=== PATIENT | female | born 1950 | race Caucasian/White ===

== ENCOUNTER 2018-01-04 09:49 | Inpatient (IN) | payer OTHER, MEDICARE ==
[2018-01-04] VITALS (7 sets, daily range): BP systolic 75–142; BP diastolic 44–73; PULSE 78–98; RESP 17–20; TEMP 97.6–97.8; O2SAT 90–99
[~2018-01-04] VITALS: Ht 165.1 cm; Wt 113.5 kg
[~2018-01-04 09:49] MED LIST: DILT60TA PO; FLUO20SO3 PO; LANTUS2P SC; LISI-360 PO; METO50TA PO; NOVOLOGSS SQ; RIVA20 PO
--- NOTE | 2018-01-04 10:52 | PD ---
HPI Chief Complaint: Fall Time Seen by Provider: 10:48 Travel History International Travel<30 days: No Contact w/Intl Traveler<30days: No Traveled to known affect area: No History of Present Illness HPI 67-year-old female came to the emergency room with history of a trip and fall [facility]. She landed on her left knee and also smacked her head. There was bleeding from her forehead. He called EMS since patient was having hard time standing up and bearing weight on her left leg because of knee pain. Patient denies losing consciousness. She is on Xarelto. Currently she is awake and answering questions appropriately. Her main pain is in her left knee. She had a knee replacement surgery done about 12 years ago on that knee. [facility] Past Medical History Narrative Medical List of her past medical, surgical, social and family history is reviewed from the nursing note. Hx Anticoagulant Therapy: Yes Arthritis: Yes Asthma: No Atrial Fibrillation: Yes Blood Disorders: Yes Anxiety: No Depression: Yes Heart Rhythm Problems: Yes Cancer: Yes (breast) Cardiovascular Problems: Yes High Cholesterol: Yes Chemotherapy: Yes Chest Pain: Yes (CHEST PRESSURE) Congestive Heart Failure: No COPD: Yes Cerebrovascular Accident: No Diabetes: Yes Patient Takes Glucophage: No Diminished Hearing: No Endocrine: Yes GERD: No Genitourinary: No Hiatal Hernia: No Hypertension: Yes Immune Disorder: No Implanted Vascular Access Dvce: Yes Kidney Stones: No Musculoskeletal: Yes Neurologic: No Psychiatric: Yes Reproductive: No Respiratory: Yes Migraines: No Radiation Therapy: Yes Renal Failure: No Seizures: No Sleep Apnea: No Ulcer: No Tetanus Vaccination: Unknown Influenza Vaccination: Yes ?: Not Menopausal: Yes Past Surgical History Abdominal Surgery: No AICD: No Arteriovenous Shunt: No Cardiac Surgery: No Ear Surgery: No Endocrine Surgery: No Eye Surgery: No (BILAT CATARACT) Genitourinary Surgery: No Gynecologic Surgery: Yes (hyster) Hysterectomy: Yes Insulin Pump: No Joint Replacement: Yes (Carlin knees) Oral Surgery: No Pacemaker: No Thoracic Surgery: No Other Surgery: Yes Social History Alcohol Use: Yes (Occ wine 2 days ago) Tobacco Use: No Substance Use: No Allergies-Medications (Allergen,Severity, Reaction): Coded Allergies: morphine (Unverified Allergy, Intermediate, fainting, 01/05/18) Comments List of her allergies reviewed from the nursing note. Reported Meds & Prescriptions Reported Meds & Active Scripts Active Xarelto 20 Mg Tab (Rivaroxaban) 20 Mg Tab 20 Mg PO DAILY 30 Days Reported Metoprolol Tartrate 50 mg (Metoprolol Tartrate) 50 Mg Tab 50 Mg PO BID Lisinopril 10 mg (Lisinopril) 10 Mg Tab 1 Tab PO DAILY Prozac (Fluoxetine HCl) 20 Mg/5 Ml Liqd 40 Mg PO DAILY Novolog Insulin Supplemental Scale (Insulin Aspart) 100 /Ml Inj 1 Unit SQ ACHS SLIDING SCALE Narrative Medication List of her home medications reviewed from the nursing note. Review of Systems Except as stated in HPI: all other systems reviewed are Neg Musculoskeletal: Positive: Pain Physical Exam Narrative GENERAL: Awake, alert, moderate distress, obese SKIN: Focused skin assessment warm/dry. HEAD: 4 cm vertical laceration that is clean edged in the center of her forehead. There is some surrounding hematoma. EYES: Pupils equal and round. No scleral icterus. No injection or drainage. ENT: No nasal bleeding or discharge. Mucous membranes pink and moist. NECK: Trachea midline. No JVD. CARDIOVASCULAR: Regular rate and rhythm. No murmur appreciated. RESPIRATORY: No accessory muscle use. Clear to auscultation. Breath sounds equal bilaterally. GASTROINTESTINAL: Abdomen soft, non-tender, nondistended. Hepatic and splenic margins not palpable. MUSCULOSKELETAL: Left knee is swollen with decreased range of motion mainly due to the pain. No clubbing. No cyanosis. No edema. NEUROLOGICAL: Awake and alert. No obvious cranial nerve deficits. Motor grossly within normal limits. Normal speech. PSYCHIATRIC: Appropriate mood and affect; insight and judgment normal. Data Data Last Documented VS Orders Orders Ct Brain W/O Iv Contrast(Rout) (01/04/18 ) Knee, Complete (4vws) (01/04/18 ) Acetamin-Hydrocod 325-5 Mg ([place] 5-325 (01/04/18 11:00) Tetanus/Diphtheria Tox Adult (Tetanus/Di (01/04/18 11:00) ^ Knee Immobilizer (01/04/18 11:56) Electrocardiogram (01/04/18 12:00) Basic Metabolic Panel (Bmp) (01/04/18 12:00) Complete Blood Count With Diff (01/04/18 12:00) Prothrombin Time / Inr (Pt) (01/04/18 12:00) Act Partial Throm Time (Ptt) (01/04/18 12:00) Chest, Single Ap (01/04/18 12:00) Ecg Monitoring (01/04/18 12:00) Bilateral Bp Monitoring (01/04/18 12:00) Iv Access Insert/Monitor (01/04/18 12:00) Oximetry (01/04/18 12:00) Oxygen Administration (01/04/18 12:00) Sodium Chloride 0.9% Flush (Ns Flush) (01/04/18 12:00) Hydromorphone Pf Inj (Dilaudid Pf Inj) (01/04/18 12:00) Ondansetron Inj (Zofran Inj) (01/04/18 12:00) Hydromorphone Pf Inj (Dilaudid Pf Inj) (01/04/18 12:15) Admit Order (Ed Use Only) (01/04/18 12:15) Labs Laboratory Tests Test 01/04/18 12:15 White Blood Count 13.8 TH/MM3 Red Blood Count 5.33 MIL/MM3 Hemoglobin 14.8 GM/DL Hematocrit 45.0 % Mean Corpuscular Volume 84.4 FL Mean Corpuscular Hemoglobin 27.8 PG Mean Corpuscular Hemoglobin Concent 33.0 % Red Cell Distribution Width 15.3 % Platelet Count 162 TH/MM3 Mean Platelet Volume 11.9 FL Neutrophils (%) (Auto) 83.9 % Lymphocytes (%) (Auto) 6.8 % Monocytes (%) (Auto) 8.5 % Eosinophils (%) (Auto) 0.3 % Basophils (%) (Auto) 0.5 % Neutrophils # (Auto) 11.6 TH/MM3 Lymphocytes # (Auto) 0.9 TH/MM3 Monocytes # (Auto) 1.2 TH/MM3 Eosinophils # (Auto) 0.0 TH/MM3 Basophils # (Auto) 0.1 TH/MM3 CBC Comment AUTO DIFF Differential Comment AUTO DIFF CONFIRMED Prothrombin Time 12.8 SEC Prothromb Time International Ratio 1.3 RATIO Activated Partial Thromboplast Time 25.7 SEC Blood Urea Nitrogen 18 MG/DL Creatinine 0.88 MG/DL Random Glucose 222 MG/DL Calcium Level 8.8 MG/DL Sodium Level 139 MEQ/L Potassium Level 3.6 MEQ/L Chloride Level 103 MEQ/L Carbon Dioxide Level 28.4 MEQ/L Anion Gap 8 MEQ/L Estimat Glomerular Filtration Rate 64 ML/MIN MDM Medical Decision Making Medical Screen Exam Complete: Yes Emergency Medical Condition: Yes Medical Record Reviewed: Yes Interpretation(s) Twelve-lead EKG was reviewed by me. Arnaud fib, normal axis. Heart rate of 96 bpm. Differential Diagnosis Intracranial bleed, knee fracture, knee effusion, facial laceration Narrative Course 12:[address] scan of the head is negative for any intracranial bleed. My PA will repair the laceration. Please refer to his notes for further detail. X- ray of the knee was suggestive of distal femur fracture. I put a call out for the orthopedist. Patient will require admission for this. Awaiting for the orthopedist to call back and the hospitalist to call back. I have informed patient regarding these test results and the need to be admitted for surgery. I 've ordered for a knee immobilizer. She told me that her pain is still there and I have ordered for IV pain medications. Patient most probably will require to be transferred to the [facility] for surgery. 12:20 PM case was discussed with Dr. Day from orthopedics wants the patient to be transferred to the [facility]. She wanted to Xarel to be held for surgery. I discussed the case with the orthopedist who has accepted the patient. Patient has been informed about this plan as well. Procedures EKG Prior to Arrival: No Physician Communication Physician Communication Dr. Day Diagnosis Primary Impression: Fall Qualified Codes: W19.XXXA - Unspecified fall, initial encounter Additional Impressions: Femoral distal fracture Qualified Codes: S72.492A - Other fracture of lower end of left femur, initial encounter for closed fracture Facial laceration Qualified Codes: S01.81XA - Laceration without foreign body of other part of head, initial encounter Head injury Qualified Codes: S09.90XA - Unspecified injury of head, initial encounter Admitting Information Admitting Physician Requests: Admit Scripts Calcium Carbonate-Vitamin D (Calcium 600+D 200) 600-200 Mg-Unit Tab 1 TAB PO BID for Nutritional Supplement for 30 Days, #60 TAB 0 Refills Prov: Italo Hughes PA/[employer] PA 01/05/18 Cholecalciferol (Vitamin D3) 2,000 Unit Cap 2000 UNITS PO DAILY for Nutritional Supplement, #60 CAP 0 Refills Prov: Italo Hughes PA/[employer] PA 01/05/18 Ergocalciferol (Ergocalciferol) 50,000 Unit Cap 48934 UNITS PO Q7D for Nutritional Supplement, #8 CAP Prov: Italo Hughes PA/[employer] PA 01/05/18 Hydrocodone-Acetaminophen (Hydrocodone-Acetaminophen) 10-325 mg Tab 1 TAB PO Q4H Y for PAIN, #60 TAB 0 Refills Prov: Italo Hughes PA/[employer] PA 01/05/18 Walker/Adult/Folding (Walker/Adult/Folding) 1 Mis Mis EA .XX DIRECTED, #1 0 Refills Prov: Italo Hughes PA/[employer] Pe Teacher PA 01/05/18 Kennedy Melchor MD Jan 04, 2018 10:51
[2018-01-04] MEDS ORDERED: TETANUS/DIPHTHERIA TOXOID ADULT 0.5 ML VIAL IM ONE (11:00)
[2018-01-04] MEDS ORDERED: ACETAMINOPHEN/HYDROcodone 325 MG/5 MG TAB PO ONE (11:00)
--- NOTE | 2018-01-04 11:46 | RADRPT ---
EXAM DATE/TIME: 01/04/2018 11:19 [facility] COMPARISON: No previous studies available for comparison. INDICATIONS : Left knee pain and swelling; fall today. MEDICAL HISTORY : None. SURGICAL HISTORY : Total knee replacement, left. ENCOUNTER: Initial ACUITY: 1 day PAIN SCORE: 10/10 LOCATION: Left knee. FINDINGS: Multiple views of the left knee were obtained and demonstrate a transverse fracture through the dista l femur just above the distal femoral prosthesis. The distal femoral fracture fragment containing the prosthesis is displaced posteriorly one shaft width with mild overriding. The femoral prosthesis and tibial prosthesis remain in normal alignment. The patella remains in normal alignment with the dista l femur, tibia and fibula. There is diffuse osteopenia. Extensive soft tissue swelling is present. Th e proximal tibia and fibula are intact. CONCLUSION: Distal femoral fracture. Deion Kim MD on January 04, 2018 at 11:41 Board Certified Radiologist. This report was verified electronically.
--- NOTE | 2018-01-04 11:49 | RADRPT ---
EXAM DATE/TIME: 01/04/2018 11:34 [facility] COMPARISON: No previous studies available for comparison. INDICATIONS : Tripped and fell today at the store. RADIATION DOSE: 62.66 CTDIvol (mGy) MEDICAL HISTORY : Chronic obstructive pulmonary disease. Hypertension. Carcinoma, breast.Diabetes. SURGICAL HISTORY : Hysterectomy. ENCOUNTER: Initial ACUITY: 1 day PAIN SCALE: 9/10 LOCATION: cranial TECHNIQUE: Multiple contiguous axial images were obtained of the head. Using automated exposure control and adj ustment of the mA and/or kV according to patient size, radiation dose was kept as low as reasonably a chievable to obtain optimal diagnostic quality images. DICOM format image data is available electro nically for review and comparison. FINDINGS: CEREBRUM: The ventricles are normal for age. No evidence of midline shift, mass lesion, hemorrhage or acute in farction. There is a small chronic appearing lacunar infarct in the anterior limb of the right inter nal capsule. There is a second small lacunar infarct in the medial left occipital lobe. No extra-axia l fluid collections are seen. POSTERIOR FOSSA: The cerebellum and brainstem are intact. The 4th ventricle is midline. The cerebellopontine angle i s unremarkable. EXTRACRANIAL: The visualized portion of the orbits is intact. SKULL: The calvaria is intact. No evidence of skull fracture. CONCLUSION: 1. No acute hemorrhage or mass effect. 2. Small chronic lacunar type infarcts. Deion Kim MD on January 04, 2018 at 11:44 Board Certified Radiologist. This report was verified electronically.
[2018-01-04] MEDS ORDERED: SODIUM CHLORIDE 0.9% FLUSH 10 ML FLUSH IVF PRN (12:00)
[2018-01-04] MEDS ORDERED: ONDANSETRON HCL 4 MG/2 ML VIAL IV PUSH ONE (12:00)
[2018-01-04] MEDS ORDERED: HYDROmorphone HCL PF 1 MG/ML VIAL IV PUSH ONE (12:00)
[2018-01-04] MEDS ORDERED: HYDROmorphone HCL PF 2 MG/ML VIAL IV PUSH ONE (12:15)
--- NOTE | 2018-01-04 12:28 | PD ---
Physical Exam Date Seen by Provider: Jan 04, 2018 Time Seen by Provider: 12:26 Narrative 67-year-old female that presents to the ED for evaluation of fall. I was asked my attending to repair laceration. Please refer to her note. Data Data Last Documented VS Vital Signs Date Time Temp Pulse Resp B/P (MAP) Pulse Ox O2 Delivery O2 Flow Rate FiO2 01/04/18 10:06 97.8 78 18 142/73 (96) [address] Brain W/O Iv Contrast(Rout) (01/04/18 ) Knee, Complete (4vws) (01/04/18 ) Acetamin-Hydrocod 325-5 Mg ([place] 5-325 (01/04/18 11:00) Tetanus/Diphtheria Tox Adult (Tetanus/Di (01/04/18 11:00) ^ Knee Immobilizer (01/04/18 11:56) Electrocardiogram (01/04/18 12:00) Basic Metabolic Panel (Bmp) (01/04/18 12:00) Complete Blood Count With Diff (01/04/18 12:00) Prothrombin Time / Inr (Pt) (01/04/18 12:00) Act Partial Throm Time (Ptt) (01/04/18 12:00) Chest, Single Ap (01/04/18 12:00) Ecg Monitoring (01/04/18 12:00) Bilateral Bp Monitoring (01/04/18 12:00) Iv Access Insert/Monitor (01/04/18 12:00) Oximetry (01/04/18 12:00) Oxygen Administration (01/04/18 12:00) Sodium Chloride 0.9% Flush (Ns Flush) (01/04/18 12:00) Hydromorphone Pf Inj (Dilaudid Pf Inj) (01/04/18 12:00) Ondansetron Inj (Zofran Inj) (01/04/18 12:00) Hydromorphone Pf Inj (Dilaudid Pf Inj) (01/04/18 12:15) Admit Order (Ed Use Only) (01/04/18 12:15) [facility] Medical Record Reviewed: Yes Supervised Visit with KASHIF: No Narrative Course 67-year-old female here for evaluation of fall. I was asked my attending to repair laceration. Please refer to her note. Patient was given option of Dermabond versus sutures and she preferred and Dermabond. She understands that risk of scarring. Procedures Procedure Narrative LACERATION LOCATION: forehead LENGTH: 4 cm NUMBER OF STITCHES/ROLY: steristrips x 3 and dermabond REPAIR: The area of the laceration was prepped with Betadine and sterilely draped. The wound was copiously irrigated and explored without evidence of foreign body, tendon injury or neurovascular injury. The wound was closed using steristrips and dermabond. This was a 1 layer repair. A sterile dressing was applied. The patient was advised to keep the dressing clean and dry. Patient tolerated the procedure well. Diagnosis Primary Impression: Fall Qualified Codes: W19.XXXA - Unspecified fall, initial encounter Additional Impressions: Facial laceration Qualified Codes: S01.81XA - Laceration without foreign body of other part of head, initial encounter Femoral distal fracture Qualified Codes: S72.492A - Other fracture of lower end of left femur, initial encounter for closed fracture Head injury Qualified Codes: S09.90XA - Unspecified injury of head, initial encounter Clifton Malagon Jan 04, 2018 12:28
[2018-01-04] MEDS ORDERED: NALOXONE HCL 0.4 MG/ML AMP IV PUSH PRN (12:30)
[2018-01-04] MEDS ORDERED: MAGNESIUM HYDROXIDE SUSP 30 ML CUP PO PRN (12:30)
[2018-01-04] MEDS ORDERED: SODIUM CHLORIDE 0.9% FLUSH 10 ML FLUSH IV FLUSH PRN (12:30)
[2018-01-04] MEDS ORDERED: MORPHINE SULFATE 2 MG/ML INJ IV PUSH PRN ×2 (12:30)
[2018-01-04] MEDS ORDERED: DEXTROSE 50% IN WATER 50 ML VIAL(D50) IV PUSH PRN (12:45)
[2018-01-04] MEDS ORDERED: GLUCAGON 1 MG/ML VIAL OTHER PRN (12:45)
[2018-01-04 12:47] LABS: AUTOMATED NEUTROPHIL # 11.6 TH/MM3 (1.8-7.7); BASOPHIL # 0.1 TH/MM3 (0-0.2); BASOPHIL % 0.5 % (0.0-2.0); EOSINOPHIL % 0.3 % (0.0-4.0); HEMOGLOBIN 14.8 GM/DL (11.6-15.3); LYMPH % 6.8 % (9.0-44.0); LYMPHOCYTE # 0.9 TH/MM3 (1.0-4.8); MEAN CELL VOLUME 84.4 FL (80.0-100.0); MEAN CORPUSCULAR HEMOGLOBIN 27.8 PG (27.0-34.0); MEAN PLATELET VOLUME 11.9 FL (7.0-11.0); MONO % 8.5 % (0.0-8.0); MONOCYTE # 1.2 TH/MM3 (0-0.9); NEUT % 83.9 % (16.0-70.0); PLATELET COUNT 162 TH/MM3 (150-450); RED BLOOD COUNT 5.33 MIL/MM3 (4.00-5.30); RED CELL DISTRIBUTION WIDTH 15.3 % (11.6-17.2); WHITE BLOOD COUNT 13.8 TH/MM3 (4.0-11.0)
[2018-01-04 13:01] LABS: BICARBONATE 28.4 MEQ/L (21.0-32.0); CALCIUM 8.8 MG/DL (8.5-10.1)
--- NOTE | 2018-01-04 13:01 | RADRPT ---
EXAM DATE/TIME: 01/04/2018 12:41 [facility] COMPARISON: CHEST SINGLE AP, June 07, 2016, 11:24. INDICATIONS : Chest discomfort; fall today. MEDICAL HISTORY : Hypertension. Chronic obstructive pulmonary disease. Carcinoma, breast. Diabetes. Afib. SURGICAL HISTORY : None. ENCOUNTER: Initial ACUITY: 1 day PAIN SCORE: 2/10 LOCATION: Bilateral chest FINDINGS: The heart is enlarged. The pulmonary vascular pattern is normal. The lungs are clear. Degenerative ch anges and scoliosis of the thoracic spine are noted. CONCLUSION: Cardiomegaly. No focal infiltrate or pulmonary vascular congestion. Degenerative changes and scoliosi s of the thoracic spine. Chris Noyola MD on January 04, 2018 at 12:59 Board Certified Radiologist. This report was verified electronically.
[2018-01-04 13:02] LABS: INTERNATIONAL NORMALIZED RATIO 1.3 RATIO; PROTHROMBIN TIME - PATIENT 12.8 SEC (9.8-11.6)
[2018-01-04 13:05] LABS: CREATININE 0.88 MG/DL (0.50-1.00)
[2018-01-04] MEDS ORDERED: HYDROmorphone HCL PF 1 MG/ML VIAL IV PUSH PRN (14:00)
[2018-01-04] MEDS: DILTIAZEM HCL 60 MG TAB PO SCH ×2 (15:03→22:14)
[2018-01-04] MEDS: SODIUM CHLOR 0.9% 1000 ML INJ 1,000 ML IV SCH (15:04)
--- NOTE | 2018-01-04 16:13 | HHI.HP ---
[facility] Primary Care Physician Briana Aviles MD Admission Diagnosis Mechanical fall, head injury, distal femur fracture Diagnoses: (1) Fall (2) Facial laceration (3) Femoral distal fracture Chief Complaint: Mechanical fall Travel History International Travel<30 Days: No Contact w/Intl Traveler <30 Da: No Traveled to Known Affected Are: No History of Present Illness This is a 67-year-old female patient with a known medical history of atrial fibrillation on Xarelto, hyperlipidemia, COPD and diabetes who presented to the ED after sustaining a mechanical fall at [facility] this morning. Patient states that she was walking into the store she tripped over a cone and landed on her left knee and hit her head. EMS was called and subsequently patient was brought to the ED. Supposedly patient was having a hard time standing up and bearing weight on her left leg with significant knee pain. She does admit to hitting her head, there is presently a mid forehead laceration that has been repaired in the ED. Denies losing any consciousness. Denies any lightheadedness, dizziness, blurry vision or diplopia. Patient is a and O 3 follows all commands. Left lower extremity with brace, denies any numbness or tingling, sensation intact. Mild edema. It should be noted that patient is on Xarelto for chronic atrial fibrillation and was last taken this morning on 01/04. Patient lives at home with her . Is independent with all activities of daily living. Denies any recent illness including fever, chills, cough, shortness of breath, headache, abdominal pain, nausea, vomiting, diarrhea dysuria. Denies any current or previous tobacco use. Family history significant for VT and breast cancer. 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 Segura was last seen 4 months ago with no changes in her medications. She did undergo a cardiac stress test roughly 1 year ago which was reportedly negative. Patient does have diabetes last known A1c is 9. Follows with Dr. Dc who manages. PCP is Dr. Soto. Review of Systems Constitutional: DENIES: Fever, Chills Eyes: DENIES: Blurred vision, Diplopia Respiratory: DENIES: Cough, Sputum production, Shortness of breath Cardiovascular: DENIES: Chest pain Gastrointestinal: DENIES: Abdominal pain, Black stools, Bloody stools, Constipation, Diarrhea, Nausea, Vomiting Musculoskeletal: DENIES: Joint pain Psychiatric: DENIES: Anxiety Except as stated in HPI: all other systems reviewed are Neg Past Family Social History Past Medical History Atrial fibrillation on Xarelto last taken 01/04/18. Arthritis Anxiety depression History of breast cancer and chemotherapy COPD Diabetes Past Surgical History Bilateral cataracts Hysterectomy Bilateral knee replacement Left breast lumpectomy Reported Medications Active Cardizem 60 mg tab (Diltiazem HCl) 60 Mg Tab 60 Mg PO Q8HR 30 Days If heart Rate less than 60 beats per minute, Do not take medication, and call MD. Xarelto 20 Mg Tab (Rivaroxaban) 20 Mg Tab 20 Mg PO DAILY 30 Days Reported Metoprolol Tartrate 50 mg (Metoprolol Tartrate) 50 Mg Tab 50 Mg PO BID Lisinopril 10 mg (Lisinopril) 10 Mg Tab 1 Tab PO DAILY Prozac (Fluoxetine HCl) 20 Mg/5 Ml Liqd 40 Mg PO DAILY Novolog Insulin Supplemental Scale (Insulin Aspart) 100 /Ml Inj 1 Unit SQ ACHS SLIDING SCALE Lantus (Insulin Glargine) 100 Units/Ml Inj 70 Unit SC HS Allergies: Coded Allergies: morphine (Unverified Allergy, Intermediate, fainting, 05/26/17) Active Ordered Medications Current Medications Medications (Trade) Dose Ordered Sig/Heriberto Route Start Time Stop Time Status Last Admin (NS Flush) 2 ml UNSCH PRN IVF 01/04/18 12:00 Sodium Chloride 1,000 ml @ 83 mls/hr Q12H3M IV 01/04/18 12:30 01/04/18 15:04 (NS Flush) 2 ml UNSCH PRN IV FLUSH 01/04/18 12:30 (NS Flush) 2 ml BID IV FLUSH 01/04/18 21:00 (Zofran Inj) 4 mg Q6H PRN IVP 01/04/18 18:00 (Narcan Inj) 0.4 mg UNSCH PRN IV PUSH 01/04/18 12:30 (Melodie-Colace) 1 tab BID PO 01/04/18 21:00 (Milk Of Magnesia Liq) 30 ml Q12H PRN PO 01/04/18 12:30 (Cardizem) 60 mg Q8HR PO 01/04/18 14:00 01/04/18 15:03 (PROzac LIQ) 40 mg DAILY PO 01/05/18 09:00 (Levemir Inj) 70 units HS SQ 01/04/18 21:00 (Prinivil) 10 mg DAILY PO 01/05/18 09:00 (Lopressor) 50 mg BID PO 01/04/18 21:00 (D50w (Vial) Inj) 50 ml UNSCH PRN IV PUSH 01/04/18 12:45 (Glucagon Inj) 1 mg UNSCH PRN OTHER 01/04/18 12:45 (NovoLOG SUPPLEMENTAL SCALE) 1 ACHS SLIDING SCALE SQ 01/04/18 17:00 (Dilaudid Pf Inj) 1 mg Q4H PRN IV PUSH 01/04/18 14:00 Family History Family history significant for breast cancer in her mother's side. Father of a heart attack at the age of 62. Social History Denies any history of or current tobacco use, denies any alcohol or illicit drug use. Physical Exam Vital Signs Vital Signs Date Time Temp Pulse Resp B/P (MAP) Pulse Ox O2 Delivery O2 Flow Rate FiO2 01/04/18 14:25 98 20 91/46 (61) 99 Nasal Cannula 2.00 01/04/18 13:01 96 20 104/54 (71) 98 Nasal Cannula 2.00 01/04/18 12:38 88 20 75/45 (55) 93 Nasal Cannula 2.00 82/55 (64) 01/04/18 12:26 88 20 101/44 (63) 90 01/04/18 12:26 90 01/04/18 10:06 97.8 78 18 142/73 (96) 93 Physical Exam GENERAL: Well-developed, obese female patient in NAD. SKIN: Warm and dry. No rash. HEAD: Normocephalic. Forehead laceration status post repair in ED. No bleeding at this time. EYES: Pupils equal and round. No scleral icterus. No injection or drainage. ENT: No nasal bleeding or discharge. Mucous membranes pink and moist. NECK: Supple. Trachea midline. CARDIOVASCULAR: Regular rate and rhythm. S1, S2 noted. No murmur appreciated. RESPIRATORY: No accessory muscle use. Diminished breath sounds due to body habitus. Breath sounds equal bilaterally. GASTROINTESTINAL: Obese abdomen soft, non-tender, nondistended. Normoactive bowel sounds x4. MUSCULOSKELETAL: No obvious deformities. Extremities without clubbing, cyanosis , or edema. Left lower extremity brace in place. NEUROLOGICAL: Awake and alert. No obvious cranial nerve deficits. Motor grossly within normal limits. 5/5 muscle strength in bilateral upper and lower extremities. Normal speech. PSYCHIATRIC: Appropriate mood and affect; insight and judgment normal. Laboratory Laboratory Tests Test 01/04/18 12:15 White Blood Count 13.8 Red Blood Count 5.33 Hemoglobin 14.8 Hematocrit 45.0 Mean Corpuscular Volume 84.4 Mean Corpuscular Hemoglobin 27.8 Mean Corpuscular Hemoglobin Concent 33.0 Red Cell Distribution Width 15.3 Platelet Count 162 Mean Platelet Volume 11.9 Neutrophils (%) (Auto) 83.9 Lymphocytes (%) (Auto) 6.8 Monocytes (%) (Auto) 8.5 Eosinophils (%) (Auto) 0.3 Basophils (%) (Auto) 0.5 Neutrophils # (Auto) 11.6 Lymphocytes # (Auto) 0.9 Monocytes # (Auto) 1.2 Eosinophils # (Auto) 0.0 Basophils # (Auto) 0.1 CBC Comment AUTO DIFF Differential Comment AUTO DIFF CONFIRMED Prothrombin Time 12.8 Prothromb Time International Ratio 1.3 Activated Partial Thromboplast Time 25.7 Blood Urea Nitrogen 18 Creatinine 0.88 Random Glucose 222 Calcium Level 8.8 Sodium Level 139 Potassium Level 3.6 Chloride Level 103 Carbon Dioxide Level 28.4 Anion Gap 8 Estimat Glomerular Filtration Rate 64 Result Diagram: 01/04/18 1215 01/04/18 1215 Septic Shock Reassessment Septic shock perfusion: reassessment completed Caprini VTE Risk Assessment Caprini VTE Risk Assessment: Mod/High Risk (score >= 2) Caprini Risk Assessment Model Point Value = 1 Point Value = 2 Point Value = 3 Point Value = 5 Age 41-60 Minor surgery BMI > 25 kg/m2 Swollen legs Varicose veins or History of unexplained or recurrent spontaneous Oral contraceptives or hormone replacement Sepsis (< 1 month) Serious lung disease, including pneumonia (< 1 month) Abnormal pulmonary function Acute myocardial infarction Congestive heart failure (< 1 month) History of inflammatory bowel disease Medical patient at bed rest Age 61-74 Arthroscopic surgery Major open surgery (> 45 min) Laparoscopic surgery (> 45 min) Malignancy Confined to bed (> 72 hours) Immobilizing plaster cast Central venous access Age >= 75 History of VTE Family history of VTE Factor V Leiden Prothrombin [id number] Lupus anticoagulant Anticardiolipin antibodies Elevated serum homocysteine Heparin-induced thrombocytopenia Other congenital or acquired thrombophilia Stroke (< 1 month) Elective arthroplasty Hip, pelvis, or leg fracture Acute spinal cord injury (< 1 month) Prophylaxis Regimen Total Risk Factor Score Risk Level Prophylaxis Regimen 0-1 Low Early ambulation 2 Moderate Order ONE of the following: *Sequential Compression Device (SCD) *Heparin 5000 units SQ BID 3-4 Higher Order ONE of the following medications: *Heparin 5000 units SQ TID *Enoxaparin/Lovenox 40 mg SQ daily (WT < 150 kg, CrCl > 30 mL/min) *Enoxaparin/Lovenox 30 mg SQ daily (WT < 150 kg, CrCl > 10-29 mL/min) *Enoxaparin/Lovenox 30 mg SQ BID (WT < 150 kg, CrCl > 30 mL/min) AND/OR *Sequential Compression Device (SCD) 5 or more Highest Order ONE of the following medications: *Heparin 5000 units SQ TID (Preferred with Epidurals) *Enoxaparin/Lovenox 40 mg SQ daily (WT < 150 kg, CrCl > 30 mL/min) *Enoxaparin/Lovenox 30 mg SQ daily (WT < 150 kg, CrCl > 10-29 mL/min) *Enoxaparin/Lovenox 30 mg SQ BID (WT < 150 kg, CrCl > 30 mL/min) AND *Sequential Compression Device (SCD) Assessment and Plan Problem List: (1) Fall ICD Code: W19.XXXA - Unspecified fall, initial encounter Status: Acute (2) Facial laceration ICD Code: S01.81XA - Laceration without foreign body of other part of head, initial encounter Status: Acute Assessment and Plan This is a 67-year-old female patient with a known medical history of atrial fibrillation on Xarelto, hyperlipidemia, COPD and diabetes who presented to the ED after sustaining a mechanical fall at [facility] this morning. Left distal femur fracture and facial laceration status post mechanical fall -Head CT reviewed showing no acute hemorrhage or mass-effect. Small chronic lacunar type infarcts. -Left knee x-ray showing distal femoral fracture. -Chest x-ray reviewed showing cardiomegaly no focal infiltrate or pulmonary vascular congestion. -Consult placed to orthopedic surgeon, appreciate input recommendations. Patient last took her Xarelto today, 01/04/18. Patient will be transferred to the main hospital to possibly undergo orthopedic surgery. -Pain control with IV Dilaudid as needed for pain scale. Zofran available as needed for nausea. -Ensure hydration, continue IV fluids. Atrial fibrillation, chronic: Currently in a controlled rate. Has been on Xarelto, last taken today. Will place on hold for possible surgery. Monitor cardiac telemetry. Hypertension, chronic: We will continue home medications. Follow BP trends. Type 2 diabetes mellitus, chronic: Accu-Chek before meals at bedtime, sliding scale, cover as needed. Closely monitor blood sugar trends. Tight control. DVT prophylaxis: SCDs. Chemical prophylaxis per orthopedic surgery recommendations. Physician Certification 2 Midnight Certification Type: Admission for Inpatient Services Order for Inpatient Services The services are ordered in accordance with Medicare regulations or non- Medicare payer requirements, as applicable. In the case of services not specified as inpatient-only, they are appropriately provided as inpatient services in accordance with the 2-midnight benchmark. Estimated LOS (days): 3 3 days is the estimated time the patient will need to remain in the hospital, assuming treatment plan goals are met and no additional complications. Post-Hospital Plan: Not yet determined Problem Qualifiers (1) Fall: Qualified Codes: W19.XXXA - Unspecified fall, initial encounter (2) Facial laceration: Qualified Codes: S01.81XA - Laceration without foreign body of other part of head, initial encounter (3) Femoral distal fracture: Qualified Codes: S72.492A - Other fracture of lower end of left femur, initial encounter for closed fracture Crystal Shore Jan 04, 2018 16:13
[2018-01-04] MEDS: HYDROmorphone HCL PF 2 MG/ML VIAL IV PUSH PRN ×2 (16:14→22:08)
[2018-01-04] MEDS ORDERED: HYDROmorphone HCL PF 2 MG/ML VIAL IV PUSH PRN (16:15)
[2018-01-04] MEDS: INSULIN ASPART SUPPLEMENTAL SCALE SQ SCH ×2 (17:00→22:15)
[2018-01-04] MEDS ORDERED: ONDANSETRON HCL 4 MG/2 ML VIAL IVP PRN (18:00)
[2018-01-04] MEDS ORDERED: POVIDONE IODINE 5% (ANTISEPSIS KIT) 4 APPLICATIONS EACH NARE PRN (18:30)
[2018-01-04] MEDS ORDERED: CHLORHEXIDINE GLUCONATE 2 % 1 PACK (2 CLOTHS) TOPICAL PRN (18:30)
[2018-01-04] MEDS ORDERED: SODIUM CHLORID 0.9% 500 ML IV PRN (18:30)
[2018-01-04] MEDS ORDERED: METOPROLOL TARTRATE 25 MG TAB PO PRN (18:30)
[2018-01-04] MEDS ORDERED: LACTATED RINGER'S 1000 ML IV PRN (18:30)
[2018-01-04] MEDS ORDERED: INSULIN DETEMIR 100 UNITS/ML VIAL SQ SCH (21:00)
[2018-01-04] MEDS: METOPROLOL TARTRATE 50 MG TAB PO SCH (22:11)
[2018-01-04] MEDS: SODIUM CHLORIDE 0.9% FLUSH 10 ML FLUSH IV FLUSH SCH (22:11)
[2018-01-04] MEDS: DOCUSATE SODIUM 50 MG/SENNA 8.6 MG TAB PO SCH (22:11)
--- NOTE | 2018-01-04 23:59 | EKG ---
Date Performed: 01/04/2018 Time Performed: 12:20:47 PTAGE: 67 years EKG: ATRIAL FIBRILLATION WITH ABERRANT CONDUCTION OR VENTRICULAR PREMATURE COMPLEXES NONSPECIFIC T-WAVE ABNORMALITY ABNORMAL RHYTHM ECG PREVIOUS TRACING : 06/07/2016 10.58 DOCTOR: Shey Brewer Interpretating Date/Time 01/04/2018 23:56:41
[2018-01-05] VITALS (7 sets, daily range): BP systolic 105–135; BP diastolic 50–70; PULSE 85–109; RESP 16–19; TEMP 97.7–99.8; O2SAT 94–97
[2018-01-05] MEDS: SODIUM CHLOR 0.9% 1000 ML INJ 1,000 ML IV SCH (00:36)
[2018-01-05] MEDS: HYDROmorphone HCL PF 2 MG/ML VIAL IV PUSH PRN ×3 (03:25→17:23)
[2018-01-05 05:56] LABS: AUTOMATED NEUTROPHIL # 7.3 TH/MM3 (1.8-7.7); BASOPHIL # 0.1 TH/MM3 (0-0.2); BASOPHIL % 0.7 % (0.0-2.0); EOSINOPHIL # 0.1 TH/MM3 (0-0.4); EOSINOPHIL % 1.1 % (0.0-4.0); HEMATOCRIT 37.2 % (35.0-46.0); HEMOGLOBIN 12.5 GM/DL (11.6-15.3); LYMPH % 12.9 % (9.0-44.0); LYMPHOCYTE # 1.4 TH/MM3 (1.0-4.8); MEAN CELL VOLUME 86.1 FL (80.0-100.0); MEAN CORPUSCULAR HEMOGLOBIN 28.8 PG (27.0-34.0); MEAN CORPUSCULAR HGB CONC 33.5 % (32.0-36.0); MONO % 17.1 % (0.0-8.0); MONOCYTE # 1.8 TH/MM3 (0-0.9); NEUT % 68.2 % (16.0-70.0); PLATELET COUNT 168 TH/MM3 (150-450); RED BLOOD COUNT 4.32 MIL/MM3 (4.00-5.30); RED CELL DISTRIBUTION WIDTH 16.3 % (11.6-17.2); WHITE BLOOD COUNT 10.8 TH/MM3 (4.0-11.0)
[2018-01-05] MEDS ORDERED: DILT60TA33 PO (05:56)
[2018-01-05] MEDS ORDERED: DILT31TA PO (05:59)
[2018-01-05] MEDS: DILTIAZEM HCL 60 MG TAB PO SCH ×2 (06:01→21:12)
[2018-01-05 06:23] LABS: ALBUMIN 2.8 GM/DL (3.4-5.0); AST (GOT) 55 U/L (15-37); BLOOD UREA NITROGEN 22 MG/DL (7-18); CALCIUM 8.3 MG/DL (8.5-10.1); CHLORIDE 104 MEQ/L (98-107); CREATININE 1.02 MG/DL (0.50-1.00); GLOMERULAR FILTRATION RATE 54 ML/MIN (>89); GLUCOSE,RANDOM 196 MG/DL (74-106); SODIUM (NA) 139 MEQ/L (136-145)
[2018-01-05 06:24] LABS: ALT (GPT) 31 U/L (10-53)
[2018-01-05 06:26] LABS: ALKALINE PHOSPHATASE 85 U/L (45-117); TOTAL BILIRUBIN ADULT 0.9 MG/DL (0.2-1.0); TOTAL PROTEIN 6.2 GM/DL (6.4-8.2)
--- NOTE | 2018-01-05 07:07 | MB ---
cc: Guido Yan MD DATE: 01/05/2018 REASON FOR CONSULTATION: Left distal femur fracture. CONSULTING PHYSICIAN: José Miguel Forman MD HISTORY OF PRESENT ILLNESS: Ramandeep is a 67-year-old female who has a history of atrial fibrillation, high cholesterol, COPD and diabetes. She was walking in the [facility] when she tripped and fell. She landed on her left leg. She also hit her head. She presented to the Emergency Room where x-rays revealed a displaced left distal femur periprosthetic fracture. She is currently awake and alert on the orthopedic floor. She complains of left leg pain. She has some soreness and mild pain around her face as well. Pain is worse with movement and is improved with rest. She states that her diabetes is not well controlled. Her last known hemoglobin A1c was 9. PAST MEDICAL HISTORY: Illnesses: Atrial fibrillation, arthritis, anxiety, depression, COPD, diabetes. PAST SURGICAL HISTORY: Bilateral cataract surgery, hysterectomy, bilateral knee replacements, left breast lumpectomy. MEDICATIONS: Include: Cardizem, Xarelto, metoprolol, lisinopril, Prozac, NovoLog, and Lantus insulin. ALLERGIES: MORPHINE. FAMILY HISTORY: Positive for breast cancer on her mother's side of the family. Her father had a myocardial infarction. SOCIAL HISTORY: The patient denies alcohol, tobacco or drug use. REVIEW OF SYSTEMS: The patient denies headache, visual changes, neck pain, chest pain, shortness of breath, abdominal pain, nausea, vomiting, recent weight loss, fever, chills, numbness or tingling of extremities, bowel or bladder incontinence. She complains of left knee pain. The pain is worse with movement. LABORATORY DATA: Patient has a white blood cell count of 10.8, hematocrit of 37.2, and platelet count of 168. INR is 1.3. BUN is 22 and creatinine is 1.02. PHYSICAL EXAM: GENERAL: The patient is a pleasant 67-year-old female. She is awake and alert. She is moderately overweight. She is in no acute distress. VITAL SIGNS: Temperature 99.8, pulse 88, respirations 16, blood pressure 105/50, O2 saturation 94% on 2 liters nasal cannula. HEAD: The patient has some bruising and swelling around her orbit. Pupils are equal. NECK: Soft and nontender. Trachea is midline. ABDOMEN: Soft, nontender, nondistended. EXTREMITIES: Examination of bilateral upper extremities reveals no significant pain with shoulder, elbow or wrist motion bilaterally. She has intact sensation in all fingers. Radial pulses are palpable. Skin is intact. Examination of the left leg reveals no tenderness around her hip or ankle. She is tender to palpation around the knee. There is mild swelling present around the knee. Skin is intact. She has pain with any knee motion. Calf and thigh compartments are soft. Sensation is grossly intact in the left leg. Examination of right leg reveals no pain with hip, knee or ankle motion. Skin is intact. Dorsalis pedis pulses palpable. Sensation is intact. X-RAYS: X-rays of the left knee were reviewed. X-rays reveal a displaced left distal femur periprosthetic fracture. There is a total knee replacement in place. Components appear to be well aligned. IMPRESSION: 1. Diabetes. 2. Hypertension. 3. Obesity. 4. Osteoporosis. 5. Displaced left distal femur fracture. PLAN: Treatment options were discussed with the patient. At this point, I would recommend open reduction internal fixation of left distal femur. The risks of surgery include bleeding, infection, injuries to arteries, nerves and blood vessels, nonunion, malunion, infection, knee stiffness, loss of motion, as well as medical complications including blood clot, stroke, heart attack and . All questions were answered. I will plan on surgery today. I also discussed with her the need to control her diabetes better. She has an increased risk of infection with poorly controlled diabetes. A mid-level provider in my office, nurse practitioner or PA, may see this patient on a follow-up basis and continue to implement the objective of this plan including: Starting or adjusting medications, injections of muscle, tendon, bursa or joints, cast application, orthotic or brace application, physical therapy, further radiographic studies including x-ray, MRI, CT, ultrasounds or bone scan, vascular studies, neurologic studies, or other specialist consultations, and proceeding with surgical management as appropriate. Guido Yan MD LITTLE/DL , 06:46 AM , 07:06 AM
--- NOTE | 2018-01-05 07:43 | HHI.PR ---
Subjective Remarks Was seen later after surgery No n/v/d/c. Wants to eat. Feels tired. No fever or chills. Cough nonproductive. Pain is fairly controlled by medications Objective Vitals Vital Signs Date Time Temp Pulse Resp B/P (MAP) Pulse Ox O2 Delivery O2 Flow Rate FiO2 01/05/18 07:02 Room Air 01/05/18 04:41 99.8 88 16 105/50 (68) 94 01/05/18 00:12 99.1 85 17 113/63 (80) 95 01/04/18 20:00 97.6 84 18 126/54 (78) 96 01/04/18 17:05 97.6 86 17 111/66 (81) 97 01/04/18 16:24 01/04/18 14:25 98 20 91/46 (61) 99 Nasal Cannula 2.00 01/04/18 13:01 96 20 104/54 (71) 98 Nasal Cannula 2.00 01/04/18 12:38 88 20 75/45 (55) 93 Nasal Cannula 2.00 82/55 (64) 01/04/18 12:26 88 20 101/44 (63) 90 01/04/18 12:26 90 01/04/18 10:06 97.8 78 18 142/73 (96) 93 I/O 01/04/18 01/04/18 01/04/18 01/05/18 01/05/18 01/05/18 07:00 15:00 23:00 07:00 15:00 23:00 Intake Total 980 ml Output Total 900 ml Balance 80 ml Intake Oral 0 ml IV Total 980 ml Output Urine Total 900 ml # Bowel Movements 0 Result Diagram: 01/05/18 0411 01/05/18 0411 Imaging Last Impressions Chest X-Ray 01/04/18 1200 Signed Impressions: Service Date/Time: Thursday, January 04, 2018 12:41 - CONCLUSION: Cardiomegaly. No focal infiltrate or pulmonary vascular congestion. Degenerative changes and scoliosis of the thoracic spine. Chris Noyola MD Knee X-Ray 01/04/18 0000 Signed Impressions: Service Date/Time: Thursday, January 04, 2018 11:19 - CONCLUSION: Distal femoral fracture. Deion Kim MD Head CT 01/04/18 0000 Signed Impressions: Service Date/Time: Thursday, January 04, 2018 11:34 - CONCLUSION: 1. No acute hemorrhage or mass effect. 2. Small chronic lacunar type infarcts. Deion Kim MD Objective Remarks GENERAL: Well-developed, obese female patient in NAD. SKIN: Warm and dry. No rash. HEAD: Normocephalic. Forehead laceration status post repair in ED. No bleeding at this time. CARDIOVASCULAR: Regular rate and rhythm. S1, S2 noted. No murmur appreciated. RESPIRATORY: No accessory muscle use. Diminished breath sounds due to body habitus. Breath sounds equal bilaterally. GASTROINTESTINAL: Obese abdomen soft, non-tender, nondistended. Normoactive bowel sounds x4. MUSCULOSKELETAL: No obvious deformities. Extremities without clubbing, cyanosis , or edema. Left lower extremity brace in place. NEUROLOGICAL: Awake and alert. No obvious cranial nerve deficits. Motor grossly within normal limits. 5/5 muscle strength in bilateral upper and lower extremities. Normal speech. PSYCHIATRIC: Appropriate mood and affect; insight and judgment normal. Procedures Displaced left distal femur periprosthetic fracture s/p ORIF left distal femur on 01/05/[address] Yan A/P Problem List: (1) Fall ICD Code: W19.XXXA - Unspecified fall, initial encounter Status: Acute (2) Facial laceration ICD Code: S01.81XA - Laceration without foreign body of other part of head, initial encounter Status: Acute Assessment and Plan This is a 67-year-old female patient with a known medical history of atrial fibrillation on Xarelto, hyperlipidemia, COPD and diabetes who presented to the ED after sustaining a mechanical fall at [facility] Left distal femur fracture and facial laceration status post mechanical fall Displaced left distal femur periprosthetic fracture s/p ORIF left distal femur on 01/05/[address] reviewed showing no acute hemorrhage or mass-effect. Small chronic lacunar type infarcts. Left knee x-ray showing distal femoral fracture. Chest x-ray reviewed showing cardiomegaly no focal infiltrate or pulmonary vascular congestion. Consult placed to orthopedic surgeon, appreciate input recommendations. Patient last took her Xarelto 01/04/18. Plan for orthopedic surgery. Pain control with IV Dilaudid as needed for pain scale. Zofran available as needed for nausea. Ensure hydration, continue IV fluids. Add incentive spirometry Atrial fibrillation, chronic: Currently in a controlled rate. Has been on Xarelto, last taken today. Will place on hold for possible surgery. Monitor cardiac telemetry. Hypertension, chronic: We will continue home medications. Follow BP trends. Type 2 diabetes mellitus, chronic: Accu-Chek before meals at bedtime, sliding scale, cover as needed. Closely monitor blood sugar trends. Tight control. DVT prophylaxis: SCDs. Chemical prophylaxis per orthopedic surgery recommendations. Discussed with the patient, nurse NOEMI mayte : pending improvement and clearance by ortho. S/p ORIF left distal femur on 01/05/[address] Yan Problem Qualifiers (1) Fall: Qualified Codes: W19.XXXA - Unspecified fall, initial encounter (2) Facial laceration: Qualified Codes: S01.81XA - Laceration without foreign body of other part of head, initial encounter Monica Hill MD Jan 05, 2018 07:43
[2018-01-05] MEDS: FLUoxetine HCL LIQUID 20 MG/5 ML CUP PO SCH (08:07)
[2018-01-05] MEDS: DOCUSATE SODIUM 50 MG/SENNA 8.6 MG TAB PO SCH ×2 (08:07→21:12)
[2018-01-05] MEDS: LISINOPRIL 10 MG TAB PO SCH (08:07)
[2018-01-05] MEDS: SODIUM CHLORIDE 0.9% FLUSH 10 ML FLUSH IV FLUSH SCH ×2 (08:09→21:13)
[2018-01-05] MEDS: METOPROLOL TARTRATE 50 MG TAB PO SCH ×2 (08:12→21:12)
[2018-01-05] MEDS: INSULIN ASPART SUPPLEMENTAL SCALE SQ SCH ×3 (08:43→21:23)
[2018-01-05] MEDS ORDERED: LIDOCAINE HCL 1% PF 5 ML SYRINGE OTHER ONE (12:00)
[2018-01-05] MEDS ORDERED: ROCURONIUM INJ 50 MG/5 ML SYRINGE IV PUSH ONE (12:00)
[2018-01-05] MEDS ORDERED: PROPOFOL 200 MG/20 ML AMP IV ONE (12:00)
[2018-01-05] MEDS ORDERED: PHENYLEPH/NS 1000 MCG/10 ML SYR IV ONE (12:00)
[2018-01-05] MEDS ORDERED: DEXAMETHASONE SOD PHOS 4 MG/ML VIAL IV ONE (12:00)
[2018-01-05] MEDS ORDERED: NEOSTIGMINE 5 MG/5 ML SYRINGE IV PUSH ONE (12:00)
[2018-01-05] MEDS ORDERED: ONDANSETRON HCL 4 MG/2 ML VIAL IV ONE (12:00)
[2018-01-05] MEDS ORDERED: LACTATED RINGER'S 1000 ML INJ 1,000 ML IV ONE (12:00)
[2018-01-05] MEDS ORDERED: GLYCOPYRROLATE 1 MG/5 ML SYRINGE IV PUSH ONE (12:00)
[2018-01-05] MEDS ORDERED: VANCOMYCIN HCL 1000 MG VIAL ONE (12:37)
[2018-01-05] MEDS ORDERED: ceFAZolin 2 GM PREMIX 50 ML ONE (12:37)
[2018-01-05] MEDS ORDERED: SODIUM CHLOR 0.9% 250 ML INJ 250 ML ONE (12:38)
[2018-01-05] MEDS ORDERED: ACETAMINOPHEN 1000 MG/100 ML 100 ML IV ONE (12:38)
--- NOTE | 2018-01-05 12:46 | PD.ORT.PN ---
Subjective Subjective Remarks s/p fall with left distal femur fx pain in left leg. no other complaints Objective Vitals Vital Signs Date Time Temp Pulse Resp B/P (MAP) Pulse Ox O2 Delivery O2 Flow Rate FiO2 01/05/18 08:00 99.1 99 18 108/56 (73) 95 01/05/18 07:02 Room Air 01/05/18 04:41 99.8 88 16 105/50 (68) 94 01/05/18 00:12 99.1 85 17 113/63 (80) 95 01/04/18 20:00 97.6 84 18 126/54 (78) 96 01/04/18 17:05 97.6 86 17 111/66 (81) 97 01/04/18 16:24 01/04/18 14:25 98 20 91/46 (61) 99 Nasal Cannula 2.00 01/04/18 13:01 96 20 104/54 (71) 98 Nasal Cannula 2.00 I/O 01/04/18 01/04/18 01/04/18 01/05/18 01/05/18 01/05/18 07:00 15:00 23:00 07:00 15:00 23:00 Intake Total 980 ml Output Total 900 ml Balance 80 ml Intake Oral 0 ml IV Total 980 ml Output Urine Total 900 ml # Bowel Movements 0 Result Diagram: 01/05/1841001/05/18410 Objective Remarks LLE: +CKS. +bucks traction. nvi distally with good extenion of toes and ankle Assessment & Plan Assessment and Plan 1) Left Periprosthetic Distal Femur Fx -consents -surgery today with Italo Shankar/[employer] PA Jan 05, 2018 12:46
[2018-01-05] MEDS ORDERED: VITA2000 PO (12:48)
[2018-01-05] MEDS ORDERED: HYDR-3583 PO (12:48)
[2018-01-05] MEDS ORDERED: WALKER/ADULT/FO1 MIS (12:48)
[2018-01-05] MEDS ORDERED: CALCTAB19 PO (12:48)
[2018-01-05] MEDS ORDERED: VITA500012 PO (12:48)
[2018-01-05] MEDS ORDERED: GENTAMICIN SULFATE 80 MG/2 ML VIAL ONE (12:55)
--- NOTE | 2018-01-05 14:27 | PD.OP ---
cc: Guido Sarabia MD Operative Report Date of Surgery: Jan 05, 2018 Preoperative Diagnosis: Displaced left distal femur periprosthetic fracture Postoperative Diagnosis: Procedure: ORIF left distal femur Anesthesia: Gen. Surgeon: Guido Sarabia Workers Compensation Claims Supervisor(s): Moiz Dyer PA-C The surgical procedure was assisted by my physician assistant construction superintendent. My P.A. presence was necessary throughout this case for the manipulation and positioning of the surgical extremity. My P.A. was assisting me throughout the duration of this procedure. The skill set of a physician assistant construction superintendent was medically necessary to complete this procedure. During the surgical case the surgical instrument mechanic was working at the back table and the physician assistant construction superintendent was directly assisting me. Operation and Findings: Implants used: ITS Plan of activity: Nonweightbearing left leg Patient was seen and evaluated preoperatively. She was found to have a displaced left distal femur fracture from a fall. The risk and benefits of surgery were discussed in depth with patient and all questions were answered. Informed consent was obtained and operative site was marked. Patient was brought to the OR, placed on OR table, and given IV sedation with GETA. IV antibiotics were administered and timeout procedure was performed. The operative leg was prepped with alcohol, followed with Hibiclens, draped in usual sterile fashion. A timeout procedure was performed. The procedure began with a 4-inch incision over the lateral aspect of the distal femur. Subcutaneous tissue was dissected with Bovie. Iliotibial band was split in line with fibers. At this point the fracture was visualized. Traction was applied. Fracture was manipulated. The fracture reduced into excellent alignment. Steinmann pins were used to hold provisional fixation. At this point attention was turned to plate placement. An ITS lateral condylar plate was selected. The plate was placed underneath the vastus lateralis. Steinmann pins were used to hold the plate to bone. Multiplanar fluoroscopy confirmed appropriate placement of plate. Care was taken to maintain appropriate alignment of the left knee. Multiple 4.5 cortical screws were now placed in percutaneous fashion through the plate. The plate was compressed to bone. Multiple locking screws were now placed in the distal segment of the distal femur. Additional locking screws were placed into the femoral shaft. All screws were predrilled and premeasured for appropriate length. Final fluoroscopy revealed excellent alignment of fracture with well-placed hardware. Wound was thoroughly irrigated. Fascia was closed with #1 Vicryl. Subcutaneous tissue was closed with 3-0 Vicryl. Skin was closed with ailyn. Sterile dressings were applied. The patient was placed into a knee immobilizer and transferred to recovery in stable condition. Needle and sponge counts were correct. Guido Sarabia MD Jan 05, 2018 14:27
[2018-01-05] MEDS ORDERED: MISCELLANEOUS NURSING INFORMATION XX PRN (14:30)
[2018-01-05] MEDS ORDERED: DEXTROSE 50% IN WATER 50 ML VIAL(D50) IV PUSH PRN (14:30)
[2018-01-05] MEDS ORDERED: GLUCAGON 1 MG/ML VIAL OTHER PRN (14:30)
[2018-01-05] MEDS ORDERED: Post-op Orders (for Pharmacy) XX ONE (14:30)
[2018-01-05] MEDS ORDERED: DO NOT ADM ANY ANTICOAGULANT DRUGS PRN (14:52)
[2018-01-05] MEDS ORDERED: diphenhydrAMINE HCL 25 MG CAP PO PRN (15:00)
[2018-01-05] MEDS: LACTATED RINGER'S 1000 ML INJ 1,000 ML IV SCH (15:00)
[2018-01-05] MEDS ORDERED: TRANEXAMIC ACID INJ 1,135 MG in SODIUM CHLORIDE 0.9% INJ 100 ML IV SCH (15:00)
--- NOTE | 2018-01-05 15:14 | RADRPT ---
EXAM DATE/TIME: 01/05/2018 14:12 [place] COMPARISON: No previous studies available for comparison. INDICATIONS : Open reduction internal fixation left distal femur. MEDICAL HISTORY : None. SURGICAL HISTORY : None. ENCOUNTER: Initial ACUITY: 1 day PAIN SCORE: Non-responsive. LOCATION: Left Knee FINDINGS: Two view examination of the left knee demonstrates plate and screw fixation of the distal left femur. Previous total knee replacement. No complications identified. CONCLUSION: 1. Fixation left femur. Postoperative knee replacement. Rudy Tamez MD on January 05, 2018 at 15:11 Board Certified Radiologist. This report was verified electronically.
[2018-01-05] MEDS ORDERED: ERGOCALCIFEROL (VIT D2) 50,000 UNIT CAP PO SCH (16:00)
[2018-01-05] MEDS: CALCIUM/VITAMIN D 250 MG/125 U TAB PO SCH (17:23)
[2018-01-05] MEDS: ACETAMINOPHEN/HYDROcodone 325 MG/10 MG TAB PO PRN (21:11)
[2018-01-06] MEDS: SODIUM CHLOR 0.9% 1000 ML INJ 1,000 ML IV SCH ×2 (00:39→11:35)
[2018-01-06] MEDS: ACETAMINOPHEN/HYDROcodone 325 MG/10 MG TAB PO PRN ×7 (02:00→21:23)
[2018-01-06] MEDS: LACTATED RINGER'S 1000 ML INJ 1,000 ML IV SCH ×2 (03:30→16:00)
[2018-01-06 04:05] VITALS: BP 123/63; PULSE 81; RESP 18; TEMP 98.2; O2SAT 96
--- NOTE | 2018-01-06 07:09 | PD.ORT.PN ---
Subjective Subjective Remarks POD 1 s/p ORIF left periprosthetic distal femur fx Doing well. Resting comfortably. No complaints. pain control. Has not been out of bed yet. Objective Vitals Vital Signs Date Time Temp Pulse Resp B/P (MAP) Pulse Ox O2 Delivery O2 Flow Rate FiO2 01/06/18 04:05 98.2 81 18 123/63 (83) 96 01/05/18 22:50 99.0 109 19 135/70 (91) 95 01/05/18 21:25 Room Air 01/05/18 20:57 96 01/05/18 17:07 97 Nasal Cannula 2.00 01/05/18 16:48 Nasal Cannula 2.00 01/05/18 16:45 97.7 85 18 128/70 (89) 96 01/05/18 16:25 114/64 (81) Nasal Cannula 3 01/05/18 16:15 98.0 104 17 113/54 (73) 97 Nasal Cannula 3 01/05/18 16:12 Nasal Cannula 3 01/05/18 16:00 93 16 102/60 (74) 96 Nasal Cannula 3 01/05/18 15:45 96 17 130/58 (82) 96 Nasal Cannula 3 01/05/18 15:35 98 15 128/57 (80) 95 Nasal Cannula 3 01/05/18 15:30 97 15 79/41 (54) 95 Nasal Cannula 3 01/05/18 15:15 84 15 95/57 (70) 95 Simple Mask 6 01/05/18 15:00 97 15 95 Simple Mask 6 01/05/18 14:54 97.8 105 17 132/99 (110) 95 Simple Mask 6 01/05/18 08:00 99.1 99 18 108/56 (73) 95 I/O 01/05/18 01/05/18 01/05/18 01/06/18 01/06/18 01/06/18 07:00 15:00 23:00 07:00 15:00 23:00 Intake Total 980 ml 1200 ml 500 ml 480 ml Output Total 900 ml 650 ml 500 ml 850 ml Balance 80 ml 550 ml 0 ml -370 ml Intake Oral 0 ml 480 ml IV Total 980 ml 500 ml Other 1200 ml Output Urine Total 900 ml 450 ml 500 ml 850 ml Estimated Blood Loss 200 ml # Bowel Movements 0 0 Result Diagram: 01/05/18 0411 01/05/18 041 Objective Remarks LLE: +CKS. nvi distally with good extenion of toes and ankle. Dressings clean and dry. Intact. Assessment & Plan Assessment and Plan 1) Left Periprosthetic Distal Femur Fx s/p ORIF - POD 1 -NWB -Knee brace except for therapy. -PROM 0-90 -no leg lifts, quad sets, strengthening, AROM -CM for rehab placement -DVT porphylaxis -f/u with Yan or PA in 2 weeks -daily dressing changes POD 2 Italo Hughes/Workday Director PA Jan 06, 2018 07:09
[2018-01-06 08:00] VITALS: BP 120/59; PULSE 89; RESP 18; TEMP 98.1; O2SAT 93
[2018-01-06] MEDS: DILTIAZEM HCL 60 MG TAB PO SCH ×2 (08:18→21:24)
[2018-01-06] MEDS: CALCIUM/VITAMIN D 250 MG/125 U TAB PO SCH ×3 (08:18→17:17)
[2018-01-06] MEDS: CHOLECALCIFEROL (VIT D3) 1000 UNIT TAB PO SCH (08:18)
[2018-01-06] MEDS: DOCUSATE SODIUM 50 MG/SENNA 8.6 MG TAB PO SCH ×2 (08:18→21:24)
[2018-01-06] MEDS: METOPROLOL TARTRATE 50 MG TAB PO SCH ×2 (08:18→21:24)
[2018-01-06] MEDS: FLUoxetine HCL LIQUID 20 MG/5 ML CUP PO SCH (08:18)
[2018-01-06] MEDS: INSULIN ASPART SUPPLEMENTAL SCALE SQ SCH ×4 (08:19→21:27)
[2018-01-06] MEDS: SODIUM CHLORIDE 0.9% FLUSH 10 ML FLUSH IV FLUSH SCH ×2 (08:26→21:28)
[2018-01-06] MEDS: LISINOPRIL 10 MG TAB PO SCH (08:27)
[2018-01-06 11:18] LABS: HEMATOCRIT 35.3 % (35.0-46.0); HEMOGLOBIN 11.6 GM/DL (11.6-15.3)
[2018-01-06] MEDS: VANCOMYCIN INJ 1,000 MG in SODIUM CHLOR 0.9% 250 ML INJ 250 ML IV SCH (11:27)
[2018-01-06 12:00] VITALS: BP 114/55; PULSE 81; RESP 18; TEMP 98.1; O2SAT 94
[2018-01-06] MEDS: RIVAROXABAN 10 MG TAB PO SCH (13:48)
[2018-01-06 16:00] VITALS: BP 119/55; PULSE 93; RESP 18; TEMP 98.1; O2SAT 94
[2018-01-06 20:00] VITALS: BP 127/75; PULSE 86; RESP 17; TEMP 97.8; O2SAT 97
--- NOTE | 2018-01-06 20:13 | HHI.PR ---
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 No n/v/d/c. Denies chest pain or sob. Pain is fairly controlled by meds. Objective Vitals Vital Signs Date Time Temp Pulse Resp B/P (MAP) Pulse Ox O2 Delivery O2 Flow Rate FiO2 01/06/18 16:00 98.1 93 18 119/55 (76) 94 01/06/18 15:42 18 01/06/18 12:00 98.1 81 18 114/55 (74) 94 01/06/18 08:00 98.1 89 18 120/59 (79) 93 01/06/18 04:05 98.2 81 18 123/63 (83) 96 01/05/18 22:50 99.0 109 19 135/70 (91) 95 01/05/18 21:25 Room Air 01/05/18 20:57 96 I/O 01/05/18 01/05/18 01/05/18 01/06/18 01/06/18 01/06/18 07:00 15:00 23:00 07:00 15:00 23:00 Intake Total 980 ml 1200 ml 500 ml 480 ml 480 ml Output Total 900 ml 650 ml 500 ml 850 ml 1100 ml Balance 80 ml 550 ml 0 ml -370 ml -620 ml Intake Oral 0 ml 480 ml 480 ml IV Total 980 ml 500 ml Other 1200 ml Output Urine Total 900 ml 450 ml 500 ml 850 ml 1100 ml Estimated Blood Loss 200 ml # Bowel Movements 0 0 0 Result Diagram: 01/06/18 0935 01/05/18 0411 Imaging Last Impressions Knee X-Ray 01/05/18 0000 Signed Impressions: Service Date/Time: Friday, January 05, 2018 14:12 - CONCLUSION: 1. Fixation left femur. Postoperative knee replacement. Rudy Tamez MD Chest X-Ray 01/04/18 1200 Signed Impressions: Service Date/Time: Thursday, January 04, 2018 12:41 - CONCLUSION: Cardiomegaly. No focal infiltrate or pulmonary vascular congestion. Degenerative changes and scoliosis of the thoracic spine. Chris Noyola MD Head CT 01/04/18 0000 Signed Impressions: Service Date/Time: Thursday, January 04, 2018 11:34 - CONCLUSION: 1. No acute hemorrhage or mass effect. 2. Small chronic lacunar type infarcts. Deion Kim MD Objective Remarks GENERAL: Well-developed, obese female patient in NAD. SKIN: Warm and dry. No rash. HEAD: Normocephalic. Forehead laceration status post repair in ED. No bleeding at this time. CARDIOVASCULAR: Regular rate and rhythm. S1, S2 noted. No murmur appreciated. RESPIRATORY: No accessory muscle use. Diminished breath sounds due to body habitus. Breath sounds equal bilaterally. GASTROINTESTINAL: Obese abdomen soft, non-tender, nondistended. Normoactive bowel sounds x4. MUSCULOSKELETAL: No obvious deformities. Extremities without clubbing, cyanosis , or edema. Left lower extremity brace in place. NEUROLOGICAL: Awake and alert. No obvious cranial nerve deficits. Motor grossly within normal limits. 5/5 muscle strength in bilateral upper and lower extremities. Normal speech. PSYCHIATRIC: Appropriate mood and affect; insight and judgment normal. Procedures Displaced left distal femur periprosthetic fracture s/p ORIF left distal femur on 01/05/[address] Yan A/P Problem List: (1) Fall ICD Code: W19.XXXA - Unspecified fall, initial encounter Status: Acute (2) Facial laceration ICD Code: S01.81XA - Laceration without foreign body of other part of head, initial encounter Status: Acute Assessment and Plan This is a 67-year-old female patient with a known medical history of atrial fibrillation on Xarelto, hyperlipidemia, COPD and diabetes who presented to the ED after sustaining a mechanical fall at [facility] Left distal femur fracture and facial laceration status post mechanical fall Displaced left distal femur periprosthetic fracture s/p ORIF left distal femur on 01/05/[address] reviewed showing no acute hemorrhage or mass-effect. Small chronic lacunar type infarcts. Left knee x-ray showing distal femoral fracture. Chest x-ray reviewed showing cardiomegaly no focal infiltrate or pulmonary vascular congestion. Consult placed to orthopedic surgeon, appreciate input recommendations. Patient last took her Xarelto 01/04/18. Plan for orthopedic surgery. Pain control with IV Dilaudid as needed for pain scale. Zofran available as needed for nausea. Ensure hydration, continue IV fluids. Add incentive spirometry Atrial fibrillation, chronic: Currently in a controlled rate. Has been on Xarelto, last taken today. Will place on hold for possible surgery. Monitor cardiac telemetry. Hypertension, chronic: We will continue home medications. Follow BP trends. Type 2 diabetes mellitus, chronic: Accu-Chek before meals at bedtime, sliding scale, cover as needed. Closely monitor blood sugar trends. Tight control. DVT prophylaxis: SCDs. Chemical prophylaxis per orthopedic surgery recommendations. Discussed with the patient, nurse DC plan: pending improvement and clearance by ortho. S/p ORIF left distal femur on 01/05/[address] Yan. Poss DC tomorrow Problem Qualifiers (1) Fall: Qualified Codes: W19.XXXA - Unspecified fall, initial encounter (2) Facial laceration: Qualified Codes: S01.81XA - Laceration without foreign body of other part of head, initial encounter Monica Hill MD Jan 06, 2018 20:13
[2018-01-06 23:08] VITALS: BP 114/58; PULSE 91; RESP 19; TEMP 98.5; O2SAT 92
[2018-01-07] MEDS: ACETAMINOPHEN/HYDROcodone 325 MG/10 MG TAB PO PRN ×6 (00:26→17:21)
[2018-01-07] MEDS: SODIUM CHLOR 0.9% 1000 ML INJ 1,000 ML IV SCH ×2 (00:45→12:17)
[2018-01-07] MEDS: LACTATED RINGER'S 1000 ML INJ 1,000 ML IV SCH (03:41)
[2018-01-07] MEDS ORDERED: BACITRACIN TOP OINT 15 GM TUBE TOPICAL PRN (03:45)
--- NOTE | 2018-01-07 06:25 | PD.ORT.PN ---
Subjective Subjective Remarks Resting comfortably with no new complaints Objective Vitals Vital Signs Date Time Temp Pulse Resp B/P (MAP) Pulse Ox O2 Delivery O2 Flow Rate FiO2 01/06/18 23:08 98.5 91 19 114/58 (76) 92 01/06/18 21:42 Room Air 01/06/18 20:00 97.8 86 17 127/75 (92) 97 01/06/18 16:00 98.1 93 18 119/55 (76) 94 01/06/18 15:42 18 01/06/18 12:00 98.1 81 18 114/55 (74) 94 01/06/18 08:00 98.1 89 18 120/59 (79) 93 I/O 01/06/18 01/06/18 01/06/18 01/07/18 01/07/18 01/07/18 07:00 15:00 23:00 07:00 15:00 23:00 Intake Total 480 ml 480 ml Output Total 850 ml 1100 ml 750 ml Balance -370 ml -620 ml -750 ml Intake Oral 480 ml 480 ml Output Urine Total 850 ml 1100 ml 750 ml # Bowel Movements 0 0 Result Diagram: 01/06/18 0935 01/05/18 0411 Imaging Last 72 hours Impressions Knee X-Ray 01/05/18 0000 Signed Impressions: Service Date/Time: Friday, January 05, 2018 14:12 - CONCLUSION: 1. Fixation left femur. Postoperative knee replacement. Rudy Tamez MD Chest X-Ray 01/04/18 1200 Signed Impressions: Service Date/Time: Thursday, January 04, 2018 12:41 - CONCLUSION: Cardiomegaly. No focal infiltrate or pulmonary vascular congestion. Degenerative changes and scoliosis of the thoracic spine. Chris Noyola MD Objective Remarks LLE: +CKS. nvi distally with good extension of toes and ankle. Dressings clean and dry. Intact. Assessment & Plan Assessment and Plan 1) Left Periprosthetic Distal Femur Fx s/p ORIF - POD 2 -NWB -Knee brace except for therapy. -PROM 0-90 -no leg lifts, quad sets, strengthening or AROM -CM for rehab placement -DVT porphylaxis -f/u with Farrah or KATHERINE in 2 weeks -daily dressing changes POD 2 Deion Dyer Jr. Jan 07, 2018 06:25
[2018-01-07] MEDS ORDERED: LACTULOSE SYRUP 20 GM/30 ML CUP PO ONE (07:30)
[2018-01-07 08:00] VITALS: BP 107/53; PULSE 82; RESP 18; TEMP 97.1; O2SAT 92
[2018-01-07] MEDS: SODIUM CHLORIDE 0.9% FLUSH 10 ML FLUSH IV FLUSH SCH (09:00)
[2018-01-07] MEDS: LISINOPRIL 10 MG TAB PO SCH (09:00)
[2018-01-07] MEDS: DILTIAZEM HCL 60 MG TAB PO SCH (09:01)
[2018-01-07] MEDS: CALCIUM/VITAMIN D 250 MG/125 U TAB PO SCH ×2 (09:01→12:08)
[2018-01-07] MEDS: FLUoxetine HCL LIQUID 20 MG/5 ML CUP PO SCH (09:01)
[2018-01-07] MEDS: CHOLECALCIFEROL (VIT D3) 1000 UNIT TAB PO SCH (09:02)
[2018-01-07] MEDS: INSULIN ASPART SUPPLEMENTAL SCALE SQ SCH ×2 (09:03→12:09)
[2018-01-07] MEDS: DOCUSATE SODIUM 50 MG/SENNA 8.6 MG TAB PO SCH (09:03)
[2018-01-07] MEDS: METOPROLOL TARTRATE 50 MG TAB PO SCH (09:05)
--- NOTE | 2018-01-07 11:24 | HHI.DS ---
Discharge Summary Admission Date Jan 04, 2018 at 12:17 Discharge Date: Jan 07, 2018 Admitting Diagnosis Mechanical fall, head injury, distal femur fracture (1) Fall ICD Code: W19.XXXA - Unspecified fall, initial encounter Status: Acute (2) Facial laceration ICD Code: S01.81XA - Laceration without foreign body of other part of head, initial encounter Status: Acute Procedures Displaced left distal femur periprosthetic fracture s/p ORIF left distal femur on 01/05/[address] Yan Brief History - From Admission This is a 67-year-old female patient with a known medical history of atrial fibrillation on Xarelto, hyperlipidemia, COPD and diabetes who presented to the ED after sustaining a mechanical fall at [facility] this morning. Patient states that she was walking into the store she tripped over a cone and landed on her left knee and hit her head. EMS was called and subsequently patient was brought to the ED. Supposedly patient was having a hard time standing up and bearing weight on her left leg with significant knee pain. She does admit to hitting her head, there is presently a mid forehead laceration that has been repaired in the ED. Denies losing any consciousness. Denies any lightheadedness, dizziness, blurry vision or diplopia. Patient is a and O 3 follows all commands. Left lower extremity with brace, denies any numbness or tingling, sensation intact. Mild edema. It should be noted that patient is on Xarelto for chronic atrial fibrillation and was last taken this morning on 01/04. Patient lives at home with her . Is independent with all activities of daily living. Denies any recent illness including fever, chills, cough, shortness of breath, headache, abdominal pain, nausea, vomiting, diarrhea dysuria. Denies any current or previous tobacco use. Family history significant for MS and breast cancer. Patient does follow with micro computer specialist Dr. Segura was last seen 4 months ago with no changes in her medications. She did undergo a cardiac stress test roughly 1 year ago which was reportedly negative. Patient does have diabetes last known A1c is 9. Follows with Dr. Dc who manages. PCP is Dr. Soto. CBC/BMP: 01/06/18 0935 01/05/18 0411 Significant Findings Laboratory Tests Test 01/04/18 12:15 01/05/18 04:11 01/06/18 04:35 01/06/18 09:35 White Blood Count 13.8 TH/MM3 (4.0-11.0) Red Blood Count 5.33 MIL/MM3 (4.00-5.30) Mean Platelet Volume 11.9 FL (7.0-11.0) Neutrophils (%) (Auto) 83.9 % (16.0-70.0) Lymphocytes (%) (Auto) 6.8 % (9.0-44.0) Monocytes (%) (Auto) 8.5 % (0.0-8.0) 17.1 % (0.0-8.0) Neutrophils # (Auto) 11.6 TH/MM3 (1.8-7.7) Lymphocytes # (Auto) 0.9 TH/MM3 (1.0-4.8) Monocytes # (Auto) 1.2 TH/MM3 (0-0.9) 1.8 TH/MM3 (0-0.9) Prothrombin Time 12.8 SEC (9.8-11.6) Random Glucose 222 MG/DL (74-106) 196 MG/DL (74-106) Estimat Glomerular Filtration Rate 64 ML/MIN (>89) 54 ML/MIN (>89) Blood Urea Nitrogen 22 MG/DL (7-18) Creatinine 1.02 MG/DL (0.50-1.00) Total Protein 6.2 GM/DL (6.4-8.2) Albumin 2.8 GM/DL (3.4-5.0) Calcium Level 8.3 MG/DL (8.5-10.1) Aspartate Amino Transf (AST/SGOT) 55 U/L (15-37) Imaging Last Impressions Knee X-Ray 01/05/18 0000 Signed Impressions: Service Date/Time: Friday, January 05, 2018 14:12 - CONCLUSION: 1. Fixation left femur. Postoperative knee replacement. Rudy Tamez MD Chest X-Ray 01/04/18 1200 Signed Impressions: Service Date/Time: Thursday, January 04, 2018 12:41 - CONCLUSION: Cardiomegaly. No focal infiltrate or pulmonary vascular congestion. Degenerative changes and scoliosis of the thoracic spine. Chris Noyola MD Head CT 01/04/18 0000 Signed Impressions: Service Date/Time: Thursday, January 04, 2018 11:34 - CONCLUSION: 1. No acute hemorrhage or mass effect. 2. Small chronic lacunar type infarcts. Deion Kim MD PE at Discharge GENERAL: Well-developed, obese female patient in NAD. SKIN: Warm and dry. No rash. HEAD: Normocephalic. Forehead laceration status post repair in ED. No bleeding at this time. CARDIOVASCULAR: Regular rate and rhythm. S1, S2 noted. No murmur appreciated. RESPIRATORY: No accessory muscle use. Diminished breath sounds due to body habitus. Breath sounds equal bilaterally. GASTROINTESTINAL: Obese abdomen soft, non-tender, nondistended. Normoactive bowel sounds x4. MUSCULOSKELETAL: No obvious deformities. Extremities without clubbing, cyanosis , or edema. Left lower extremity brace in place. NEUROLOGICAL: Awake and alert. No obvious cranial nerve deficits. Motor grossly within normal limits. 5/5 muscle strength in bilateral upper and lower extremities. Normal speech. PSYCHIATRIC: Appropriate mood and affect; insight and judgment normal. Hospital Course This is a 67-year-old female patient with a known medical history of atrial fibrillation on Xarelto, hyperlipidemia, COPD and diabetes who presented to the ED after sustaining a mechanical fall at [facility] Left distal femur fracture and facial laceration status post mechanical fall Displaced left distal femur periprosthetic fracture s/p ORIF left distal femur on 01/05/[address] reviewed showing no acute hemorrhage or mass-effect. Small chronic lacunar type infarcts. Left knee x-ray showing distal femoral fracture. Chest x-ray reviewed showing cardiomegaly no focal infiltrate or pulmonary vascular congestion. Consult placed to orthopedic surgeon, appreciate input recommendations. Patient last took her Xarelto 01/04/18. Plan for orthopedic surgery. Pain control with IV Dilaudid as needed for pain scale. Zofran available as needed for nausea. Ensure hydration, continue IV fluids. Add incentive spirometry Atrial fibrillation, chronic: Currently in a controlled rate. Has been on Xarelto, last taken today. Will place on hold for possible surgery. Monitor cardiac telemetry. Hypertension, chronic: We will continue home medications. Follow BP trends. Type 2 diabetes mellitus, chronic: Accu-Chek before meals at bedtime, sliding scale, cover as needed. Closely monitor blood sugar trends. Tight control. DVT prophylaxis: SCDs. Chemical prophylaxis per orthopedic surgery recommendations. Discussed with the patient, nurse Improved. Cleared for discharge. Patient is discharged to long-term facility in stable condition. To follow-up as outpatient with PCP and consultants. Pt Condition on Discharge: Stable Discharge Disposition: Discharge to SNF Discharge Time: > 30 minutes Discharge Instructions DIET: Follow Instructions for: Heart Healthy Diet Activities you can perform: Non Weight Bearing Follow up Referrals: Orthopedics - 2 Weeks @ [facility] with Guido Yan MD PCP Follow-up - 2-3 Days New Medications: Calcium Carbonate-Vitamin D (Calcium 600+D 200) 600-200 Mg-Unit Tab 1 TAB PO BID for Nutritional Supplement for 30 Days, #60 TAB 0 Refills Cholecalciferol (Vitamin D3) 2,000 Unit Cap 2000 UNITS PO DAILY for Nutritional Supplement, #60 CAP 0 Refills Ergocalciferol (Ergocalciferol) 50,000 Unit Cap 13819 UNITS PO Q7D for Nutritional Supplement, #8 CAP Hydrocodone-Acetaminophen (Hydrocodone-Acetaminophen) 10-325 mg Tab 1 TAB PO Q4H PRN for PAIN, #60 TAB 0 Refills Walker/Adult/Folding (Walker/Adult/Folding) 1 Mis Mis EA .XX DIRECTED, #1 0 Refills Continued Medications: Diltiazem (Cardizem) 30 Mg Tab 60 MG PO BID for Regulate Heart Beat, #120 TAB 0 Refills Fluoxetine Hcl (Prozac) 20 Mg/5 Ml Liqd 40 MG PO DAILY, ML Insulin Aspart (Novolog Insulin Supplemental Scale) 100 /Ml Inj 1 UNIT SQ ACHS SLIDING SCALE, INJ Lisinopril 10 mg (Lisinopril 10 mg) 10 Mg Tab 1 TAB PO DAILY, TAB Metoprolol Tartrate 50 mg (Metoprolol Tartrate 50 mg) 50 Mg Tab 50 MG PO BID, TAB Rivaroxaban (Xarelto 20 Mg Tab) 20 Mg Tab 20 MG PO DAILY for A. fib for 30 Days, TAB Monica Hill MD Jan 07, 2018 11:24
[2018-01-07 12:00] VITALS: BP 101/50; PULSE 86; RESP 18; TEMP 98.1; O2SAT 92
[2018-01-07] MEDS ORDERED: BISACODYL 10 MG SUPP RECTAL ONE (12:00)
[2018-01-07] MEDS: VANCOMYCIN INJ 1,000 MG in SODIUM CHLOR 0.9% 250 ML INJ 250 ML IV SCH (12:08)
[2018-01-07] MEDS: RIVAROXABAN 10 MG TAB PO SCH (14:07)
--- NOTE | 2018-01-07 15:03 | HHI.PR ---
Subjective Remarks Patient is the margin of the bed, having physical therapy. Doing fairly well with physical therapy. She is very motivated. Pain is controlled by medications. No nausea vomiting no diarrhea or constipation. Eating fairly well appetite is better today. Objective Vitals Vital Signs Date Time Temp Pulse Resp B/P (MAP) Pulse Ox O2 Delivery O2 Flow Rate FiO2 01/07/18 12:00 98.1 86 18 101/50 (67) 92 01/07/18 11:41 18 01/07/18 08:00 97.1 82 18 107/53 (71) 92 01/06/18 23:08 98.5 91 19 114/58 (76) 92 01/06/18 21:42 Room Air 01/06/18 20:00 97.8 86 17 127/75 (92) 97 01/06/18 16:00 98.1 93 18 119/55 (76) 94 I/O 01/06/18 01/06/18 01/06/18 01/07/18 01/07/18 01/07/18 07:00 15:00 23:00 07:00 15:00 23:00 Intake Total 480 ml 480 ml Output Total 850 ml 1100 ml 750 ml 700 ml Balance -370 ml -620 ml -750 ml -700 ml Intake Oral 480 ml 480 ml Output Urine Total 850 ml 1100 ml 750 ml 700 ml # Bowel Movements 0 0 Result Diagram: 01/06/18 0935 01/05/18 0411 Imaging Last Impressions Knee X-Ray 01/05/18 0000 Signed Impressions: Service Date/Time: Friday, January 05, 2018 14:12 - CONCLUSION: 1. Fixation left femur. Postoperative knee replacement. Rudy Tamez MD Chest X-Ray 01/04/18 1200 Signed Impressions: Service Date/Time: Thursday, January 04, 2018 12:41 - CONCLUSION: Cardiomegaly. No focal infiltrate or pulmonary vascular congestion. Degenerative changes and scoliosis of the thoracic spine. Chris Noyola MD Head CT 01/04/18 0000 Signed Impressions: Service Date/Time: Thursday, January 04, 2018 11:34 - CONCLUSION: 1. No acute hemorrhage or mass effect. 2. Small chronic lacunar type infarcts. Deion Kim MD Objective Remarks GENERAL: Well-developed, obese female patient in [facility]. SKIN: Warm and dry. No rash. HEAD: Normocephalic. Forehead laceration status post repair in ED. No bleeding at this time. CARDIOVASCULAR: Regular rate and rhythm. S1, S2 noted. No murmur appreciated. RESPIRATORY: No accessory muscle use. Diminished breath sounds due to body habitus. Breath sounds equal bilaterally. GASTROINTESTINAL: Obese abdomen soft, non-tender, nondistended. Normoactive bowel sounds x4. MUSCULOSKELETAL: No obvious deformities. Extremities without clubbing, cyanosis , or edema. Left lower extremity brace in place. NEUROLOGICAL: Awake and alert. No obvious cranial nerve deficits. Motor grossly within normal limits. 5/5 muscle strength in bilateral upper and lower extremities. Normal speech. PSYCHIATRIC: Appropriate mood and affect; insight and judgment normal. Procedures Displaced left distal femur periprosthetic fracture s/p ORIF left distal femur on 01/05/[address] Yan A/P Problem List: (1) Fall ICD Code: W19.XXXA - Unspecified fall, initial encounter Status: Acute (2) Facial laceration ICD Code: S01.81XA - Laceration without foreign body of other part of head, initial encounter Status: Acute Assessment and Plan This is a 67-year-old female patient with a known medical history of atrial fibrillation on Xarelto, hyperlipidemia, COPD and diabetes who presented to the ED after sustaining a mechanical fall at [facility] Left distal femur fracture and facial laceration status post mechanical fall Displaced left distal femur periprosthetic fracture s/p ORIF left distal femur on 01/05/[address] reviewed showing no acute hemorrhage or mass-effect. Small chronic lacunar type infarcts. Left knee x-ray showing distal femoral fracture. Chest x-ray reviewed showing cardiomegaly no focal infiltrate or pulmonary vascular congestion. Consult placed to orthopedic surgeon, appreciate input recommendations. Patient last took her Xarelto 01/04/18. Plan for orthopedic surgery. Pain control with IV Dilaudid as needed for pain scale. Zofran available as needed for nausea. Ensure hydration, continue IV fluids. Add incentive spirometry Atrial fibrillation, chronic: Currently in a controlled rate. Has been on Xarelto, last taken today. Will place on hold for possible surgery. Monitor cardiac telemetry. Hypertension, chronic: We will continue home medications. Follow BP trends. Type 2 diabetes mellitus, chronic: Accu-Chek before meals at bedtime, sliding scale, cover as needed. Closely monitor blood sugar trends. Tight control. DVT prophylaxis: SCDs. Chemical prophylaxis per orthopedic surgery recommendations. Discussed with the patient, nurse DC plan: pending improvement and clearance by ortho. S/p ORIF left distal femur on 01/05/[address] Yan. Discharge when cleared by orthopedic doctor Problem Qualifiers (1) Fall: Qualified Codes: W19.XXXA - Unspecified fall, initial encounter (2) Facial laceration: Qualified Codes: S01.81XA - Laceration without foreign body of other part of head, initial encounter Monica Hill MD Jan 07, 2018 15:03
[2018-01-07 16:00] VITALS: BP 95/54; PULSE 83; RESP 18; TEMP 98.2; O2SAT 97
== END 2018-01-07 18:35 | DRG 481 ==
LOC: PHEFT 09:49 → PHEDA 12:17 → N06A 17:00
PROVIDERS: ADMIT Hospitalist; ATTEND Hospitalist
PROC: 0HQ1XZZ Repair Face Skin, External Approach (ICD-10-PCS; principal; 2018-01-04)
PROC: 0QSC04Z Reposition Left Lower Femur with Internal Fixation Device, Open Approach (ICD-10-PCS; 2018-01-05)
DX: S72.492A Other fracture of lower end of left femur, initial encounter for closed fracture (principal); Z68.41 Body mass index [BMI] 40.0-44.9, adult; I48.2 Chronic atrial fibrillation; I11.9 Hypertensive heart disease without heart failure; M97.12XA Periprosthetic fracture around internal prosthetic left knee joint, initial encounter; J44.9 Chronic obstructive pulmonary disease, unspecified; E11.9 Type 2 diabetes mellitus without complications; E66.9 Obesity, unspecified; S01.81XA Laceration without foreign body of other part of head, initial encounter; M81.0 Age-related osteoporosis without current pathological fracture; M19.90 Unspecified osteoarthritis, unspecified site; F32.9 Major depressive disorder, single episode, unspecified; F41.9 Anxiety disorder, unspecified; W01.0XXA Fall on same level from slipping, tripping and stumbling without subsequent striking against object, initial encounter; Y92.512 Supermarket, store or market as the place of occurrence of the external cause; Z79.01 Long term (current) use of anticoagulants; Z79.4 Long term (current) use of insulin; Z85.3 Personal history of malignant neoplasm of breast; Z88.5 Allergy status to narcotic agent; Z92.21 Personal history of antineoplastic chemotherapy; Z96.653 Presence of artificial knee joint, bilateral
CPT/HCPCS: 12013; 70450; 71045; 73560; 73564; 76000; 80048; 80053; 82652; 82948; 85014; 85018; 85025; 85610; 85730; 86850; 86900; 86901; 90471; 90714; 93005; 94150; C1713; J0131; J0690; J1100; J1170; J1580; J1815; J2370; J2405; J2710; J3010; J3370; J7030; J7050; J7120; L1830

== ENCOUNTER 2018-02-24 17:45 | Inpatient (IN) | payer OTHER, MEDICARE ==
[2018-02-24] VITALS (10 sets, daily range): BP systolic 119–160; BP diastolic 75–92; PULSE 96–129; RESP 18–22; TEMP 98; O2SAT 80–99
[~2018-02-24] VITALS: Ht 165.1 cm; Wt 117.5 kg
[~2018-02-24 17:45] MED LIST changes: +CALCTAB19 PO; +DILT31TA PO; -DILT60TA PO; +HYDR-3583 PO; -LANTUS2P SC; +VITA2000 PO; +VITA500012 PO; +WALKER/ADULT/FO1 MIS
[2018-02-24] MEDS: RESP: ALBUTEROL 2.5 MG/IPRATROPIUM 0.5 MG NEB (SCH) INH ×4 (18:21→19:17)
--- NOTE | 2018-02-24 18:26 | PD ---
HPI Chief Complaint: Respiratory Distress Time Seen by Provider: 18:12 Travel History International Travel<30 days: No Contact w/Intl Traveler<30days: No Traveled to known affect area: No History of Present Illness HPI This is a 67-year-old female. She arrives to the ED via EMS. She reports shortness of breath. One week ago the patient was discharged from a correction facility/rehabilitation facility following admission to the hospital for repair of a left femur fracture. The patient reports orthopnea which has been more or less continuous for the past few weeks. There is mild dyspnea with the patient sitting upright however she still reports it to be fairly uncomfortable and difficult to catch her breath even sitting upright. Prior to ER arrival she received albuterol which she states was helpful. She takes Lasix for CHF. She [facility] because it was not administered to her however since returning home she has been taking it. Patient reports her urine has been dark. No fever or cough. No chest pain. PFSH Past Medical History Hx Anticoagulant Therapy: Yes Arthritis: Yes Asthma: No Atrial Fibrillation: Yes Blood Disorders: Yes Anxiety: No Depression: Yes Heart Rhythm Problems: Yes Cancer: Yes (breast) Cardiovascular Problems: Yes High Cholesterol: Yes Chemotherapy: Yes Chest Pain: Yes (CHEST PRESSURE) Congestive Heart Failure: No COPD: Yes Cerebrovascular Accident: No Diabetes: Yes Diminished Hearing: No Endocrine: Yes GERD: No Genitourinary: No Hiatal Hernia: No Hypertension: Yes Immune Disorder: No Implanted Vascular Access Dvce: Yes Kidney Stones: No Musculoskeletal: Yes Neurologic: No Psychiatric: Yes Reproductive: No Respiratory: Yes Migraines: No Radiation Therapy: Yes Renal Failure: No Seizures: No Sleep Apnea: No Ulcer: No ?: Not Menopausal: Yes Past Surgical History Abdominal Surgery: No AICD: No Arteriovenous Shunt: No Cardiac Surgery: No Ear Surgery: No Endocrine Surgery: No Eye Surgery: No (BILAT CATARACT) Genitourinary Surgery: No Gynecologic Surgery: Yes (hyster) Hysterectomy: Yes Insulin Pump: No Joint Replacement: Yes (Carlin knees) Oral Surgery: No Pacemaker: No Thoracic Surgery: No Other Surgery: Yes Social History Alcohol Use: Yes (Occ wine 2 days ago) Tobacco Use: No Substance Use: No Allergies-Medications (Allergen,Severity, Reaction): Coded Allergies: morphine (Verified Allergy, Intermediate, fainting, 02/24/18) Reported Meds & Prescriptions Reported Meds & Active Scripts Active Calcium 600+D 200 (Calcium Carbonate-Vitamin D) 600-200 Mg-Unit Tab 1 Tab PO BID 30 Days Vitamin D3 (Cholecalciferol) 2,000 Unit Cap 2,000 Units PO DAILY Ergocalciferol 50,000 Unit Cap 50,000 Units PO Q7D Hydrocodone-Acetaminophen 10-325 mg Tab 1 Tab PO Q4H PRN Walker/Adult/Folding (Device) 1 Mis Mis Ea .XX DIRECTED Xarelto 20 Mg Tab (Rivaroxaban) 20 Mg Tab 20 Mg PO DAILY 30 Days Reported Cardizem (Diltiazem HCl) 30 Mg Tab 60 Mg PO BID Metoprolol Tartrate 50 mg (Metoprolol Tartrate) 50 Mg Tab 50 Mg PO BID Lisinopril 10 mg (Lisinopril) 10 Mg Tab 1 Tab PO DAILY Prozac (Fluoxetine HCl) 20 Mg/5 Ml Liqd 40 Mg PO DAILY Novolog Insulin Supplemental Scale (Insulin Aspart) 100 /Ml Inj 1 Unit SQ ACHS SLIDING SCALE Review of Systems Except as stated in HPI: all other systems reviewed are Neg General / Constitutional: No: Fever Physical Exam Narrative GENERAL: 67-year-old female pleasant well-nourished well-developed Vital Signs Date Time Temp Pulse Resp B/P (MAP) Pulse Ox O2 Delivery O2 Flow Rate FiO2 02/24/18 18:03 Nasal Cannula 4.00 02/24/18 18:01 94 Nasal Cannula 4.00 02/24/18 17:56 98.0 129 22 160/91 (114) 80 SKIN: Warm and dry. HEAD: Atraumatic. Normocephalic. EYES: Pupils equal and round. No scleral icterus. No injection or drainage. ENT: No nasal bleeding or discharge. Mucous membranes pink and moist. NECK: Trachea midline. No JVD. CARDIOVASCULAR: Tachycardia. Regular rhythm. RESPIRATORY: No accessory muscle use. Clear to auscultation. Breath sounds equal bilaterally. Respiratory rate about 20. Speaking sentences. ABDOMEN: Soft, non-tender, nondistended. Hepatic and splenic margins not palpable. MUSCULOSKELETAL: Extremities without clubbing, cyanosis, or edema. No obvious deformities. NEUROLOGICAL: Awake and alert. No obvious cranial nerve deficits. Motor grossly within normal limits. Five out of 5 muscle strength in the arms and legs. Normal speech. PSYCHIATRIC: Appropriate mood and affect; insight and judgment normal. Data Data Last Documented VS Vital Signs Date Time Temp Pulse Resp B/P (MAP) Pulse Ox O2 Delivery O2 Flow Rate FiO2 02/24/18 19:55 94 Nasal Cannula 3.00 02/24/18 19:21 02/24/18 19:21 124 24 02/24/18 17:56 98.0 Orders Orders Complete Blood Count With Diff (02/24/18 18:12) Comprehensive Metabolic Panel (02/24/18 18:12) B-Type Natriuretic Peptide (02/24/18 18:12) Act Partial Throm Time (Ptt) (02/24/18 18:12) Prothrombin Time / Inr (Pt) (02/24/18 18:12) Magnesium (Mg) (02/24/18 18:12) Ckmb (Isoenzyme) Profile (02/24/18 18:12) Troponin I (02/24/18 18:12) Urinalysis - C+S If Indicated (02/24/18 18:12) Iv Access Insert/Monitor (02/24/18 18:12) Ecg Monitoring (02/24/18 18:12) Oximetry (02/24/18 18:12) Oxygen Administration (02/24/18 18:12) Chest, Single Ap (02/24/18 18:12) Sodium Chloride 0.9% Flush (Ns Flush) (02/24/18 18:15) Albuterol-Ipratropium Neb (Duoneb Neb) (02/24/18 18:15) Methylprednisolone So Succ Inj (Solumedr (02/24/18 18:45) Albuterol-Ipratropium Neb (Duoneb Neb) (02/24/18 18:45) Furosemide Inj (Lasix Inj) (02/24/18 18:45) Blood Culture (02/24/18 18:41) Arterial Blood Gas (Abg) (02/24/18 ) Piperacil-Tazo 4.5 Gm Premix (Zosyn 4.5 (02/24/18 19:00) Electrocardiogram (02/24/18 ) Vital Signs (Adult) DANTE.Q4H (02/24/18 20:18) Fax Machine Repairer / Telemetry DANTE.Q8H (02/24/18 20:18) Troponin I (02/24/18 22:00) Troponin I (02/25/18 02:00) Blood Glucose Goal (Criteria) (02/24/18:18) Hypoglycemia 70 Mg/Dl Or < (02/24/18 20:18) Notify Dr: Other (02/24/18 20:18) Dextrose 50% In Federico (Vial) Inj (D50w (Vi (02/24/18 20:30) Glucagon Inj (Glucagon Inj) (02/24/18 20:30) Insulin Aspart Supplemtl Scale (Novolog (02/24/18 21:00) Complete Blood Count With Diff (02/25/18 06:00) Basic Metabolic Panel (Bmp) (02/25/18 06:00) Albuterol Neb (Albuterol Neb) (02/24/18 20:30) Diltiazem (Cardizem) (02/24/18 21:15) Admit Order (Ed Use Only) (02/24/18 ) Fax Machine Repairer / Telemetry DANTE.Q8H (02/24/18 21:11) Activity Bed Rest (02/24/18 21:11) Notify Dr: Other (02/24/18 21:11) Labs Laboratory Tests Test 02/24/18 18:20 02/24/18 18:25 02/24/18 19:32 White Blood Count 15.5 TH/MM3 Red Blood Count 4.40 MIL/MM3 Hemoglobin 11.7 GM/DL Hematocrit 36.1 % Mean Corpuscular Volume 81.9 FL Mean Corpuscular Hemoglobin 26.5 PG Mean Corpuscular Hemoglobin Concent 32.3 % Red Cell Distribution Width 16.7 % Platelet Count 283 TH/MM3 Mean Platelet Volume 10.9 FL Neutrophils (%) (Auto) 83.9 % Lymphocytes (%) (Auto) 5.5 % Monocytes (%) (Auto) 9.9 % Eosinophils (%) (Auto) 0.4 % Basophils (%) (Auto) 0.3 % Neutrophils # (Auto) 13.0 TH/MM3 Lymphocytes # (Auto) 0.9 TH/MM3 Monocytes # (Auto) 1.5 TH/MM3 Eosinophils # (Auto) 0.1 TH/MM3 Basophils # (Auto) 0.0 TH/MM3 CBC Comment AUTO DIFF Differential Comment AUTO DIFF CONFIRMED Prothrombin Time 16.7 SEC Prothromb Time International Ratio 1.7 RATIO Activated Partial Thromboplast Time 29.2 SEC Blood Urea Nitrogen 9 MG/DL Creatinine 0.60 MG/DL Random Glucose 218 MG/DL Total Protein 7.1 GM/DL Albumin 2.6 GM/DL Calcium Level 9.1 MG/DL Magnesium Level 1.9 MG/DL Alkaline Phosphatase 99 U/L Aspartate Amino Transf (AST/SGOT) 20 U/L Alanine Aminotransferase (ALT/SGPT) 16 U/L Total Bilirubin 0.8 MG/DL Sodium Level 140 MEQ/L Potassium Level 4.2 MEQ/L Chloride Level 101 MEQ/L Carbon Dioxide Level 31.6 MEQ/L Anion Gap 7 MEQ/L Estimat Glomerular Filtration Rate 100 ML/MIN Total Creatine Kinase 75 U/L Troponin I 0.33 NG/ML B-Type Natriuretic Peptide 723 PG/ML Urine Color YELLOW Urine Turbidity CLEAR Urine pH 5.5 Urine Specific [place] 1.015 Urine Protein 30 mg/dL Urine Glucose (UA) 1000 OR GREATER mg/dL Urine Ketones TRACE mg/dL Urine Occult Blood NEG Urine Nitrite NEG Urine Bilirubin NEG Urine Urobilinogen 0.2 MG/DL Urine Leukocyte Esterase NEG Urine RBC 0-3 /hpf Urine WBC 0-2 /hpf Urine Squamous Epithelial Cells 6-8 /hpf Urine Hyaline Casts 3-5 /lpf Urine Fine Granular Casts 0-2 /lpf Urine Mucus MANY /lpf Microscopic Urinalysis Comment CULT NOT INDICATED Blood Gas Puncture Site RT BRACHIAL Blood Gas Patient Temperature 98.6 Blood Gas HCO3 30 mmol/L Blood Gas Base Excess 6.2 mmol/L Blood Gas Oxygen Saturation 96 % Arterial Blood pH 7.44 Arterial Blood Partial Pressure CO2 45 mmHG Arterial Blood Partial Pressure O2 117 mmHG Arterial Blood Oxygen Content 17.1 Vol % Arterial Blood Carboxyhemoglobin 1.9 % Arterial Blood Methemoglobin 0.9 % Blood Gas Hemoglobin 12.5 G/DL Oxygen Delivery Device NASAL CANNULA Blood Gas Liter Flow 4 L/M [facility] Medical Decision Making Medical Screen Exam Complete: Yes Emergency Medical Condition: Yes Medical Record Reviewed: Yes Differential Diagnosis CHF, COPD, pneumonia Narrative Course Workup has been initiated. The patient has COPD, CHF, pneumonia and or combination thereof. Cardiopulmonary status is stable. Case discussed with the oncoming provider, Dr. Cleveland. The majority of the workup is pending at time of dictation. The patient expressed desire to go home if possible. Pt on Xarelto such that DVT is less likely. José Miguel Castaneda MD February 24, 2018 18:26
--- NOTE | 2018-02-24 18:35 | RADRPT ---
EXAM DATE/TIME: 02/24/2018 18:15 [place] COMPARISON: CHEST SINGLE AP, January 04, 2018, 12:41. INDICATIONS : Shortness of breath MEDICAL HISTORY : Hypertension. Chronic obstructive pulmonary disease. Carcinoma, breast. Diabetes. Afib SURGICAL HISTORY : None. ENCOUNTER: Initial ACUITY: 1 day PAIN SCORE: 1/10 LOCATION: Bilateral chest FINDINGS: The heart size is enlarged. There is diffuse increased interstitial markings. There is increased dens ity bases bilaterally with silhouetting the hemidiaphragms. Spurs are seen in the thoracic spine. CONCLUSION: Cardiomegaly with diffuse increased interstitial markings and suspected bilateral effusions likely re lated to CHF. Wilfred Atkins MD on February 24, 2018 at 18:31 Board Certified Radiologist. This report was verified electronically.
[2018-02-24 18:39] LABS: BASOPHIL % 0.3 % (0.0-2.0); EOSINOPHIL # 0.1 TH/MM3 (0-0.4); EOSINOPHIL % 0.4 % (0.0-4.0); HEMATOCRIT 36.1 % (35.0-46.0); HEMOGLOBIN 11.7 GM/DL (11.6-15.3); LYMPH % 5.5 % (9.0-44.0); LYMPHOCYTE # 0.9 TH/MM3 (1.0-4.8); MEAN CELL VOLUME 81.9 FL (80.0-100.0); MEAN CORPUSCULAR HEMOGLOBIN 26.5 PG (27.0-34.0); MEAN CORPUSCULAR HGB CONC 32.3 % (32.0-36.0); MEAN PLATELET VOLUME 10.9 FL (7.0-11.0); MONO % 9.9 % (0.0-8.0); MONOCYTE # 1.5 TH/MM3 (0-0.9); NEUT % 83.9 % (16.0-70.0); PLATELET COUNT 283 TH/MM3 (150-450); RED CELL DISTRIBUTION WIDTH 16.7 % (11.6-17.2); WHITE BLOOD COUNT 15.5 TH/MM3 (4.0-11.0)
[2018-02-24 18:40] LABS: BILIRUBIN, URINE NEG (NEG); BLOOD, URINE NEG (NEG); GLUCOSE,URINE 1000 OR GREATER mg/dL (NEG); KETONE, URINE TRACE mg/dL (NEG); NITRITE,URINE NEG (NEG); PH, URINE 5.5 (5.0-8.5); URINE COLOR YELLOW (YELLW/STRAW); URINE LEUKOCYTE ESTERASE NEG (NEG)
[2018-02-24 18:44] LABS: CHLORIDE 101 MEQ/L (98-107); SODIUM (NA) 140 MEQ/L (136-145)
[2018-02-24] MEDS ORDERED: FUROSEMIDE 40 MG/4 ML VIAL IV PUSH ONE (18:45)
[2018-02-24] MEDS ORDERED: methylPREDNISolone SOD SUCC 125 MG/2 ML VIAL IV PUSH ONE (18:45)
[2018-02-24 18:47] LABS: ALBUMIN 2.6 GM/DL (3.4-5.0); BICARBONATE 31.6 MEQ/L (21.0-32.0); BLOOD UREA NITROGEN 9 MG/DL (7-18); CALCIUM 9.1 MG/DL (8.5-10.1); GLUCOSE,RANDOM 218 MG/DL (74-106); MAGNESIUM 1.9 MG/DL (1.5-2.5)
[2018-02-24 18:49] LABS: INTERNATIONAL NORMALIZED RATIO 1.7 RATIO; PROTHROMBIN TIME - PATIENT 16.7 SEC (9.8-11.6)
[2018-02-24 18:50] LABS: ALT (GPT) 16 U/L (10-53); AST (GOT) 20 U/L (15-37)
[2018-02-24 18:51] LABS: GLOMERULAR FILTRATION RATE 100 ML/MIN (>89)
[2018-02-24 18:52] LABS: TOTAL BILIRUBIN ADULT 0.8 MG/DL (0.2-1.0); TOTAL PROTEIN 7.1 GM/DL (6.4-8.2)
[2018-02-24 18:53] LABS: WBC, URINE 0-2 /hpf (0-5)
[2018-02-24 18:53] LABS: ALKALINE PHOSPHATASE 99 U/L (45-117)
[2018-02-24 18:54] LABS: MUCUS URINE MANY /lpf (OCC); RBC, URINE 0-3 /hpf (0-3)
[2018-02-24 18:55] LABS: TROPONIN I 0.33 NG/ML (0.02-0.05)
[2018-02-24] MEDS ORDERED: PIPERACIL-TAZO 4.5 GM PREMIX 100 ML IV ONE (19:00)
[2018-02-24] MEDS ORDERED: DILTIAZEM HCL 25 MG/5 ML VIAL IV ONE (20:15)
--- NOTE | 2018-02-24 20:28 | PD ---
Physical Exam Date Seen by Provider: February 24, 2018 Time Seen by Provider: 20:15 Narrative GENERAL: Well-developed well-nourished morbidly obese female in moderate respiratory distress SKIN: Warm and dry. HEAD: Normocephalic. EYES: No scleral icterus. No injection or drainage. NECK: Supple, trachea midline. No JVD or lymphadenopathy. CARDIOVASCULAR: Increased irregularly irregular rate and rhythm without murmurs , gallops, or rubs. RESPIRATORY: Breath sounds equal bilaterally diminished with crackles left base few end expiratory wheezes right lung base with accessory muscle use. GASTROINTESTINAL: Abdomen soft, non-tender, nondistended. MUSCULOSKELETAL: No cyanosis, bilateral lower extreme edema. BACK: Nontender without obvious deformity. No CVA tenderness. Data Data Last Documented VS Vital Signs Date Time Temp Pulse Resp B/P (MAP) Pulse Ox O2 Delivery O2 Flow Rate FiO2 02/24/18 18:22 95 Nasal Cannula 4.00 02/24/18 17:56 98.0 129 22 160/91 (114) Orders Orders Complete Blood Count With Diff (02/24/18 18:12) Comprehensive Metabolic Panel (02/24/18 18:12) B-Type Natriuretic Peptide (02/24/18 18:12) Act Partial Throm Time (Ptt) (02/24/18 18:12) Prothrombin Time / Inr (Pt) (02/24/18 18:12) Magnesium (Mg) (02/24/18 18:12) Ckmb (Isoenzyme) Profile (02/24/18 18:12) Troponin I (02/24/18 18:12) Urinalysis - C+S If Indicated (02/24/18 18:12) Iv Access Insert/Monitor (02/24/18 18:12) Ecg Monitoring (02/24/18 18:12) Oximetry (02/24/18 18:12) Oxygen Administration (02/24/18 18:12) Chest, Single Ap (02/24/18 18:12) Sodium Chloride 0.9% Flush (Ns Flush) (02/24/18 18:15) Albuterol-Ipratropium Neb (Duoneb Neb) (02/24/18 18:15) Methylprednisolone So Succ Inj (Solumedr (02/24/18 18:45) Albuterol-Ipratropium Neb (Duoneb Neb) (02/24/18 18:45) Furosemide Inj (Lasix Inj) (02/24/18 18:45) Blood Culture (02/24/18 18:41) Arterial Blood Gas (Abg) (02/24/18 ) Piperacil-Tazo 4.5 Gm Premix (Zosyn 4.5 (02/24/18 19:00) Electrocardiogram (02/24/18 ) Diltiazem Inj (Cardizem Inj) (02/24/18 20:15) Labs Laboratory Tests Test 02/24/18 18:20 02/24/18 18:25 02/24/18 19:32 White Blood Count 15.5 TH/MM3 Red Blood Count 4.40 MIL/MM3 Hemoglobin 11.7 GM/DL Hematocrit 36.1 % Mean Corpuscular Volume 81.9 FL Mean Corpuscular Hemoglobin 26.5 PG Mean Corpuscular Hemoglobin Concent 32.3 % Red Cell Distribution Width 16.7 % Platelet Count 283 TH/MM3 Mean Platelet Volume 10.9 FL Neutrophils (%) (Auto) 83.9 % Lymphocytes (%) (Auto) 5.5 % Monocytes (%) (Auto) 9.9 % Eosinophils (%) (Auto) 0.4 % Basophils (%) (Auto) 0.3 % Neutrophils # (Auto) 13.0 TH/MM3 Lymphocytes # (Auto) 0.9 TH/MM3 Monocytes # (Auto) 1.5 TH/MM3 Eosinophils # (Auto) 0.1 TH/MM3 Basophils # (Auto) 0.0 TH/MM3 CBC Comment AUTO DIFF Differential Comment AUTO DIFF CONFIRMED Prothrombin Time 16.7 SEC Prothromb Time International Ratio 1.7 RATIO Activated Partial Thromboplast Time 29.2 SEC Blood Urea Nitrogen 9 MG/DL Creatinine 0.60 MG/DL Random Glucose 218 MG/DL Total Protein 7.1 GM/DL Albumin 2.6 GM/DL Calcium Level 9.1 MG/DL Magnesium Level 1.9 MG/DL Alkaline Phosphatase 99 U/L Aspartate Amino Transf (AST/SGOT) 20 U/L Alanine Aminotransferase (ALT/SGPT) 16 U/L Total Bilirubin 0.8 MG/DL Sodium Level 140 MEQ/L Potassium Level 4.2 MEQ/L Chloride Level 101 MEQ/L Carbon Dioxide Level 31.6 MEQ/L Anion Gap 7 MEQ/L Estimat Glomerular Filtration Rate 100 ML/MIN Total Creatine Kinase 75 U/L Troponin I 0.33 NG/ML B-Type Natriuretic Peptide 723 PG/ML Urine Color YELLOW Urine Turbidity CLEAR Urine pH 5.5 Urine Specific [place] 1.015 Urine Protein 30 mg/dL Urine Glucose (UA) 1000 OR GREATER mg/dL Urine Ketones TRACE mg/dL Urine Occult Blood NEG Urine Nitrite NEG Urine Bilirubin NEG Urine Urobilinogen 0.2 MG/DL Urine Leukocyte Esterase NEG Urine RBC 0-3 /hpf Urine WBC 0-2 /hpf Urine Squamous Epithelial Cells 6-8 /hpf Urine Hyaline Casts 3-5 /lpf Urine Fine Granular Casts 0-2 /lpf Urine Mucus MANY /lpf Microscopic Urinalysis Comment CULT NOT INDICATED Blood Gas Puncture Site RT BRACHIAL Blood Gas Patient Temperature 98.6 Blood Gas HCO3 30 mmol/L Blood Gas Base Excess 6.2 mmol/L Blood Gas Oxygen Saturation 96 % Arterial Blood pH 7.44 Arterial Blood Partial Pressure CO2 45 mmHG Arterial Blood Partial Pressure O2 117 mmHG Arterial Blood Oxygen Content 17.1 Vol % Arterial Blood Carboxyhemoglobin 1.9 % Arterial Blood Methemoglobin 0.9 % Blood Gas Hemoglobin 12.5 G/DL Oxygen Delivery Device NASAL CANNULA Blood Gas Liter Flow 4 L/M [facility] Medical Record Reviewed: Yes Supervised Visit with KASHIF: No Interpretation(s) Last Impressions Chest X-Ray 02/24/181811 Signed Impressions: Service Date/Time: Thursday, February 24, 2018 18:15 - CONCLUSION: Cardiomegaly with diffuse increased interstitial markings and suspected bilateral effusions likely related to CHF. Wilfred Atkins MD CBC & BMP Diagram 02/24/18 18:20 Total Protein 7.1, Albumin 2.6 L, Calcium Level 9.1, Magnesium Level 1.9, Alkaline Phosphatase 99, Aspartate Amino Transf (AST/SGOT) 20, Alanine Aminotransferase (ALT/SGPT) 16, Total Bilirubin 0.8 Vital Signs Date Time Temp Pulse Resp B/P (MAP) Pulse Ox O2 Delivery O2 Flow Rate FiO2 02/24/18 18:22 95 Nasal Cannula 4.00 02/24/18 18:03 Nasal Cannula 4.00 02/24/18 18:01 94 Nasal Cannula 4.00 02/24/18 17:56 Nasal Cannula 4.00 02/24/18 17:56 98.0 129 22 160/91 (114) 80 Differential Diagnosis Accepted transfer of care from Dr. Castaneda please refer to his dictation Narrative Course Accepted in transfer of care from Dr. Castaneda for follow-up of pending labs and patient disposition Physician Communication Physician Communication discussed with Dr Villa -- admit to [facility] Diagnosis Primary Impression: Atrial fibrillation with rapid ventricular response Additional Impressions: CHF (congestive heart failure) Elevated troponin COPD exacerbation Admitting Information Admitting Physician Requests: Admit Brianna Cleveland MD February 24, 2018 20:28
[2018-02-24] MEDS ORDERED: RESP: ALBUTEROL 1.25 MG/3 ML NEB (PRN) NEB (20:30)
[2018-02-24] MEDS ORDERED: DEXTROSE 50% IN WATER 50 ML VIAL(D50) IV PUSH PRN (20:30)
[2018-02-24] MEDS ORDERED: GLUCAGON 1 MG/ML VIAL OTHER PRN (20:30)
[2018-02-24] MEDS ORDERED: DILTIAZEM HCL 30 MG TAB PO ONE (21:15)
[2018-02-24] MEDS: INSULIN ASPART SUPPLEMENTAL SCALE SQ SCH (21:37)
[2018-02-25] VITALS (20 sets, daily range): BP systolic 132–148; BP diastolic 63–87; PULSE 78–112; RESP 18–24; TEMP 97.4–98.4; O2SAT 93–98
[2018-02-25 01:50] LABS: AUTOMATED NEUTROPHIL # 9.8 TH/MM3 (1.8-7.7); BASOPHIL % 0.4 % (0.0-2.0); HEMATOCRIT 37.5 % (35.0-46.0); HEMOGLOBIN 12.1 GM/DL (11.6-15.3); LYMPH % 3.4 % (9.0-44.0); LYMPHOCYTE # 0.3 TH/MM3 (1.0-4.8); MEAN CELL VOLUME 83.2 FL (80.0-100.0); MEAN CORPUSCULAR HEMOGLOBIN 26.8 PG (27.0-34.0); MEAN CORPUSCULAR HGB CONC 32.2 % (32.0-36.0); MEAN PLATELET VOLUME 10.5 FL (7.0-11.0); MONO % 1.9 % (0.0-8.0); MONOCYTE # 0.2 TH/MM3 (0-0.9); NEUT % 94.3 % (16.0-70.0); PLATELET COUNT 249 TH/MM3 (150-450); RED CELL DISTRIBUTION WIDTH 18.1 % (11.6-17.2); WHITE BLOOD COUNT 10.4 TH/MM3 (4.0-11.0)
--- NOTE | 2018-02-25 01:52 | HHI.HP ---
[facility] Service [place] [facility] Primary Care Physician No Primary Care Physician Admission Diagnosis chf; afrvr; elevated troponinI; copd Diagnoses: (1) Atrial fibrillation with rapid ventricular response Diagnosis: Principal (2) CHF (congestive heart failure) Diagnosis: Principal Chief Complaint: shortness of breath Travel History International Travel<30 Days: No Contact w/Intl Traveler <30 Da: No Traveled to Known Affected Are: No History of Present Illness patient is a 68 y/o female with history of CHF,atrial fibrillation,hypertension, diabetes, breast cancer who presented to ER with shortness of breath. she had a femoral fracture in December and underwent ORIF. she was then discharged to rehab. she says that she started to have some sob about ten days ago. she says that she was just discharged home from rehab. she says that it was initially thought that her sob was because of anxiety but it seems that it's getting worse. she reports orthopnea and some weight gain recently. she denies any chest pain, cough, fever or chills.she also noticed some swelling of the left upper extremity. Review of Systems Constitutional: COMPLAINS OF: Weight gain, DENIES: Fever, Weight loss, Chills, Night Sweats Eyes: DENIES: Blurred vision, Diplopia, Vision loss, Double Vision Ears, nose, mouth, throat: DENIES: Tinnitus, Vertigo, Throat pain, Epistaxis Respiratory: COMPLAINS OF: Shortness of breath, DENIES: Apneas, Cough, Snoring , Wheezing, Hemoptysis, Sputum production Cardiovascular: COMPLAINS OF: Orthopnea, DENIES: Chest pain, Palpitations, Syncope, Dyspnea on Exertion, PND, Lower Extremity Edema, Claudication Gastrointestinal: DENIES: Abdominal pain, Black stools, Bloody stools, Constipation, Diarrhea, Nausea, Vomiting, Difficulty Swallowing, Anorexia Genitourinary: DENIES: Urinary frequency, Urgency, Hematuria, Dysuria Musculoskeletal: DENIES: Joint pain, Muscle aches, Stiffness, Joint Swelling Integumentary: DENIES: Rash Neurologic: DENIES: Abnormal gait, Headache, Localized weakness, Paresthesias, Seizures, Speech Problems, Tremor, Poor Balance Psychiatric: DENIES: Anxiety, Confusion, Mood changes, Depression, Hallucinations, Agitation, Suicidal Ideation, Homicidal Ideation, Delusions Past Family Social History Past Medical History breast cancer/ CHF/hypertension/ atrial fibrillation/diabetes mellitus. Past Surgical History ORIF femoral fracture two months ago. Reported Medications Calcium 600+D 200 (Calcium Carbonate-Vitamin D) 600-200 Mg-Unit Tab 1 Tab PO BID 30 Days Vitamin D3 (Cholecalciferol) 2,000 Unit Cap 2,000 Units PO DAILY Ergocalciferol 50,000 Unit Cap 50,000 Units PO Q7D Hydrocodone-Acetaminophen 10-325 mg Tab 1 Tab PO Q4H PRN Walker/Adult/Folding (Device) 1 Mis Mis Ea .XX DIRECTED Xarelto 20 Mg Tab (Rivaroxaban) 20 Mg Tab 20 Mg PO DAILY 30 Days Reported Cardizem (Diltiazem HCl) 30 Mg Tab 60 Mg PO BID Metoprolol Tartrate 50 mg (Metoprolol Tartrate) 50 Mg Tab 50 Mg PO BID Lisinopril 10 mg (Lisinopril) 10 Mg Tab 1 Tab PO DAILY Prozac (Fluoxetine HCl) 20 Mg/5 Ml Liqd 40 Mg PO DAILY Novolog Insulin Supplemental Scale (Insulin Aspart) 100 /Ml Inj 1 Unit SQ ACHS SLIDING SCALE Allergies: Coded Allergies: morphine (Verified Allergy, Intermediate, fainting, 02/24/18) Active Ordered Medications Inpatient Medications Albuterol Sulfate (Albuterol Neb) 1.25 mg Q4HR NEB PRN NEB SHORTNESS OF BREATH ; Start 02/24/18 at 20:30 Albuterol/ Ipratropium (Duoneb Neb) 1 ampule Q15M INH Last administered on 02/24at 19:17; Start 02/24/18 at 18:45; Stop 02/24/18 at 19:16; Status DC Dextrose (D50w (Vial) Inj) 50 ml UNSCH PRN IV PUSH HYPOGLYCEMIA-SEE COMMENTS; Start 02/24/18 at 20:30 Diltiazem HCl (Cardizem) 30 mg ONCE ONCE PO Last administered on 02/24/18at 21: 43; Start 02/24/18 at 21:15; Stop 02/24/18 at 21:16; Status DC Furosemide (Lasix Inj) 40 mg ONCE ONCE IV PUSH Last administered on 02/24/18at 18:52; Start 02/24/18 at 18:45; Stop 02/24/18 at 18:46; Status DC Glucagon (Glucagon Inj) 1 mg UNSCH PRN OTHER HYPOGLYCEMIA-SEE COMMENTS; Start 02/24/18 at 20:30 Insulin Aspart (NovoLOG SUPPLEMENTAL SCALE) 1 ACHS SLIDING SCALE SQ Last administered on 02/24/18at 21:37; Start 02/24/18 at 21:00 Methylprednisolone Sodium Succinate (SoluMEDROL INJ) 125 mg ONCE ONCE IV PUSH Last administered on 02/24/18at 18:52; Start 02/24/18 at 18:45; Stop 02/24/18 at 18:46; Status DC Piperacillin Sod/ Tazobactam Sod 100 ml @ 200 mls/hr ONCE ONCE IV Last administered on 02/24/18at 19:39; Start 02/24/18 at 19:00; Stop 02/24/18 at 19:29 ; Status DC Sodium Chloride (NS Flush) 2 ml UNSCH PRN IVF FLUSH AFTER USING IV ACCESS; Start 02/24/18 at 18:15 Social History no smoking or drinking. Physical Exam Vital Signs Vital Signs Date Time Temp Pulse Resp B/P (MAP) Pulse Ox O2 Delivery O2 Flow Rate FiO2 02/25/18 00:00 92 18 96 Nasal Cannula 4.00 02/24/18 23:39 96 18 136/85 (102) 96 Nasal Cannula 4.00 02/24/18 22:54 108 20 119/75 (90) 95 Nasal Cannula 4.00 02/24/18 21:29 113 20 130/77 (94) 95 Nasal Cannula 4.00 02/24/18 19:21 97 Nasal Cannula 4.00 02/24/18 19:21 124 24 99 Nasal Cannula 4.00 02/24/18 18:51 120 22 133/92 (106) 98 Nasal Cannula 4.00 02/24/18 18:22 95 Nasal Cannula 4.00 02/24/18 18:03 Nasal Cannula 4.00 02/24/18 18:01 94 Nasal Cannula 4.00 02/24/18 17:56 Nasal Cannula 4.00 02/24/18 17:56 98.0 129 22 160/91 (114) 80 Physical Exam GENERAL: This is a well-nourished, well-developed patient, in no apparent distress. SKIN: No rashes, ecchymoses or lesions. Cool and dry. HEAD: Atraumatic. Normocephalic. No temporal or scalp tenderness. EYES: Pupils equal round and reactive. Extraocular motions intact. No scleral icterus. No injection or drainage. ENT: Nose without bleeding, purulent drainage or septal hematoma. Throat without erythema, tonsillar hypertrophy or exudate. Uvula midline. Airway patent. NECK: Trachea midline. No JVD or lymphadenopathy. Supple, nontender, no meningeal signs. CARDIOVASCULAR: Regular rate and rhythm without murmurs, gallops, or rubs. RESPIRATORY: Clear to auscultation. Breath sounds equal bilaterally. No wheezes , rales, or rhonchi. GASTROINTESTINAL: Abdomen soft, non-tender, nondistended. No hepato-splenomegaly , or palpable masses. No guarding. MUSCULOSKELETAL: Extremities without clubbing, cyanosis, or edema. No joint tenderness, effusion, or edema noted. No calf tenderness. Negative Homans sign bilaterally. NEUROLOGICAL: Awake and alert. Cranial nerves II through XII intact. Motor and sensory grossly within normal limits. Five out of 5 muscle strength in all muscle groups. Normal speech. Laboratory Laboratory Tests Test 02/24/18 18:20 02/24/18 18:25 02/24/18 19:32 02/24/18 21:50 White Blood Count 15.5 Red Blood Count 4.40 Hemoglobin 11.7 Hematocrit 36.1 Mean Corpuscular Volume 81.9 Mean Corpuscular Hemoglobin 26.5 Mean Corpuscular Hemoglobin Concent 32.3 Red Cell Distribution Width 16.7 Platelet Count 283 Mean Platelet Volume 10.9 Neutrophils (%) (Auto) 83.9 Lymphocytes (%) (Auto) 5.5 Monocytes (%) (Auto) 9.9 Eosinophils (%) (Auto) 0.4 Basophils (%) (Auto) 0.3 Neutrophils # (Auto) 13.0 Lymphocytes # (Auto) 0.9 Monocytes # (Auto) 1.5 Eosinophils # (Auto) 0.1 Basophils # (Auto) 0.0 CBC Comment AUTO DIFF Differential Comment AUTO DIFF CONFIRMED Prothrombin Time 16.7 Prothromb Time International Ratio 1.7 Activated Partial Thromboplast Time 29.2 Blood Urea Nitrogen 9 Creatinine 0.60 Random Glucose 218 Total Protein 7.1 Albumin 2.6 Calcium Level 9.1 Magnesium Level 1.9 Alkaline Phosphatase 99 Aspartate Amino Transf (AST/SGOT) 20 Alanine Aminotransferase (ALT/SGPT) 16 Total Bilirubin 0.8 Sodium Level 140 Potassium Level 4.2 Chloride Level 101 Carbon Dioxide Level 31.6 Anion Gap 7 Estimat Glomerular Filtration Rate 100 Total Creatine Kinase 75 Troponin I 0.33 0.32 B-Type Natriuretic Peptide 723 Urine Color YELLOW Urine Turbidity CLEAR Urine pH 5.5 Urine Specific [place] 1.015 Urine Protein 30 Urine Glucose (UA) 1000 OR GREATER Urine Ketones TRACE Urine Occult Blood NEG Urine Nitrite NEG Urine Bilirubin NEG Urine Urobilinogen 0.2 Urine Leukocyte Esterase NEG Urine RBC 0-3 Urine WBC 0-2 Urine Squamous Epithelial Cells 6-8 Urine Hyaline Casts 3-5 Urine Fine Granular Casts 0-2 Urine Mucus MANY Microscopic Urinalysis Comment CULT NOT INDICATED Blood Gas Puncture Site RT BRACHIAL Blood Gas Patient Temperature 98.6 Blood Gas HCO3 30 Blood Gas Base Excess 6.2 Blood Gas Oxygen Saturation 96 Arterial Blood pH 7.44 Arterial Blood Partial Pressure CO2 45 Arterial Blood Partial Pressure O2 117 Arterial Blood Oxygen Content 17.1 Arterial Blood Carboxyhemoglobin 1.9 Arterial Blood Methemoglobin 0.9 Blood Gas Hemoglobin 12.5 Oxygen Delivery Device NASAL CANNULA Blood Gas Liter Flow 4 Date/Time Source Procedure Growth Status 02/24/18 18:55 Blood Peripheral Aerobic Blood Culture Pending Received 02/24/18 18:55 Blood Peripheral Anaerobic Blood Culture Pending Received Result Diagram: 02/24/18 1820 02/24/18 182 Imaging Last Impressions Chest X-Ray 02/24/18 181 Signed Impressions: Service Date/Time: Saturday, February 24, 2018 18:15 - CONCLUSION: Cardiomegaly with diffuse increased interstitial markings and suspected bilateral effusions likely related to CHF. Wilfred Atkins MD EKG; sinus rhythm with T wave inversion in inferior/lateral leads,. Caprini VTE Risk Assessment Caprini VTE Risk Assessment: Mod/High Risk (score >= 2) Caprini Risk Assessment Model Point Value = 1 Point Value = 2 Point Value = 3 Point Value = 5 Age 41-60 Minor surgery BMI > 25 kg/m2 Swollen legs Varicose veins or History of unexplained or recurrent spontaneous Oral contraceptives or hormone replacement Sepsis (< 1 month) Serious lung disease, including pneumonia (< 1 month) Abnormal pulmonary function Acute myocardial infarction Congestive heart failure (< 1 month) History of inflammatory bowel disease Medical patient at bed rest Age 61-74 Arthroscopic surgery Major open surgery (> 45 min) Laparoscopic surgery (> 45 min) Malignancy Confined to bed (> 72 hours) Immobilizing plaster cast Central venous access Age >= 75 History of VTE Family history of VTE Factor V Leiden Prothrombin 11102D Lupus anticoagulant Anticardiolipin antibodies Elevated serum homocysteine Heparin-induced thrombocytopenia Other congenital or acquired thrombophilia Stroke (< 1 month) Elective arthroplasty Hip, pelvis, or leg fracture Acute spinal cord injury (< 1 month) Prophylaxis Regimen Total Risk Factor Score Risk Level Prophylaxis Regimen 0-1 Low Early ambulation 2 Moderate Order ONE of the following: *Sequential Compression Device (SCD) *Heparin 5000 units SQ BID 3-4 Higher Order ONE of the following medications: *Heparin 5000 units SQ TID *Enoxaparin/Lovenox 40 mg SQ daily (WT < 150 kg, CrCl > 30 mL/min) *Enoxaparin/Lovenox 30 mg SQ daily (WT < 150 kg, CrCl > 10-29 mL/min) *Enoxaparin/Lovenox 30 mg SQ BID (WT < 150 kg, CrCl > 30 mL/min) AND/OR *Sequential Compression Device (SCD) 5 or more Highest Order ONE of the following medications: *Heparin 5000 units SQ TID (Preferred with Epidurals) *Enoxaparin/Lovenox 40 mg SQ daily (WT < 150 kg, CrCl > 30 mL/min) *Enoxaparin/Lovenox 30 mg SQ daily (WT < 150 kg, CrCl > 10-29 mL/min) *Enoxaparin/Lovenox 30 mg SQ BID (WT < 150 kg, CrCl > 30 mL/min) AND *Sequential Compression Device (SCD) Assessment and Plan Assessment and Plan A/P - acute on chronic diastolic CHF continue with IV lasix- I/O monitoring- keep on oxygen to keep O2 sat >90%- -atrial fibrillation with RVR- now HR better- resume Cardizem- will resume BB if BP allows.continue Xarelto -elevated troponin- due to CHF/ a-fib?; continue to trend the cardiac enzymes- consult Cardiology ( being followed up by ). -swelling of the left upper extremity; check venous doppler -diabetes mellitus;start on accu-check with SSI -hypertension; resume Cardizem - will resume metoprolol and lisinopril gradually based on BP trend. -femoral fracture two months ago- s/p ORIF- consult PT -DVT prophylaxis; on Xarelto Discussed Condition With ER physician, the patient and RN. Physician Certification 2 Midnight Certification Type: Admission for Inpatient Services Order for Inpatient Services The services are ordered in accordance with Medicare regulations or non- Medicare payer requirements, as applicable. In the case of services not specified as inpatient-only, they are appropriately provided as inpatient services in accordance with the 2-midnight benchmark. Estimated LOS (days): 2 days is the estimated time the patient will need to remain in the hospital, assuming treatment plan goals are met and no additional complications. Post-Hospital Plan: Not yet determined Ligia Shanks MD February 25, 2018 01:52
[2018-02-25 02:03] LABS: BICARBONATE 31.9 MEQ/L (21.0-32.0); CALCIUM 9.4 MG/DL (8.5-10.1); CREATININE 0.86 MG/DL (0.50-1.00)
[2018-02-25 02:06] LABS: TROPONIN I 0.26 NG/ML (0.02-0.05)
[2018-02-25] MEDS: INSULIN ASPART SUPPLEMENTAL SCALE SQ SCH ×4 (08:55→20:33)
[2018-02-25] MEDS: FUROSEMIDE 40 MG/4 ML VIAL IV PUSH SCH (08:56)
[2018-02-25] MEDS: FLUoxetine HCL LIQUID 20 MG/5 ML CUP PO SCH (08:56)
[2018-02-25] MEDS: DILTIAZEM HCL 30 MG TAB PO SCH ×2 (08:57→20:32)
[2018-02-25] MEDS: POTASSIUM CHLORIDE 20 MEQ CONTROLLED RELEASE TAB PO SCH (08:57)
[2018-02-25] MEDS: RIVAROXABAN 20 MG TAB PO SCH (08:57)
[2018-02-25] MEDS ORDERED: PNEUMOCOCCAL POLYVALENT INJ 25 MCG/0.5 ML SYR IM ONE (09:00)
--- NOTE | 2018-02-25 09:07 | RADRPT ---
EXAM DATE/TIME: 02/25/2018 08:25 [place] COMPARISON: No previous studies available for comparison. INDICATIONS : Left arm edema. MEDICAL HISTORY : Congestive heart failure. Hypercholesterolemia. Hypertension. Atrial fibrillation. COPD. Diabetes. Br east cancer. SURGICAL HISTORY : Hysterectomy. Bilateral knee replacements. Chemotherapy. ENCOUNTER: Initial ACUITY: 4 - 6 days PAIN SCORE: 0/10 LOCATION: Left arm FINDINGS: There is spontaneous flow documented in the brachial, basilic, cephalic, axillary, and subclavian vei ns. The vessels are compressible and augmentation response is documented. No filling defects are se en. The flow is phasic with respiration. Direction of flow in the jugular vein is caudal. There is some edema in the subcutaneous soft tissues. CONCLUSION: No evidence of DVT. Christopher Thompson MD on February 25, 2018 at 9:04 Board Certified Radiologist. This report was verified electronically.
--- NOTE | 2018-02-25 10:19 | PD.WCN.NOT ---
Wound Consult Description: Consult for Wound Management of Buttock/right foot per Dr Shanks Communicated with: RN Patient SUPERVISOR TOWER Dr De Leon Recommendation: Daily to Left Buttock wound: 1. Cleanse wound with NS only. 2. Apply Santyl to 2x2 gauze and place on necrotic tissue covering wound bed. 3. Skin prep periwound with skin barrier film such as Cavilon or Bards etc. 4. Cover with dry cover (Bordered gauze). 5. Date dressing. Wiseman Right big toe with Povidone-Iodine BID and leave open to air. Additional Information: Patient seen on [facility] for wound to left buttock measuring 2.7cm x 2.7cm x slough. Wound has an island of ~90% yellow and brown adherent slough surrounded by ~10% pink moist tissue with jagged wound margins indicating a moisture etiology. Right buttock has denuded partial thickness skinloss measuring ~1.5 cm x 1cm x <0.1cm of red non granulating tissue. Periwounds are macerated and peeling. Right foot is visualized with hyperkeratotic areas on the 1st met head and great toe. Great toe has an eschar measuring ~1cm x ~1cm x eschar. This was left open to air as the wound is dry, without drainage. Patient is incontinent of urine. SUPERVISOR TOWER was cleansing patient when entering room. Ju Cho [facility] February 25, 2018 10:19
--- NOTE | 2018-02-25 12:26 | MB ---
cc: Margarito Laura MD DATE: 02/25/2018 REASON FOR CONSULTATION: Congestive heart failure. HISTORY OF PRESENT ILLNESS: The patient is a 68-year-old white female, followed in our office by Dr. Todd Segura, with a history of chronic atrial fibrillation, hypertension, diabetes, right breast cancer, possible congestive heart failure 06/07/2016 who was brought to the hospital with an approximately 3 week history of increasing dyspnea with very minimal exertion. The patient has been in a [facility]cc recovering from a recent left femur fracture repair. She denies chest pains, dizziness, syncope, near syncope, palpitations, paroxysmal nocturnal dyspnea. The patient does note some orthopnea, sleeping on at least 2 pillows at night. She notes no change in chronic intermittent mild pedal edema. PAST MEDICAL HISTORY: 1. Chronic atrial fibrillation dating back to at least December 2015. 2. Hypertension. 3. Diabetes. 4. Right breast cancer, status post lumpectomy. 5. Possible congestive heart failure 06/07/2016 at which time echocardiogram revealed normal left ventricular function and nuclear stress testing was normal. PAST SURGICAL HISTORY: 1. Right breast lumpectomy. 2. Bilateral knee replacements. 3. Open reduction internal fixation of a left distal femur fracture. CARDIAC MEDICATIONS AT HOME: 1. Lisinopril 10 mg daily. 2. Metoprolol tartrate 50 mg b.i.d. 3. Cardizem 60 mg b.i.d. 4. Xarelto 20 mg daily. ALLERGIES: MORPHINE. FAMILY HISTORY: Noncontributory. SOCIAL HISTORY: The patient denies any history of alcohol or tobacco abuse. REVIEW OF SYSTEMS: As in the History Of Present Illness, otherwise negative or noncontributory. She also denies headache, abdominal pain, melena, dyspepsia, bright red blood per rectum, diarrhea, flu symptoms. PHYSICAL EXAMINATION: VITAL SIGNS: Blood pressure 144/72 with a pulse of 80, respirations 22. GENERAL: She is a well-developed, well-nourished white female, in no acute distress. HEENT/NECK: Jugular venous pressure is normal. Carotid pulses are 2+ bilaterally and without bruits. LUNGS: Examination of the chest reveals diminished breath sounds at the bases. HEART: She has an irregular irregular rhythm without S3 or murmur. ABDOMEN: On abdominal examination, she has a soft, obese, nontender abdomen. Bowel sounds are present. There is no definite hepatosplenomegaly. EXTREMITIES: Reveals no clubbing or cyanosis. There is trace pretibial edema bilaterally. LABORATORY DATA: EKG shows atrial fibrillation with a rapid ventricular response, inferior and lateral T-wave inversion, consider ischemia. Laboratory data includes potassium 3.7, BUN 11, creatinine 0.86. Troponin 0.33. WBC 10.4, hemoglobin 12.1, platelets 249. INR 1.7. Chest x-ray shows increased interstitial markings with bilateral pleural effusions. IMPRESSION: Recurrent congestive heart failure in this 68-year-old white female with a history of chronic atrial fibrillation, hypertension, diabetes, breast cancer, possible congestive heart failure 2 years ago. The precipitating factor for the congestive heart failure is not entirely clear. Troponin levels are slightly elevated, although this could be due to the congestive heart failure. Initially, she did have elevated heart rates, but this was probably due to respiratory distress. Her last cardiac workup about 2 years ago was unremarkable including normal left ventricular function on echo and a normal nuclear stress test. She does have a number of risk factors for coronary disease, and her EKG does show new inferior and lateral T-wave abnormalities. RECOMMENDATIONS: 1. Check a 2D echo to reassess her left ventricular function. 2. Check a Lexiscan nuclear stress test to rule out significant myocardial ischemia. 3. Continue intravenous Lasix diuresis. 4. Continue beta senthil therapy. MD DENISE Bowden/ROMEO , 12:04 PM , 12:25 PM RYDER
[2018-02-25] MEDS: ACETAMINOPHEN/HYDROcodone 325 MG/5 MG TAB PO PRN ×2 (14:28→20:33)
[2018-02-25] MEDS: COLLAGENASE OINT 30 GM TUBE TOPICAL SCH (19:00)
[2018-02-25] MEDS: METOPROLOL TARTRATE 50 MG TAB PO SCH (20:32)
[2018-02-25] MEDS: SODIUM CHLORIDE 0.9% FLUSH 10 ML FLUSH IVF PRN (20:32)
[2018-02-26] VITALS (20 sets, daily range): BP systolic 120–154; BP diastolic 74–94; PULSE 61–87; RESP 16–20; TEMP 97.5–98.9; O2SAT 95–99
[2018-02-26] MEDS: INSULIN ASPART SUPPLEMENTAL SCALE SQ SCH ×4 (07:56→21:16)
[2018-02-26] MEDS: METOPROLOL TARTRATE 50 MG TAB PO SCH ×2 (07:57→21:13)
[2018-02-26] MEDS: RIVAROXABAN 20 MG TAB PO SCH (07:57)
[2018-02-26] MEDS: DILTIAZEM HCL 30 MG TAB PO SCH ×2 (07:57→21:13)
[2018-02-26] MEDS: ACETAMINOPHEN/HYDROcodone 325 MG/5 MG TAB PO PRN ×3 (07:58→21:12)
[2018-02-26] MEDS: POTASSIUM CHLORIDE 20 MEQ CONTROLLED RELEASE TAB PO SCH (07:58)
[2018-02-26] MEDS: FUROSEMIDE 40 MG/4 ML VIAL IV PUSH SCH (07:58)
[2018-02-26] MEDS: FLUoxetine HCL LIQUID 20 MG/5 ML CUP PO SCH (07:58)
[2018-02-26] MEDS: COLLAGENASE OINT 30 GM TUBE TOPICAL SCH (07:59)
--- NOTE | 2018-02-26 08:05 | PD.CARD.PN ---
Subjective Subjective Remarks Dyspnea improved. No CP, dizziness. Minimal brief palpitations. Slept fairly well. Objective Medications Item Value Date Time Metoprolol 50 mg 02/25/18 2100 Tartrate Q12HR/PO 02/25/182031 (Lopressor) Furosemide 40 mg 02/25/18 0900 (Lasix Inj) DAILY/IV PUSH 02/25/18 0856 Diltiazem HCl 60 mg 02/25/18899 (Cardizem) BID/PO 02/25/182031 Potassium Chloride 20 meq 02/25/1800 (KCl) DAILY/PO 02/25/1857 Rivaroxaban 20 mg 02/25/18 0900 (Xarelto) DAILY/PO 02/25/18856 Current Medications Medications (Trade) Dose Ordered Sig/Heriberto Route Start Time Stop Time Status Last Admin (NS Flush) 2 ml UNSCH PRN IVF 02/24/18 18:15 02/25/18 20:32 (D50w (Vial) Inj) 50 ml UNSCH PRN IV PUSH 02/24/18 20:30 (Glucagon Inj) 1 mg UNSCH PRN OTHER 02/24/18 20:30 (NovoLOG SUPPLEMENTAL SCALE) 1 ACHS SLIDING SCALE SQ 02/24/18 21:00 02/25/18 20:33 (Albuterol Neb) 1.25 mg Q4HR NEB PRN NEB 02/24/18 20:30 (Lasix Inj) 40 mg DAILY IV PUSH 02/25/18 09:00 02/25/18 08:56 (KCl) 20 meq DAILY PO 02/25/18 09:00 02/25/18 08:57 (Cardizem) 60 mg BID PO 02/25/18 09:00 02/25/18 20:32 (PROzac LIQ) 40 mg DAILY PO 02/25/18 09:00 02/25/18 08:56 (Xarelto) 20 mg DAILY PO 02/25/18 09:00 02/25/18 08:57 (Lopressor) 50 mg Q12HR PO 02/25/18 21:00 02/25/18 20:32 ([place] 5-325 Mg) 1 tab Q6H PRN PO 02/25/18 13:30 02/25/18 20:33 (Santyl Oint) 1 applic DAILY TOPICAL 02/25/18 19:00 Vital Signs / I&O Vital Signs Date Time Temp Pulse Resp B/P (MAP) Pulse Ox O2 Delivery O2 Flow Rate FiO2 02/26/18 04:00 75 02/26/18 04:00 98.8 80 18 131/94 (106) 95 02/26/18 00:00 98.9 79 20 120/80 (93) 99 02/26/18 00:00 87 02/25/18 20:00 112 02/25/18 20:00 97.6 103 18 148/87 (107) 96 02/25/18 18:00 104 02/25/18 17:00 100 02/25/18 16:00 98.4 107 20 132/63 (86) 95 02/25/18 16:00 98 02/25/18 15:28 20 02/25/18 14:00 94 02/25/18 13:00 92 02/25/18 12:00 97.8 91 20 146/74 (98) 97 02/25/18 12:00 90 02/25/18 11:00 80 02/25/18 10:00 98 02/25/18 09:00 96 02/25/18 08:00 81 02/25/18 08:00 97.9 78 22 144/72 (96) 96 I/O 02/25/18 02/25/18 02/25/18 02/26/18 02/26/18 02/26/18 07:00 15:00 23:00 07:00 15:00 23:00 Intake Total 480 ml 480 ml 480 ml Output Total 450 ml 1100 ml 750 ml Balance 30 ml -620 ml -270 ml Intake Oral 480 ml 480 ml 480 ml Output Urine Total 450 ml 1100 ml 750 ml # Voids 1 1 # Bowel Movements 1 0 Physical Exam GENERAL: Well developed, well nourished. No acute distress. HEENT: Jugular venous pressure is normal. CHEST: Few bibasilar crackles. Unlabored respiratory effort. CARDIAC: Irregular rate and rhythm without S3, S4, or murmur. ABDOMEN: Soft, nontender, no hepatosplenomegaly. Bowel sounds present. EXTREMITIES: No clubbing, cyanosis. Possible trace edema. Assessment and Plan Problem List: (1) CHF (congestive heart failure) ICD Codes: I50.9 - Heart failure, unspecified Status: Acute Plan: Doing better with IV Lasix diuresis. Weight down 6 lbs. Echo pending. No definite angina symptoms though new inferior and lateral T wave changes on EKG, and troponin levels slightly increased, may be from CHF. REC continue diuresis increase beta senthil dosing await echo and nuclear stress test depending on results of testing, consider cardiac cath Thursday; if no major ischemia on nuclear stress testing, continue medical therapy Dr. Castaneda to see PRN over the weekend (2) Chronic atrial fibrillation ICD Codes: I48.2 - Chronic atrial fibrillation Status: Chronic Plan: Overall stable, chronic atrial fib. HR's mostly normal. To increase metoprolol dosing. Continue Xarelto, diltiazem. (3) Hypertension ICD Codes: I10 - Essential (primary) hypertension Status: Chronic Plan: Fluctuating BP's. To increase metoprolol dosing. Code Status full code Discussed Condition With patient Problem Qualifiers (1) CHF (congestive heart failure): Qualified Codes: I50.9 - Heart failure, unspecified (2) Hypertension: Qualified Codes: I10 - Essential (primary) hypertension Margarito Laura MD February 26, 2018 08:05
[2018-02-26] MEDS ORDERED: METOPROLOL TARTRATE 50 MG TAB PO SCH (09:00)
[2018-02-26] MEDS ORDERED: METOPROLOL TARTRATE 50 MG TAB PO ONE (09:30)
[2018-02-26] MEDS ORDERED: REGADENOSON INJ 0.4 MG/5 ML SYR ONE (09:55)
--- NOTE | 2018-02-26 11:19 | RADRPT ---
EXAM DATE/TIME: 02/25/2018 15:34 [place] COMPARISON: No previous studies available for comparison. INDICATIONS : Chest pressure and shortness of breath. Congestive heart failure. DOSE: 32.2 mCi Tc99m Myoview at stress. 30.2 mCi Tc99m Myoview at rest. 0.4 mg Lexiscan STRESS SYMPTOMS: Flushness feeling. EJECTION FRACTION: 43% MEDICAL HISTORY : Chronic obstructive pulmonary disease. Diabetes mellitus type 2. Carcinoma, breast. SURGICAL HISTORY : Hysterectomy. Bilateral knee surgery. ENCOUNTER: Initial ACUITY: 1 day PAIN SCALE: 2/10 LOCATION: Left chest TECHNIQUE: The patient underwent pharmacologic stress with infusion of prescribed dose. Continuous ECG tracing was monitored during stress. Gated SPECT imaging was performed after stress and conventional SPECT i maging was performed at rest. The examination was performed on a SPECT/CT scanner, both attenuation and non-corrected datasets were reviewed. FINDINGS: DISTRIBUTION: The maximum perfused segment at stress is in the anterolateral wall. PERFUSION STUDY: The pattern of perfusion at stress shows a single image are 20% redistribution in the inferolateral b ase on the short axis views. This cannot be confirmed on the vertical long axis views, however. Fixed absent perfusion to the apex. GATED STUDY: Diffuse hypokinesis with paradoxical motion along the inferoapical wall. CONCLUSION: 1. Apical infarct with paradoxical motion along the low inferior wall. Diminished ejection fraction a t 43%. 2. No scintigraphic findings of ischemia, however. RISK CATEGORY: Intermediate (1-3% Annual Mortality Rate) Nikolay Burt MD on February 26, 2018 at 11:12 Board Certified Radiologist. This report was verified electronically.
--- NOTE | 2018-02-26 11:58 | EKG ---
Date Performed: 02/24/2018 Time Performed: 20:03:53 PTAGE: 67 years EKG: ATRIAL FIBRILLATION WITH RAPID VENTRICULAR RESPONSE MODERATE T-WAVE ABNORMALITY, CONSIDER A NTEROLATERAL ISCHEMIA MODERATE T-WAVE ABNORMALITY, CONSIDER INFERIOR ISCHEMIA ABNORMAL ECG PREVIOUS TRACING : 01/04/2018 12.20 DOCTOR: Shey Brewer Interpretating Date/Time 02/26/2018 11:51:40
--- NOTE | 2018-02-26 19:06 | HHI.PR ---
Subjective Remarks No chest pain, little short of breath, no fever Objective Vitals Vital Signs Date Time Temp Pulse Resp B/P (MAP) Pulse Ox O2 Delivery O2 Flow Rate FiO2 02/26/18 18:00 70 02/26/18 17:05 97 Nasal Cannula 2.00 02/26/18 17:00 70 02/26/18 16:00 61 02/26/18 16:00 98.1 70 16 131/74 (93) 97 02/26/18 15:00 70 02/26/18 14:00 70 02/26/18 13:00 80 02/26/18 12:00 97.9 66 18 146/85 (105) 96 02/26/18 12:00 77 02/26/18 11:00 72 02/26/18 09:13 20 02/26/18 09:00 86 02/26/18 08:00 97.7 82 16 154/90 (111) 97 02/26/18 08:00 79 02/26/18 07:00 74 02/26/18 04:00 75 02/26/18 04:00 98.8 80 18 131/94 (106) 95 02/26/18 00:00 98.9 79 20 120/80 (93) 99 02/26/18 00:00 87 02/25/18 20:00 112 02/25/18 20:00 97.6 103 18 148/87 (107) 96 I/O 02/25/18 02/25/18 02/25/18 02/26/18 02/26/18 02/26/18 07:00 15:00 23:00 07:00 15:00 23:00 Intake Total 480 ml 480 ml 480 ml 480 ml Output Total 450 ml 1100 ml 750 ml 2150 ml Balance 30 ml -620 ml -270 ml -1670 ml Intake Oral 480 ml 480 ml 480 ml 480 ml Output Urine Total 450 ml 1100 ml 750 ml 2150 ml # Voids 1 1 # Bowel Movements 1 0 0 Result Diagram: 02/25/18 01302/25/18 013 Objective Remarks GENERAL: This is a well-nourished, morbidly obese well-developed patient, in no apparent distress. CARDIOVASCULAR: RRR, no gallops, or rubs. RESPIRATORY: Bilateral basilar crackles, in general distant sounds due to body habitus GASTROINTESTINAL: Abdomen soft, non-tender, nondistended. Positive bowel sounds MUSCULOSKELETAL: Extremities without clubbing, cyanosis, or edema. Pedal pulses appreciated NEUROLOGICAL: Awake and alert. Moves all extremity. Normal speech.no focal neurological deficit A/P Problem List: (1) Atrial fibrillation with rapid ventricular response ICD Code: I48.91 - Unspecified atrial fibrillation Status: Acute (2) CHF (congestive heart failure) ICD Code: I50.9 - Heart failure, unspecified Status: Acute Assessment and Plan 02/26: Continue current care awaiting stress test and echo, appreciate cardiology follow-up, they anticipate possible heart cath on Thursday depending on stress test and echo results A/P: - acute on chronic diastolic CHF continue with IV lasix- I/O monitoring- keep on oxygen to keep O2 sat >90%- -atrial fibrillation with RVR- now HR better- resume Cardizem- will resume BB if BP allows.continue Xarelto -elevated troponin- due to CHF/ a-fib?; continue to trend the cardiac enzymes- consult Cardiology ( being followed up by ). -swelling of the left upper extremity; negative venous doppler -diabetes mellitus;start on accu-check with SSI -hypertension; resume Cardizem - will resume metoprolol and lisinopril gradually based on BP trend. -femoral fracture two months ago- s/p ORIF- consult PT -DVT prophylaxis; on Xarelto Problem Qualifiers (1) CHF (congestive heart failure): Qualified Codes: I50.9 - Heart failure, unspecified Lui De Leon MD February 26, 2018 19:06
[2018-02-27] VITALS (22 sets, daily range): BP systolic 129–159; BP diastolic 76–88; PULSE 59–92; RESP 16–22; TEMP 97.4–97.8; O2SAT 92–97
[2018-02-27] MEDS: INSULIN ASPART SUPPLEMENTAL SCALE SQ SCH ×4 (09:05→20:14)
[2018-02-27] MEDS: FLUoxetine HCL LIQUID 20 MG/5 ML CUP PO SCH (09:06)
[2018-02-27] MEDS: METOPROLOL TARTRATE 50 MG TAB PO SCH ×2 (09:06→20:14)
[2018-02-27] MEDS: POTASSIUM CHLORIDE 20 MEQ CONTROLLED RELEASE TAB PO SCH (09:06)
[2018-02-27] MEDS: FUROSEMIDE 40 MG/4 ML VIAL IV PUSH SCH (09:06)
[2018-02-27] MEDS: RIVAROXABAN 20 MG TAB PO SCH (09:06)
[2018-02-27] MEDS: COLLAGENASE OINT 30 GM TUBE TOPICAL SCH (09:07)
[2018-02-27] MEDS: DILTIAZEM HCL 30 MG TAB PO SCH ×2 (09:07→20:14)
[2018-02-27] MEDS: ACETAMINOPHEN/HYDROcodone 325 MG/5 MG TAB PO PRN ×2 (15:49→23:00)
--- NOTE | 2018-02-27 15:54 | HHI.PR ---
Subjective Remarks No chest pain, positive short of breath, afebrile Patient asked for her Xanax, stress test showed intermediate risk EF 49%, 2D echo pending Objective Vitals Vital Signs Date Time Temp Pulse Resp B/P (MAP) Pulse Ox O2 Delivery O2 Flow Rate FiO2 02/27/18 14:00 76 02/27/18 13:00 72 02/27/18 12:00 97.7 76 16 150/84 (106) 93 02/27/18 12:00 65 02/27/18 08:00 97.4 86 16 154/88 (110) 92 02/27/18 07:00 73 02/27/18 06:00 74 02/27/18 04:38 72 18 141/76 (97) 97 02/27/18 04:24 65 02/27/18 04:00 72 02/27/18 03:00 66 02/27/18 01:00 72 02/27/18 00:00 77 16 136/76 (96) 93 02/27/18 00:00 63 02/27/18 00:00 66 02/26/18 23:00 70 02/26/18 22:14 16 02/26/18 22:00 80 02/26/18 21:30 76 02/26/18 21:30 97.5 86 18 129/82 (98) 96 02/26/18 21:00 80 02/26/18 20:00 76 02/26/18 19:00 72 02/26/18 18:00 70 02/26/18 17:05 97 Nasal Cannula 2.00 02/26/18 17:00 70 02/26/18 16:00 61 02/26/18 16:00 98.1 70 16 131/74 (93) 97 I/O 02/26/18 02/26/18 02/26/18 02/27/18 02/27/18 02/27/18 07:00 15:00 23:00 07:00 15:00 23:00 Intake Total 480 ml 480 ml 240 ml Output Total 750 ml 2150 ml 200 ml Balance -270 ml -1670 ml 40 ml Intake Oral 480 ml 480 ml 240 ml Output Urine Total 750 ml 2150 ml 200 ml # Bowel Movements 0 0 Result Diagram: 02/25/1813402/25/18134 Objective Remarks GENERAL: This is a well-nourished, morbidly obese well-developed patient, in no apparent distress. CARDIOVASCULAR: RRR, no gallops, or rubs. RESPIRATORY: Bilateral basilar crackles, in general distant sounds due to body habitus GASTROINTESTINAL: Abdomen soft, non-tender, nondistended. Positive bowel sounds MUSCULOSKELETAL: Extremities without clubbing, cyanosis, or edema. Pedal pulses appreciated NEUROLOGICAL: Awake and alert. Moves all extremity. Normal speech.no focal neurological deficit A/P Problem List: (1) Atrial fibrillation with rapid ventricular response ICD Code: I48.91 - Unspecified atrial fibrillation Status: Acute (2) CHF (congestive heart failure) ICD Code: I50.9 - Heart failure, unspecified Status: Acute Assessment and Plan 02/26: Continue current care awaiting stress test and echo, appreciate cardiology follow-up, they anticipate possible heart cath on Thursday depending on stress test and echo results 02/27:Patient asked for her Xanax, stress test showed intermediate risk EF 49%, 2D echo pending, possible heart cath on Thursday. Patient complaint of constipation, will place stool softener A/P: - acute on chronic diastolic CHF continue with IV lasix- I/O monitoring- keep on oxygen to keep O2 sat >90%- -atrial fibrillation with RVR- now HR better- resume Cardizem- will resume BB if BP allows.continue Xarelto -elevated troponin- due to CHF/ a-fib?; continue to trend the cardiac enzymes- consult Cardiology ( being followed up by ). -swelling of the left upper extremity; negative venous doppler -diabetes mellitus;start on accu-check with SSI -hypertension; resume Cardizem - will resume metoprolol and lisinopril gradually based on BP trend. -femoral fracture two months ago- s/p ORIF- consult PT -DVT prophylaxis; on Xarelto Problem Qualifiers (1) CHF (congestive heart failure): Qualified Codes: I50.9 - Heart failure, unspecified Lui De Leon MD February 27, 2018 15:54
[2018-02-27] MEDS ORDERED: DOCUSATE SODIUM 50 MG/SENNA 8.6 MG TAB PO SCH (16:00)
[2018-02-27] MEDS ORDERED: BISACODYL 10 MG SUPP RECTAL PRN (16:00)
[2018-02-27] MEDS ORDERED: MAGNESIUM HYDROXIDE SUSP 30 ML CUP PO PRN (16:00)
[2018-02-27] MEDS ORDERED: DOCUSATE SODIUM 50 MG/SENNA 8.6 MG TAB PO PRN (16:45)
--- NOTE | 2018-02-27 18:49 | ECHRPT ---
Indication: CARDIOMYOPATHY CONCLUSIONS The left ventricular systolic function is mildly reduced with an estimated ejection fraction in the range of 45- 50%. Mild concentric left ventricular hypertrophy. Hypokinetic apical cap wall motion. [id number]-[id number] mitral valve regurgitation. Mild aortic valve regurgitation. There is mild tricuspid valve regurgitation. BP: / HR: Rhythm: Sinus MEASUREMENTS (Male / Female) Normal Values Technical Quality:Technically difficult study 2D ECHO LV Diastolic Diameter PLAX 5.2 cm 4.2 - 5.9 / 3.9 - 5.3 cm LV Systolic Diameter PLAX 4.2 cm IVS Diastolic Thickness 1.4 cm 0.6 - 1.0 / 0.6 - 0.9 cm LVPW Diastolic Thickness 1.1 cm 0.6 - 1.0 / 0.6 - 0.9 cm LV Relative Wall Thickness 0.5 RV Internal Dim ED PLAX 2.3 cm LVOT Diameter 1.9 cm LA Systolic Diameter LX 4.8 cm 3.0 - 4.0 / 2.7 - 3.8 cm M-MODE Aortic Root Diameter MM 2.3 cm LA Systolic Diameter MM 5.0 cm LA Ao Ratio MM 2.2 AV Cusp Separation MM 1.7 cm DOPPLER AV Peak Velocity 138.0 cm/s AV Peak Gradient 7.6 mmHg LVOT Peak Velocity 75.5 cm/s LVOT Peak Gradient 2.3 mmHg AV Area Cont Eq pk 1.6 cm MV Area PHT 3.7 cm Mitral E Point Velocity 109.0 cm/s Mitral A Point Velocity 45.4 cm/s Mitral E to A Ratio 2.4 LV E' Lateral Velocity 6.3 cm/s Mitral E to LV E' Lateral Ratio 17.4 LV E' Septal Velocity 7.0 cm/s Mitral E to LV E' Septal Ratio 15.5 TR Peak Velocity 318.0 cm/s TR Peak Gradient 40.4 mmHg Right Atrial Pressure 10.0 mmHg Pulmonary Artery Systolic Pressu 50.4 mmHg Right Ventricular Systolic Press 50.4 mmHg FINDINGS LEFT VENTRICLE The left ventricular systolic function is mildly reduced with an estimated ejection fraction in the range of 45- 50%. Normal left ventricular size. Mild concentric left ventricular hypertrophy. Hypokinetic apical cap wall motion. RIGHT VENTRICLE Normal right ventricular size and systolic function. LEFT ATRIUM The left atrial size is moderately dilated. RIGHT ATRIUM The right atrial size is mildly dilated. ATRIAL SEPTUM Normal atrial septal thickness AORTA The aortic root and proximal ascending aorta are normal in size on limited imaging. MITRAL VALVE Mild mitral annular calcification is present. Ebtza-nw-oopm mitral valve regurgitation. No mitral valve stenosis. AORTIC VALVE Trileaflet aortic valve. Aortic valve sclerosis is present. Mild aortic valve regurgitation. No aortic valve stenosis. TRICUSPID VALVE Structurally normal tricuspid valve. There is mild tricuspid valve regurgitation. The estimated pulmonary arterial pressure is 50.4 mmHg. PULMONARY VALVE Trace pulmonary valve regurgitation. VESSELS The inferior vena cava is dilated. PERICARDIUM There is a tace pericardial effusion present. Rickie Castaneda DO (Electronically Signed) Final Date:27 Feb 2018 18:48
[2018-02-27] MEDS: ALPRAZolam 0.25 MG TAB PO PRN (21:12)
[2018-02-28] VITALS (28 sets, daily range): BP systolic 141–165; BP diastolic 76–101; PULSE 64–96; RESP 18–24; TEMP 97.5–98.2; O2SAT 94–98
[2018-02-28] MEDS: INSULIN ASPART SUPPLEMENTAL SCALE SQ SCH ×4 (08:49→21:00)
[2018-02-28] MEDS: FLUoxetine HCL LIQUID 20 MG/5 ML CUP PO SCH (08:50)
[2018-02-28] MEDS: DILTIAZEM HCL 30 MG TAB PO SCH ×2 (08:50→21:01)
[2018-02-28] MEDS: METOPROLOL TARTRATE 50 MG TAB PO SCH ×2 (08:50→21:01)
[2018-02-28] MEDS: COLLAGENASE OINT 30 GM TUBE TOPICAL SCH (08:51)
[2018-02-28] MEDS: FUROSEMIDE 40 MG/4 ML VIAL IV PUSH SCH (08:51)
[2018-02-28] MEDS: POTASSIUM CHLORIDE 20 MEQ CONTROLLED RELEASE TAB PO SCH (08:51)
[2018-02-28] MEDS: RIVAROXABAN 20 MG TAB PO SCH (08:51)
[2018-02-28 13:19] LABS: AUTOMATED NEUTROPHIL # 6.7 TH/MM3 (1.8-7.7); BASOPHIL # 0.1 TH/MM3 (0-0.2); BASOPHIL % 0.7 % (0.0-2.0); EOSINOPHIL # 0.2 TH/MM3 (0-0.4); EOSINOPHIL % 2.5 % (0.0-4.0); HEMATOCRIT 38.5 % (35.0-46.0); HEMOGLOBIN 12.4 GM/DL (11.6-15.3); LYMPH % 11.1 % (9.0-44.0); MEAN CELL VOLUME 82.8 FL (80.0-100.0); MEAN CORPUSCULAR HEMOGLOBIN 26.7 PG (27.0-34.0); MEAN CORPUSCULAR HGB CONC 32.2 % (32.0-36.0); MEAN PLATELET VOLUME 10.4 FL (7.0-11.0); MONO % 12.1 % (0.0-8.0); MONOCYTE # 1.1 TH/MM3 (0-0.9); NEUT % 73.6 % (16.0-70.0); PLATELET COUNT 218 TH/MM3 (150-450); RED BLOOD COUNT 4.65 MIL/MM3 (4.00-5.30); RED CELL DISTRIBUTION WIDTH 18.5 % (11.6-17.2); WHITE BLOOD COUNT 9.1 TH/MM3 (4.0-11.0)
[2018-02-28 13:48] LABS: BICARBONATE 34.8 MEQ/L (21.0-32.0); CALCIUM 8.8 MG/DL (8.5-10.1); CREATININE 0.61 MG/DL (0.50-1.00)
--- NOTE | 2018-02-28 17:52 | HHI.PR ---
Subjective Remarks Patient reported feeling better today no chest pain or short of breath 2D echo showed EF reduced 45-50% with hypokinetic in the apical area will defer cardiac cath to cardiology Objective Vitals Vital Signs Date Time Temp Pulse Resp B/P (MAP) Pulse Ox O2 Delivery O2 Flow Rate FiO2 02/28/18 17:00 82 02/28/18 16:00 81 02/28/18 15:00 72 02/28/18 15:00 98.2 79 22 159/82 (107) 95 02/28/18 14:00 82 02/28/18 13:00 68 02/28/18 12:00 72 02/28/18 11:10 97.5 70 22 145/90 (108) 96 02/28/18 11:00 69 02/28/18 10:00 82 02/28/18 09:00 86 02/28/18 08:00 80 02/28/18 07:00 85 02/28/18 07:00 97.8 82 24 164/95 (118) 96 02/28/18 06:00 69 02/28/18 05:00 70 02/28/18 04:00 70 02/28/18 03:33 98.0 73 18 143/87 (105) 94 02/28/18 03:00 72 02/28/18 03:00 64 02/28/18 02:00 66 02/28/18 01:00 74 02/28/18 00:00 68 02/27/18 23:00 59 02/27/18 23:00 97.8 59 16 145/83 (103) 95 02/27/18 23:00 70 02/27/18 22:00 68 02/27/18 21:00 76 02/27/18 20:00 86 02/27/18 20:00 97.8 92 16 129/86 (100) 92 02/27/18 19:00 87 02/27/18 18:00 84 I/O 02/27/18 02/27/18 02/27/18 02/28/18 02/28/18 02/28/18 07:00 15:00 23:00 07:00 15:00 23:00 Intake Total 240 ml 800 ml 480 ml 900 ml Output Total 200 ml 1400 ml 50 ml 1550 ml Balance 40 ml -600 ml 430 ml -650 ml Intake Oral 240 ml 800 ml 480 ml 900 ml Output Urine Total 200 ml 1400 ml 50 ml 1550 ml # Voids 2 # Bowel Movements 1 Result Diagram: 02/28/18 1250 02/28/18 1250 Objective Remarks GENERAL: This is a well-nourished, morbidly obese well-developed patient, in no apparent distress. CARDIOVASCULAR: RRR, no gallops, or rubs. RESPIRATORY: Bilateral basilar crackles, in general distant sounds due to body habitus GASTROINTESTINAL: Abdomen soft, non-tender, nondistended. Positive bowel sounds MUSCULOSKELETAL: Extremities without clubbing, cyanosis, or edema. Pedal pulses appreciated NEUROLOGICAL: Awake and alert. Moves all extremity. Normal speech.no focal neurological deficit A/P Problem List: (1) Atrial fibrillation with rapid ventricular response ICD Code: I48.91 - Unspecified atrial fibrillation Status: Acute (2) CHF (congestive heart failure) ICD Code: I50.9 - Heart failure, unspecified Status: Acute Assessment and Plan 02/26: Continue current care awaiting stress test and echo, appreciate cardiology follow-up, they anticipate possible heart cath on Thursday depending on stress test and echo results 02/27:Patient asked for her Xanax, stress test showed intermediate risk EF 49%, 2D echo pending, possible heart cath on Thursday. Patient complaint of constipation, will place stool softener 02/28:Patient reported feeling better today no chest pain or short of breath 2D echo showed EF reduced 45-50% with hypokinetic in the apical area will defer cardiac cath to cardiology A/P: - acute on chronic diastolic CHF continue with IV lasix- I/O monitoring- keep on oxygen to keep O2 sat >90%- -atrial fibrillation with RVR- now HR better- resume Cardizem- will resume BB if BP allows.continue Xarelto -elevated troponin- due to CHF/ a-fib?; continue to trend the cardiac enzymes- consult Cardiology ( being followed up by ). -swelling of the left upper extremity; negative venous doppler -diabetes mellitus;start on accu-check with SSI -hypertension; resume Cardizem - will resume metoprolol and lisinopril gradually based on BP trend. -femoral fracture two months ago- s/p ORIF- consult PT -DVT prophylaxis; on Xarelto Problem Qualifiers (1) CHF (congestive heart failure): Qualified Codes: I50.9 - Heart failure, unspecified Lui De Leon MD February 28, 2018 17:52
[2018-02-28] MEDS: ACETAMINOPHEN/HYDROcodone 325 MG/5 MG TAB PO PRN (18:44)
[2018-02-28] MEDS ORDERED: ONDANSETRON ODT 4 MG TAB PO PRN (21:00)
[2018-03-01] VITALS (30 sets, daily range): BP systolic 117–135; BP diastolic 64–90; PULSE 64–90; RESP 21–23; TEMP 97.7–98.1; O2SAT 95–98
[2018-03-01] MEDS: ACETAMINOPHEN/HYDROcodone 325 MG/5 MG TAB PO PRN ×2 (04:16→20:35)
[2018-03-01] MEDS: INSULIN ASPART SUPPLEMENTAL SCALE SQ SCH ×4 (09:02→20:37)
[2018-03-01] MEDS: DILTIAZEM HCL 30 MG TAB PO SCH ×2 (09:20→20:35)
[2018-03-01] MEDS: METOPROLOL TARTRATE 50 MG TAB PO SCH ×2 (09:20→20:36)
[2018-03-01] MEDS: FLUoxetine HCL LIQUID 20 MG/5 ML CUP PO SCH (09:20)
[2018-03-01] MEDS: RIVAROXABAN 20 MG TAB PO SCH (09:20)
[2018-03-01] MEDS: POTASSIUM CHLORIDE 20 MEQ CONTROLLED RELEASE TAB PO SCH (09:20)
[2018-03-01] MEDS: FUROSEMIDE 40 MG/4 ML VIAL IV PUSH SCH (09:21)
[2018-03-01] MEDS: SODIUM CHLORIDE 0.9% FLUSH 10 ML FLUSH IVF PRN (09:24)
[2018-03-01] MEDS: COLLAGENASE OINT 30 GM TUBE TOPICAL SCH (09:31)
--- NOTE | 2018-03-01 12:46 | PQ ---
Physician Query Response Document PATIENT: AVERY PACHECO : 1950 ADMIT DATE: 02/24/2018 9:13 PM DISCH DATE: RESPONDING PROVIDER #: [email or web address] QUERY TEXT: CDS Clarification Chronic obstructive pulmonary disease (acute) exacerbation POA use of accessory muscle w diminished b reath sounds w crackles left base /wheezes right lung base tx w Albuterol/ Ipratropium Solumedrol IVP / Zosyn IV Other explanation of clinical findings. Unable to determine (no explanation for clinical findings). The medical record reflects the following clinical findings, treatment, and risk factors. * Clinical Indicators accessory muscle use /breath sound nicanor diminished w crackles left base /whee zes right lung base * Risk Factors COPD * Treatment Albuterol/ Ipratropium INH Q 15 X 3 / Solumedrol IVP / Zosyn IV The patient's Clinical Indicators include: Please clarify and document your clinical opinion in the progress notes and discharge summary includi ng the definitive and/or presumptive diagnosis (suspected or probable), related to the above clinical findings. Please include clinical findings supporting your diagnosis. Thank you, Marlena Dinh CDS: Marlena Dinh Patient Unit: [facility] Room: 250 Contact Number: VICENTA/RN ext. [phone] Query created by: Marlena Dinh on 02/25/2018 12:18 PM RESPONSE TEXT: Acute on chronic systolic CHF. Electronically signed by: Ligia Shanks MD 03/01/2018 12:42 PM
--- NOTE | 2018-03-01 15:58 | PD.CARD.PN ---
Subjective Subjective Remarks Dyspnea overall improved. No CP, dizziness, palpitations. Slept fairly well. Objective Medications Item Value Date Time Furosemide 40 mg 02/25/18899 (Lasix Inj) DAILY/IV PUSH 03/01/18920 Metoprolol 100 mg 02/26/18 2100 Tartrate Q12HR/PO 03/01/18919 (Lopressor) Potassium Chloride 20 meq 02/25/18899 (KCl) DAILY/PO 03/01/18919 Diltiazem HCl 60 mg 02/25/18899 (Cardizem) BID/PO 03/01/18919 Rivaroxaban 20 mg 02/25/18899 (Xarelto) DAILY/PO 03/01/18919 Current Medications Medications (Trade) Dose Ordered Sig/Heriberto Route Start Time Stop Time Status Last Admin (NS Flush) 2 ml UNSCH PRN IVF 02/24/18 18:15 03/01/18 09:24 (D50w (Vial) Inj) 50 ml UNSCH PRN IV PUSH 02/24/18 20:30 (Glucagon Inj) 1 mg UNSCH PRN OTHER 02/24/18 20:30 (NovoLOG SUPPLEMENTAL SCALE) 1 ACHS SLIDING SCALE SQ 02/24/18 21:00 03/01/18 12:48 (Albuterol Neb) 1.25 mg Q4HR NEB PRN NEB 02/24/18 20:30 (Lasix Inj) 40 mg DAILY IV PUSH 02/25/18 09:00 03/01/18 09:21 (KCl) 20 meq DAILY PO 02/25/18 09:00 03/01/18 09:20 (Cardizem) 60 mg BID PO 02/25/18 09:00 03/01/18 09:20 (PROzac LIQ) 40 mg DAILY PO 02/25/18 09:00 03/01/18 09:20 (Xarelto) 20 mg DAILY PO 02/25/18 09:00 03/01/18 09:20 ([place] 5-325 Mg) 1 tab Q6H PRN PO 02/25/18 13:30 03/01/18 04:16 (Santyl Oint) 1 applic DAILY TOPICAL 02/25/18 19:00 03/01/18 09:31 (Lopressor) 100 mg Q12HR PO 02/26/18 21:00 03/01/18 09:20 (Xanax) 0.25 mg DAILY PRN PO 02/27/18 16:00 02/27/18 21:12 (Milk Of Magnesia Liq) 30 ml Q6H PRN PO 02/27/18 16:00 (Dulcolax Supp) 10 mg DAILY PRN RECTAL 02/27/18 16:00 (Melodie-Colace) 2 tab BID PRN PO 02/27/18 16:45 (Zofran Odt) 4 mg Q6H PRN PO 02/28/18 21:00 03/01/18 04:15 Vital Signs / I&O Vital Signs Date Time Temp Pulse Resp B/P (MAP) Pulse Ox O2 Delivery O2 Flow Rate FiO2 03/01/18 15:21 97.7 71 128/64 (85) 97 03/01/18 14:00 82 03/01/18 13:00 68 03/01/18 12:00 64 03/01/18 11:30 98.0 69 117/67 (84) 97 03/01/18 11:00 65 03/01/18 10:00 78 03/01/18 09:00 76 03/01/18 08:08 97.7 87 133/83 (100) 98 03/01/18 08:00 68 03/01/18 07:00 76 03/01/18 06:13 20 03/01/18 06:04 71 03/01/18 05:00 72 03/01/18 04:00 74 03/01/18 03:41 98.1 73 22 135/90 (105) 97 03/01/18 03:00 65 03/01/18 02:00 70 03/01/18 01:00 68 03/01/18 00:00 69 02/28/18 23:32 98.0 70 20 141/76 (97) 98 02/28/18 23:00 73 02/28/18 22:00 76 02/28/18 21:00 96 02/28/18 20:00 88 02/28/18 19:33 98.0 88 20 153/81 (105) 94 02/28/18 19:00 95 02/28/18 18:00 88 02/28/18 17:00 82 02/28/18 16:00 81 I/O 02/28/18 02/28/18 02/28/18 03/01/18 03/01/18 03/01/18 07:00 15:00 23:00 07:00 15:00 23:00 Intake Total 480 ml 900 ml 240 ml Output Total 50 ml 1550 ml 325 ml Balance 430 ml -650 ml -85 ml Intake Oral 480 ml 900 ml 240 ml Output Urine Total 50 ml 1550 ml 325 ml # Bowel Movements 1 Physical Exam GENERAL: Well developed, well nourished. No acute distress. HEENT: Jugular venous pressure is normal. CHEST: Diminished breath sounds bases. CARDIAC: Irregular rate and rhythm without S3, S4, or murmur. ABDOMEN: Soft, nontender, no hepatosplenomegaly. Bowel sounds present. EXTREMITIES: No clubbing, cyanosis, edema. Assessment and Plan Problem List: (1) CHF (congestive heart failure) ICD Codes: I50.9 - Heart failure, unspecified Status: Acute Plan: Doing fairly well after overall good IV furosemide diuresis past 3 days. Weight down about 10 kg. Agree with echo findings showing small area apical hypokinesis, EF 45-50%. Nuclear stress test imaging also shows apical infarct with no residual ischemia. REC change to oral furosemide continue beta senthil, add MARY-I as well as low dose aspirin as cardiac testing suggests underlying CAD OK for discharge tomorrow from cardiac standpoint, 2-3 week f/u with Dr. Todd Segura (2) Chronic atrial fibrillation ICD Codes: I48.2 - Chronic atrial fibrillation Status: Chronic Plan: Overall stable, chronic atrial fib. HR's normal. Continue Xarelto, diltiazem, metoprolol. (3) Hypertension ICD Codes: I10 - Essential (primary) hypertension Status: Chronic Plan: Stable. Mostly normotensive. Code Status full code Discussed Condition With patient Problem Qualifiers (1) CHF (congestive heart failure): Qualified Codes: I50.9 - Heart failure, unspecified (2) Hypertension: Qualified Codes: I10 - Essential (primary) hypertension Margarito Laura MD March 01, 2018 15:58
[2018-03-01] MEDS ORDERED: ECASA81 PO (17:04)
[2018-03-01] MEDS ORDERED: POTA10CA PO (17:04)
[2018-03-01] MEDS ORDERED: METO-309 PO (17:04)
[2018-03-01] MEDS ORDERED: ENAL5TAB PO (17:04)
[2018-03-01] MEDS ORDERED: FURO40TA PO (17:04)
--- NOTE | 2018-03-01 17:06 | HHI.PR ---
Subjective Remarks Patient seen and examined earlier today She was resting in bed comfortably No chest pain short of breath, no fever Awaiting cardiology recommendation for further workup Objective Vitals Vital Signs Date Time Temp Pulse Resp B/P (MAP) Pulse Ox O2 Delivery O2 Flow Rate FiO2 03/01/18 16:00 88 03/01/18 15:21 97.7 71 128/64 (85) 97 03/01/18 15:00 72 03/01/18 14:00 82 03/01/18 13:00 68 03/01/18 12:00 64 03/01/18 11:30 98.0 69 117/67 (84) 97 03/01/18 11:00 65 03/01/18 10:00 78 03/01/18 09:00 76 03/01/18 08:08 97.7 87 133/83 (100) 98 03/01/18 08:00 68 03/01/18 07:00 76 03/01/18 06:13 20 03/01/18 06:04 71 03/01/18 05:00 72 03/01/18 04:00 74 03/01/18 03:41 98.1 73 22 135/90 (105) 97 03/01/18 03:00 65 03/01/18 02:00 70 03/01/18 01:00 68 03/01/18 00:00 69 02/28/18 23:32 98.0 70 20 141/76 (97) 98 02/28/18 23:00 73 02/28/18 22:00 76 02/28/18 21:00 96 02/28/18 20:00 88 02/28/18 19:33 98.0 88 20 153/81 (105) 94 02/28/18 19:00 95 02/28/18 18:00 88 I/O 02/28/18 02/28/18 02/28/18 03/01/18 03/01/18 03/01/18 07:00 15:00 23:00 07:00 15:00 23:00 Intake Total 480 ml 900 ml 240 ml Output Total 50 ml 1550 ml 325 ml Balance 430 ml -650 ml -85 ml Intake Oral 480 ml 900 ml 240 ml Output Urine Total 50 ml 1550 ml 325 ml # Bowel Movements 1 Result Diagram: 02/28/18 1250 02/28/18 1250 Objective Remarks GENERAL: This is a well-nourished, morbidly obese well-developed patient, in no apparent distress. CARDIOVASCULAR: RRR, no gallops, or rubs. RESPIRATORY: Bilateral basilar crackles, in general distant sounds due to body habitus GASTROINTESTINAL: Abdomen soft, non-tender, nondistended. Positive bowel sounds MUSCULOSKELETAL: Extremities without clubbing, cyanosis, or edema. Pedal pulses appreciated NEUROLOGICAL: Awake and alert. Moves all extremity. Normal speech.no focal neurological deficit A/P Problem List: (1) Atrial fibrillation with rapid ventricular response ICD Code: I48.91 - Unspecified atrial fibrillation Status: Acute (2) CHF (congestive heart failure) ICD Code: I50.9 - Heart failure, unspecified Status: Acute Assessment and Plan 02/26: Continue current care awaiting stress test and echo, appreciate cardiology follow-up, they anticipate possible heart cath on Thursday depending on stress test and echo results 02/27:Patient asked for her Xanax, stress test showed intermediate risk EF 49%, 2D echo pending, possible heart cath on Thursday. Patient complaint of constipation, will place stool softener 02/28:Patient reported feeling better today no chest pain or short of breath 2D echo showed EF reduced 45-50% with hypokinetic in the apical area will defer cardiac cath to cardiology 03/01: Will order PT in bed, patient has history of recent left hip fracture she is a nonweightbearing, cardiology recommended to continue medical management for now, discharge in a.m., follow-up as an outpatient A/P: - acute on chronic diastolic CHF continue with IV lasix- I/O monitoring- keep on oxygen to keep O2 sat >90%- -atrial fibrillation with RVR- now HR better- resume Cardizem- will resume BB if BP allows.continue Xarelto -elevated troponin- due to CHF/ a-fib?; continue to trend the cardiac enzymes- consult Cardiology ( being followed up by ). -swelling of the left upper extremity; negative venous doppler -diabetes mellitus;start on accu-check with SSI -hypertension; resume Cardizem - will resume metoprolol and lisinopril gradually based on BP trend. -femoral fracture two months ago- s/p ORIF- consult PT -DVT prophylaxis; on Xarelto Discharge Planning In a.m. if stable as per cardiology, all meds reviewed and placed for discharge Problem Qualifiers (1) CHF (congestive heart failure): Qualified Codes: I50.9 - Heart failure, unspecified Lui De Leon MD March 01, 2018 17:06
[2018-03-01] MEDS: ALPRAZolam 0.25 MG TAB PO PRN (20:35)
[2018-03-01] MEDS: ENALAPRIL MALEATE 5 MG TAB PO SCH (20:36)
[2018-03-02] VITALS (17 sets, daily range): BP systolic 117–155; BP diastolic 67–84; PULSE 67–84; RESP 16–21; TEMP 97.8–98; O2SAT 95–97
[2018-03-02 06:15] LABS: BICARBONATE 38.3 MEQ/L (21.0-32.0); CREATININE 0.58 MG/DL (0.50-1.00)
--- NOTE | 2018-03-02 07:57 | HHI.PR ---
Subjective Remarks awake and alert, no complains of pain telemetry - a fib- rate controlled Objective Vitals Vital Signs Date Time Temp Pulse Resp B/P (MAP) Pulse Ox O2 Delivery O2 Flow Rate FiO2 03/02/18 07:46 97.8 67 16 155/79 (104) 97 03/02/18 06:08 82 03/02/18 05:00 82 03/02/18 04:00 76 03/02/18 03:56 97.8 82 21 117/84 (95) 96 03/02/18 03:00 73 03/02/18 02:00 77 03/02/18 01:00 74 03/02/18 00:00 68 03/01/18 23:18 98.0 80 23 121/70 (87) 95 03/01/18 23:00 65 03/01/18 22:00 70 03/01/18 21:50 20 03/01/18 21:00 80 03/01/18 20:22 97.9 90 21 131/83 (99) 95 03/01/18 20:00 82 03/01/18 19:00 75 03/01/18 18:00 82 03/01/18 17:00 76 03/01/18 16:00 88 03/01/18 15:21 97.7 71 128/64 (85) 97 03/01/18 15:00 72 03/01/18 14:00 82 03/01/18 13:00 68 03/01/18 12:00 64 03/01/18 11:30 98.0 69 117/67 (84) 97 03/01/18 11:00 65 03/01/18 10:00 78 03/01/18 09:00 76 03/01/18 08:08 97.7 87 133/83 (100) 98 03/01/18 08:00 68 I/O 03/01/18 03/01/18 03/01/18 03/02/18 03/02/18 03/02/18 07:00 15:00 23:00 07:00 15:00 23:00 Intake Total 240 ml 720 ml 470 ml Output Total 325 ml 1100 ml 350 ml Balance -85 ml -380 ml 120 ml Intake Oral 240 ml 720 ml 470 ml Output Urine Total 325 ml 1100 ml 350 ml Result Diagram: 02/28/18 1250 03/02/18 0530 Imaging Last Impressions Upper Extremity Ultrasound 02/25/18 0000 Signed Impressions: Service Date/Time: February 08:25 - CONCLUSION: No evidence of DVT. Christopher Thompson MD Myocardial Perfusion Scan Nuc Med 02/25/18 0000 Signed Impressions: Service Date/Time: , February 25, 2018 15:34 - CONCLUSION: 1. Apical infarct with paradoxical motion along the low inferior wall. Diminished ejection fraction at 43%%. 2. No scintigraphic findings of ischemia, however. RISK CATEGORY: Intermediate (1-3%% Annual Mortality Rate) Nikolay Burt MD Chest X-Ray 02/24/18 1812 Signed Impressions: Service Date/Time: Saturday, February 24, 2018 18:15 - CONCLUSION: Cardiomegaly with diffuse increased interstitial markings and suspected bilateral effusions likely related to CHF. Wilfred Atkins MD Objective Remarks awake and alert, oriented x 3 anicteric no rales irregularly irregular rhythm abdmen- flabby soft, nontender extremities no edema good epripheral pulses A/P Problem List: (1) Atrial fibrillation with rapid ventricular response ICD Code: I48.91 - Unspecified atrial fibrillation Status: Acute (2) CHF (congestive heart failure) ICD Code: I50.9 - Heart failure, unspecified Status: Acute Assessment and Plan 68 years old female Acute on chronic diastolic CHF chronic atrial fibrillation- rate controlled Underlying mild CAD Hypertension -echo findings showing small area apical hypokinesis, EF 45-50%. Nuclear stress test imaging also shows apical infarct with no residual ischemia. - change to po Lasix 40 mg po daily - continue metoprolol, Cardizem and lisinopril gradually based on BP trend. - ff up with Cardiology in 2-3 weeks = on Xarelto REcent femoral fracture two months ago- s/p ORIF 01/05 - - PT daily -DVT prophylaxis; on Xarelto DM type 2- insulin requiring - glucose levels 200s - patient states at home she is on Lantus 45 units q am and sliding scale - will start her on Levemer while here and monitor BS Discharge Planning - PT recommends rehab- will ask CM to assist Problem Qualifiers (1) CHF (congestive heart failure): Qualified Codes: I50.9 - Heart failure, unspecified Lacierda,Alfea M. MD March 02, 2018 07:57
[2018-03-02] MEDS: INSULIN ASPART SUPPLEMENTAL SCALE SQ SCH ×2 (08:00→12:00)
[2018-03-02] MEDS: FLUoxetine HCL LIQUID 20 MG/5 ML CUP PO SCH (08:55)
[2018-03-02] MEDS: DILTIAZEM HCL 30 MG TAB PO SCH (08:55)
[2018-03-02] MEDS: RIVAROXABAN 20 MG TAB PO SCH (08:56)
[2018-03-02] MEDS: METOPROLOL TARTRATE 50 MG TAB PO SCH (08:56)
[2018-03-02] MEDS: ENALAPRIL MALEATE 5 MG TAB PO SCH (08:56)
[2018-03-02] MEDS: POTASSIUM CHLORIDE 20 MEQ CONTROLLED RELEASE TAB PO SCH (08:57)
[2018-03-02] MEDS ORDERED: ASPIRIN EC 81 MG TABEC PO SCH (09:00)
[2018-03-02] MEDS ORDERED: INSULIN DETEMIR 100 UNITS/ML VIAL SQ SCH ×2 (09:00)
[2018-03-02] MEDS ORDERED: FUROSEMIDE 40 MG TAB PO SCH (09:00)
--- NOTE | 2018-03-02 12:12 | HHI.FF ---
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 My clinical findings support the need for the requested home health care services because: Ltd mobility - disease progression Patient has SOB Deconditioned w/ increased weakness Need for psychosocial assistance I certify that my clinical findings support that this patient is homebound because: Need for psychosocial assistance Poor cardiac reserve Kristopher Damico MD March 02, 2018 12:12
[2018-03-02] MEDS: COLLAGENASE OINT 30 GM TUBE TOPICAL SCH (12:22)
--- NOTE | 2018-03-02 17:32 | HHI.DS ---
Discharge Summary Admission Date February 24, 2018 at 21:13 Discharge Date: March 02, 2018 Admitting Diagnosis chf; afrvr; elevated troponinI; copd (1) Atrial fibrillation with rapid ventricular response ICD Code: I48.91 - Unspecified atrial fibrillation Diagnosis: Principal Status: Acute (2) CHF (congestive heart failure) ICD Code: I50.9 - Heart failure, unspecified Diagnosis: Principal Status: Acute Brief History - From Admission patient is a 68 y/o female with history of CHF,atrial fibrillation,hypertension, diabetes, breast cancer who presented to ER with shortness of breath. she had a femoral fracture in December and underwent ORIF. she was then discharged to rehab. she says that she started to have some sob about ten days ago. she says that she was just discharged home from rehab. she says that it was initially thought that her sob was because of anxiety but it seems that it's getting worse. she reports orthopnea and some weight gain recently. she denies any chest pain, cough, fever or chills.she also noticed some swelling of the left upper extremity. CBC/BMP: 02/28/18 1250 03/02/18 0530 Significant Findings Laboratory Tests Test 02/28/18 12:50 03/02/18 05:30 Mean Corpuscular Hemoglobin 26.7 PG (27.0-34.0) Red Cell Distribution Width 18.5 % (11.6-17.2) Neutrophils (%) (Auto) 73.6 % (16.0-70.0) Monocytes (%) (Auto) 12.1 % (0.0-8.0) Monocytes # (Auto) 1.1 TH/MM3 (0-0.9) Random Glucose 259 MG/DL (74-106) 226 MG/DL (74-106) Chloride Level 97 MEQ/L (98-107) Carbon Dioxide Level 34.8 MEQ/L (21.0-32.0) 38.3 MEQ/L (21.0-32.0) Imaging Last Impressions Upper Extremity Ultrasound 02/25/18 0000 Signed Impressions: Service Date/Time: February 08:25 - CONCLUSION: No evidence of DVT. Christopher Thompson MD Myocardial Perfusion Scan Nuc Med 02/25/18 0000 Signed Impressions: Service Date/Time: February 15:34 - CONCLUSION: 1. Apical infarct with paradoxical motion along the low inferior wall. Diminished ejection fraction at 43%%. 2. No scintigraphic findings of ischemia, however. RISK CATEGORY: Intermediate (1-3%% Annual Mortality Rate) Nikolay Burt MD Chest X-Ray 02/24/18 1812 Signed Impressions: Service Date/Time: Saturday, February 24, 2018 18:15 - CONCLUSION: Cardiomegaly with diffuse increased interstitial markings and suspected bilateral effusions likely related to CHF. Wilfred Atkins MD PE at Discharge awake and alert, oriented x 3 anicteric no rales irregularly irregular rhythm abdomen- flabby soft, nontender extremities no edema good epripheral pulses Pt update on day of discharge a fib rate controlled no distress, chest pain free Hospital Course 68 years old female Acute on chronic diastolic CHF chronic atrial fibrillation- rate controlled Underlying mild CAD Hypertension -echo findings showing small area apical hypokinesis, EF 45-50%. Nuclear stress test imaging also shows apical infarct with no residual ischemia. - change to po Lasix 40 mg po daily - continue metoprolol, Cardizem and lisinopril gradually based on BP trend. - ff up with Cardiology in 2-3 weeks = on Xarelto REcent femoral fracture two months ago- s/p ORIF 01/05 - - PT daily -DVT prophylaxis; on Xarelto DM type 2- insulin requiring - glucose levels 200s - patient states at home she is on Lantus 45 units q am and sliding scale - will start her on Levemer while here and monitor BS Pt Condition on Discharge: Stable Discharge Disposition: Disch w/ Home Health Serv Discharge Time: <= 30 minutes Discharge Instructions DIET: Follow Instructions for: Heart Healthy Diet Speech Therapy-Diet Recommends: Regular Activities you can perform: Weight Bearing as Madelyn Follow up Referrals: Cardiology - 2 Weeks with Todd Segura MD PCP Follow-up New Medications: Potassium Chloride ER (Potassium Chloride ER) 10 Meq Cap 10 MEQ PO EVERY OTHER DAY for Electrolyte Replacement, #[address] CAP [address] (Aspirin DR) 81 Mg Tabdr 81 MG PO DAILY for cardiac, #30 TAB Enalapril (Enalapril) 5 Mg Tab 5 MG PO BID for htn, #30 TAB Furosemide (Furosemide) 40 Mg Tab 40 MG PO DAILY for chf, #30 TAB Metoprolol Tartrate (Lopressor) 50 Mg Tab 100 MG PO Q12HR for htn, #60 TAB Continued Medications: Calcium Carbonate-Vitamin D (Calcium 600+D 200) 600-200 Mg-Unit Tab 1 TAB PO BID for Nutritional Supplement for 30 Days, #60 TAB 0 Refills Cholecalciferol (Vitamin D3) 2,000 Unit Cap 2000 UNITS PO DAILY for Nutritional Supplement, #60 CAP 0 Refills Diltiazem (Cardizem) 30 Mg Tab 60 MG PO BID for Regulate Heart Beat, #120 TAB 0 Refills Ergocalciferol (Ergocalciferol) 50,000 Unit Cap 76027 UNITS PO Q7D for Nutritional Supplement, #8 CAP Fluoxetine Hcl (Prozac) 20 Mg/5 Ml Liqd 40 MG PO DAILY, ML Insulin Aspart (Novolog Insulin Supplemental Scale) 100 /Ml Inj 1 UNIT SQ ACHS SLIDING SCALE, INJ Rivaroxaban (Xarelto 20 Mg Tab) 20 Mg Tab 20 MG PO DAILY for A. fib for 30 Days, TAB Kristopher Damico MD March 02, 2018 17:32
== END 2018-03-02 14:39 | disposition home health service (06) | DRG 292 ==
LOC: PHED 17:45 → PHEDA 21:13 → HCIS 02-25 00:46
PROVIDERS: ADMIT Internal Medicine; ATTEND Internal Medicine
DX: I11.0 Hypertensive heart disease with heart failure (principal); J44.1 Chronic obstructive pulmonary disease with (acute) exacerbation; I48.2 Chronic atrial fibrillation; J44.9 Chronic obstructive pulmonary disease, unspecified; Z68.41 Body mass index [BMI] 40.0-44.9, adult; I50.43 Acute on chronic combined systolic (congestive) and diastolic (congestive) heart failure; E66.01 Morbid (severe) obesity due to excess calories; F32.9 Major depressive disorder, single episode, unspecified; I25.10 Atherosclerotic heart disease of native coronary artery without angina pectoris; R74.8 Abnormal levels of other serum enzymes; E11.9 Type 2 diabetes mellitus without complications; M19.90 Unspecified osteoarthritis, unspecified site; E78.00 Pure hypercholesterolemia, unspecified; K59.00 Constipation, unspecified; R06.03 Acute respiratory distress; R32 Unspecified urinary incontinence; F41.9 Anxiety disorder, unspecified; Z96.653 Presence of artificial knee joint, bilateral; Z79.01 Long term (current) use of anticoagulants; S72.90XD Unspecified fracture of unspecified femur, subsequent encounter for closed fracture with routine healing; Z79.4 Long term (current) use of insulin; Z23 Encounter for immunization; Z85.3 Personal history of malignant neoplasm of breast; Z79.899 Other long term (current) drug therapy
CPT/HCPCS: 36600; 71045; 78452; 80048; 80053; 81001; 82550; 82805; 82948; 83735; 83880; 84484; 85025; 85610; 85730; 87040; 90732; 93005; 93017; 93306; 93971; 94640; 94664; 96365; 96375; A9502; J1815; J1940; J2543; J2785; J2930

== ENCOUNTER 2018-03-12 01:00 | Inpatient (IN) | payer OTHER, MEDICARE ==
[2018-03-12] VITALS (17 sets, daily range): BP systolic 91–158; BP diastolic 51–84; PULSE 73–95; RESP 20–39; TEMP 96.9–98.4; O2SAT 92–96
[~2018-03-12] VITALS: Ht 165.1 cm; Wt 112.2 kg
[~2018-03-12 01:00] MED LIST changes: +ECASA81 PO; +ENAL5TAB PO; +FURO40TA PO; +METO-309 PO; +POTA10CA PO
[2018-03-12] MEDS ORDERED: SODIUM CHLORIDE 0.9% FLUSH 10 ML FLUSH IVF PRN (01:30)
[2018-03-12] MEDS ORDERED: FUROSEMIDE 100 MG/10 ML VIAL IVP ONE (01:30)
--- NOTE | 2018-03-12 01:33 | PD ---
HPI Chief Complaint: Respiratory Symptoms Time Seen by Provider: 01:20 Travel History International Travel<30 days: No Contact w/Intl Traveler<30days: No Traveled to known affect area: No History of Present Illness HPI The patient is a 68-year-old female that has a history of chronic atrial fibrillation, congestive heart failure and COPD who complains of shortness of breath since she was discharged from the hospital about 9 days ago. It got worse in the last 2 days. She denies any fever or calf pain. About a month and a half ago she had left femoral surgery. She currently takes Xarelto and aspirin for anticoagulation. She is also an insulin-dependent diabetic. She denies any fever. PFSH Past Medical History Hx Anticoagulant Therapy: Yes Arthritis: Yes Asthma: No Atrial Fibrillation: Yes Blood Disorders: Yes Anxiety: No Depression: Yes Heart Rhythm Problems: Yes Cancer: Yes (breast 2010) Cardiovascular Problems: Yes High Cholesterol: Yes Chemotherapy: Yes Chest Pain: Yes (CHEST PRESSURE) Congestive Heart Failure: Yes COPD: Yes Cerebrovascular Accident: No Diabetes: Yes Diminished Hearing: No Endocrine: Yes GERD: No Genitourinary: No Hiatal Hernia: No Hypertension: Yes Immune Disorder: No Implanted Vascular Access Dvce: Yes Kidney Stones: No Musculoskeletal: Yes Neurologic: No Psychiatric: Yes Reproductive: No Respiratory: Yes Migraines: No Radiation Therapy: Yes Renal Failure: No Seizures: No Sleep Apnea: No Thyroid Disease: No Ulcer: No Menopausal: Yes Past Surgical History Abdominal Surgery: No AICD: No Arteriovenous Shunt: No Cardiac Surgery: No Ear Surgery: No Endocrine Surgery: No Eye Surgery: Yes (BILAT CATARACT) Genitourinary Surgery: No Gynecologic Surgery: Yes (hyster) Hysterectomy: Yes Insulin Pump: No Joint Replacement: Yes (Carlin knees, RODS IN LEFT LEG TO REPAIR FEMUR) Oral Surgery: No Pacemaker: No Thoracic Surgery: No Other Surgery: Yes Social History Alcohol Use: Yes (OCCASIONAL) Tobacco Use: No Substance Use: No Allergies-Medications (Allergen,Severity, Reaction): Coded Allergies: morphine (Verified Allergy, Intermediate, fainting, 02/24/18) Reported Meds & Prescriptions Reported Meds & Active Scripts Active Potassium Chloride ER (Potassium Chloride) 10 Meq Cap 10 Meq PO EVERY OTHER DAY Furosemide 40 Mg Tab 40 Mg PO DAILY Aspirin DR (Aspirin) 81 Mg Tabdr 81 Mg PO DAILY Enalapril (Enalapril Maleate) 5 Mg Tab 5 Mg PO BID Hydrocodone-Acetaminophen 10-325 mg Tab 1 Tab PO Q4H PRN Walker/Adult/Folding (Device) 1 Mis Mis Ea .XX DIRECTED Reported [Oxygen] 2.5 Liter NASAL Anoro Ellipta Inh (Umeclidinium/Vilanterol) 62.5-25 Mcg/Act Aero 1 Puff INH DAILY Xarelto (Rivaroxaban) 20 Mg Tab 20 Mg PO DAILY Metoprolol Tartrate 50 Mg Tab 50 Mg PO BID Lisinopril 10 Mg Tab 10 Mg PO DAILY Novolog Inj (Insulin Aspart) 1,000 Unit/10 Ml Vial 0 SQ DIRECTED Sliding Scale as directed. Lantus Inj (Insulin Glargine) 1,000 Unit/10 Ml Vial 50 Units SQ HS Novolog Inj (Insulin Aspart) 1,000 Unit/10 Ml Vial 0 SQ DIRECTED Sliding Scale as directed. Prozac (Fluoxetine HCl) 40 Mg Cap 40 Mg PO DAILY Cardizem (Diltiazem HCl) 30 Mg Tab 60 Mg PO BID Review of Systems Except as stated in HPI: all other systems reviewed are Neg Physical Exam Narrative GENERAL: The patient is obese, alert, oriented 3 in moderate respiratory distress. The vital signs show respiratory rate of 38 with blood pressure 147/ 74 and oximetry 95% on 4 L. SKIN: Focused skin assessment warm/dry. HEAD: Atraumatic. Normocephalic. EYES: Pupils equal and round. No scleral icterus. No injection or drainage. ENT: No nasal bleeding or discharge. Mucous membranes pink and moist. NECK: Trachea midline. No JVD. CARDIOVASCULAR: Regular rate and rhythm. No murmur appreciated. RESPIRATORY: No accessory muscle use. A few scattered rales are heard bilaterally along with a few wheezes. Breath sounds equal bilaterally. GASTROINTESTINAL: Abdomen soft, non-tender, nondistended. Hepatic and splenic margins not palpable. MUSCULOSKELETAL: No obvious deformities. No clubbing. No cyanosis. No edema. NEUROLOGICAL: Awake and alert. No obvious cranial nerve deficits. Motor grossly within normal limits. Normal speech. PSYCHIATRIC: Appropriate mood and affect; insight and judgment normal. Data Data Last Documented VS Vital Signs Date Time Temp Pulse Resp B/P (MAP) Pulse Ox O2 Delivery O2 Flow Rate FiO2 03/12/18 01:45 93 Nasal Cannula 2.50 03/12/18 01:05 38 03/12/18 01:00 98.2 79 147/74 (98) Orders Orders Complete Blood Count With Diff (03/12/18 01:20) Comprehensive Metabolic Panel (03/12/18 01:20) B-Type Natriuretic Peptide (03/12/18 01:20) Magnesium (Mg) (03/12/18 01:20) Ckmb (Isoenzyme) Profile (03/12/18 01:20) Troponin I (03/12/18:20) Arterial Blood Gas (Abg) (03/12/18 01:20) Iv Access Insert/Monitor (03/12/18:20) Ecg Monitoring (03/12/18:20) Oximetry (03/12/18:20) Oxygen Administration (03/12/18:20) Chest, Single Ap (03/12/18:20) Sodium Chloride 0.9% Flush (Ns Flush) (03/12/18 01:30) Furosemide Inj (Lasix Inj) (03/12/18 01:30) Albuterol-Ipratropium Neb (Duoneb Neb) (03/12/18 01:30) Electrocardiogram (03/12/18 01:52) Urinalysis - C+S If Indicated (03/12/18 02:31) Aspirin Ec (Ecotrin Ec) (03/12/18 09:00) Diltiazem (Cardizem) (03/12/18 09:00) Furosemide (Lasix) (03/12/18 09:00) Insulin Glargine Inj (Lantus Inj) (03/12/18 21:00) Lisinopril (Prinivil) (03/12/18 09:00) Metoprolol Tartrate (Lopressor) (03/12/18 09:00) Rivaroxaban (Xarelto) (03/12/18 09:00) Umeclidin-Vilanter 62.5-25 Inh (Anoro-El (03/12/18 09:00) (Nf) Fluoxetine (Prozac) (03/12/18 09:00) Labs Laboratory Tests Test 03/12/18 01:30 03/12/18 01:40 03/12/18 02:39 White Blood Count 12.5 TH/MM3 Red Blood Count 4.32 MIL/MM3 Hemoglobin 11.3 GM/DL Hematocrit 34.8 % Mean Corpuscular Volume 80.5 FL Mean Corpuscular Hemoglobin 26.2 PG Mean Corpuscular Hemoglobin Concent 32.5 % Red Cell Distribution Width 17.5 % Platelet Count 239 TH/MM3 Mean Platelet Volume 11.5 FL Neutrophils (%) (Auto) 76.1 % Lymphocytes (%) (Auto) 8.8 % Monocytes (%) (Auto) 11.7 % Eosinophils (%) (Auto) 3.0 % Basophils (%) (Auto) 0.4 % Neutrophils # (Auto) 9.5 TH/MM3 Lymphocytes # (Auto) 1.1 TH/MM3 Monocytes # (Auto) 1.5 TH/MM3 Eosinophils # (Auto) 0.4 TH/MM3 Basophils # (Auto) 0.0 TH/MM3 CBC Comment DIFF FINAL Differential Comment Blood Urea Nitrogen 12 MG/DL Creatinine 0.53 MG/DL Random Glucose 235 MG/DL Total Protein 7.1 GM/DL Albumin 2.6 GM/DL Calcium Level 8.8 MG/DL Magnesium Level 1.7 MG/DL Alkaline Phosphatase 94 U/L Aspartate Amino Transf (AST/SGOT) 17 U/L Alanine Aminotransferase (ALT/SGPT) 15 U/L Total Bilirubin 1.2 MG/DL Sodium Level 141 MEQ/L Potassium Level 4.2 MEQ/L Chloride Level 102 MEQ/L Carbon Dioxide Level 30.4 MEQ/L Anion Gap 9 MEQ/L Estimat Glomerular Filtration Rate 115 ML/MIN Total Creatine Kinase 28 U/L Troponin I LESS THAN 0.02 NG/ML B-Type Natriuretic Peptide 446 PG/ML Blood Gas Puncture Site RT RADIAL Blood Gas Patient Temperature 98.6 Blood Gas HCO3 31 mmol/L Blood Gas Base Excess 7.2 mmol/L Blood Gas Oxygen Saturation 89 % Arterial Blood pH 7.47 Arterial Blood Partial Pressure CO2 44 mmHG Arterial Blood Partial Pressure O2 58 mmHG Arterial Blood Oxygen Content 13.1 Vol % Arterial Blood Carboxyhemoglobin 2.3 % Arterial Blood Methemoglobin 0.6 % Blood Gas Hemoglobin 10.5 G/DL Oxygen Delivery Device NASAL CANNULA Blood Gas Liter Flow 2.5 L/M Urine Color YELLOW Urine Turbidity CLEAR Urine pH 6.0 Urine Specific [place] 1.010 Urine Protein NEG mg/dL Urine Glucose (UA) NEG mg/dL Urine Ketones NEG mg/dL Urine Occult Blood TRACE Urine Nitrite NEG Urine Bilirubin NEG Urine Urobilinogen 0.2 MG/DL Urine Leukocyte Esterase NEG Urine WBC 0-2 /hpf Urine Squamous Epithelial Cells 0-5 /hpf Microscopic Urinalysis Comment CULT NOT INDICATED MDM Medical Decision Making Medical Screen Exam Complete: Yes Emergency Medical Condition: Yes Medical Record Reviewed: Yes Interpretation(s) The BNP is 446. The chest x-ray shows cardiomegaly with mild edema pattern and bilateral effusions characteristic of congestive heart failure. The complete metabolic profile shows a glucose of 235, albumin 2.6 with total bilirubin 1.2 but is otherwise unremarkable. The cardiac enzymes are normal. The EKG shows atrial fibrillation with a rate of 87. There is anterior lateral and inferior ischemic changes on the EKG. The blood gases on 2.5 L show pH 7.47, CO2 44, PO2 58 with bicarb 31 and O2 sat 89%. Differential Diagnosis Congestive heart failure, COPD with acute exacerbation, pulmonary embolus- unlikely, pneumonia, hypoxemia, hyper/hypoglycemia, electrolyte disorder Narrative Course The patient's shortness of breath appears to be primarily due to congestive heart failure. She has been given Lasix 80 mg IV and thus far she has put out about 400 cc of urine. The patient also has hypoxemia, this is due in a great part to her COPD and these values may be chronic. The patient has considerable difficulty talking the last 2 days because of her shortness of breath. She will be admitted to the [facility] service, Dr. Johnson. Physician Communication Physician Communication I discussed the patient with Dr. Johnson, the patient will be admitted to her. Diagnosis Primary Impression: Congestive heart failure Additional Impressions: COPD exacerbation Hypoxemia Admitting Information Admitting Physician Requests: Admit Walter Dsouza MD Mar 12, 2018 01:33
[2018-03-12 01:34] LABS: AUTOMATED NEUTROPHIL # 9.5 TH/MM3 (1.8-7.7); BASOPHIL % 0.4 % (0.0-2.0); EOSINOPHIL # 0.4 TH/MM3 (0-0.4); HEMATOCRIT 34.8 % (35.0-46.0); HEMOGLOBIN 11.3 GM/DL (11.6-15.3); LYMPH % 8.8 % (9.0-44.0); LYMPHOCYTE # 1.1 TH/MM3 (1.0-4.8); MEAN CELL VOLUME 80.5 FL (80.0-100.0); MEAN CORPUSCULAR HEMOGLOBIN 26.2 PG (27.0-34.0); MEAN CORPUSCULAR HGB CONC 32.5 % (32.0-36.0); MEAN PLATELET VOLUME 11.5 FL (7.0-11.0); MONO % 11.7 % (0.0-8.0); MONOCYTE # 1.5 TH/MM3 (0-0.9); NEUT % 76.1 % (16.0-70.0); PLATELET COUNT 239 TH/MM3 (150-450); RED BLOOD COUNT 4.32 MIL/MM3 (4.00-5.30); RED CELL DISTRIBUTION WIDTH 17.5 % (11.6-17.2); WHITE BLOOD COUNT 12.5 TH/MM3 (4.0-11.0)
[2018-03-12] MEDS ORDERED: PROZ40CA PO (01:41)
[2018-03-12] MEDS ORDERED: OXYGEN NASAL (01:41)
[2018-03-12] MEDS ORDERED: UMEC1AER INH (01:41)
[2018-03-12] MEDS ORDERED: NOVOLOGP2 SQ (01:41)
[2018-03-12] MEDS ORDERED: XARE20TA PO (01:41)
[2018-03-12] MEDS ORDERED: LISI10TA3 PO (01:41)
[2018-03-12] MEDS ORDERED: LANTUS2P SQ (01:41)
[2018-03-12] MEDS ORDERED: METO50TA PO (01:41)
[2018-03-12 01:42] LABS: CHLORIDE 102 MEQ/L (98-107); SODIUM (NA) 141 MEQ/L (136-145)
[2018-03-12] MEDS: RESP: ALBUTEROL 2.5 MG/IPRATROPIUM 0.5 MG NEB (SCH) INH (01:44)
[2018-03-12 01:45] LABS: CALCIUM 8.8 MG/DL (8.5-10.1)
[2018-03-12 01:46] LABS: ALBUMIN 2.6 GM/DL (3.4-5.0); BICARBONATE 30.4 MEQ/L (21.0-32.0); BLOOD UREA NITROGEN 12 MG/DL (7-18); GLUCOSE,RANDOM 235 MG/DL (74-106); MAGNESIUM 1.7 MG/DL (1.5-2.5)
[2018-03-12 01:49] LABS: ALT (GPT) 15 U/L (10-53); AST (GOT) 17 U/L (15-37); CREATININE 0.53 MG/DL (0.50-1.00); GLOMERULAR FILTRATION RATE 115 ML/MIN (>89)
[2018-03-12 01:50] LABS: TOTAL BILIRUBIN ADULT 1.2 MG/DL (0.2-1.0); TOTAL PROTEIN 7.1 GM/DL (6.4-8.2)
[2018-03-12 01:52] LABS: ALKALINE PHOSPHATASE 94 U/L (45-117)
[2018-03-12 01:54] LABS: TROPONIN I LESS THAN 0.02 NG/ML (0.02-0.05)
--- NOTE | 2018-03-12 02:13 | RADRPT ---
EXAM DATE: 03/12/2018 1:54 AM EDT AGE/SEX: 68 years / Female INDICATIONS: Shortness of breath for 2 days CLINICAL DATA: This is the patient's initial encounter. Patient reports that signs and symptoms have been present for 2 days and indicates a pain score of 0/10. MEDICAL/SURGICAL HISTORY: Congestive heart failure. Hypercholesterolemia. Hypertension. AFIB . Chronic obstructive pulmonary disease. None. COMPARISON: [facility], CHEST SINGLE AP, 02/24/2018. . FINDINGS: There is global cardiomegaly. Mild edema pattern with bilateral effusions, right greater than left. N o pneumothorax. CONCLUSION: Cardiomegaly with mild edema pattern and bilateral effusions most characteristic of congestive heart failure. Electronically signed by: Rudy Tamez MD 03/12/2018 2:12 AM EDT
[2018-03-12] MEDS ORDERED: DEXAMETHASONE 1 MG/1 ML ORAL SYRINGE PO ONE (02:30)
[2018-03-12] MEDS ORDERED: RESP: RACEPINEPHRINE 2.25% 0.5 ML NEB NEB ONE (02:30)
[2018-03-12 02:47] LABS: BILIRUBIN, URINE NEG (NEG); BLOOD, URINE TRACE (NEG); GLUCOSE,URINE NEG (NEG); KETONE, URINE NEG (NEG); NITRITE,URINE NEG (NEG); URINE COLOR YELLOW (YELLW/STRAW); URINE LEUKOCYTE ESTERASE NEG (NEG)
[2018-03-12 03:03] LABS: SQUAMOUS EPITHELIAL CELL URINE 0-5 /hpf (0-5); WBC, URINE 0-2 /hpf (0-5)
[2018-03-12] MEDS ORDERED: GLUCAGON 1 MG/ML VIAL OTHER PRN (03:30)
[2018-03-12] MEDS ORDERED: LACTULOSE SYRUP 20 GM/30 ML CUP PO PRN (03:30)
[2018-03-12] MEDS ORDERED: MAGNESIUM HYDROXIDE SUSP 30 ML CUP PO PRN (03:30)
[2018-03-12] MEDS ORDERED: DEXTROSE 50% IN WATER 50 ML VIAL(D50) IV PUSH PRN (03:30)
[2018-03-12] MEDS ORDERED: ACETAMINOPHEN 325 MG TAB PO PRN (03:30)
[2018-03-12] MEDS ORDERED: HEPARIN SODIUM - SQ 10,000 UNITS/ML VIAL SQ SCH (03:30)
[2018-03-12] MEDS ORDERED: BISACODYL 10 MG SUPP RECTAL PRN (03:30)
[2018-03-12] MEDS ORDERED: SODIUM CHLORIDE 0.9% FLUSH 10 ML FLUSH IV FLUSH PRN (03:30)
[2018-03-12] MEDS ORDERED: SENNOSIDES 8.6 MG TAB PO PRN (03:30)
[2018-03-12] MEDS ORDERED: NALOXONE HCL 0.4 MG/ML AMP IV PUSH PRN (03:30)
[2018-03-12] MEDS: INSULIN ASPART SUPPLEMENTAL SCALE SQ SCH ×4 (08:00→20:25)
[2018-03-12] MEDS: METOPROLOL TARTRATE 50 MG TAB PO SCH ×2 (08:24→20:26)
[2018-03-12] MEDS: FLUoxetine HCL 20 MG CAP PO SCH (08:24)
[2018-03-12] MEDS: RIVAROXABAN 20 MG TAB PO SCH (08:24)
[2018-03-12] MEDS: LISINOPRIL 10 MG TAB PO SCH (08:25)
[2018-03-12] MEDS: ASPIRIN EC 81 MG TABEC PO SCH (08:25)
[2018-03-12] MEDS: DILTIAZEM HCL 30 MG TAB PO SCH ×2 (08:25→20:26)
[2018-03-12] MEDS: FUROSEMIDE 40 MG/4 ML VIAL IV PUSH SCH ×2 (08:27→17:07)
[2018-03-12] MEDS: SODIUM CHLORIDE 0.9% FLUSH 10 ML FLUSH IV FLUSH SCH ×2 (08:27→19:33)
[2018-03-12] MEDS: UMECLIDINIUM 62.5 MCG/VILANTEROL 25 MCG INHALER INH SCH (09:00)
[2018-03-12] MEDS ORDERED: DOCUSATE SODIUM 50 MG/SENNA 8.6 MG TAB PO SCH (09:00)
[2018-03-12] MEDS ORDERED: FUROSEMIDE 40 MG TAB PO SCH (09:00)
--- NOTE | 2018-03-12 10:46 | HHI.HP ---
[facility] Briana Aviles MD Admission Diagnosis Congestive heart failure, COPD with acute exacerbation, hypoxemia Diagnoses: Chief Complaint: Shortness of breath Bilateral lower extremity edema Travel History International Travel<30 Days: No Contact w/Intl Traveler <30 Da: No Traveled to Known Affected Are: No Sepsis Criteria SIRS Criteria (2 or more): RR > 20 or PaCO2 < 32, WBC > 31815, < 4000 or > 10 % bands History of Present Illness Written by Crystal Shore, acting as scribe for Dr. Gayle on 03/12/18 at 10:40. This is a pleasant 68-year-old female patient with a known medical history of atrial fibrillation on anticoagulation, COPD, CHF, diabetes and hypertension who presented to the ED with complaints of shortness of breath 3 days. Patient states she has been short of breath especially with exertion but now has worsened while at rest as well over the past couple days. Does admit to poor appetite, denies any recent fever, chills, cough, headache, abdominal pain , nausea, vomiting, diarrhea or dysuria. Patient states she was discharged from the hospital roughly 10 days ago for treatment of acute exacerbation of CHF , was placed on diuretic and improved and sent home. Patient is status post ORIF of left femoral fracture in December, was discharged to rehab and sent home on home oxygen, patient uses nasal cannula 2.5 L. Patient has had limited range of motion as well as difficulty transferring to wheelchair since surgery, according to patient she is unable to bear weight for another 30 days. She states she has been unable to walk for the past 3 days due to shortness of breath and weakness. Patient has been working with home health nursing, PT and OT. Patient's general labor forklift operator Dr. Gutierrez, who was last seen 3 months ago. Denies any recent antibiotic or steroid use. PCP is Dr. Soto and last seen a couple weeks ago. Patient's mainframe analyst is Dr. Segura. Patient lives at home with . Review of Systems Constitutional: DENIES: Fever, Chills Respiratory: COMPLAINS OF: Shortness of breath, DENIES: Cough, Sputum production Cardiovascular: COMPLAINS OF: Lower Extremity Edema, DENIES: Chest pain, Palpitations Gastrointestinal: DENIES: Abdominal pain, Black stools, Bloody stools, Constipation, Diarrhea, Nausea, Vomiting Psychiatric: COMPLAINS OF: Anxiety Except as stated in HPI: all other systems reviewed are Neg Past Family Social History Past Medical History Atrial fib on anticoagulation Arthritis Depression Breast CA 2010 Hyperlipidemia COPD Diabetes Past Surgical History Bilateral cataracts Hysterectomy Bilateral knees with jw placement in left leg to repair femur Reported Medications Active Potassium Chloride ER (Potassium Chloride) 10 Meq Cap 10 Meq PO EVERY OTHER DAY Furosemide 40 Mg Tab 40 Mg PO DAILY Aspirin DR (Aspirin) 81 Mg Tabdr 81 Mg PO DAILY Enalapril (Enalapril Maleate) 5 Mg Tab 5 Mg PO BID Hydrocodone-Acetaminophen 10-325 mg Tab 1 Tab PO Q4H PRN Walker/Adult/Folding (Device) 1 Mis Mis Ea .XX DIRECTED Reported [Oxygen] 2.5 Liter NASAL Anoro Ellipta Inh (Umeclidinium/Vilanterol) 62.5-25 Mcg/Act Aero 1 Puff INH DAILY Xarelto (Rivaroxaban) 20 Mg Tab 20 Mg PO DAILY Metoprolol Tartrate 50 Mg Tab 50 Mg PO BID Lisinopril 10 Mg Tab 10 Mg PO DAILY Novolog Inj (Insulin Aspart) 1,000 Unit/10 Ml Vial 0 SQ DIRECTED Sliding Scale as directed. Lantus Inj (Insulin Glargine) 1,000 Unit/10 Ml Vial 50 Units SQ HS Novolog Inj (Insulin Aspart) 1,000 Unit/10 Ml Vial 0 SQ DIRECTED Sliding Scale as directed. Prozac (Fluoxetine HCl) 40 Mg Cap 40 Mg PO DAILY Cardizem (Diltiazem HCl) 30 Mg Tab 60 Mg PO BID Allergies: Coded Allergies: morphine (Verified Allergy, Intermediate, fainting, 02/24/18) Active Ordered Medications Current Medications Medications (Trade) Dose Ordered Sig/Heriberto Route Start Time Stop Time Status Last Admin (Ecotrin Ec) 81 mg DAILY PO 03/12/18 09:00 03/12/18 08:25 (Cardizem) 60 mg BID PO 03/12/18 09:00 03/12/18 08:25 (Levemir Inj) 50 units HS SQ 03/12/18 21:00 (Prinivil) 10 mg DAILY PO 03/12/18 09:00 03/12/18 08:25 (Lopressor) 50 mg BID PO 03/12/18 09:00 03/12/18 08:24 (Xarelto) 20 mg DAILY PO 03/12/18 09:00 03/12/18 08:24 (PROzac) 40 mg DAILY PO 03/12/18 09:00 03/12/18 08:24 (D50w (Vial) Inj) 50 ml UNSCH PRN IV PUSH 03/12/18 03:30 (Glucagon Inj) 1 mg UNSCH PRN OTHER 03/12/18 03:30 (NovoLOG SUPPLEMENTAL SCALE) 1 ACHS SLIDING SCALE SQ 03/12/18 08:00 03/12/18 08:00 (NS Flush) 2 ml UNSCH PRN IV FLUSH 03/12/18 03:30 (NS Flush) 2 ml BID IV FLUSH 03/12/18 09:00 03/12/18 08:27 (Tylenol) 650 mg Q4H PRN PO 03/12/18 03:30 (Zofran Inj) 4 mg Q6H PRN IVP 03/12/18 03:30 (Narcan Inj) 0.4 mg UNSCH PRN IV PUSH 03/12/18 03:30 (Melodie-Colace) 1 tab BID PO 03/12/18 09:00 03/12/18 08:25 (Milk Of Magnesia Liq) 30 ml Q12H PRN PO 03/12/18 03:30 (Senokot) 17.2 mg Q12H PRN PO 03/12/18 03:30 (Dulcolax Supp) 10 mg DAILY PRN RECTAL 03/12/18 03:30 (Lactulose Liq) 30 ml DAILY PRN PO 03/12/18 03:30 (Lasix Inj) 40 mg BID@ IV PUSH 03/12/18 09:00 03/12/18 08:27 Family History Denies any significant family medical history. Social History Denies any tobacco, alcohol or illicit drug use. Physical Exam Vital Signs Vital Signs Date Time Temp Pulse Resp B/P (MAP) Pulse Ox O2 Delivery O2 Flow Rate FiO2 03/12/18 05:20 98.4 82 28 158/66 (96) 95 03/12/18 04:30 80 36 146/70 (95) 96 Nasal Cannula 2.50 03/12/18 04:00 88 38 142/84 (103) 92 Nasal Cannula 2.50 03/12/18 03:30 82 38 132/62 (85) 95 Nasal Cannula 2.50 03/12/18 03:00 88 30 140/67 (91) 93 Nasal Cannula 2.50 03/12/18 02:30 84 36 141/68 (92) 94 Nasal Cannula 2.50 03/12/18 01:45 93 Nasal Cannula 2.50 03/12/18 01:05 38 95 Nasal Cannula 4.00 03/12/18 01:05 95 Nasal Cannula 4.00 03/12/18 01:05 38 95 Nasal Cannula 4.00 03/12/18 01:00 98.2 79 38 147/74 (98) 95 Physical Exam GENERAL: Well-developed, well-nourished elderly obese patient in [facility]. On 2 L nasal cannula this is baseline for patient SKIN: Warm and dry. No rash. HEAD: Normocephalic. Atraumatic. EYES: Pupils equal and round. No scleral icterus. No injection or drainage. ENT: No nasal bleeding or discharge. Mucous membranes pink and moist. NECK: Supple. Trachea midline. CARDIOVASCULAR: Irregularly irregular rhythm. No murmur appreciated. RESPIRATORY: No accessory muscle use. Diminished breath sounds throughout secondary to body habitus. Breath sounds equal bilaterally. GASTROINTESTINAL: Abdomen soft, non-tender, nondistended. Normoactive bowel sounds x4. MUSCULOSKELETAL: No obvious deformities. Extremities without clubbing, cyanosis. Bilateral lower extremity edema, 1+ pitting NEUROLOGICAL: Awake and alert. No obvious cranial nerve deficits. Motor grossly within normal limits. 5/5 muscle strength in bilateral upper and lower extremities. Normal speech. PSYCHIATRIC: Appropriate mood and affect; insight and judgment normal. Laboratory Laboratory Tests Test 03/12/18 01:30 03/12/18 01:40 03/12/18 02:39 White Blood Count 12.5 Red Blood Count 4.32 Hemoglobin 11.3 Hematocrit 34.8 Mean Corpuscular Volume 80.5 Mean Corpuscular Hemoglobin 26.2 Mean Corpuscular Hemoglobin Concent 32.5 Red Cell Distribution Width 17.5 Platelet Count 239 Mean Platelet Volume 11.5 Neutrophils (%) (Auto) 76.1 Lymphocytes (%) (Auto) 8.8 Monocytes (%) (Auto) 11.7 Eosinophils (%) (Auto) 3.0 Basophils (%) (Auto) 0.4 Neutrophils # (Auto) 9.5 Lymphocytes # (Auto) 1.1 Monocytes # (Auto) 1.5 Eosinophils # (Auto) 0.4 Basophils # (Auto) 0.0 CBC Comment DIFF FINAL Differential Comment Blood Urea Nitrogen 12 Creatinine 0.53 Random Glucose 235 Total Protein 7.1 Albumin 2.6 Calcium Level 8.8 Magnesium Level 1.7 Alkaline Phosphatase 94 Aspartate Amino Transf (AST/SGOT) 17 Alanine Aminotransferase (ALT/SGPT) 15 Total Bilirubin 1.2 Sodium Level 141 Potassium Level 4.2 Chloride Level 102 Carbon Dioxide Level 30.4 Anion Gap 9 Estimat Glomerular Filtration Rate 115 Total Creatine Kinase 28 Troponin I LESS THAN 0.02 B-Type Natriuretic Peptide 446 Blood Gas Puncture Site RT RADIAL Blood Gas Patient Temperature 98.6 Blood Gas HCO3 31 Blood Gas Base Excess 7.2 Blood Gas Oxygen Saturation 89 Arterial Blood pH 7.47 Arterial Blood Partial Pressure CO2 44 Arterial Blood Partial Pressure O2 58 Arterial Blood Oxygen Content 13.1 Arterial Blood Carboxyhemoglobin 2.3 Arterial Blood Methemoglobin 0.6 Blood Gas Hemoglobin 10.5 Oxygen Delivery Device NASAL CANNULA Blood Gas Liter Flow 2.5 Urine Color YELLOW Urine Turbidity CLEAR Urine pH 6.0 Urine Specific [place] 1.010 Urine Protein NEG Urine Glucose (UA) NEG Urine Ketones NEG Urine Occult Blood TRACE Urine Nitrite NEG Urine Bilirubin NEG Urine Urobilinogen 0.2 Urine Leukocyte Esterase NEG Urine WBC 0-2 Urine Squamous Epithelial Cells 0-5 Microscopic Urinalysis Comment CULT NOT INDICATED Result Diagram: 03/12/1812903/12/18129 Imaging Last Impressions Chest X-Ray 03/12/18119 Signed Impressions: CONCLUSION: Cardiomegaly with mild edema pattern and bilateral effusions most characteristi c of congestive heart failure. Septic Shock Reassessment Septic shock perfusion: reassessment completed Caprini VTE Risk Assessment Caprini VTE Risk Assessment: Mod/High Risk (score >= 2) Caprini Risk Assessment Model Point Value = 1 Point Value = 2 Point Value = 3 Point Value = 5 Age 41-60 Minor surgery BMI > 25 kg/m2 Swollen legs Varicose veins or History of unexplained or recurrent spontaneous Oral contraceptives or hormone replacement Sepsis (< 1 month) Serious lung disease, including pneumonia (< 1 month) Abnormal pulmonary function Acute myocardial infarction Congestive heart failure (< 1 month) History of inflammatory bowel disease Medical patient at bed rest Age 61-74 Arthroscopic surgery Major open surgery (> 45 min) Laparoscopic surgery (> 45 min) Malignancy Confined to bed (> 72 hours) Immobilizing plaster cast Central venous access Age >= 75 History of VTE Family history of VTE Factor V Leiden Prothrombin [id number] Lupus anticoagulant Anticardiolipin antibodies Elevated serum homocysteine Heparin-induced thrombocytopenia Other congenital or acquired thrombophilia Stroke (< 1 month) Elective arthroplasty Hip, pelvis, or leg fracture Acute spinal cord injury (< 1 month) Prophylaxis Regimen Total Risk Factor Score Risk Level Prophylaxis Regimen 0-1 Low Early ambulation 2 Moderate Order ONE of the following: *Sequential Compression Device (SCD) *Heparin 5000 units SQ BID 3-4 Higher Order ONE of the following medications: *Heparin 5000 units SQ TID *Enoxaparin/Lovenox 40 mg SQ daily (WT < 150 kg, CrCl > 30 mL/min) *Enoxaparin/Lovenox 30 mg SQ daily (WT < 150 kg, CrCl > 10-29 mL/min) *Enoxaparin/Lovenox 30 mg SQ BID (WT < 150 kg, CrCl > 30 mL/min) AND/OR *Sequential Compression Device (SCD) 5 or more Highest Order ONE of the following medications: *Heparin 5000 units SQ TID (Preferred with Epidurals) *Enoxaparin/Lovenox 40 mg SQ daily (WT < 150 kg, CrCl > 30 mL/min) *Enoxaparin/Lovenox 30 mg SQ daily (WT < 150 kg, CrCl > 10-29 mL/min) *Enoxaparin/Lovenox 30 mg SQ BID (WT < 150 kg, CrCl > 30 mL/min) AND *Sequential Compression Device (SCD) Assessment and Plan Problem List: (1) Acute on chronic systolic CHF (congestive heart failure) ICD Code: I50.23 - Acute on chronic systolic (congestive) heart failure Assessment and Plan This is a pleasant 68-year-old female patient with a known medical history of atrial fibrillation on anticoagulation, COPD, CHF, diabetes and hypertension who presented to the ED with complaints of shortness of breath 3 days. Patient states she has been short of breath especially with exertion but now has worsened while at rest as well over the past couple days. Systolic CHF with exacerbation - Patient was given Lasix 80 mg IV 1 in ED. Placed on Lasix 40 mg IV twice daily. Continue. - Monitor intake and output closely. - Chest x-ray showing edema with bilateral effusions insistent with CHF. BNP 446. - ECHO from 02/2018 showing left ventricular systolic function is mildly reduced with an EF of 45-50%. Leukocytosis, mild - CBC showing mild leukocytosis blood cell 12.5. No signs of infection. Will continue to monitor for infection. - UA negative. - Monitor CBC. Status post ORIF of the left hip, femoral fracture in December - Patient with complaints of weakness and inability to transfer 5 days to wheelchair due to left shoulder and right arm pain - Surgeon was Dr. Yan, orders for nonweightbearing for the next 30 days. - Physical therapy has seen patient, appreciate input recommendations. History of COPD not in exacerbation Chronic respiratory failure with use of supplemental O2 - Patient requiring 2.5 L nasal cannula supplemental O2, this is baseline for patient at home. - No presence of wheezing. No signs of infection. - Supportive care. Type 2 diabetes mellitus, chronic: Accu-Chek before meals at bedtime, sliding scale, cover as needed. Monitor blood sugar trends. Continue home Levemir. History of atrial fibrillation: We will continue Xarelto. Continue cardiac telemetry, monitor for any arrhythmias. We will continue home beta-senthil as well as Cardizem p.o. History of hypertension, chronic: We will continue home lisinopril. Monitor blood pressure trends. DVT prophylaxis: SCDs. Xarelto. This note was transcribed by karl Shore. I, Dr. Tyrone Gayle personally performed the history, physical exam, and medical decision making; and confirmed the accuracy of the information in the transcribed note. Authenticated by Dr. Tyrone aGyle on 03/12/18 at 10:40. Code Status Full code Discussed Condition With Patient Crystal Shore Mar 12, 2018 10:45 Tyrone Gayle MD Mar 12, 2018 10:56
[2018-03-12] MEDS ORDERED: RESP: ALBUTEROL 2.5 MG/IPRATROPIUM 0.5 MG NEB (PRN) NEB (12:00)
[2018-03-12] MEDS: RESP: ALBUTEROL 2.5 MG/IPRATROPIUM 0.5 MG NEB (SCH) NEB ×2 (14:49→19:54)
--- NOTE | 2018-03-12 15:22 | EKG ---
Date Performed: 03/12/2018 Time Performed: 02:31:49 PTAGE: 68 years EKG: ATRIAL FIBRILLATION MARKED T-WAVE ABNORMALITY, CONSIDER ANTEROLATERAL ISCHEMIA MODERATE T-W AVE ABNORMALITY, CONSIDER INFERIOR ISCHEMIA ABNORMAL ECG Compared to PREVIOUS TRACING , diffuse T-wave abnormalities are more prominent, consider ischemia. RI EVIOUS TRACIN02/24/2018 20.03 DOCTOR: Ciro Blas Interpretating Date/Time 03/12/2018 15:20:13
[2018-03-12] MEDS: ONDANSETRON HCL 4 MG/2 ML VIAL IVP PRN (16:02)
[2018-03-12] MEDS: ACETAMINOPHEN/HYDROcodone 325 MG/5 MG TAB PO PRN (20:26)
[2018-03-12] MEDS: INSULIN DETEMIR 100 UNITS/ML VIAL SQ SCH (20:26)
[2018-03-13] VITALS (13 sets, daily range): BP systolic 97–126; BP diastolic 50–68; PULSE 75–97; RESP 18–23; TEMP 96–97.8; O2SAT 93–98
[2018-03-13] MEDS: ACETAMINOPHEN/HYDROcodone 325 MG/5 MG TAB PO PRN ×3 (02:59→22:33)
[2018-03-13] MEDS: RESP: ALBUTEROL 2.5 MG/IPRATROPIUM 0.5 MG NEB (SCH) NEB ×3 (07:34→19:29)
[2018-03-13] MEDS: FLUoxetine HCL 20 MG CAP PO SCH (08:12)
[2018-03-13] MEDS: METOPROLOL TARTRATE 50 MG TAB PO SCH ×2 (08:12→22:32)
[2018-03-13] MEDS: DILTIAZEM HCL 30 MG TAB PO SCH ×2 (08:13→22:32)
[2018-03-13] MEDS: RIVAROXABAN 20 MG TAB PO SCH (08:13)
[2018-03-13] MEDS: LISINOPRIL 10 MG TAB PO SCH (08:13)
[2018-03-13] MEDS: ASPIRIN EC 81 MG TABEC PO SCH (08:13)
[2018-03-13] MEDS: SODIUM CHLORIDE 0.9% FLUSH 10 ML FLUSH IV FLUSH SCH ×2 (08:14→22:31)
[2018-03-13] MEDS: INSULIN ASPART SUPPLEMENTAL SCALE SQ SCH ×4 (08:14→23:02)
[2018-03-13] MEDS: FUROSEMIDE 40 MG/4 ML VIAL IV PUSH SCH ×2 (08:14→18:10)
[2018-03-13 08:17] LABS: AUTOMATED NEUTROPHIL # 7.4 TH/MM3 (1.8-7.7); BASOPHIL # 0.1 TH/MM3 (0-0.2); BASOPHIL % 0.6 % (0.0-2.0); EOSINOPHIL # 0.3 TH/MM3 (0-0.4); EOSINOPHIL % 2.4 % (0.0-4.0); HEMATOCRIT 32.8 % (35.0-46.0); HEMOGLOBIN 10.7 GM/DL (11.6-15.3); LYMPH % 14.2 % (9.0-44.0); LYMPHOCYTE # 1.6 TH/MM3 (1.0-4.8); MEAN CELL VOLUME 80.6 FL (80.0-100.0); MEAN CORPUSCULAR HEMOGLOBIN 26.2 PG (27.0-34.0); MEAN CORPUSCULAR HGB CONC 32.5 % (32.0-36.0); MONO % 14.9 % (0.0-8.0); MONOCYTE # 1.7 TH/MM3 (0-0.9); NEUT % 67.9 % (16.0-70.0); PLATELET COUNT 224 TH/MM3 (150-450); RED BLOOD COUNT 4.07 MIL/MM3 (4.00-5.30); RED CELL DISTRIBUTION WIDTH 17.7 % (11.6-17.2); WHITE BLOOD COUNT 11.1 TH/MM3 (4.0-11.0)
[2018-03-13 08:29] LABS: CALCIUM 8.9 MG/DL (8.5-10.1)
[2018-03-13 08:30] LABS: BICARBONATE 36.4 MEQ/L (21.0-32.0)
[2018-03-13 08:32] LABS: CREATININE 0.73 MG/DL (0.50-1.00)
[2018-03-13] MEDS: UMECLIDINIUM 62.5 MCG/VILANTEROL 25 MCG INHALER INH SCH (09:00)
--- NOTE | 2018-03-13 09:55 | HHI.PR ---
Subjective Remarks Follow-up CHF exacerbation. Patient seen and examined, sitting up in bed in mild distress, some accessory muscle use. States she feels short of breath. Did not sleep well overnight. Continued on supplemental O2 2.5 L nasal cannula. Continued complaints of right shoulder. Right upper arm swelling. Complains of back pain. Objective Vitals Vital Signs Date Time Temp Pulse Resp B/P (MAP) Pulse Ox O2 Delivery O2 Flow Rate FiO2 03/13/18 09:25 78 03/13/18 07:50 96.6 82 20 120/60 (80) 94 03/13/18 07:40 94 Nasal Cannula 2.50 03/13/18 00:00 96.3 75 22 119/57 (77) 96 03/12/18 20:00 97.0 73 22 104/51 (68) 94 03/12/18 19:54 93 Nasal Cannula 2.50 03/12/18 17:10 96.9 95 20 138/67 (90) 92 03/12/18 15:00 78 03/12/18 15:00 78 36 96 03/12/18 14:52 94 Nasal Cannula 2.00 03/12/18 13:00 98.1 82 39 91/62 (72) 93 I/O 03/12/18 03/12/18 03/12/18 03/13/18 03/13/18 03/13/18 07:00 15:00 23:00 07:00 15:00 23:00 Intake Total 240 ml 480 ml 240 ml Output Total 1350 ml 1850 ml Balance -1350 ml 240 ml -1370 ml 240 ml Intake Oral 240 ml 480 ml 240 ml Output Urine Total 1350 ml 1850 ml # Bowel Movements 0 Result Diagram: 03/13/18 0740 03/13/18 [address] Angiography 03/13/18 0000 Signed Impressions: CONCLUSION: 1. 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 2. Findings consistent with congestive heart failure and pulmonary edema with bilateral pleural effusions. The pleural effusion on the right has slightly inc reased in size as compared to the prior exam. 3. Enlargement of the pulmonary arteries concerning for pulmonary hypertension . No evidence of PE. Chest X-Ray 03/12/18 0120 Signed Impressions: CONCLUSION: Cardiomegaly with mild edema pattern and bilateral effusions most characteristi c of congestive heart failure. Objective Remarks GENERAL: Well-developed, overweight female patient on supplemental O2 with apparent accessory muscle use and shortness of breath SKIN: Warm and dry. No rash. HEAD: Normocephalic. Atraumatic. EYES: Pupils equal and round. No scleral icterus. No injection or drainage. ENT: No nasal bleeding or discharge. Mucous membranes pink and moist. NECK: Supple. Trachea midline. CARDIOVASCULAR: Irregularly irregular rhythm. No murmur appreciated. RESPIRATORY: Diminished breath sounds due to body habitus. Breath sounds equal bilaterally. GASTROINTESTINAL: Abdomen soft, non-tender, nondistended. Normoactive bowel sounds x4. MUSCULOSKELETAL: No obvious deformities. Extremities without clubbing, cyanosis. Right upper extremity swelling. Right shoulder pain to palpation and range of motion limited. NEUROLOGICAL: Awake and alert. No obvious cranial nerve deficits. Motor grossly within normal limits. 5/5 muscle strength in bilateral upper and lower extremities. Normal speech. PSYCHIATRIC: Appropriate mood and affect; insight and judgment normal. A/P Problem List: (1) Acute on chronic systolic CHF (congestive heart failure) ICD Code: I50.23 - Acute on chronic systolic (congestive) heart failure Assessment and Plan This is a pleasant 68-year-old female patient with a known medical history of atrial fibrillation on anticoagulation, COPD, CHF, diabetes and hypertension who presented to the ED with complaints of shortness of breath 3 days. Patient states she has been short of breath especially with exertion but now has worsened while at rest as well over the past couple days. Systolic CHF with exacerbation - Patient was given Lasix 80 mg IV 1 in ED. Placed on Lasix 40 mg IV twice daily. Continue. - Monitor intake and output closely. - Chest x-ray showing edema with bilateral effusions insistent with CHF. BNP 446. - ECHO from 02/2018 showing left ventricular systolic function is mildly reduced with an EF of 45-50%. - Due to patient's accessory muscle use, right upper extremity swelling and shortness of breath this morning a CTA was done concerning for PE. Imaging shows no evidence of PE. Pulmonary hypertension as well as pulmonary edema and bilateral pleural effusions noted. Concern for transesophageal fistula identified within the proximal one third of the esophagus. Leukocytosis, mild - CBC showing mild leukocytosis blood cell 12.5. No signs of infection. Will continue to monitor for infection. - UA negative. - Monitor CBC. Status post ORIF of the left hip, femoral fracture in December - Patient with complaints of weakness and inability to transfer 5 days to wheelchair due to left shoulder and right arm pain - Surgeon was Dr. Yan, orders for nonweightbearing for the next 30 days. - Physical therapy has seen patient, appreciate input recommendations. - Patient is very weak. Will continue PT 7 days a week. Right shoulder pain: Right shoulder x-ray performed today showing intact right shoulder. Degenerative changes. Pain control with pain regimen. Will try Toradol for inflammation. Right upper extremity swelling: Ultrasound ordered to rule out DVT. This is negative. Encourage patient to elevate. Buttock skin tear: Order for specialty mattress. Q2h turning. Mepilex. Continue to monitor. Consult progressive care nurse if needed. History of COPD not in exacerbation Chronic respiratory failure with use of supplemental O2 - Patient requiring 2.5 L nasal cannula supplemental O2, this is baseline for patient at home. - No presence of wheezing. No signs of infection. - Supportive care. Type 2 diabetes mellitus, chronic: Accu-Chek before meals at bedtime, sliding scale, cover as needed. Monitor blood sugar trends. Continue home Levemir. History of atrial fibrillation: We will continue Xarelto. Continue cardiac telemetry, monitor for any arrhythmias. We will continue home beta-senthil as well as Cardizem p.o. History of hypertension, chronic: We will continue home lisinopril. Monitor blood pressure trends. DVT prophylaxis: SCDs. Xarelto. Patient will be transferred to the main to undergo Gastrografin study, unable to perform on the weekend here in [place]. Crystal Shore Mar 13, 2018 09:55
[2018-03-13] MEDS ORDERED: LORazepam 2 MG/ML VIAL IV PUSH ONE (11:00)
[2018-03-13] MEDS ORDERED: IOHEXOL 350 MG/ML 10 ML VIAL (for RAD DIAG) IVCONTRAST ONE (11:14)
--- NOTE | 2018-03-13 12:06 | RADRPT ---
EXAM DATE: 03/13/2018 11:45 AM EDT AGE/SEX: 68 years / Female INDICATIONS: Shortness of breath for two days. CLINICAL DATA: This is the patient's initial encounter. Patient reports that signs and symptoms have been present for 1 day and indicates a pain score of 0/10. MEDICAL/SURGICAL HISTORY: Congestive heart failure. Carcinoma, breast. Chronic obstructive pulmon radha disease. diabetes, hypertension Hysterectomy. RADIATION DOSE: 21.56 CTDI (mGy) ; Patient body habitus COMPARISON: [facility], CT PULMONARY ANGIOGRAM, 12/28/2015. . TECHNIQUE: Volumetric scanning was performed using a multi-row detector CT scanner during bolus infu kenneth of 74 ml Omnipaque 350 (iohexol) nonionic water-soluble contrast as a single exam dose. The leonel a was post processed with a variety of visualization algorithms including full volume maximum intensi ty projection and sliding thin slab reformation. Using automated exposure control and adjustment of the mA and/or kV according to patient size, radiation dose was kept as low as reasonably achievable t o obtain optimal diagnostic quality images. FINDINGS: Pulmonary Arteries: No filling defects are seen in the pulmonary arteries out to the subsegmental ve ssels. The left and right pulmonary arteries appear mildly enlarged with respect to the adjacent aor ta. There is rapid tapering of the pulmonary vessels distally. Lung: There is bilateral compressive atelectasis with a most complete atelectasis of the right lower lobe. Effusion: Moderate sized right-sided pleural effusion, increased in size from prior exam. Stable sma ll left-sided pleural effusion. Mediastinum: The heart size is enlarged, stable. The soft tissue and lung windows demonstrate an are a of connection between the trachea and esophagus within the proximal one third of the mediastinum. Other: The axilla is unremarkable. CONCLUSION: 1. 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 2. Findings consistent with congestive heart failure and pulmonary edema with bilateral pleural effu sions. The pleural effusion on the right has slightly increased in size as compared to the prior exam . 3. Enlargement of the pulmonary arteries concerning for pulmonary hypertension. No evidence of PE. Electronically signed by: Arlet Elizondo MD 03/13/2018 12:05 PM EDT
--- NOTE | 2018-03-13 12:11 | RADRPT ---
EXAM DATE: 03/13/2018 12:06 PM EDT AGE/SEX: 68 years / Female INDICATIONS: Right shoulder pain CLINICAL DATA: This is the patient's subsequent encounter. Patient reports that signs and symptoms h ave been present for 1 week and indicates a pain score of 8/10. MEDICAL/SURGICAL HISTORY: . Congestive heart failure. Hypercholesterolemia. Hypertension. AFIB. Chronic obstructive pulmonary disease. None. COMPARISON: [facility], CT PULMONARY ANGIOGRAM, 03/13/2018. . FINDINGS: No fracture or subluxation demonstrated of the right shoulder. There is mild to moderate osteoarthrit is of both the acromioclavicular and glenohumeral joints. Radiographic appearance of the soft tissues within normal limits. CONCLUSION: Intact right shoulder. Mild to moderate degenerative changes as above. Electronically signed by: Wilfred Vidales MD 03/13/2018 12:10 PM EDT
[2018-03-13] MEDS: KETOROLAC TROMETHAMINE 30 MG/ML (IVP) VIAL IV PUSH PRN (12:41)
--- NOTE | 2018-03-13 12:52 | RADRPT ---
EXAM DATE: 03/13/2018 12:46 PM EDT AGE/SEX: 68 years / Female INDICATIONS: Right arm swelling. CLINICAL DATA: This is the patient's subsequent encounter. Patient reports that signs and symptoms h ave been present for 1 day and indicates a pain score of 5/10. MEDICAL/SURGICAL HISTORY: . Congestive heart failure. Hypercholesterolemia. Hypertension. Atria l fibrillation. COPD. Diabetes. Breast cancer. . Hysterectomy. Right lumpectomy. Bilateral knee re placement. Left leg surgery. COMPARISON: [facility], CT PULMONARY ANGIOGRAM, 03/13/2018. . FINDINGS: There is spontaneous flow documented in the brachial, basilic, cephalic, axillary, and subclavian vei ns. The vessels are compressible and augmentation response is documented. No filling defects are se en. The flow is phasic with respiration. Direction of flow in the jugular vein is caudal. CONCLUSION: 1. No evidence of thrombus. Electronically signed by: Arlet Elizondo MD 03/13/2018 12:50 PM EDT
--- NOTE | 2018-03-13 20:27 | MB ---
cc: Luisito Dior MD, Arjun D MD DATE: 03/13/2018 REQUESTING PHYSICIAN: Dr. Gayle REASON FOR CONSULTATION: Evaluate for shortness of breath and pleural effusion. HISTORY OF PRESENT ILLNESS: Ms. Greene is a 68-year-old female who is known to me from the office. She has a history of COPD, CHF, diabetes mellitus and atrial fibrillation. The patient recently had ORIF of the left femoral neck fracture. She was in the rehab place and, on 02/18, she was released. She has been having increasing shortness of breath and was able to transfer herself to the wheelchair. She [facility] Because of worsening of her symptoms, she came to the hospital. She had a workup done. She had a CTA of the chest done, does not show any pulmonary embolism; however, it shows finding suggestive of tracheoesophageal fistula in the proximal one-third of the esophagus. She also has pulmonary edema, bilateral pleural effusions and enlargement of her pulmonary arteries. Her CBC showed WBC count 11.1, hemoglobin 10.7, hematocrit 32.8, MCV 80, platelet count 224. Sodium 140, potassium 3.7, chloride 98, CO2 of 36, BUN 14, creatinine 0.73. Blood gas: pH 7.43, pCO2 of 54, pO2 of 79, bicarbonate 92, saturation 92% on 2 liters nasal cannula. PAST MEDICAL HISTORY: Significant for history of CHF, COPD, diabetes mellitus, hypertension, atrial fibrillation, recent left hip surgery, CA of the breast, hysterectomy, bilateral knee surgery. CURRENT MEDICATIONS: 1. Toradol 15 mg q.6 hour. 2. Insulin detemir 50 units at nighttime 3. Hydrocodone q. 4 hours p.r.n. 4. Albuterol Atrovent nebulizer treatment. 5. Aspirin 81 mg. 6. Diltiazem 60 mg twice a day. 7. Lisinopril 10 mg a day. 8. Metoprolol 50 mg twice a day. 9. Xarelto 20 mg a day. 10. Lasix 40 mg twice a day. ALLERGIES: SHE IS ALLERGIC TO MORPHINE. SOCIAL HISTORY: She has history of smoking. FAMILY HISTORY: She is and lives with her . REVIEW OF SYSTEMS: She is weightbearing status, walks with a walker. Weight has been stable, has increased shortness of breath. No DVT or pulmonary embolism. PHYSICAL EXAMINATION: GENERAL: Elderly female, short of breath on nasal cannula. VITAL SIGNS: Blood pressure 97/50, heart rate 70, respirations 20, temperature 96.9, saturation 97%. HEENT: Pupils are equal and reactive to light. Oral mucosa and nasal mucosa normal. NECK: Supple. JVP not raised. CHEST: Decreased breath sounds at the bases, more so on the right base. CARDIOVASCULAR: S1, S2 normal. ABDOMEN: Benign. EXTREMITIES: 1+ pedal edema. CENTRAL NERVOUS SYSTEM: Alert and oriented x3. No focal deficit. IMPRESSION: 1. Shortness of breath with congestive heart failure. 2. Chronic obstructive pulmonary disease. 3. Partially compensated respiratory acidosis. 4. Bilateral pleural effusion. 5. 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 6. Diabetes mellitus. PLAN: The patient is seen by gastroenterology service and she has being transferred to [facility] for a Gastrografin study. We will continue her aerosol treatment, diuresis, supplement her oxygen. She may need thoracentesis. If thoracentesis is performed, she will have to hold her Xarelto for 3 days. Further treatment will depend on the course in the hospital. Thank you, Dr. Gayle, for this consult. MD KATHERIN Callahan/ , 07:51 PM , 08:26 PM
[2018-03-13] MEDS: INSULIN DETEMIR 100 UNITS/ML VIAL SQ SCH (21:00)
[2018-03-13] MEDS ORDERED: CHLORHEXIDINE GLUCONATE 2 % 1 PACK (2 CLOTHS)(extra cloths) TOPICAL PRN (21:45)
[2018-03-14] VITALS (15 sets, daily range): BP systolic 91–113; BP diastolic 52–68; PULSE 74–96; RESP 14–35; TEMP 97.3–98.4; O2SAT 96–100
[2018-03-14] MEDS: KETOROLAC TROMETHAMINE 30 MG/ML (IVP) VIAL IV PUSH PRN ×3 (00:15→18:47)
[2018-03-14] MEDS: CHLORHEXIDINE GLUCONATE 2 % 1 PACK (2 CLOTHS)(taper/protocol) TOPICAL SCH (04:00)
[2018-03-14] MEDS: RESP: ALBUTEROL 2.5 MG/IPRATROPIUM 0.5 MG NEB (SCH) NEB ×3 (07:46→20:10)
[2018-03-14] MEDS: INSULIN ASPART SUPPLEMENTAL SCALE SQ SCH ×4 (08:00→20:46)
--- NOTE | 2018-03-14 09:41 | HHI.PR ---
Subjective Remarks Nursing denies any deterioration since last night. Patient herself says she feels overall improved since worsening admitted to [place] terms of her shortness of breath. Denies having any chest pain this morning. Objective Vital Signs Date Time Temp Pulse Resp B/P (MAP) Pulse Ox O2 Delivery O2 Flow Rate FiO2 03/14/18 07:46 100 Nasal Cannula 1.00 03/14/18 04:00 97.3 76 14 109/59 (76) 99 03/14/18 03:00 74 14 100/52 (68) 98 03/14/18 02:00 74 16 93/54 (67) 99 03/14/18 02:00 96 03/14/18 01:00 75 16 93/55 (68) 98 03/14/18 00:00 98.4 76 18 106/57 (73) 97 03/13/18 23:00 97 20 100/58 (72) 95 03/13/18 22:00 96 03/13/18 22:00 96 23 126/59 (81) 96 03/13/18 21:42 97.8 97 18 116/68 (84) 96 03/13/18 21:00 96 03/13/18 20:32 96.0 87 18 113/64 (80) 98 03/13/18 19:29 93 Nasal Cannula 2.00 03/13/18 15:48 96.9 78 20 97/50 (66) 97 03/13/18 15:04 78 03/13/18 11:50 96.7 78 20 113/55 (74) 95 I/O 03/13/18 03/13/18 03/13/18 03/14/18 03/14/18 03/14/18 07:00 15:00 23:00 07:00 15:00 23:00 Intake Total 480 ml 240 ml 180 ml 20 ml Output Total 1850 ml 500 ml 1700 ml Balance -1370 ml 240 ml -320 ml -1680 ml Intake Oral 480 ml 240 ml 180 ml 20 ml Output Urine Total 1850 ml 500 ml 1700 ml # Bowel Movements 0 1 Result Diagram: 03/13/18 0740 03/13/18 0740 Objective Remarks Irregular heart rhythm, regular heart rate Slightly diminished breath sounds in the bases, more diminished on the right than the left A/P Assessment and Plan This is a pleasant 68-year-old female patient with a known medical history of atrial fibrillation on anticoagulation, COPD, CHF, diabetes and hypertension who presented to the ED with complaints of shortness of breath 3 days. Patient states she has been short of breath especially with exertion but now has worsened while at rest as well over the past couple days. SOB - multifactorial, acute chf, pleural effusion superimposed on chronic hypoxic resp failure - improving since admission, see below - possible TE fistula, GI consulted, GG swallow ordered Systolic CHF with exacerbation - improving symptoms - lasix BID Right-sided pleural effusion -Pulmonology following, will hold Xarelto and see if patient can undergo thoracentesis 2-3 days chronic stable copd - continue home o2 and inhalers Right shoulder pain: Right shoulder x-ray performed today showing intact right shoulder. Degenerative changes. Pain control with pain regimen. Will try Toradol for inflammation. Right upper extremity swelling: US neg for dvt. Buttock skin tear: specialty mattress. Q2h turning. Mepilex. Continue to monitor. Consult splitter operator if needed. Type 2 diabetes mellitus, chronic: Accu-Chek before meals at bedtime, sliding scale, cover as needed. Monitor blood sugar trends. Continue home Levemir. Chronic atrial fibrillation: continue metoprolol and cardizem, holding xarelto in light of possible thoracentesis/procedures and next few days and instead start a heparin drip hypertension, chronic: Continue home lisinopril and metoprolol Status post ORIF of the left hip, femoral fracture in December - Patient with complaints of weakness and inability to transfer 5 days to wheelchair due to left shoulder and right arm pain - Surgeon was Dr. Yan, orders for nonweightbearing for the next 30 days. - Physical therapy has seen patient, appreciate input recommendations. - Patient is very weak. Will continue PT 7 days a week. DVT prophylaxis: SCDs. Heparin Zaid Ruiz MD Mar 14, 2018 09:41
--- NOTE | 2018-03-14 09:49 | RADRPT ---
EXAM DATE: 03/14/2018 9:40 AM EDT AGE/SEX: 68 years / Female INDICATIONS: Evaluate for transesophageal stricture CLINICAL DATA: This is the patient's initial encounter. Patient reports that signs and symptoms have been present for 4 - 6 days and indicates a pain score of 0/10. MEDICAL/SURGICAL HISTORY: . Congestive heart failure. Carcinoma, breast. Chronic obstructive p ulmonary disease. Diabetes, hypertension . Hysterectomy. COMPARISON: [facility], CT PULMONARY ANGIOGRAM, 03/13/2018. . FLUORO TIME: .0.5 IMAGE COUNT: 59 FINDINGS: Examination of the esophagus demonstrates the swallowing function to be normal. There is no evidence of aspiration or penetration. The esophagus demonstrates transient dysmotility with normal caliber. No evidence of stricture. The esophageal transit time is normal. CONCLUSION: No evidence of esophageal stricture. Transient esophageal dysmotility which resolved. Comparison CT w as suggestive of a tracheoesophageal fistula, however, no visualization of a fistula was visualized o n this limited exam with Gastrografin. Electronically signed by: Arlet Elizondo MD 03/14/2018 9:48 AM EDT
[2018-03-14] MEDS: ACETAMINOPHEN/HYDROcodone 325 MG/5 MG TAB PO PRN ×3 (10:20→23:24)
[2018-03-14] MEDS: METOPROLOL TARTRATE 50 MG TAB PO SCH ×2 (10:21→22:08)
[2018-03-14] MEDS: ASPIRIN EC 81 MG TABEC PO SCH (10:21)
[2018-03-14] MEDS: LISINOPRIL 10 MG TAB PO SCH (10:21)
[2018-03-14] MEDS: DILTIAZEM HCL 30 MG TAB PO SCH ×2 (10:21→20:46)
[2018-03-14] MEDS: FUROSEMIDE 40 MG/4 ML VIAL IV PUSH SCH ×2 (10:21→17:41)
[2018-03-14] MEDS: SODIUM CHLORIDE 0.9% FLUSH 10 ML FLUSH IV FLUSH SCH ×2 (10:22→20:46)
[2018-03-14] MEDS: FLUoxetine HCL 20 MG CAP PO SCH (10:22)
[2018-03-14 10:43] LABS: HEMATOCRIT 33.9 % (35.0-46.0); MEAN CELL VOLUME 80.4 FL (80.0-100.0); MEAN CORPUSCULAR HEMOGLOBIN 26.1 PG (27.0-34.0); MEAN CORPUSCULAR HGB CONC 32.5 % (32.0-36.0); MEAN PLATELET VOLUME 10.7 FL (7.0-11.0); PLATELET COUNT 213 TH/MM3 (150-450); RED BLOOD COUNT 4.22 MIL/MM3 (4.00-5.30); RED CELL DISTRIBUTION WIDTH 19.1 % (11.6-17.2); WHITE BLOOD COUNT 8.7 TH/MM3 (4.0-11.0)
[2018-03-14 10:53] LABS: INTERNATIONAL NORMALIZED RATIO 1.4 RATIO; PROTHROMBIN TIME - PATIENT 14.5 SEC (9.8-11.6)
[2018-03-14] MEDS: HEPARIN-D5W 25,000 U/250 ML 250 ML IV PRN ×2 (11:12→23:26)
--- NOTE | 2018-03-14 11:42 | PD.CONS ---
HPI History of Present Illness This is a 68 year old F with PMH significant for CHF, COPD, a-fib on Xarelto at home, hyperlipidemia, DM, arthritis, depression, and history of breast cancer. Pt presented to the [place] ER yesterday with complaints of shortness of breath, initially with exertion than progressed to dyspnea at rest. CTA was concerning for tracheoesophageal fistula within the proximal one third of the esophagus, however follow up Gastrografin swallow revealed no evidence of stricture and no visualization of a fistula. Pt denies any dysphagia, odynophagia, coughing after meals or choking episodes. Has never had EGD. She denies any other GI symptoms including acid reflux, heartburn, abdominal pain, unintentional weight loss, and change in bowel habits. Has never had a colonoscopy. Denies ETOH and smoking. has been taking Aleve for approximately a week until 2 days ago. (Jyoti Chan) PFSH Past Medical History Atrial fib on anticoagulation Arthritis Depression Breast CA 2009 Hyperlipidemia COPD Diabetes Past Surgical History Bilateral cataracts Hysterectomy Bilateral knees with jw placement in left leg to repair femur (Jyoti Chan) Coded Allergies: morphine (Verified Allergy, Intermediate, fainting, 02/24/18) Family History Denies any significant family medical history. Social History Denies any tobacco, alcohol or illicit drug use. (Jyoti Chan) Review of Systems Gastrointestinal: DENIES: Abdominal pain, Black stools, Bloody stools, Constipation, Diarrhea, Nausea, Vomiting, Difficulty Swallowing, Odynophagia, Heartburn, Hematemesis (Jyoti Chan) GI Exam Vitals I&O Vital Signs Date Time Temp Pulse Resp B/P (MAP) Pulse Ox O2 Delivery O2 Flow Rate FiO2 03/14/18 07:46 100 Nasal Cannula 1.00 03/14/18 04:00 97.3 76 14 109/59 (76) 99 03/14/18 03:00 74 14 100/52 (68) 98 03/14/18 02:00 74 16 93/54 (67) 99 03/14/18 02:00 96 03/14/18 01:00 75 16 93/55 (68) 98 03/14/18 00:00 98.4 76 18 106/57 (73) 97 03/13/18 23:00 97 20 100/58 (72) 95 03/13/18 22:00 96 03/13/18 22:00 96 23 126/59 (81) 96 03/13/18 21:42 97.8 97 18 116/68 (84) 96 03/13/18 21:00 96 03/13/18 20:32 96.0 87 18 113/64 (80) 98 03/13/18 19:29 93 Nasal Cannula 2.00 03/13/18 15:48 96.9 78 20 97/50 (66) 97 03/13/18 15:04 78 03/13/18 11:50 96.7 78 20 113/55 (74) 95 I/O 03/13/18 03/13/18 03/13/18 03/14/18 03/14/18 03/14/18 07:00 15:00 23:00 07:00 15:00 23:00 Intake Total 480 ml 240 ml 180 ml 20 ml Output Total 1850 ml 500 ml 1700 ml Balance -1370 ml 240 ml -320 ml -1680 ml Intake Oral 480 ml 240 ml 180 ml 20 ml Output Urine Total 1850 ml 500 ml 1700 ml # Bowel Movements 0 1 Imaging Last Impressions Upper GI/Barium Swallow X-Ray 03/14/18 0000 Signed Impressions: CONCLUSION: No evidence of esophageal stricture. Transient esophageal dysmotility which res olved. Comparison CT was suggestive of a tracheoesophageal fistula, however, no visualization of a fistula was visualized on this limited exam with Gastrograf in. Shoulder X-Ray 03/13/18 1147 Signed Impressions: CONCLUSION: Intact right shoulder. Mild to moderate degenerative changes as above. Upper Extremity Ultrasound 03/13/18 0000 Signed Impressions: CONCLUSION: 1. No evidence of thrombus. CT Angiography 03/13/18 0000 Signed Impressions: CONCLUSION: 1. 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 2. Findings consistent with congestive heart failure and pulmonary edema with bilateral pleural effusions. The pleural effusion on the right has slightly inc reased in size as compared to the prior exam. 3. Enlargement of the pulmonary arteries concerning for pulmonary hypertension . No evidence of PE. Chest X-Ray 03/12/18 0120 Signed Impressions: CONCLUSION: Cardiomegaly with mild edema pattern and bilateral effusions most characteristi c of congestive heart failure. Laboratory Test 03/13/18 13:28 03/13/18 21:23 03/14/18 10:00 Blood Gas Puncture Site RT RADIAL Blood Gas Patient Temperature 37.0 Blood Gas HCO3 35 mmol/L Blood Gas Base Excess 10.4 mmol/L Blood Gas Oxygen Saturation 92 % Arterial Blood pH 7.43 Arterial Blood Partial Pressure CO2 54 mmHg Arterial Blood Partial Pressure O2 79 mmHg Arterial Blood Oxygen Content 17.3 Vol % Arterial Blood Carboxyhemoglobin 2.4 % Arterial Blood Methemoglobin 1.0 % Blood Gas Hemoglobin 13.3 G/DL Oxygen Delivery Device NASAL CANNULA Blood Gas Liter Flow 2 L/M Nasal Screen MRSA (PCR) MRSA NOT DETECTED White Blood Count 8.7 TH/MM3 Red Blood Count 4.22 MIL/MM3 Hemoglobin 11.0 GM/DL Hematocrit 33.9 % Mean Corpuscular Volume 80.4 FL Mean Corpuscular Hemoglobin 26.1 PG Mean Corpuscular Hemoglobin Concent 32.5 % Red Cell Distribution Width 19.1 % Platelet Count 213 TH/MM3 Mean Platelet Volume 10.7 FL Prothrombin Time 14.5 SEC Prothromb Time International Ratio 1.4 RATIO Activated Partial Thromboplast Time 28.9 SEC Physical Examination HEENT: Normocephalic; atraumatic CHEST: Diminished BS CARDIAC: Irregular, rate controlled ABDOMEN: Obese, soft, nontender, bowel sounds active SKIN: Normal; no rash; no jaundice. DEMO EVENT SPECIALIST: Alert and oriented times three. (Jyoti Chan) Assessment and Plan Plan Assessment: - Concern for tracheoesophageal fistula on imaging CTA pulmonary --> Concern for a tracheoesophageal fistula identified within the proximal one third of the esophagus. Gastrografin swallow --> No evidence of esophageal stricture. Transient esophageal dysmotility which resolved. Comparison CT was suggestive of a tracheoesophageal fistula, however, no visualization of a fistula was visualized on this limited exam with Gastrografin. Has never had EGD. Denies dysphagia, odynophagia, coughing episodes after eating, choking. - CHF, pulmonary edema with bilateral pleural effusions, reservoir caretaker following- possible thoracentesis - A-fib- On Xarelto at home- currently on Heparin gtt, last dose of Xarelto was yesterday Plan: EGD Thursday if pt agreeable- would like to think about it OK for clear liquids Heparin gtt Will need to be DCd at midnight prior to procedure Will continue to follow, further recommendations based on clinical course and if pt is agreeable Pt has been seen and examined by myself and Dr. Hay and this note is written on his behalf (Jyoti Chan) Physician Comments Seen and examined, plan as above, will schedule EGD Thursday, will follow up with you. Thank you for the consult. (Jerry Hay MD) Jyoti Chan Mar 14, 2018 11:42 Jerry Hay MD Mar 14, 2018 13:42
[2018-03-14] MEDS ORDERED: HEPARIN SODIUM - SQ 10,000 UNITS/ML VIAL SQ SCH (14:00)
[2018-03-14] MEDS ORDERED: DIATRIZOATE MEGLUM/DIATRIZOATE SOD 120 ML BTL (for RAD DIAG) PO ONE (15:51)
--- NOTE | 2018-03-14 18:36 | HHI.PR ---
Subjective Remarks 68 YOWF with COPD,CHF,Pl eff Had gastrograffin study, no fistula sen Breathing betetr On NC Objective Vital Signs Vital Signs Date Time Temp Pulse Resp B/P (MAP) Pulse Ox O2 Delivery O2 Flow Rate FiO2 03/14/18 16:00 77 03/14/18 14:15 20 03/14/18 14:00 84 03/14/18 12:57 15 03/14/18 12:00 80 03/14/18 12:00 98.4 80 20 99/58 (72) 98 03/14/18 10:00 89 03/14/18 08:00 98.0 81 16 113/59 (77) 100 03/14/18 08:00 81 03/14/18 07:46 100 Nasal Cannula 1.00 03/14/18 04:00 97.3 76 14 109/59 (76) 99 03/14/18 03:00 74 14 100/52 (68) 98 03/14/18 02:00 74 16 93/54 (67) 99 03/14/18 02:00 96 03/14/18 01:00 75 16 93/55 (68) 98 03/14/18 00:00 98.4 76 18 106/57 (73) 97 03/13/18 23:00 97 20 100/58 (72) 95 03/13/18 22:00 96 03/13/18 22:00 96 23 126/59 (81) 96 03/13/18 21:42 97.8 97 18 116/68 (84) 96 03/13/18 21:00 96 03/13/18 20:32 96.0 87 18 113/64 (80) 98 03/13/18 19:29 93 Nasal Cannula 2.00 I/O 03/13/18 03/13/18 03/13/18 03/14/18 03/14/18 03/14/18 07:00 15:00 23:00 07:00 15:00 23:00 Intake Total 480 ml 240 ml 180 ml 20 ml Output Total 1850 ml 500 ml 1700 ml Balance -1370 ml 240 ml -320 ml -1680 ml Intake Oral 480 ml 240 ml 180 ml 20 ml Output Urine Total 1850 ml 500 ml 1700 ml # Bowel Movements 0 1 Result Diagram: 03/14/18 1000 03/13/18 0740 Objective Remarks GENERAL: MBMNWF mild sob SKIN: Warm and dry. HEAD: Normocephalic. EYES: No scleral icterus. No injection or drainage. NECK: Supple, trachea midline. No JVD or lymphadenopathy. CARDIOVASCULAR: Regular rate and rhythm without murmurs, gallops, or rubs. RESPIRATORY: Breath sounds equal bilaterally. No accessory muscle use. GASTROINTESTINAL: Abdomen soft, non-tender, nondistended. MUSCULOSKELETAL: No cyanosis, or edema. S/p left leg surgery BACK: Nontender without obvious deformity. No CVA tenderness. A/P Assessment and Plan IMPRESSION: 1. Shortness of breath with congestive heart failure. 2. Chronic obstructive pulmonary disease. 3. Partially compensated respiratory acidosis. 4. Bilateral pleural effusion. 5. 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 6. Diabetes mellitus. PLAN: IR for thoracentesis Supplement 02 Diurease GI Planning EGD Luisito Dior MD Mar 14, 2018 18:36
[2018-03-14] MEDS: INSULIN DETEMIR 100 UNITS/ML VIAL SQ SCH (20:45)
[2018-03-15] VITALS (22 sets, daily range): BP systolic 94–120; BP diastolic 52–68; PULSE 63–94; RESP 14–25; TEMP 97.3–98.3; O2SAT 96–100
[2018-03-15] MEDS: KETOROLAC TROMETHAMINE 30 MG/ML (IVP) VIAL IV PUSH PRN ×3 (00:35→10:38)
[2018-03-15] MEDS: CHLORHEXIDINE GLUCONATE 2 % 1 PACK (2 CLOTHS)(taper/protocol) TOPICAL SCH (04:00)
[2018-03-15] MEDS: ACETAMINOPHEN/HYDROcodone 325 MG/5 MG TAB PO PRN ×3 (05:39→18:27)
[2018-03-15 07:41] LABS: BICARBONATE 35.2 MEQ/L (21.0-32.0); CALCIUM 8.7 MG/DL (8.5-10.1); CREATININE 0.51 MG/DL (0.50-1.00)
[2018-03-15] MEDS: INSULIN ASPART SUPPLEMENTAL SCALE SQ SCH ×4 (08:00→20:20)
[2018-03-15] MEDS: RESP: ALBUTEROL 2.5 MG/IPRATROPIUM 0.5 MG NEB (SCH) NEB ×3 (08:11→19:53)
[2018-03-15] MEDS: ASPIRIN EC 81 MG TABEC PO SCH (08:23)
[2018-03-15] MEDS: LISINOPRIL 10 MG TAB PO SCH (08:23)
[2018-03-15] MEDS: FLUoxetine HCL 20 MG CAP PO SCH (08:23)
[2018-03-15] MEDS: METOPROLOL TARTRATE 50 MG TAB PO SCH ×2 (08:23→20:20)
[2018-03-15] MEDS: DILTIAZEM HCL 30 MG TAB PO SCH ×2 (08:23→20:26)
[2018-03-15] MEDS: FUROSEMIDE 40 MG/4 ML VIAL IV PUSH SCH ×2 (08:24→17:34)
[2018-03-15 08:48] LABS: INTERNATIONAL NORMALIZED RATIO 1.3 RATIO; PROTHROMBIN TIME - PATIENT 13.5 SEC (9.8-11.6)
[2018-03-15] MEDS: SODIUM CHLORIDE 0.9% FLUSH 10 ML FLUSH IV FLUSH SCH ×2 (09:00→20:21)
--- NOTE | 2018-03-15 09:46 | HHI.GIFU ---
Subjective Remarks Pt resting in bed Complaining of some mild epigastric pain On liquid diet but states hasn't really felt like eating Denies dysphagia, odynophagia, choking Heparin gtt on hold Plan for thoracentesis today RN at bedside (Jyoti Chan) Objective Vitals I&O Vital Signs Date Time Temp Pulse Resp B/P (MAP) Pulse Ox O2 Delivery O2 Flow Rate FiO2 03/15/18 08:12 100 Nasal Cannula 2.00 03/15/18 08:00 98.0 76 14 117/59 (78) 98 03/15/18 08:00 73 03/15/18 07:58 98.0 76 14 117/59 (78) 98 03/15/18 06:00 71 03/15/18 04:00 65 03/15/18 04:00 98.0 65 14 107/62 (77) 98 03/15/18 02:00 66 03/15/18 00:00 97.8 63 18 94/52 (66) 99 03/15/18 00:00 63 03/14/18 22:00 75 03/14/18 20:10 100 Nasal Cannula 2.00 03/14/18 20:00 77 03/14/18 20:00 97.7 77 17 102/55 (71) 100 03/14/18 18:00 77 03/14/18 16:00 97.3 77 35 91/68 (76) 96 03/14/18 16:00 77 03/14/18 14:15 20 03/14/18 14:00 84 03/14/18 12:57 15 03/14/18 12:00 80 03/14/18 12:00 98.4 80 20 99/58 (72) 98 03/14/18 10:00 89 I/O 03/14/18 03/14/18 03/14/18 03/15/18 03/15/18 03/15/18 07:00 15:00 23:00 07:00 15:00 23:00 Intake Total 20 ml 650 ml 730 ml Output Total 1700 ml 1000 ml 650 ml Balance -1680 ml -350 ml 80 ml Intake Oral 20 ml 650 ml 480 ml IV Total 250 ml Output Urine Total 1700 ml 1000 ml 650 ml # Bowel Movements 3 4 Laboratory Laboratory Tests Test 03/14/18 10:00 03/14/18 16:31 03/14/18 22:05 03/15/18 05:12 White Blood Count 8.7 Red Blood Count 4.22 Hemoglobin 11.0 Hematocrit 33.9 Mean Corpuscular Volume 80.4 Mean Corpuscular Hemoglobin 26.1 Mean Corpuscular Hemoglobin Concent 32.5 Red Cell Distribution Width 19.1 Platelet Count 213 Mean Platelet Volume 10.7 Prothrombin Time 14.5 13.5 Prothromb Time International Ratio 1.4 1.3 Activated Partial Thromboplast Time 28.9 59.2 67.6 96.2 Blood Urea Nitrogen 15 Creatinine 0.51 Random Glucose 115 Calcium Level 8.7 Sodium Level 141 Potassium Level 3.3 Chloride Level 95 Carbon Dioxide Level 35.2 Anion Gap 11 Estimat Glomerular Filtration Rate 120 Date/Time Source Procedure Growth Status 03/14/18 17:20 Stool Stool Stool Occult Blood (VALERI) - Final HEMOCCULT NEGATIVE Complete Imaging Last Impressions Upper GI/Barium Swallow X-Ray 03/14/18 0000 Signed Impressions: CONCLUSION: No evidence of esophageal stricture. Transient esophageal dysmotility which res olved. Comparison CT was suggestive of a tracheoesophageal fistula, however, no visualization of a fistula was visualized on this limited exam with Gastrograf in. Shoulder X-Ray 03/13/18 1147 Signed Impressions: CONCLUSION: Intact right shoulder. Mild to moderate degenerative changes as above. Upper Extremity Ultrasound 03/13/18 0000 Signed Impressions: CONCLUSION: 1. No evidence of thrombus. CT Angiography 03/13/18 0000 Signed Impressions: CONCLUSION: 1. 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 2. Findings consistent with congestive heart failure and pulmonary edema with bilateral pleural effusions. The pleural effusion on the right has slightly inc reased in size as compared to the prior exam. 3. Enlargement of the pulmonary arteries concerning for pulmonary hypertension . No evidence of PE. Chest X-Ray 03/12/18 0120 Signed Impressions: CONCLUSION: Cardiomegaly with mild edema pattern and bilateral effusions most characteristi c of congestive heart failure. Physical Exam HEENT: Normocephalic; atraumatic CHEST: Even/unlabored CARDIAC: Irregular ABDOMEN: Obese, soft, nontender, bowel sounds active SKIN: Normal; no rash; no jaundice. FITTER MACHINIST: Alert and oriented times three. (Jyoti Chan) Assessment and Plan Plan Assessment: - Concern for tracheoesophageal fistula on imaging CTA pulmonary --> Concern for a tracheoesophageal fistula identified within the proximal one third of the esophagus. Gastrografin swallow --> No evidence of esophageal stricture. Transient esophageal dysmotility which resolved. Comparison CT was suggestive of a tracheoesophageal fistula, however, no visualization of a fistula was visualized on this limited exam with Gastrografin. Has never had EGD. Denies dysphagia, odynophagia, coughing episodes after eating, choking. 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 On liquid diet but has not really felt like eating. Continues to deny any dysphagia, odynophagia, and choking. Heparin gtt has been discontinued. Plans for thoracentesis today. Discussed with pt EGD tomorrow and she is agreeable. Discussed with RN at bedside Plan: EGD tomorrow Obtain consent NPO after MN OK for clear liquids Heparin gtt DCd, hold blood thinners until after procedure Further recommendations based on clinical course and findings of above Pt has been seen and examined by myself and Dr. Hay and this note is written on his behalf (Jyoti Chan) Physician Comments Will plan the EGD for tomorrow, consent obtained. NPO after midnight. Further recommendations to follow. (Jerry Hay MD) Jyoti Chan Mar 15, 2018 09:46 Jerry Hay MD Mar 15, 2018 15:43
--- NOTE | 2018-03-15 09:52 | HHI.PR ---
Subjective Remarks Nursing denies any deterioration since last night. Patient herself says she feels overall improved. [facility] most recently. Objective Vital Signs Date Time Temp Pulse Resp B/P (MAP) Pulse Ox O2 Delivery O2 Flow Rate FiO2 03/15/18 08:12 100 Nasal Cannula 2.00 03/15/18 08:00 98.0 76 14 117/59 (78) 98 03/15/18 08:00 73 03/15/18 07:58 98.0 76 14 117/59 (78) 98 03/15/18 06:00 71 03/15/18 04:00 65 03/15/18 04:00 98.0 65 14 107/62 (77) 98 03/15/18 02:00 66 03/15/18 00:00 97.8 63 18 94/52 (66) 99 03/15/18 00:00 63 03/14/18 22:00 75 03/14/18 20:10 100 Nasal Cannula 2.00 03/14/18 20:00 77 03/14/18 20:00 97.7 77 17 102/55 (71) 100 03/14/18 18:00 77 03/14/18 16:00 97.3 77 35 91/68 (76) 96 03/14/18 16:00 77 03/14/18 14:15 20 03/14/18 14:00 84 03/14/18 12:57 15 03/14/18 12:00 80 03/14/18 12:00 98.4 80 20 99/58 (72) 98 03/14/18 10:00 89 I/O 03/14/18 03/14/18 03/14/18 03/15/18 03/15/18 03/15/18 06:59 14:59 22:59 06:59 14:59 22:59 Intake Total 20 ml 650 ml 730 ml Output Total 1700 ml 1000 ml 650 ml Balance -1680 ml -350 ml 80 ml Intake Oral 20 ml 650 ml 480 ml IV Total 250 ml Output Urine Total 1700 ml 1000 ml 650 ml # Bowel Movements 3 4 Result Diagram: 03/14/18 1000 03/15/18 0512 Objective Remarks Irregular heart rhythm, regular heart rate Slightly diminished breath sounds in the bases, more diminished on the right than the left Crackles heard in the right lung field, none on the left A/P Assessment and Plan This is a pleasant 68-year-old female patient with a known medical history of atrial fibrillation on anticoagulation, COPD, CHF, diabetes and hypertension who presented to the ED with complaints of shortness of breath 3 days. Patient states she has been short of breath especially with exertion but now has worsened while at rest as well over the past couple days. SOB - multifactorial, acute chf, pleural effusion superimposed on chronic hypoxic resp failure - improving since admission, see below -Gastrografin swallow negative for any T-E fistula, GI plans EGD in a.m. Systolic CHF with exacerbation - improving symptoms - lasix BID Right-sided pleural effusion -Pulmonology following, plan for thoracentesis today if IR agrees, then restart heparin drip chronic stable copd - continue home o2 and inhalers Right shoulder pain: Right shoulder x-ray performed today showing intact right shoulder. Degenerative changes. Pain control with pain regimen. Will try Toradol for inflammation. Right upper extremity swelling: US neg for dvt. Buttock skin tear: specialty mattress. Q2h turning. Mepilex. Continue to monitor. Consult wood room hand if needed. Type 2 diabetes mellitus, chronic: Accu-Chek before meals at bedtime, sliding scale, cover as needed. Monitor blood sugar trends. Continue home Levemir. Chronic atrial fibrillation: continue metoprolol and cardizem, restart heparin drip after thoracentesis today and hold at midnight for possible EGD in a.m. hypertension, chronic: Continue home lisinopril and metoprolol Status post ORIF of the left hip, femoral fracture in December - Patient with complaints of weakness and inability to transfer 5 days to wheelchair due to left shoulder and right arm pain - Surgeon was Dr. Yan, orders for nonweightbearing for the next 30 days. - Physical therapy has seen patient, appreciate input recommendations. - Patient is very weak. Will continue PT 7 days a week. DVT prophylaxis: SCDs. Heparin after thoracentesis Zaid Ruiz MD Mar 15, 2018 09:52
--- NOTE | 2018-03-15 11:50 | PD.RAD ---
Post US Procedure Prog Note Pre Procedure Diagnosis: (1) Pleural effusion, right Post Procedure Diagnosis: (1) Pleural effusion, right Procedure Date: Mar 15, 2018 Supervising Radiologist: Wilfred Aaron Proceduralist/Assist: Yuliana Herrera RDMS Anesthesia: Local Plan of Activity Patient to Unit: Nursing Unit Patient Condition: Good See PACS Report for procedural detail/treatment Drainage Procedure Procedure 1 Imaging Guidance: Ultrasound Side: Right Procedure Type: Thoracentesis Drainage: Suction Fluid Removal (CCs): 800 Fluid Description: Clear, Red Plan post cxr then return to floor. Wilfred Aaron MD Mar 15, 2018 11:50
--- NOTE | 2018-03-15 12:19 | RADRPT ---
EXAM DATE: 03/15/2018 12:16 PM EDT AGE/SEX: 68 years / Female INDICATIONS: Post thoracentesis right chest CLINICAL DATA: This is the patient's subsequent encounter. Patient reports that signs and symptoms h ave been present for 1 day and indicates a pain score of 0/10. MEDICAL/SURGICAL HISTORY: Chronic obstructive pulmonary disease. Congestive heart failure. . t horacentesis COMPARISON: [facility], CHEST SINGLE AP, 03/12/2018. . FINDINGS: Upright portable extracranial view of the chest demonstrates no pneumothorax following recent right t horacentesis. No residual pleural fluid is visualized. Cardiac silhouette remains mildly enlarged. No left pleural effusion or consolidation is visualized. CONCLUSION: No pneumothorax following recent right thoracentesis. No residual pleural fluid is visualized. Electronically signed by: Wilfred Aaron MD 03/15/2018 12:18 PM EDT
--- NOTE | 2018-03-15 13:02 | RADRPT ---
EXAM DATE: 03/15/2018 12:25 PM EDT AGE/SEX: 68 years / Female INDICATIONS: Right pleural effusion. CLINICAL DATA: This is the patient's initial encounter. Patient reports that signs and symptoms have been present for 1 day and indicates a pain score of 0/10. MEDICAL/SURGICAL HISTORY: Chronic renal failure. Hypercholesterolemia. Chronic obstructive pu lmonary disease. Anticoagulant therapy. Atrial fibrillation. Diabetes. Breast cancer. Hysterectomy. RT breast lumpectomy. Bilateral knee surgery. Rods in left femur. Chemotherapy. COMPARISON: No prior [place] exams available for comparison. [facility], CT chest, 09/11. FLUID: Total volume of 800 cc of cloudy, red fluid was removed. Fluid was sent to lab for ordered studies. . . TECHNIQUE: Ultrasound guidance for thoracentesis. Thoracentesis. The risks, benefits, and alternatives to ultrasound guided thoracentesis were explained to the patien t in lay simple terms, including the risk of bleeding and infection. Written and verbal informed con sent was obtained. Appropriate area for right thoracentesis was marked under ultrasound guidance with the patient in the upright position. Overlying skin was prepped and draped in the usual sterile fashion and with local anesthetic, a dermatotomy was made with an 11 blade scalpel. A 6 Kazakh thoracentesis catheter was placed in the pleural space and fluid was removed. Catheter was then removed and a sterile dressing applied. There were no immediate complications. The patient tolerated the procedure well and the lef t the ultrasound suite in stable condition. Chest radiograph is to be obtained. FINDINGS: Ultrasound imaging prior to the procedure demonstrated a simple appearing right pleural effusion with compressive atelectasis of the right lower lobe. CONCLUSION: Uncomplicated complete evacuation of the right pleural effusion. 800 cc of fluid was removed. Electronically signed by: Wilfred Aaron MD 03/15/2018 1:01 PM EDT
[2018-03-15 13:23] LABS: TOTAL PROTEIN,PLEURAL FLUID 1.8 GM/DL
[2018-03-15] MEDS ORDERED: LIDOCAINE HCL 1% 20 ML VIAL ONE (13:28)
[2018-03-15 14:27] LABS: PLEURAL FLUID EOS 1 %; PLEURAL FLUID LYMPHS 59 %; PLEURAL FLUID MESOTHELIAL 2 %; PLEURAL FLUID MONOS 10 %; PLEURAL FLUID POLYS (SEGS) 28 %; PLEURAL FLUID RBC 4908 /MM3 (0-0); PLEURAL FLUID WBC 403 /MM3 (0-10)
[2018-03-15] MEDS ORDERED: HEPARIN-D5W 25,000 U/250 ML 250 ML IV PRN (15:00)
[2018-03-15] MEDS: HEPARIN-D5W 25,000 U/250 ML 250 ML IV PRN (16:03)
[2018-03-15 16:32] LABS: INTERNATIONAL NORMALIZED RATIO 1.2 RATIO; PROTHROMBIN TIME - PATIENT 12.5 SEC (9.8-11.6)
--- NOTE | 2018-03-15 17:48 | HHI.PR ---
Subjective Remarks 68 YOWF with COPD,CHF,Pl eff Had gastrograffin study, no fistula sen Breathing better On NC Had TC, 800 cc fluid removed Feels much better Objective Vital Signs Vital Signs Date Time Temp Pulse Resp B/P (MAP) Pulse Ox O2 Delivery O2 Flow Rate FiO2 03/15/18 16:00 98.1 81 16 120/59 (79) 100 03/15/18 16:00 73 03/15/18 15:00 97.7 79 18 120/59 (79) 96 03/15/18 14:00 73 03/15/18 12:03 116/57 (76) 03/15/18 12:00 98.1 77 16 116/57 (76) 100 03/15/18 12:00 73 03/15/18 11:48 116/57 (76) 03/15/18 11:00 97.7 71 18 119/68 (85) 96 03/15/18 10:00 73 03/15/18 08:12 100 Nasal Cannula 2.00 03/15/18 08:00 98.0 76 14 117/59 (78) 98 03/15/18 08:00 73 03/15/18 07:58 98.0 76 14 117/59 (78) 98 03/15/18 06:00 71 03/15/18 04:00 65 03/15/18 04:00 98.0 65 14 107/62 (77) 98 03/15/18 02:00 66 03/15/18 00:00 97.8 63 18 94/52 (66) 99 03/15/18 00:00 63 03/14/18 22:00 75 03/14/18 20:10 100 Nasal Cannula 2.00 03/14/18 20:00 77 03/14/18 20:00 97.7 77 17 102/55 (71) 100 03/14/18 18:00 77 I/O 03/14/18 03/14/18 03/14/18 03/15/18 03/15/18 03/15/18 07:00 15:00 23:00 07:00 15:00 23:00 Intake Total 20 ml 650 ml 730 ml Output Total 1700 ml 1000 ml 650 ml Balance -1680 ml -350 ml 80 ml Intake Oral 20 ml 650 ml 480 ml IV Total 250 ml Output Urine Total 1700 ml 1000 ml 650 ml # Bowel Movements 3 4 Result Diagram: 03/14/18 1000 03/15/18 0512 Objective Remarks GENERAL: MBMNWF mild sob SKIN: Warm and dry. HEAD: Normocephalic. EYES: No scleral icterus. No injection or drainage. NECK: Supple, trachea midline. No JVD or lymphadenopathy. CARDIOVASCULAR: Regular rate and rhythm without murmurs, gallops, or rubs. RESPIRATORY: Breath sounds equal bilaterally. No accessory muscle use. GASTROINTESTINAL: Abdomen soft, non-tender, nondistended. MUSCULOSKELETAL: No cyanosis, or edema. S/p left leg surgery BACK: Nontender without obvious deformity. No CVA tenderness. A/P Assessment and Plan IMPRESSION: 1. Shortness of breath with congestive heart failure. 2. Chronic obstructive pulmonary disease. 3. Partially compensated respiratory acidosis. 4. Bilateral pleural effusion. 5. 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 6. Diabetes mellitus. PLAN: Supplement [address] fluid results Luisito Dior MD Mar 15, 2018 17:48
[2018-03-15] MEDS: INSULIN DETEMIR 100 UNITS/ML VIAL SQ SCH (20:20)
[2018-03-16] VITALS (22 sets, daily range): BP systolic 103–132; BP diastolic 59–90; PULSE 72–110; RESP 14–20; TEMP 97.2–98.3; O2SAT 84–100
[2018-03-16] MEDS: ONDANSETRON HCL 4 MG/2 ML VIAL IVP PRN (00:16)
[2018-03-16] MEDS: CHLORHEXIDINE GLUCONATE 2 % 1 PACK (2 CLOTHS)(taper/protocol) TOPICAL SCH (04:00)
[2018-03-16] MEDS: KETOROLAC TROMETHAMINE 30 MG/ML (IVP) VIAL IV PUSH PRN ×2 (04:44→19:38)
[2018-03-16] MEDS: RESP: ALBUTEROL 2.5 MG/IPRATROPIUM 0.5 MG NEB (SCH) NEB ×2 (07:57→13:42)
[2018-03-16] MEDS: INSULIN ASPART SUPPLEMENTAL SCALE SQ SCH ×4 (08:00→21:17)
[2018-03-16] MEDS: FUROSEMIDE 40 MG/4 ML VIAL IV PUSH SCH ×2 (08:04→17:35)
[2018-03-16] MEDS: ASPIRIN EC 81 MG TABEC PO SCH (08:05)
[2018-03-16] MEDS: LISINOPRIL 10 MG TAB PO SCH (08:05)
[2018-03-16] MEDS: METOPROLOL TARTRATE 50 MG TAB PO SCH ×2 (08:05→21:16)
[2018-03-16] MEDS: DILTIAZEM HCL 30 MG TAB PO SCH ×2 (08:05→21:16)
[2018-03-16] MEDS: FLUoxetine HCL 20 MG CAP PO SCH (08:05)
--- NOTE | 2018-03-16 08:33 | HHI.GIFU ---
Subjective Remarks Per RN pt not wanting to sign the consent because she states she was not told about the procedure Both myself and Dr. Hay have gone through the procedure risk, benefits and indication with pt I went back over the procedure with patient, answered all questions she had She states still does not want procedures because she feels she has too much going on Had a thoracentesis yesterday and in rehab for a recent hip fracture She would like to hold off on procedure, RN at bedside Discussed with patient that we can be reconsulted if she changes her mind (Jyoti Chan) Objective Vitals I&O Vital Signs Date Time Temp Pulse Resp B/P (MAP) Pulse Ox O2 Delivery O2 Flow Rate FiO2 03/16/18 07:57 99 Nasal Cannula 2.00 03/16/18 07:51 97.8 80 18 122/77 (92) 100 03/16/18 07:00 97.3 80 16 122/77 (92) 100 03/16/18 06:00 80 03/16/18 04:00 76 03/16/18 04:00 98.3 76 14 115/68 (84) 100 03/16/18 03:49 100 Nasal Cannula 2.00 03/16/18 03:00 97.2 72 16 116/73 (87) 100 03/16/18 02:00 74 03/16/18 00:00 73 03/16/18 00:00 97.3 73 19 111/69 (83) 100 03/15/18 23:47 97 Nasal Cannula 2.00 03/15/18 23:00 97.3 70 18 104/53 (70) 100 03/15/18 22:00 78 03/15/18 20:00 83 03/15/18 20:00 97.3 83 23 113/60 (77) 98 03/15/18 19:56 97 Nasal Cannula 2.00 03/15/18 19:00 98.3 94 25 102/64 (77) 100 03/15/18 18:00 79 03/15/18 16:00 98.1 81 16 120/59 (79) 100 03/15/18 16:00 73 03/15/18 15:00 97.7 79 18 120/59 (79) 96 03/15/18 14:00 73 03/15/18 12:03 116/57 (76) 03/15/18 12:00 98.1 77 16 116/57 (76) 100 03/15/18 12:00 73 03/15/18 11:48 116/57 (76) 03/15/18 11:00 97.7 71 18 119/68 (85) 96 03/15/18 10:00 73 I/O 03/15/18 03/15/18 03/15/18 03/16/18 03/16/18 03/16/18 07:00 15:00 23:00 07:00 15:00 23:00 Intake Total 730 ml 620 ml 320 ml Output Total 650 ml 950 ml 575 ml Balance 80 ml -330 ml -255 ml Intake Oral 480 ml 620 ml 320 ml IV Total 250 ml Output Urine Total 650 ml 950 ml 575 ml Stool Total 0 ml # Bowel Movements 4 1 0 Laboratory Laboratory Tests Test 03/15/18 11:40 03/15/18 16:00 03/15/18 20:55 03/16/18 03:23 Pleural Fluid pH 8.0 Pleural Fluid WBC 403 Pleural Fluid RBC 4908 Pleural Fluid Neutrophils 28 Pleural Fluid Lymphocytes 59 Pleural Fluid Monocytes 10 Pleural Fluid Eosinophils 1 Pleural Fluid Mesothelial Cells 2 Pleural Fluid Comment Pleural Fluid Total Protein 1.8 Pleural Fluid LDH 111 Pleural Fluid Glucose 140 Prothrombin Time 12.5 Prothromb Time International Ratio 1.2 Activated Partial Thromboplast Time 25.0 47.4 23.2 Date/Time Source Procedure Growth Status 03/15/18 11:40 Fluid Pleural Fluid Fungal Smear Pending Received 03/15/18 11:40 Fluid Pleural Fluid Fungal Culture Pending Received 03/14/18 17:20 Stool Stool Stool Occult Blood (VALERI) - Final HEMOCCULT NEGATIVE Complete Imaging Last Impressions Thoracentesis Ultrasound 03/15/18 0600 Signed Impressions: CONCLUSION: Uncomplicated complete evacuation of the right pleural effusion. 800 cc of flui d was removed. Chest X-Ray 03/15/18 0000 Signed Impressions: CONCLUSION: No pneumothorax following recent right thoracentesis. No residual pleural fluid is visualized. Upper GI/Barium Swallow X-Ray 03/14/18 0000 Signed Impressions: CONCLUSION: No evidence of esophageal stricture. Transient esophageal dysmotility which res olved. Comparison CT was suggestive of a tracheoesophageal fistula, however, no visualization of a fistula was visualized on this limited exam with Gastrograf in. Shoulder X-Ray 03/13/18 1147 Signed Impressions: CONCLUSION: Intact right shoulder. Mild to moderate degenerative changes as above. Upper Extremity Ultrasound 03/13/18 0000 Signed Impressions: CONCLUSION: 1. No evidence of thrombus. CT Angiography 03/13/18 0000 Signed Impressions: CONCLUSION: 1. 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 2. Findings consistent with congestive heart failure and pulmonary edema with bilateral pleural effusions. The pleural effusion on the right has slightly inc reased in size as compared to the prior exam. 3. Enlargement of the pulmonary arteries concerning for pulmonary hypertension . No evidence of PE. Physical Exam HEENT: Normocephalic; atraumatic CHEST: Even/unlabored CARDIAC: Irregular ABDOMEN: Obese, soft, nontender, bowel sounds active SKIN: Normal; no rash; no jaundice. 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 (Jyoti Chan) Assessment and Plan Plan Assessment: - Concern for tracheoesophageal fistula on imaging CTA pulmonary --> Concern for a tracheoesophageal fistula identified within the proximal one third of the esophagus. Gastrografin swallow --> No evidence of esophageal stricture. Transient esophageal dysmotility which resolved. Comparison CT was suggestive of a tracheoesophageal fistula, however, no visualization of a fistula was visualized on this limited exam with Gastrografin. Has never had EGD. Denies dysphagia, odynophagia, coughing episodes after eating, choking. - CHF, pulmonary edema with bilateral pleural effusions, loan associate following- possible thoracentesis - A-fib- On Xarelto at home- currently on Heparin gtt, last dose of Xarelto was yesterday (03/15) Pt complaining of some mild epigastric pain today. On liquid diet but has not really felt like eating. Continues to deny any dysphagia, odynophagia, and choking. Heparin gtt has been discontinued. Plans for thoracentesis today. Discussed with pt EGD tomorrow and she is agreeable. Discussed with RN at bedside (03/16) Per RN call placed this morning to Dr. Hay because pt did not want to sign the consent for the EGD, she states that she was not informed about the procedure. Both Dr Hay and myself have gone over the procedure risk, benefits, and indications. I went back over the procedure with the patient and answered all of her questions. She states she feels she has too much going on right now and would still like to hold off on the procedure. RN at bedside. Discussed with pt we can be reconsulted if she changes her mind. We will sign off, reconsult as needed, OK to restart Heparin gtt from GI standpoint. Plan: Our service will sign off, please reconsult as needed Have pt follow up with GI after DC OK to restart Heparin gtt from a GI Standpoint Pt has been seen and examined by myself and Dr. Hay and this note is written on his behalf (Jyoti Chan) Physician Comments As above, not much to add at this point from GI point of view. Please notify us if needed again. Thank you (Jerry Hay MD) Jyoti Chan Mar 16, 2018 08:33 Jerry Hay MD Mar 16, 2018 09:47
[2018-03-16] MEDS: SODIUM CHLORIDE 0.9% FLUSH 10 ML FLUSH IV FLUSH SCH ×2 (09:00→21:16)
[2018-03-16] MEDS: UMECLIDINIUM 62.5 MCG/VILANTEROL 25 MCG INHALER INH SCH (09:00)
--- NOTE | 2018-03-16 09:15 | HHI.PR ---
Subjective Remarks Follow-up systolic exacerbation/tracheoesophageal fistula on image? March 16, 2028-patient seen and examined, no acute event overnight, reports some shortness of breath however denies any chest pain. Initially, patient patient did refuse to undergo EGD however changed her mind Objective Vitals Vital Signs Date Time Temp Pulse Resp B/P (MAP) Pulse Ox O2 Delivery O2 Flow Rate FiO2 03/16/18 07:57 99 Nasal Cannula 2.00 03/16/18 07:51 97.8 80 18 122/77 (92) 100 03/16/18 07:00 97.3 80 16 122/77 (92) 100 03/16/18 06:00 80 03/16/18 04:00 76 03/16/18 04:00 98.3 76 14 115/68 (84) 100 03/16/18 03:49 100 Nasal Cannula 2.00 03/16/18 03:00 97.2 72 16 116/73 (87) 100 03/16/18 02:00 74 03/16/18 00:00 73 03/16/18 00:00 97.3 73 19 111/69 (83) 100 03/15/18 23:47 97 Nasal Cannula 2.00 03/15/18 23:00 97.3 70 18 104/53 (70) 100 03/15/18 22:00 78 03/15/18 20:00 83 03/15/18 20:00 97.3 83 23 113/60 (77) 98 03/15/18 19:56 97 Nasal Cannula 2.00 03/15/18 19:00 98.3 94 25 102/64 (77) 100 03/15/18 18:00 79 03/15/18 16:00 98.1 81 16 120/59 (79) 100 03/15/18 16:00 73 03/15/18 15:00 97.7 79 18 120/59 (79) 96 03/15/18 14:00 73 03/15/18 12:03 116/57 (76) 03/15/18 12:00 98.1 77 16 116/57 (76) 100 03/15/18 12:00 73 03/15/18 11:48 116/57 (76) 03/15/18 11:00 97.7 71 18 119/68 (85) 96 03/15/18 10:00 73 I/O 03/15/18 03/15/18 03/15/18 03/16/18 03/16/18 03/16/18 07:00 15:00 23:00 07:00 15:00 23:00 Intake Total 730 ml 620 ml 320 ml Output Total 650 ml 950 ml 575 ml Balance 80 ml -330 ml -255 ml Intake Oral 480 ml 620 ml 320 ml IV Total 250 ml Output Urine Total 650 ml 950 ml 575 ml Stool Total 0 ml # Bowel Movements 4 1 0 Result Diagram: 03/14/18 1000 03/15/18 0512 Imaging Last Impressions Thoracentesis Ultrasound 03/15/18 0600 Signed Impressions: CONCLUSION: Uncomplicated complete evacuation of the right pleural effusion. 800 cc of flui d was removed. Chest X-Ray 03/15/18 0000 Signed Impressions: CONCLUSION: No pneumothorax following recent right thoracentesis. No residual pleural fluid is visualized. Upper GI/Barium Swallow X-Ray 03/14/18 0000 Signed Impressions: CONCLUSION: No evidence of esophageal stricture. Transient esophageal dysmotility which res olved. Comparison CT was suggestive of a tracheoesophageal fistula, however, no visualization of a fistula was visualized on this limited exam with Gastrograf in. Shoulder X-Ray 03/13/18 1147 Signed Impressions: CONCLUSION: Intact right shoulder. Mild to moderate degenerative changes as above. Upper Extremity Ultrasound 03/13/18 0000 Signed Impressions: CONCLUSION: 1. No evidence of thrombus. CT Angiography 03/13/18 0000 Signed Impressions: CONCLUSION: 1. 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 2. Findings consistent with congestive heart failure and pulmonary edema with bilateral pleural effusions. The pleural effusion on the right has slightly inc reased in size as compared to the prior exam. 3. Enlargement of the pulmonary arteries concerning for pulmonary hypertension . No evidence of PE. Objective Remarks GENERAL: NAD SKIN: Warm and dry. HEAD: Normocephalic. EYES: No scleral icterus. No injection or drainage. NECK: Supple, trachea midline. No JVD or lymphadenopathy. CARDIOVASCULAR: Irregular regular rate and rhythm without murmurs, gallops, or rubs. RESPIRATORY: Breath sounds equal bilaterally. No accessory muscle use. GASTROINTESTINAL: Abdomen soft, non-tender, nondistended. MUSCULOSKELETAL: No cyanosis, +BLE trace edema. BACK: Nontender without obvious deformity. No CVA tenderness. A/P Problem List: (1) Acute on chronic systolic CHF (congestive heart failure) ICD Code: I50.23 - Acute on chronic systolic (congestive) heart failure Assessment and Plan 68-year-old female with SOB - multifactorial, acute chf, pleural effusion superimposed on chronic hypoxic resp failure - improving since admission, see below -Gastrografin swallow negative for any T-E fistula, GI plans EGD this a.m. Systolic CHF with exacerbation - improving symptoms - Lasix BID Right-sided pleural effusion -Pulmonology following, s/p thoracentesis 03/15/18 pending cytology report chronic stable COPD - continue home o2 and inhalers Right shoulder pain: Right shoulder x-ray with DJD. Pain control with pain regimen. Continue Toradol for inflammation. Right upper extremity swelling: US neg for dvt. Buttock skin tear: specialty mattress. Q2h turning. Mepilex. Continue to monitor. clinical resource manager if needed. Type 2 diabetes mellitus, chronic: Accu-Chek before meals at bedtime, sliding scale, cover as needed. Monitor blood sugar trends. Continue home Levemir. Chronic atrial fibrillation: continue metoprolol and Cardizem, restart heparin drip after EGD this a.m. Hypertension, chronic: Continue home lisinopril and metoprolol Status post ORIF of the left hip, femoral fracture in December - Patient with complaints of weakness and inability to transfer 5 days to wheelchair due to left shoulder and right arm pain - Surgeon was Dr. Yan, orders for nonweightbearing for the next 30 days. - Physical therapy has seen patient, appreciate input recommendations. - Patient is very weak. Will continue PT 7 days a week. DVT prophylaxis: SCDs. Heparin after EGD Tyrone Gayle MD Mar 16, 2018 09:15
[2018-03-16 10:27] LABS: BASOPHIL % 0.7 % (0.0-2.0); EOSINOPHIL # 0.3 TH/MM3 (0-0.4); EOSINOPHIL % 4.2 % (0.0-4.0); HEMATOCRIT 34.2 % (35.0-46.0); HEMOGLOBIN 10.9 GM/DL (11.6-15.3); LYMPH % 13.3 % (9.0-44.0); LYMPHOCYTE # 0.8 TH/MM3 (1.0-4.8); MEAN CELL VOLUME 80.4 FL (80.0-100.0); MEAN CORPUSCULAR HEMOGLOBIN 25.7 PG (27.0-34.0); MEAN CORPUSCULAR HGB CONC 31.9 % (32.0-36.0); MEAN PLATELET VOLUME 10.1 FL (7.0-11.0); MONO % 14.4 % (0.0-8.0); MONOCYTE # 0.9 TH/MM3 (0-0.9); NEUT % 67.4 % (16.0-70.0); PLATELET COUNT 193 TH/MM3 (150-450); RED BLOOD COUNT 4.25 MIL/MM3 (4.00-5.30); RED CELL DISTRIBUTION WIDTH 18.3 % (11.6-17.2)
[2018-03-16 10:52] LABS: ALBUMIN 2.2 GM/DL (3.4-5.0); AST (GOT) 14 U/L (15-37); BICARBONATE 34.9 MEQ/L (21.0-32.0); BLOOD UREA NITROGEN 10 MG/DL (7-18); CALCIUM 8.9 MG/DL (8.5-10.1); CHLORIDE 95 MEQ/L (98-107); CREATININE 0.56 MG/DL (0.50-1.00); GLOMERULAR FILTRATION RATE 108 ML/MIN (>89); GLUCOSE,RANDOM 137 MG/DL (74-106); SODIUM (NA) 140 MEQ/L (136-145)
[2018-03-16 10:54] LABS: ALT (GPT) 12 U/L (10-53)
[2018-03-16 10:57] LABS: ALKALINE PHOSPHATASE 87 U/L (45-117); TOTAL BILIRUBIN ADULT 0.6 MG/DL (0.2-1.0); TOTAL PROTEIN 6.5 GM/DL (6.4-8.2)
[2018-03-16] MEDS ORDERED: LIDOCAINE HCL 1% PF 5 ML SYRINGE OTHER ONE (12:00)
[2018-03-16] MEDS ORDERED: ePHEDrine/NS 25 MG/5 ML SYRINGE IV ONE (12:00)
[2018-03-16] MEDS ORDERED: PROPOFOL 200 MG/20 ML AMP IV ONE (12:00)
[2018-03-16] MEDS ORDERED: PHENYLEPH/NS 1000 MCG/10 ML SYR IV ONE (12:00)
[2018-03-16 13:40] LABS: AMYLASE BODY FLUID 17 U/L; AMYLASE BODY FLUID TYPE PLEURAL
[2018-03-16] MEDS ORDERED: DO NOT ADM ANY ANTICOAGULANT DRUGS PRN (14:00)
[2018-03-16 14:11] LABS: INTERNATIONAL NORMALIZED RATIO 1.2 RATIO; PROTHROMBIN TIME - PATIENT 12.4 SEC (9.8-11.6)
[2018-03-16] MEDS: ACETAMINOPHEN/HYDROcodone 325 MG/5 MG TAB PO PRN (16:14)
--- NOTE | 2018-03-16 18:51 | HHI.PR ---
Subjective Remarks 68 YOWF with COPD,CHF,Pl eff Had gastrograffin study, no fistula sen Breathing better On NC Had TC, 800 cc fluid removed Feels much better Had EGD Objective Vital Signs Vital Signs Date Time Temp Pulse Resp B/P (MAP) Pulse Ox O2 Delivery O2 Flow Rate FiO2 03/16/18 18:00 91 03/16/18 16:00 98.0 92 18 116/70 (85) 100 03/16/18 16:00 91 03/16/18 15:00 97.3 83 16 131/62 (85) 100 03/16/18 14:02 97.3 83 16 118/90 (99) 100 03/16/18 14:00 80 03/16/18 13:56 97.3 83 16 118/90 (99) 100 03/16/18 13:15 80 16 128/57 (80) 100 Nasal Cannula 2 03/16/18 13:00 80 16 112/59 (76) 99 Nasal Cannula 2 03/16/18 12:47 98.1 86 16 115/72 (86) 96 Nasal Cannula 2 03/16/18 12:00 97.8 80 18 122/77 (92) 100 03/16/18 10:00 80 03/16/18 08:00 80 03/16/18 08:00 97.8 80 18 122/77 (92) 100 03/16/18 07:57 99 Nasal Cannula 2.00 03/16/18 07:51 97.8 80 18 122/77 (92) 100 03/16/18 07:00 97.3 80 16 122/77 (92) 100 03/16/18 06:00 80 03/16/18 04:00 76 03/16/18 04:00 98.3 76 14 115/68 (84) 100 03/16/18 03:49 100 Nasal Cannula 2.00 03/16/18 03:00 97.2 72 16 116/73 (87) 100 03/16/18 02:00 74 03/16/18 00:00 73 03/16/18 00:00 97.3 73 19 111/69 (83) 100 03/15/18 23:47 97 Nasal Cannula 2.00 03/15/18 23:00 97.3 70 18 104/53 (70) 100 03/15/18 22:00 78 03/15/18 20:00 83 03/15/18 20:00 97.3 83 23 113/60 (77) 98 03/15/18 19:56 97 Nasal Cannula 2.00 03/15/18 19:00 98.3 94 25 102/64 (77) 100 I/O 03/15/18 03/15/18 03/15/18 03/16/18 03/16/18 03/16/18 07:00 15:00 23:00 07:00 15:00 23:00 Intake Total 730 ml 620 ml 320 ml 110 ml 480 ml Output Total 650 ml 950 ml 575 ml 950 ml Balance 80 ml -330 ml -255 ml 110 ml -470 ml Intake Oral 480 ml 620 ml 320 ml 480 ml IV Total 250 ml 10 ml Other 100 ml Output Urine Total 650 ml 950 ml 575 ml 950 ml Stool Total 0 ml # Bowel Movements 4 1 0 Result Diagram: 03/16/18 0949 03/16/18 0949 Objective Remarks GENERAL: MBMNWF mild sob SKIN: Warm and dry. HEAD: Normocephalic. EYES: No scleral icterus. No injection or drainage. NECK: Supple, trachea midline. No JVD or lymphadenopathy. CARDIOVASCULAR: Regular rate and rhythm without murmurs, gallops, or rubs. RESPIRATORY: Breath sounds equal bilaterally. No accessory muscle use. GASTROINTESTINAL: Abdomen soft, non-tender, nondistended. MUSCULOSKELETAL: No cyanosis, or edema. S/p left leg surgery BACK: Nontender without obvious deformity. No CVA tenderness. A/P Assessment and Plan IMPRESSION: 1. Shortness of breath with congestive heart failure. 2. Chronic obstructive pulmonary disease. 3. Partially compensated respiratory acidosis. 4. Bilateral pleural effusion. 5. 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 6. Diabetes mellitus. PLAN: Supplement [address] fluid results Started Luisito Pizano MD Mar 16, 2018 18:51
[2018-03-16] MEDS: HEPARIN-D5W 25,000 U/250 ML 250 ML IV PRN (19:28)
[2018-03-16] MEDS: INSULIN DETEMIR 100 UNITS/ML VIAL SQ SCH (21:16)
[2018-03-16 21:53] LABS: HEMATOCRIT 32.3 % (35.0-46.0); HEMOGLOBIN 10.2 GM/DL (11.6-15.3); MEAN CELL VOLUME 80.1 FL (80.0-100.0); MEAN CORPUSCULAR HEMOGLOBIN 25.2 PG (27.0-34.0); MEAN CORPUSCULAR HGB CONC 31.5 % (32.0-36.0); MEAN PLATELET VOLUME 10.4 FL (7.0-11.0); PLATELET COUNT 204 TH/MM3 (150-450); RED BLOOD COUNT 4.03 MIL/MM3 (4.00-5.30); RED CELL DISTRIBUTION WIDTH 18.7 % (11.6-17.2); WHITE BLOOD COUNT 6.8 TH/MM3 (4.0-11.0)
[2018-03-17] VITALS (12 sets, daily range): BP systolic 104–160; BP diastolic 56–82; PULSE 65–110; RESP 16–25; TEMP 98–98.6; O2SAT 93–100
[2018-03-17 03:18] LABS: HEMATOCRIT 33.1 % (35.0-46.0); HEMOGLOBIN 10.5 GM/DL (11.6-15.3); MEAN CELL VOLUME 80.8 FL (80.0-100.0); MEAN CORPUSCULAR HEMOGLOBIN 25.6 PG (27.0-34.0); MEAN CORPUSCULAR HGB CONC 31.7 % (32.0-36.0); MEAN PLATELET VOLUME 10.1 FL (7.0-11.0); PLATELET COUNT 204 TH/MM3 (150-450); RED BLOOD COUNT 4.09 MIL/MM3 (4.00-5.30); RED CELL DISTRIBUTION WIDTH 18.4 % (11.6-17.2); WHITE BLOOD COUNT 6.8 TH/MM3 (4.0-11.0)
[2018-03-17] MEDS: CHLORHEXIDINE GLUCONATE 2 % 1 PACK (2 CLOTHS)(taper/protocol) TOPICAL SCH (04:00)
[2018-03-17] MEDS ORDERED: POTASSIUM CHLORIDE 20 MEQ CONTROLLED RELEASE TAB PO ONE (04:00)
[2018-03-17] MEDS: INSULIN ASPART SUPPLEMENTAL SCALE SQ SCH ×4 (08:00→22:04)
[2018-03-17] MEDS: DILTIAZEM HCL 30 MG TAB PO SCH ×2 (09:00→22:03)
[2018-03-17] MEDS: KETOROLAC TROMETHAMINE 30 MG/ML (IVP) VIAL IV PUSH PRN ×2 (09:44→17:07)
[2018-03-17] MEDS: ASPIRIN EC 81 MG TABEC PO SCH (09:44)
[2018-03-17] MEDS: FUROSEMIDE 40 MG/4 ML VIAL IV PUSH SCH ×2 (09:44→18:40)
[2018-03-17] MEDS: LISINOPRIL 10 MG TAB PO SCH (09:45)
[2018-03-17] MEDS: FLUoxetine HCL 20 MG CAP PO SCH (09:46)
[2018-03-17] MEDS: METOPROLOL TARTRATE 50 MG TAB PO SCH ×2 (09:46→22:03)
[2018-03-17] MEDS: SODIUM CHLORIDE 0.9% FLUSH 10 ML FLUSH IV FLUSH SCH ×2 (09:47→22:03)
--- NOTE | 2018-03-17 10:21 | HHI.GIFU ---
Subjective Remarks Pt resting in bed Denies any GI symptoms at this time Would like her full liquid diet advanced (Jyoti Chan) Objective Vitals I&O Vital Signs Date Time Temp Pulse Resp B/P (MAP) Pulse Ox O2 Delivery O2 Flow Rate FiO2 03/17/18 07:53 99 Nasal Cannula 2.00 03/17/18 07:00 98.0 85 17 124/72 (89) 100 03/17/18 06:00 84 03/17/18 04:00 79 03/17/18 04:00 98.3 79 20 137/63 (87) 03/17/18 03:00 98.3 75 19 106/60 (75) 97 03/17/18 02:00 74 03/17/18 00:00 65 03/17/18 00:00 98.3 65 16 104/56 (72) 98 03/16/18 23:00 98.3 75 18 103/59 (74) 96 03/16/18 22:00 106 03/16/18 20:00 110 03/16/18 20:00 98.3 110 20 132/60 (84) 84 03/16/18 19:00 98.3 95 19 123/59 (80) 96 03/16/18 18:00 91 03/16/18 16:00 98.0 92 18 116/70 (85) 100 03/16/18 16:00 91 03/16/18 15:00 97.3 83 16 131/62 (85) 100 03/16/18 14:02 97.3 83 16 118/90 (99) 100 03/16/18 14:00 80 03/16/18 13:56 97.3 83 16 118/90 (99) 100 03/16/18 13:15 80 16 128/57 (80) 100 Nasal Cannula 2 03/16/18 13:00 80 16 112/59 (76) 99 Nasal Cannula 2 03/16/18 12:47 98.1 86 16 115/72 (86) 96 Nasal Cannula 2 03/16/18 12:00 97.8 80 18 122/77 (92) 100 I/O 03/16/18 03/16/18 03/16/18 03/17/18 03/17/18 03/17/18 07:00 15:00 23:00 07:00 15:00 23:00 Intake Total 320 ml 110 ml 480 ml 450 ml Output Total 575 ml 950 ml 550 ml Balance -255 ml 110 ml -470 ml -100 ml Intake Oral 320 ml 480 ml 250 ml IV Total 10 ml 200 ml Other 100 ml Output Urine Total 575 ml 950 ml 550 ml Stool Total 0 ml 0 ml # Voids 4 # Bowel Movements 0 0 Laboratory Laboratory Tests Test 03/16/18 13:45 03/16/18 21:07 03/17/18 02:58 03/17/18 09:12 Prothrombin Time 12.4 Prothromb Time International Ratio 1.2 Activated Partial Thromboplast Time 25.4 50.9 66.9 68.3 White Blood Count 6.8 6.8 Red Blood Count 4.03 4.09 Hemoglobin 10.2 10.5 Hematocrit 32.3 33.1 Mean Corpuscular Volume 80.1 80.8 Mean Corpuscular Hemoglobin 25.2 25.6 Mean Corpuscular Hemoglobin Concent 31.5 31.7 Red Cell Distribution Width 18.7 18.4 Platelet Count 204 204 Mean Platelet Volume 10.4 10.1 Date/Time Source Procedure Growth Status 03/15/18 11:40 Fluid Pleural Fluid Fungal Smear - Final NO FUNGAL ELEMENTS SEEN. Resulted 03/15/18 11:40 Fluid Pleural Fluid Fungal Culture Pending Resulted 03/14/18 17:20 Stool Stool Stool Occult Blood (VALERI) - Final HEMOCCULT NEGATIVE Complete Imaging Last Impressions Thoracentesis Ultrasound 03/15/18 0600 Signed Impressions: CONCLUSION: Uncomplicated complete evacuation of the right pleural effusion. 800 cc of flui d was removed. Chest X-Ray 03/15/18 0000 Signed Impressions: CONCLUSION: No pneumothorax following recent right thoracentesis. No residual pleural fluid is visualized. Upper GI/Barium Swallow X-Ray 03/14/18 0000 Signed Impressions: CONCLUSION: No evidence of esophageal stricture. Transient esophageal dysmotility which res olved. Comparison CT was suggestive of a tracheoesophageal fistula, however, no visualization of a fistula was visualized on this limited exam with Gastrograf in. Shoulder X-Ray 03/13/18 1147 Signed Impressions: CONCLUSION: Intact right shoulder. Mild to moderate degenerative changes as above. Upper Extremity Ultrasound 03/13/18 0000 Signed Impressions: CONCLUSION: 1. No evidence of thrombus. CT Angiography 03/13/18 0000 Signed Impressions: CONCLUSION: 1. 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 2. Findings consistent with congestive heart failure and pulmonary edema with bilateral pleural effusions. The pleural effusion on the right has slightly inc reased in size as compared to the prior exam. 3. Enlargement of the pulmonary arteries concerning for pulmonary hypertension . No evidence of PE. Physical Exam HEENT: Normocephalic; atraumatic CHEST: Even/unlabored CARDIAC: Irregular ABDOMEN: Obese, soft, nontender, bowel sounds active SKIN: Normal; no rash; no jaundice. CYLINDER DEVALVER: Alert and oriented times three. (Jyoti Chan) Assessment and Plan Plan Assessment: - Concern for tracheoesophageal fistula on imaging CTA pulmonary --> Concern for a tracheoesophageal fistula identified within the proximal one third of the esophagus. Gastrografin swallow --> No evidence of esophageal stricture. Transient esophageal dysmotility which resolved. Comparison CT was suggestive of a tracheoesophageal fistula, however, no visualization of a fistula was visualized on this limited exam with Gastrografin. Has never had EGD. Denies dysphagia, odynophagia, coughing episodes after eating, choking. 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 On liquid diet but has not really felt like eating. Continues to deny any dysphagia, odynophagia, and choking. Heparin gtt has been discontinued. Plans for thoracentesis today. Discussed with pt EGD tomorrow and she is agreeable. Discussed with RN at bedside (03/16) Per RN call placed this morning to Dr. Hay because pt did not want to sign the consent for the EGD, she states that she was not informed about the procedure. Both Dr Hay and myself have gone over the procedure risk, benefits, and indications. I went back over the procedure with the patient and answered all of her questions. She states she feels she has too much going on right now and would still like to hold off on the procedure. RN at bedside. Discussed with pt we can be reconsulted if she changes her mind. We will sign off, reconsult as needed, OK to restart Heparin gtt from GI standpoint. (03/17) Pt changed her mind yesterday and agreed to EGD. Exam was normal. Pt with no GI complaints today, would like diet advanced. Heparin gtt has been restarted. Plan: Advance diet Our service with sign off, please reconsult as needed Have pt follow up with GI after DC Pt has been seen and examined by myself and Dr. Hay and this note is written on his behalf (Jyoti Chan) Physician Comments Agree with above plan, nothing to add from GI point of view. Please notify us if needed again. (Jerry Hay MD) Jyoti Chan Mar 17, 2018 10:21 Jerry Hay MD Mar 17, 2018 13:26
--- NOTE | 2018-03-17 11:44 | HHI.PR ---
Subjective Remarks Follow-up systolic exacerbation/tracheoesophageal fistula on image? March 16, 2018-patient seen and examined, no acute event overnight, reports some shortness of breath however denies any chest pain. Initially, patient patient did refuse to undergo EGD however changed her mind March 17, 2018-patient seen and examined, patient denies any GI symptoms and tolerated p.o. this morning without any competition nausea and vomiting. EGD exam yesterday was unremarkable. Currently denies any chest pain or shortness of breath. Objective Vitals Vital Signs Date Time Temp Pulse Resp B/P (MAP) Pulse Ox O2 Delivery O2 Flow Rate FiO2 03/17/18 07:53 99 Nasal Cannula 2.00 03/17/18 07:00 98.0 85 17 124/72 (89) 100 03/17/18 06:00 84 03/17/18 04:00 79 03/17/18 04:00 98.3 79 20 137/63 (87) 03/17/18 03:00 98.3 75 19 106/60 (75) 97 03/17/18 02:00 74 03/17/18 00:00 65 03/17/18 00:00 98.3 65 16 104/56 (72) 98 03/16/18 23:00 98.3 75 18 103/59 (74) 96 03/16/18 22:00 106 03/16/18 20:00 110 03/16/18 20:00 98.3 110 20 132/60 (84) 84 03/16/18 19:00 98.3 95 19 123/59 (80) 96 03/16/18 18:00 91 03/16/18 16:00 98.0 92 18 116/70 (85) 100 03/16/18 16:00 91 03/16/18 15:00 97.3 83 16 131/62 (85) 100 03/16/18 14:02 97.3 83 16 118/90 (99) 100 03/16/18 14:00 80 03/16/18 13:56 97.3 83 16 118/90 (99) 100 03/16/18 13:15 80 16 128/57 (80) 100 Nasal Cannula 2 03/16/18 13:00 80 16 112/59 (76) 99 Nasal Cannula 2 03/16/18 12:47 98.1 86 16 115/72 (86) 96 Nasal Cannula 2 03/16/18 12:00 97.8 80 18 122/77 (92) 100 I/O 03/16/18 03/16/18 03/16/18 03/17/18 03/17/18 03/17/18 07:00 15:00 23:00 07:00 15:00 23:00 Intake Total 320 ml 110 ml 480 ml 450 ml Output Total 575 ml 950 ml 550 ml Balance -255 ml 110 ml -470 ml -100 ml Intake Oral 320 ml 480 ml 250 ml IV Total 10 ml 200 ml Other 100 ml Output Urine Total 575 ml 950 ml 550 ml Stool Total 0 ml 0 ml # Voids 4 # Bowel Movements 0 0 Result Diagram: 03/17/18 0258 03/16/18 0949 Imaging Last Impressions Thoracentesis Ultrasound 03/15/18 0600 Signed Impressions: CONCLUSION: Uncomplicated complete evacuation of the right pleural effusion. 800 cc of flui d was removed. Chest X-Ray 03/15/18 0000 Signed Impressions: CONCLUSION: No pneumothorax following recent right thoracentesis. No residual pleural fluid is visualized. Upper GI/Barium Swallow X-Ray 03/14/18 0000 Signed Impressions: CONCLUSION: No evidence of esophageal stricture. Transient esophageal dysmotility which res olved. Comparison CT was suggestive of a tracheoesophageal fistula, however, no visualization of a fistula was visualized on this limited exam with Gastrograf in. Shoulder X-Ray 03/13/18 1147 Signed Impressions: CONCLUSION: Intact right shoulder. Mild to moderate degenerative changes as above. Upper Extremity Ultrasound 03/13/18 0000 Signed Impressions: CONCLUSION: 1. No evidence of thrombus. CT Angiography 03/13/18 0000 Signed Impressions: CONCLUSION: 1. 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 2. Findings consistent with congestive heart failure and pulmonary edema with bilateral pleural effusions. The pleural effusion on the right has slightly inc reased in size as compared to the prior exam. 3. Enlargement of the pulmonary arteries concerning for pulmonary hypertension . No evidence of PE. Objective Remarks GENERAL: NAD SKIN: Warm and dry. HEAD: Normocephalic. EYES: No scleral icterus. No injection or drainage. NECK: Supple, trachea midline. No JVD or lymphadenopathy. CARDIOVASCULAR: Irregular regular rate and rhythm without murmurs, gallops, or rubs. RESPIRATORY: Breath sounds equal bilaterally. No accessory muscle use. GASTROINTESTINAL: Abdomen soft, non-tender, nondistended. MUSCULOSKELETAL: No cyanosis, +BLE trace edema. BACK: Nontender without obvious deformity. No CVA tenderness. A/P Problem List: (1) Acute on chronic systolic CHF (congestive heart failure) ICD Code: I50.23 - Acute on chronic systolic (congestive) heart failure Assessment and Plan 68-year-old female with SOB - multifactorial, acute chf, pleural effusion superimposed on chronic hypoxic resp failure - improving since admission, see below -Gastrografin swallow negative for any T-E fistula, -EGD March 16, 2018 unremarkable pending biopsy report Systolic CHF with exacerbation - improving symptoms - Lasix BID Right-sided pleural effusion -Pulmonology following, s/p thoracentesis 03/15/18 pending cytology report chronic stable COPD - continue home o2 and inhalers Right shoulder pain: Right shoulder x-ray with DJD. Pain control with pain regimen. Continue Toradol for inflammation. Right upper extremity swelling: US neg for dvt. Buttock skin tear: specialty mattress. Q2h turning. Mepilex. Continue to monitor. 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 Type 2 diabetes mellitus, chronic: Accu-Chek before meals at bedtime, sliding scale, cover as needed. Monitor blood sugar trends. Continue home Levemir. Chronic atrial fibrillation: continue metoprolol and Cardizem, heparin drip Hypertension, chronic: Continue home lisinopril and metoprolol Status post ORIF of the left hip, femoral fracture in December - Patient with complaints of weakness and inability to transfer 5 days to wheelchair due to left shoulder and right arm pain - Surgeon was Dr. Yan, orders for nonweightbearing for the next 30 days. - Physical therapy has seen patient, appreciate input recommendations. - Patient is very weak. Will continue PT 7 days a week. DVT prophylaxis: SCDs. Heparin after EGD Transfer to Tyrone Chilel MD Mar 17, 2018 11:44
[2018-03-17] MEDS: HEPARIN-D5W 25,000 U/250 ML 250 ML IV PRN (14:41)
[2018-03-17] MEDS: UMECLIDINIUM 62.5 MCG/VILANTEROL 25 MCG INHALER INH SCH ×3 (17:07→17:23)
--- NOTE | 2018-03-17 18:14 | HHI.PR ---
Subjective Remarks 68 YOWF with COPD,CHF,Pl eff Breathing better On NC Had TC, 800 cc fluid removed Feels much better Tolerates PO Objective Vital Signs Vital Signs Date Time Temp Pulse Resp B/P (MAP) Pulse Ox O2 Delivery O2 Flow Rate FiO2 03/17/18 08:00 110 03/17/18 07:53 99 Nasal Cannula 2.00 03/17/18 07:00 98.0 85 17 124/72 (89) 100 03/17/18 06:00 84 03/17/18 04:00 79 03/17/18 04:00 98.3 79 20 137/63 (87) 03/17/18 03:00 98.3 75 19 106/60 (75) 97 03/17/18 02:00 74 03/17/18 00:00 65 03/17/18 00:00 98.3 65 16 104/56 (72) 98 03/16/18 23:00 98.3 75 18 103/59 (74) 96 03/16/18 22:00 106 03/16/18 20:00 110 03/16/18 20:00 98.3 110 20 132/60 (84) 84 03/16/18 19:00 98.3 95 19 123/59 (80) 96 I/O 03/16/18 03/16/18 03/16/18 03/17/18 03/17/18 03/17/18 07:00 15:00 23:00 07:00 15:00 23:00 Intake Total 320 ml 110 ml 480 ml 450 ml Output Total 575 ml 950 ml 550 ml Balance -255 ml 110 ml -470 ml -100 ml Intake Oral 320 ml 480 ml 250 ml IV Total 10 ml 200 ml Other 100 ml Output Urine Total 575 ml 950 ml 550 ml Stool Total 0 ml 0 ml # Voids 4 # Bowel Movements 0 0 Result Diagram: 03/17/18 0258 03/16/18 0949 Objective Remarks GENERAL: MBMNWF mild sob SKIN: Warm and dry. HEAD: Normocephalic. EYES: No scleral icterus. No injection or drainage. NECK: Supple, trachea midline. No JVD or lymphadenopathy. CARDIOVASCULAR: Regular rate and rhythm without murmurs, gallops, or rubs. RESPIRATORY: Breath sounds equal bilaterally. No accessory muscle use. GASTROINTESTINAL: Abdomen soft, non-tender, nondistended. MUSCULOSKELETAL: No cyanosis, or edema. S/p left leg surgery BACK: Nontender without obvious deformity. No CVA tenderness. A/P Assessment and Plan IMPRESSION: 1. Shortness of breath with congestive heart failure. 2. Chronic obstructive pulmonary disease. 3. Partially compensated respiratory acidosis. 4. Bilateral pleural effusion. 5. 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 6. Diabetes mellitus. PLAN: Supplement [address] fluid results Started PO Stable to tr to floor. Luisito Dior MD Mar 17, 2018 18:14
[2018-03-17] MEDS: ACETAMINOPHEN/HYDROcodone 325 MG/5 MG TAB PO PRN (22:03)
[2018-03-17] MEDS: INSULIN DETEMIR 100 UNITS/ML VIAL SQ SCH (22:04)
[2018-03-18] VITALS (7 sets, daily range): BP systolic 107–148; BP diastolic 64–83; PULSE 76–90; RESP 16–20; TEMP 97.5–98.1; O2SAT 96–99
[2018-03-18] MEDS: CHLORHEXIDINE GLUCONATE 2 % 1 PACK (2 CLOTHS)(taper/protocol) TOPICAL SCH (04:00)
[2018-03-18 05:43] LABS: ALBUMIN 2.2 GM/DL (3.4-5.0); ALT (GPT) 12 U/L (10-53); AST (GOT) 16 U/L (15-37); BICARBONATE 36.4 MEQ/L (21.0-32.0); BLOOD UREA NITROGEN 8 MG/DL (7-18); CALCIUM 8.9 MG/DL (8.5-10.1); CHLORIDE 97 MEQ/L (98-107); CREATININE 0.53 MG/DL (0.50-1.00); GLOMERULAR FILTRATION RATE 115 ML/MIN (>89); GLUCOSE,RANDOM 155 MG/DL (74-106); SODIUM (NA) 140 MEQ/L (136-145)
[2018-03-18 05:45] LABS: ALKALINE PHOSPHATASE 80 U/L (45-117); TOTAL BILIRUBIN ADULT 0.5 MG/DL (0.2-1.0); TOTAL PROTEIN 6.2 GM/DL (6.4-8.2)
[2018-03-18] MEDS: HEPARIN-D5W 25,000 U/250 ML 250 ML IV PRN (07:25)
[2018-03-18] MEDS: INSULIN ASPART SUPPLEMENTAL SCALE SQ SCH ×4 (08:00→20:26)
[2018-03-18] MEDS: UMECLIDINIUM 62.5 MCG/VILANTEROL 25 MCG INHALER INH SCH (08:03)
[2018-03-18] MEDS: LISINOPRIL 10 MG TAB PO SCH (08:04)
[2018-03-18] MEDS: ASPIRIN EC 81 MG TABEC PO SCH (08:04)
[2018-03-18] MEDS: DILTIAZEM HCL 30 MG TAB PO SCH ×2 (08:04→20:10)
[2018-03-18] MEDS: METOPROLOL TARTRATE 50 MG TAB PO SCH ×2 (08:04→20:10)
[2018-03-18] MEDS: SODIUM CHLORIDE 0.9% FLUSH 10 ML FLUSH IV FLUSH SCH ×2 (08:05→20:11)
[2018-03-18] MEDS: FLUoxetine HCL 20 MG CAP PO SCH (08:05)
[2018-03-18] MEDS: FUROSEMIDE 40 MG/4 ML VIAL IV PUSH SCH ×2 (08:05→16:29)
[2018-03-18] MEDS: KETOROLAC TROMETHAMINE 30 MG/ML (IVP) VIAL IV PUSH PRN (08:06)
--- NOTE | 2018-03-18 11:54 | HHI.PR ---
Subjective Remarks Follow-up systolic exacerbation/tracheoesophageal fistula on image? March 16, 2018-patient seen and examined, no acute event overnight, reports some shortness of breath however denies any chest pain. Initially, patient patient did refuse to undergo EGD however changed her mind March 17, 2018-patient seen and examined, patient denies any GI symptoms and tolerated p.o. this morning without any competition nausea and vomiting. EGD exam yesterday was unremarkable. Currently denies any chest pain or shortness of breath. March 18, 2018-patient seen and examined, reports some significant improvement of shortness of breath and requesting an additional breathing treatment. Tolerated p.o. without any competition nausea and vomiting. Objective Vitals Vital Signs Date Time Temp Pulse Resp B/P (MAP) Pulse Ox O2 Delivery O2 Flow Rate FiO2 03/18/18 11:08 97 Nasal Cannula 2.00 03/18/18 08:00 97.7 84 16 107/66 (80) 97 03/18/18 04:00 97.5 76 20 148/76 (100) 99 03/18/18 00:00 97.7 82 20 112/64 (80) 98 03/17/18 23:03 16 03/17/18 20:00 98.0 97 18 147/74 (98) 93 03/17/18 18:15 98.1 93 20 160/82 (108) 95 03/17/18 16:00 98.6 90 25 135/63 (87) 95 03/17/18 16:00 90 03/17/18 12:00 98.0 80 17 128/67 (87) 98 03/17/18 12:00 80 I/O 03/17/18 03/17/18 03/17/18 03/18/18 03/18/18 03/18/18 07:00 15:00 23:00 07:00 15:00 23:00 Intake Total 450 ml 480 ml 480 ml Output Total 550 ml 400 ml Balance -100 ml 480 ml 80 ml Intake Oral 250 ml 480 ml 480 ml IV Total 200 ml Output Urine Total 550 ml 400 ml Stool Total 0 ml # Voids 4 5 # Bowel Movements 0 0 0 Result Diagram: 03/17/18 0258 03/18/18 0412 Imaging Last Impressions Thoracentesis Ultrasound 03/15/18 0600 Signed Impressions: CONCLUSION: Uncomplicated complete evacuation of the right pleural effusion. 800 cc of flui d was removed. Chest X-Ray 03/15/18 Signed Impressions: CONCLUSION: No pneumothorax following recent right thoracentesis. No residual pleural fluid is visualized. Upper GI/Barium Swallow X-Ray 03/14/18 Signed Impressions: CONCLUSION: No evidence of esophageal stricture. Transient esophageal dysmotility which res olved. Comparison CT was suggestive of a tracheoesophageal fistula, however, no visualization of a fistula was visualized on this limited exam with Gastrograf in. Shoulder X-Ray 03/13/18 114 Signed Impressions: CONCLUSION: Intact right shoulder. Mild to moderate degenerative changes as above. Upper Extremity Ultrasound 03/13/18 Signed Impressions: CONCLUSION: 1. No evidence of thrombus. CT Angiography 03/13/18 Signed Impressions: CONCLUSION: 1. 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 2. Findings consistent with congestive heart failure and pulmonary edema with bilateral pleural effusions. The pleural effusion on the right has slightly inc reased in size as compared to the prior exam. 3. Enlargement of the pulmonary arteries concerning for pulmonary hypertension . No evidence of PE. Objective Remarks GENERAL: NAD SKIN: Warm and dry. HEAD: Normocephalic. EYES: No scleral icterus. No injection or drainage. NECK: Supple, trachea midline. No JVD or lymphadenopathy. CARDIOVASCULAR: Irregular regular rate and rhythm without murmurs, gallops, or rubs. RESPIRATORY: Breath sounds equal bilaterally. No accessory muscle use. GASTROINTESTINAL: Abdomen soft, non-tender, nondistended. MUSCULOSKELETAL: No cyanosis, +BLE trace edema. BACK: Nontender without obvious deformity. No CVA tenderness. Procedures Thoracentesis EGD A/P Problem List: (1) Acute on chronic systolic CHF (congestive heart failure) ICD Code: I50.23 - Acute on chronic systolic (congestive) heart failure Assessment and Plan 68-year-old female with SOB - multifactorial, acute chf, pleural effusion superimposed on chronic hypoxic resp failure - improving since admission, see below -Gastrografin swallow negative for any T-E fistula, -EGD March 16, 2018 unremarkable pending biopsy report Systolic CHF with exacerbation - improving symptoms - Lasix IV BID, and will switch to p.o. Lasix in a.m. March 19, 2018 Right-sided pleural effusion -Pulmonology following, s/p thoracentesis 03/15/18 and cytology negative for malignant cell chronic stable COPD - continue home o2 and inhalers Right shoulder pain: Right shoulder x-ray with DJD. Pain control with pain regimen. Continue Toradol for inflammation. Right upper extremity swelling: US neg for dvt. Buttock skin tear: specialty mattress. Q2h turning. Mepilex. Continue to monitor. 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 Type 2 diabetes mellitus, chronic: Accu-Chek before meals at bedtime, sliding scale, cover as needed. Monitor blood sugar trends. Continue home Levemir. Chronic atrial fibrillation: continue metoprolol and Cardizem, heparin drip. We will switch to p.o. Xarelto in a.m. Hypertension, chronic: Continue home lisinopril and metoprolol Status post ORIF of the left hip, femoral fracture in December - Patient with complaints of weakness and inability to transfer 5 days to wheelchair due to left shoulder and right arm pain - Surgeon was Dr. Yan, orders for nonweightbearing for the next 30 days. - Physical therapy has seen patient, appreciate input recommendations. - Patient is very weak. Continue PT 7 days a week. DVT prophylaxis: SCDs. Heparin after EGD Tyrone Gayle MD Mar 18, 2018 11:54
[2018-03-18] MEDS: ACETAMINOPHEN/HYDROcodone 325 MG/5 MG TAB PO PRN ×2 (16:24→20:11)
--- NOTE | 2018-03-18 18:27 | HHI.PR ---
Subjective Remarks 68 YOWF with COPD,CHF,Pl eff Breathing better On NC Had TC, 800 cc fluid removed Feels much better Tolerates PO at BS Objective Vital Signs Vital Signs Date Time Temp Pulse Resp B/P (MAP) Pulse Ox O2 Delivery O2 Flow Rate FiO2 03/18/18 11:08 97 Nasal Cannula 2.00 03/18/18 08:00 97.7 84 16 107/66 (80) 97 03/18/18 04:00 97.5 76 20 148/76 (100) 99 03/18/18 00:00 97.7 82 20 112/64 (80) 98 03/17/18 23:03 16 03/17/18 20:00 98.0 97 18 147/74 (98) 93 I/O 03/17/18 03/17/18 03/17/18 03/18/18 03/18/18 03/18/18 07:00 15:00 23:00 07:00 15:00 23:00 Intake Total 450 ml 480 ml 480 ml Output Total 550 ml 400 ml Balance -100 ml 480 ml 80 ml Intake Oral 250 ml 480 ml 480 ml IV Total 200 ml Output Urine Total 550 ml 400 ml Stool Total 0 ml # Voids 4 5 # Bowel Movements 0 0 0 Result Diagram: 03/17/18 0258 03/18/18 0412 Objective Remarks GENERAL: MBMNWF mild sob SKIN: Warm and dry. HEAD: Normocephalic. EYES: No scleral icterus. No injection or drainage. NECK: Supple, trachea midline. No JVD or lymphadenopathy. CARDIOVASCULAR: Regular rate and rhythm without murmurs, gallops, or rubs. RESPIRATORY: Breath sounds equal bilaterally. No accessory muscle use. GASTROINTESTINAL: Abdomen soft, non-tender, nondistended. MUSCULOSKELETAL: No cyanosis, or edema. S/p left leg surgery BACK: Nontender without obvious deformity. No CVA tenderness. A/P Assessment and Plan IMPRESSION: 1. Shortness of breath with congestive heart failure. 2. Chronic obstructive pulmonary disease. 3. Partially compensated respiratory acidosis. 4. Bilateral pleural effusion. 5. 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 6. Diabetes mellitus. PLAN: Supplement [address] fluid results Started PO DC plans underway for home " I ran out of my benefits Have Kina lift at home" Luisito Dior MD Mar 18, 2018 18:27
[2018-03-18] MEDS: INSULIN DETEMIR 100 UNITS/ML VIAL SQ SCH (20:26)
[2018-03-19] VITALS: BP 124/72; PULSE 62; RESP 18; TEMP 97.6; O2SAT 97
[2018-03-19] MEDS: HEPARIN-D5W 25,000 U/250 ML 250 ML IV PRN (00:03)
[2018-03-19 04:00] VITALS: BP 149/90; PULSE 80; RESP 20; TEMP 97.8; O2SAT 99
[2018-03-19 06:17] LABS: HEMATOCRIT 33.8 % (35.0-46.0); HEMOGLOBIN 10.9 GM/DL (11.6-15.3); MEAN CELL VOLUME 79.6 FL (80.0-100.0); MEAN CORPUSCULAR HEMOGLOBIN 25.6 PG (27.0-34.0); MEAN CORPUSCULAR HGB CONC 32.2 % (32.0-36.0); MEAN PLATELET VOLUME 10.3 FL (7.0-11.0); PLATELET COUNT 207 TH/MM3 (150-450); RED BLOOD COUNT 4.24 MIL/MM3 (4.00-5.30); RED CELL DISTRIBUTION WIDTH 18.6 % (11.6-17.2); WHITE BLOOD COUNT 8.1 TH/MM3 (4.0-11.0)
[2018-03-19 08:00] VITALS: BP 132/81; PULSE 83; RESP 20; TEMP 98.1; O2SAT 98
[2018-03-19] MEDS: INSULIN ASPART SUPPLEMENTAL SCALE SQ SCH ×2 (08:00→11:30)
[2018-03-19] MEDS: SODIUM CHLORIDE 0.9% FLUSH 10 ML FLUSH IV FLUSH SCH (08:35)
[2018-03-19] MEDS: UMECLIDINIUM 62.5 MCG/VILANTEROL 25 MCG INHALER INH SCH (08:36)
[2018-03-19] MEDS: FUROSEMIDE 40 MG/4 ML VIAL IV PUSH SCH (08:37)
[2018-03-19] MEDS: ASPIRIN EC 81 MG TABEC PO SCH (08:37)
[2018-03-19] MEDS: METOPROLOL TARTRATE 50 MG TAB PO SCH (08:37)
[2018-03-19] MEDS: LISINOPRIL 10 MG TAB PO SCH (08:37)
[2018-03-19] MEDS: DILTIAZEM HCL 30 MG TAB PO SCH (08:37)
[2018-03-19] MEDS: FLUoxetine HCL 20 MG CAP PO SCH (08:38)
[2018-03-19] MEDS: ACETAMINOPHEN/HYDROcodone 325 MG/5 MG TAB PO PRN (08:48)
[2018-03-19] MEDS ORDERED: RIVAROXABAN 20 MG TAB PO SCH (09:00)
--- NOTE | 2018-03-19 10:43 | HHI.FF ---
Face to Face Verification Diagnosis: (1) Acute on chronic systolic CHF (congestive heart failure) (2) COPD exacerbation (3) s/p orifLEFT DISTAL FEMUR Physical Therapy Order: Evaluate and Treat Home Health Nursing Order: Signs/symptoms of disease process I have seen patient Ramandeep Greene on 03/19/18. My clinical findings support the need for the requested home health care services because: Ltd mobility - disease progression Patient has SOB Deconditioned w/ increased weakness I certify that my clinical findings support that this patient is homebound because: Post-op weakness Poor cardiac reserve Tyrone Gayle MD Mar 19, 2018 10:43
--- NOTE | 2018-03-19 10:46 | HHI.PR ---
Subjective Remarks Follow-up systolic exacerbation/tracheoesophageal fistula on image? March 16, 2018-patient seen and examined, no acute event overnight, reports some shortness of breath however denies any chest pain. Initially, patient patient did refuse to undergo EGD however changed her mind March 17, 2018-patient seen and examined, patient denies any GI symptoms and tolerated p.o. this morning without any competition nausea and vomiting. EGD exam yesterday was unremarkable. Currently denies any chest pain or shortness of breath. March 18, 2018-patient seen and examined, reports some significant improvement of shortness of breath and requesting an additional breathing treatment. Tolerated p.o. without any competition nausea and vomiting. March 19, 2018-patient seen and examined, stable and no complaint. Looking for discharge home today Objective Vitals Vital Signs Date Time Temp Pulse Resp B/P (MAP) Pulse Ox O2 Delivery O2 Flow Rate FiO2 03/19/18 08:00 98.1 83 20 132/81 (98) 98 03/19/18 04:00 97.8 80 20 149/90 (109) 99 03/19/18 00:00 97.6 62 18 124/72 (89) 97 03/18/18 21:11 19 03/18/18 19:42 Nasal Cannula 3.00 03/18/18 19:23 98.1 90 16 146/68 (94) 96 03/18/18 16:00 98.0 82 18 139/83 (101) 98 03/18/18 12:00 97.9 76 16 113/69 (84) 97 03/18/18 11:08 97 Nasal Cannula 2.00 I/O 03/18/18 03/18/18 03/18/18 03/19/18 03/19/18 03/19/18 07:00 15:00 23:00 07:00 15:00 23:00 Intake Total 480 ml 840 ml Output Total 400 ml 700 ml Balance 80 ml 140 ml Intake Oral 480 ml 840 ml Output Urine Total 400 ml 700 ml # Bowel Movements 0 0 Result Diagram: 03/19/18 0355 03/18/18 0412 Imaging Last Impressions Thoracentesis Ultrasound 03/15/18 0600 Signed Impressions: CONCLUSION: Uncomplicated complete evacuation of the right pleural effusion. 800 cc of flui d was removed. Chest X-Ray 6/4/18 0000 Signed Impressions: CONCLUSION: No pneumothorax following recent right thoracentesis. No residual pleural fluid is visualized. Upper GI/Barium Swallow X-Ray 03/14/18 Signed Impressions: CONCLUSION: No evidence of esophageal stricture. Transient esophageal dysmotility which res olved. Comparison CT was suggestive of a tracheoesophageal fistula, however, no visualization of a fistula was visualized on this limited exam with Gastrograf in. Shoulder X-Ray 03/13/18 1147 Signed Impressions: CONCLUSION: Intact right shoulder. Mild to moderate degenerative changes as above. Upper Extremity Ultrasound 03/13/18 Signed Impressions: CONCLUSION: 1. No evidence of thrombus. CT Angiography 03/13/18 Signed Impressions: CONCLUSION: 1. 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 2. Findings consistent with congestive heart failure and pulmonary edema with bilateral pleural effusions. The pleural effusion on the right has slightly inc reased in size as compared to the prior exam. 3. Enlargement of the pulmonary arteries concerning for pulmonary hypertension . No evidence of PE. Objective Remarks GENERAL: NAD SKIN: Warm and dry. HEAD: Normocephalic. EYES: No scleral icterus. No injection or drainage. NECK: Supple, trachea midline. No JVD or lymphadenopathy. CARDIOVASCULAR: Irregular regular rate and rhythm without murmurs, gallops, or rubs. RESPIRATORY: Breath sounds equal bilaterally. No accessory muscle use. GASTROINTESTINAL: Abdomen soft, non-tender, nondistended. MUSCULOSKELETAL: No cyanosis, +BLE trace edema. BACK: Nontender without obvious deformity. No CVA tenderness. Procedures Thoracentesis EGD A/P Problem List: (1) Acute on chronic systolic CHF (congestive heart failure) ICD Code: I50.23 - Acute on chronic systolic (congestive) heart failure (2) Morbid obesity with BMI of 40.0-44.9, adult ICD Code: E66.01 - Morbid (severe) obesity due to excess calories; Z68.41 - Body mass index (BMI) 40.0-44.9, adult Assessment and Plan 68-year-old female with SOB-resolved - multifactorial, acute chf, pleural effusion superimposed on chronic hypoxic resp failure - improving since admission, see below -Gastrografin swallow negative for any T-E fistula, -EGD March 16, 2018 unremarkable pending biopsy report Systolic CHF with exacerbation - improved symptoms - s/p Lasix IV BID, and switch to p.o. Lasix Right-sided pleural effusion -Pulmonology following, s/p thoracentesis 03/15/18 and cytology negative for malignant cell chronic stable COPD - continue home o2 and inhalers Right shoulder pain: Right shoulder x-ray with DJD. Pain control with pain regimen. Continue Toradol for inflammation. Right upper extremity swelling: US neg for dvt. Buttock skin tear: specialty mattress. Q2h turning. Mepilex. Continue to monitor. supervisor cell maintenance if needed. Type 2 diabetes mellitus, chronic: Accu-Chek before meals at bedtime, sliding scale, cover as needed. Monitor blood sugar trends. Continue home Levemir. Chronic atrial fibrillation: continue metoprolol and Cardizem,s/p heparin drip. Currently on p.o. Xarelto Hypertension, chronic: Continue home lisinopril and metoprolol Morbid obesity with BMI 40.0-44.9 Patient advised on Total life change modification including weight management , diet and exercise Status post ORIF of the left hip, femoral fracture in December - Patient with complaints of weakness and inability to transfer 5 days to wheelchair due to left shoulder and right arm pain - Surgeon was Dr. Yan, orders for nonweightbearing for the next 30 days. - Continue PT 7 days a week. DVT prophylaxis: SCDs. Tyrone Gayle MD Mar 19, 2018 10:46
--- NOTE | 2018-03-19 10:52 | HHI.DS ---
Discharge Summary Admission Date Mar 12, 2018 at 10:49 Discharge Date: Mar 19, 2018 Admitting Diagnosis Congestive heart failure, COPD with acute exacerbation, hypoxemia (1) Acute on chronic systolic CHF (congestive heart failure) ICD Code: I50.23 - Acute on chronic systolic (congestive) heart failure (2) Morbid obesity with BMI of 40.0-44.9, adult ICD Code: E66.01 - Morbid (severe) obesity due to excess calories; Z68.41 - Body mass index (BMI) 40.0-44.9, adult Procedures Thoracentesis EGD Brief History - From Admission Written by Crystal Shore, acting as scribe for Dr. Gayle on 03/12/18 at 10:40. This is a pleasant 68-year-old female patient with a known medical history of atrial fibrillation on anticoagulation, COPD, CHF, diabetes and hypertension who presented to the ED with complaints of shortness of breath 3 days. Patient states she has been short of breath especially with exertion but now has worsened while at rest as well over the past couple days. Does admit to poor appetite, denies any recent fever, chills, cough, headache, abdominal pain , nausea, vomiting, diarrhea or dysuria. Patient states she was discharged from the hospital roughly 10 days ago for treatment of acute exacerbation of CHF , was placed on diuretic and improved and sent home. Patient is status post ORIF of left femoral fracture in December, was discharged to rehab and sent home on home oxygen, patient uses nasal cannula 2.5 L. Patient has had limited range of motion as well as difficulty transferring to wheelchair since surgery, according to patient she is unable to bear weight for another 30 days. She states she has been unable to walk for the past 3 days due to shortness of breath and weakness. Patient has been working with home health nursing, PT and OT. Patient's analog device designer Dr. Gutierrez, who was last seen 3 months ago. Denies any recent antibiotic or steroid use. PCP is Dr. Soto and last seen a couple weeks ago. Patient's systems checkout mechanic is Dr. Segura. Patient lives at home with . CBC/BMP: 6/8/18 0355 03/18/18 0412 Significant Findings Laboratory Tests Test 03/16/18 13:45 03/16/18 21:07 03/17/18 02:58 03/17/18 09:12 Prothrombin Time 12.4 SEC (9.8-11.6) Hemoglobin 10.2 GM/DL (11.6-15.3) 10.5 GM/DL (11.6-15.3) Hematocrit 32.3 % (35.0-46.0) 33.1 % (35.0-46.0) Mean Corpuscular Hemoglobin 25.2 PG (27.0-34.0) 25.6 PG (27.0-34.0) Mean Corpuscular Hemoglobin Concent 31.5 % (32.0-36.0) 31.7 % (32.0-36.0) Red Cell Distribution Width 18.7 % (11.6-17.2) 18.4 % (11.6-17.2) Activated Partial Thromboplast Time 50.9 SEC (24.3-30.1) 66.9 SEC (24.3-30.1) 68.3 SEC (24.3-30.1) Test 03/18/18 04:12 03/18/18 08:47 03/19/18 03:55 Random Glucose 155 MG/DL (74-106) Total Protein 6.2 GM/DL (6.4-8.2) Albumin 2.2 GM/DL (3.4-5.0) Chloride Level 97 MEQ/L (98-107) Carbon Dioxide Level 36.4 MEQ/L (21.0-32.0) Activated Partial Thromboplast Time 61.6 SEC (24.3-30.1) 61.3 SEC (24.3-30.1) Hemoglobin 10.9 GM/DL (11.6-15.3) Hematocrit 33.8 % (35.0-46.0) Mean Corpuscular Volume 79.6 FL (80.0-100.0) Mean Corpuscular Hemoglobin 25.6 PG (27.0-34.0) Red Cell Distribution Width 18.6 % (11.6-17.2) Imaging Last Impressions Thoracentesis Ultrasound 03/15/18 0600 Signed Impressions: CONCLUSION: Uncomplicated complete evacuation of the right pleural effusion. 800 cc of flui d was removed. Chest X-Ray 03/15/18 Signed Impressions: CONCLUSION: No pneumothorax following recent right thoracentesis. No residual pleural fluid is visualized. Upper GI/Barium Swallow X-Ray 03/14/18 0000 Signed Impressions: CONCLUSION: No evidence of esophageal stricture. Transient esophageal dysmotility which res olved. Comparison CT was suggestive of a tracheoesophageal fistula, however, no visualization of a fistula was visualized on this limited exam with Gastrograf in. Shoulder X-Ray 03/13/18 1147 Signed Impressions: CONCLUSION: Intact right shoulder. Mild to moderate degenerative changes as above. Upper Extremity Ultrasound 03/13/18 Signed Impressions: CONCLUSION: 1. No evidence of thrombus. CT Angiography 03/13/18 Signed Impressions: CONCLUSION: 1. 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 2. Findings consistent with congestive heart failure and pulmonary edema with bilateral pleural effusions. The pleural effusion on the right has slightly inc reased in size as compared to the prior exam. 3. Enlargement of the pulmonary arteries concerning for pulmonary hypertension . No evidence of PE. PE at Discharge GENERAL: NAD SKIN: Warm and dry. HEAD: Normocephalic. EYES: No scleral icterus. No injection or drainage. NECK: Supple, trachea midline. No JVD or lymphadenopathy. CARDIOVASCULAR: Irregular regular rate and rhythm without murmurs, gallops, or rubs. RESPIRATORY: Breath sounds equal bilaterally. No accessory muscle use. GASTROINTESTINAL: Abdomen soft, non-tender, nondistended. MUSCULOSKELETAL: No cyanosis, +BLE trace edema. BACK: Nontender without obvious deformity. No CVA tenderness. Hospital Course While in hospital, patient was treated for: SOB-resolved - multifactorial, acute chf, pleural effusion superimposed on chronic hypoxic resp failure - improving since admission, see below -Gastrografin swallow negative for any T-E fistula, -EGD March 16, 2018 unremarkable pending biopsy report Systolic CHF with exacerbation - improved symptoms - s/p Lasix IV BID, and switch to p.o. Lasix Right-sided pleural effusion -Pulmonology following, s/p thoracentesis 03/15/18 and cytology negative for malignant cell chronic stable COPD - continue home o2 and inhalers Right shoulder pain: Right shoulder x-ray with DJD. Pain control with pain regimen. She was treated with Toradol for inflammation. Right upper extremity swelling: US neg for dvt. Buttock skin tear: specialty mattress. Q2h turning. Mepilex. Continue to monitor. museum specialist if needed. Type 2 diabetes mellitus, chronic: Accu-Chek before meals at bedtime, sliding scale, cover as needed. Monitor blood sugar trends. Continue home Levemir. Chronic atrial fibrillation: continue metoprolol and Cardizem,s/p heparin drip. Currently on p.o. Xarelto Hypertension, chronic: She was treated with home lisinopril and metoprolol Morbid obesity with BMI 40.0-44.9 Patient advised on Total life change modification including weight management , diet and exercise Status post ORIF of the left hip, femoral fracture in December - Patient with complaints of weakness and inability to transfer 5 days to wheelchair due to left shoulder and right arm pain - Surgeon was Dr. Yan, orders for nonweightbearing for the next 30 days. - Continue PT 7 days a week. DVT prophylaxis: SCDs. Pt Condition on Discharge: Good Discharge Disposition: Disch w/ Home Health Serv Discharge Time: > 30 minutes Discharge Instructions DIET: Follow Instructions for: Diabetic Diet Activities you can perform: Regular-No Restrictions Follow up Referrals: PCP Follow-up - 1 Week Continued Medications: Aspirin (Aspirin DR) 81 Mg Tabdr 81 MG PO DAILY for cardiac, #30 TAB Diltiazem (Cardizem) 30 Mg Tab 60 MG PO BID for Regulate Heart Beat, #120 TAB 0 Refills Enalapril (Enalapril) 5 Mg Tab 5 MG PO BID for htn, #30 TAB Fluoxetine (Prozac) 40 Mg Cap 40 MG PO DAILY, #30 CAP 0 Refills Furosemide (Furosemide) 40 Mg Tab 40 MG PO DAILY for chf, #30 TAB Hydrocodone-Acetaminophen (Hydrocodone-Acetaminophen) 10-325 mg Tab 1 TAB PO Q4H PRN for PAIN, #60 TAB 0 Refills Insulin Aspart Inj (Novolog Inj) 1,000 Unit/10 Ml Vial 0 SQ DIRECTED for Blood Sugar Management, #10 ML 0 Refills Sliding Scale as directed. Insulin Aspart Inj (Novolog Inj) 1,000 Unit/10 Ml Vial 0 SQ DIRECTED for Blood Sugar Management, #10 ML 0 Refills Sliding Scale as directed. Insulin Glargine Inj (Lantus Inj) 1,000 Unit/10 Ml Vial 50 UNITS SQ HS for Blood Sugar Management, VIAL 0 Refills Lisinopril (Lisinopril) 10 Mg Tab 10 MG PO DAILY, #30 TAB 0 Refills Metoprolol Tartrate (Metoprolol Tartrate) 50 Mg Tab 50 MG PO BID, #60 TAB 0 Refills Potassium Chloride ER (Potassium Chloride ER) 10 Meq Cap 10 MEQ PO EVERY OTHER DAY for Electrolyte Replacement, #30 CAP 0 Refills Rivaroxaban (Xarelto) 20 Mg Tab 20 MG PO DAILY for Blood Clot Prevention, TAB 0 Refills Umeclidinium-Vilanterol Inh (Anoro Ellipta Inh) 62.5-25 Mcg/Act Aero 1 PUFF INH DAILY for COPD, #1 INHALER 0 Refills [Oxygen] () 2.5 LITER NASAL Tyrone Gayle MD Mar 19, 2018 10:52
--- NOTE | 2018-03-19 11:25 | HHI.PR ---
Subjective Remarks 68 YOWF with COPD,CHF,Pl eff Breathing better On NC, 1.5 Lit Feels much better Tolerates PO at BS Objective Vital Signs Vital Signs Date Time Temp Pulse Resp B/P (MAP) Pulse Ox O2 Delivery O2 Flow Rate FiO2 03/19/18 08:00 98.1 83 20 132/81 (98) 98 03/19/18 04:00 97.8 80 20 149/90 (109) 99 03/19/18 00:00 97.6 62 18 124/72 (89) 97 03/18/18 21:11 19 03/18/18 19:42 Nasal Cannula 3.00 03/18/18 19:23 98.1 90 16 146/68 (94) 96 03/18/18 16:00 98.0 82 18 139/83 (101) 98 03/18/18 12:00 97.9 76 16 113/69 (84) 97 I/O 03/18/18 03/18/18 03/18/18 03/19/18 03/19/18 03/19/18 07:00 15:00 23:00 07:00 15:00 23:00 Intake Total 480 ml 840 ml Output Total 400 ml 700 ml Balance 80 ml 140 ml Intake Oral 480 ml 840 ml Output Urine Total 400 ml 700 ml # Bowel Movements 0 0 Result Diagram: 03/19/18 0355 03/18/18 0412 Objective Remarks GENERAL: MBMNWF mild sob SKIN: Warm and dry. HEAD: Normocephalic. EYES: No scleral icterus. No injection or drainage. NECK: Supple, trachea midline. No JVD or lymphadenopathy. CARDIOVASCULAR: Regular rate and rhythm without murmurs, gallops, or rubs. RESPIRATORY: Breath sounds equal bilaterally. No accessory muscle use. GASTROINTESTINAL: Abdomen soft, non-tender, nondistended. MUSCULOSKELETAL: No cyanosis, or edema. S/p left leg surgery BACK: Nontender without obvious deformity. No CVA tenderness. A/P Assessment and Plan IMPRESSION: 1. Shortness of breath with congestive heart failure. 2. Chronic obstructive pulmonary disease. 3. Partially compensated respiratory acidosis. 4. Bilateral pleural effusion. 5. 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 6. Diabetes mellitus. PLAN: Supplement [address] fluid results Started PO DC plans underway for home " I ran out of my benefits Have Kina lift at home Has Home 02 DW pt and her Luisito Dior MD Mar 19, 2018 11:25
[2018-03-19] MEDS ORDERED: FUROSEMIDE 40 MG TAB PO SCH (18:00)
== END 2018-03-19 13:11 | disposition home health service (06) | DRG 292 ==
LOC: PHED 01:00 → PHEDA 03:23 → UNDOADMOB 03:27 → PHEDA 03:27 → PHICU 04:58 → OBSVTOIN 10:49 → PH3A 16:35 → HIME 03-13 21:10 → N04A 03-17 18:17
PROVIDERS: ADMIT Hospitalist; ATTEND Hospitalist
PROC: 0W993ZZ Drainage of Right Pleural Cavity, Percutaneous Approach (ICD-10-PCS; principal; 2018-03-15)
PROC: 0DJ08ZZ Inspection of Upper Intestinal Tract, Via Natural or Artificial Opening Endoscopic (ICD-10-PCS; 2018-03-16)
DX: I11.0 Hypertensive heart disease with heart failure (principal); J44.1 Chronic obstructive pulmonary disease with (acute) exacerbation; J96.11 Chronic respiratory failure with hypoxia; E87.2 Acidosis; J90 Pleural effusion, not elsewhere classified; I27.20 Pulmonary hypertension, unspecified; Z68.41 Body mass index [BMI] 40.0-44.9, adult; Z99.81 Dependence on supplemental oxygen; E11.9 Type 2 diabetes mellitus without complications; D72.829 Elevated white blood cell count, unspecified; I48.2 Chronic atrial fibrillation; E66.01 Morbid (severe) obesity due to excess calories; I50.23 Acute on chronic systolic (congestive) heart failure; E78.5 Hyperlipidemia, unspecified; K22.4 Dyskinesia of esophagus; M25.511 Pain in right shoulder; M19.90 Unspecified osteoarthritis, unspecified site; Z79.01 Long term (current) use of anticoagulants; F32.9 Major depressive disorder, single episode, unspecified; Z79.4 Long term (current) use of insulin; Z85.3 Personal history of malignant neoplasm of breast; Z87.891 Personal history of nicotine dependence; Z88.5 Allergy status to narcotic agent; Z96.653 Presence of artificial knee joint, bilateral
CPT/HCPCS: 32555; 36600; 71045; 71275; 73030; 74220; 80048; 80053; 81001; 82150; 82272; 82550; 82805; 82945; 82948; 83615; 83735; 83880; 83986; 84157; 84484; 85025; 85027; 85610; 85730; 87015; 87070; 87102; 87116; 87205; 87206; 87641; 88112; 88305; 89051; 93005; 93971; 94640; 94664; 96374; C1729; J1644; J1815; J1885; J1940; J2060; J2370; J2405; Q9963; Q9967

== ENCOUNTER 2018-03-31 05:26 | Inpatient (IN) | payer OTHER, MEDICARE ==
[2018-03-31] VITALS (11 sets, daily range): BP systolic 126–171; BP diastolic 75–99; PULSE 90–147; RESP 20–28; TEMP 96.6–98.5; O2SAT 90–96
[~2018-03-31] VITALS: Ht 165.1 cm; Wt 108.8 kg
[~2018-03-31 05:26] MED LIST changes: -CALCTAB19 PO; -FLUO20SO3 PO; +LANTUS2P SQ; -LISI-360 PO; +LISI10TA3 PO; -METO-309 PO; +NOVOLOGP2 SQ; -NOVOLOGSS SQ; +OXYGEN NASAL; +PROZ40CA PO; -RIVA20 PO; +UMEC1AER INH; -VITA2000 PO; -VITA500012 PO; +XARE20TA PO
[2018-03-31 06:10] LABS: AUTOMATED NEUTROPHIL # 14.3 TH/MM3 (1.8-7.7); BASOPHIL # 0.1 TH/MM3 (0-0.2); BASOPHIL % 0.3 % (0.0-2.0); EOSINOPHIL # 0.2 TH/MM3 (0-0.4); EOSINOPHIL % 1.2 % (0.0-4.0); HEMOGLOBIN 11.3 GM/DL (11.6-15.3); LYMPH % 5.5 % (9.0-44.0); LYMPHOCYTE # 0.9 TH/MM3 (1.0-4.8); MEAN CELL VOLUME 80.1 FL (80.0-100.0); MEAN CORPUSCULAR HEMOGLOBIN 25.8 PG (27.0-34.0); MEAN CORPUSCULAR HGB CONC 32.2 % (32.0-36.0); MEAN PLATELET VOLUME 11.1 FL (7.0-11.0); MONO % 9.2 % (0.0-8.0); MONOCYTE # 1.6 TH/MM3 (0-0.9); NEUT % 83.8 % (16.0-70.0); PLATELET COUNT 256 TH/MM3 (150-450); RED BLOOD COUNT 4.36 MIL/MM3 (4.00-5.30); RED CELL DISTRIBUTION WIDTH 18.6 % (11.6-17.2); WHITE BLOOD COUNT 17.1 TH/MM3 (4.0-11.0)
--- NOTE | 2018-03-31 06:12 | PD ---
HPI Chief Complaint: Respiratory Distress Time Seen by Provider: 06:08 Travel History International Travel<30 days: No Contact w/Intl Traveler<30days: No Traveled to known affect area: No History of Present Illness HPI The patient is a 68-year-old female who has a history of pleural effusion. They drained 8 L out before they discharged her 7 days ago from the hospital. She felt much better after the pleural effusion was drained. She did have a femur fracture 3 months ago and has been pretty much bedridden since. She has been on Xarelto both for atrial fibrillation and her immobilization. She does have both COPD and congestive heart failure. She is oxygen dependent on 2-1/2 L. She denies any fever. She denies any chest pain. PFSH Past Medical History Hx Anticoagulant Therapy: Yes (ASPIRIN, XARELTO) Arthritis: Yes Asthma: No Atrial Fibrillation: Yes Autoimmune Disease: No Blood Disorders: Yes Anxiety: No Depression: Yes Heart Rhythm Problems: Yes Cancer: Yes (breast 2010) Cardiovascular Problems: Yes (CHF) High Cholesterol: Yes Chemotherapy: Yes Chest Pain: Yes (CHEST PRESSURE) Congestive Heart Failure: Yes COPD: Yes Cerebrovascular Accident: No Diabetes: Yes Patient Takes Glucophage: Yes Diminished Hearing: No Endocrine: Yes GERD: No Genitourinary: No Hiatal Hernia: No Hypertension: Yes Immune Disorder: No Implanted Vascular Access Dvce: Yes Kidney Stones: No Musculoskeletal: Yes Neurologic: No Psychiatric: Yes Reproductive: No Respiratory: Yes (COPD) Migraines: No Radiation Therapy: Yes Renal Failure: No Seizures: No Sickle Cell Disease: No Sleep Apnea: No Thyroid Disease: No Ulcer: No Tetanus Vaccination: < 5 Years Influenza Vaccination: Yes Menopausal: Yes Past Surgical History Abdominal Surgery: No AICD: No Arteriovenous Shunt: No Cardiac Surgery: No Ear Surgery: No Endocrine Surgery: No Eye Surgery: Yes (BILAT CATARACT) Genitourinary Surgery: No Gynecologic Surgery: Yes (hyster, R LUMPECTOMY) Hysterectomy: Yes Insulin Pump: No Joint Replacement: Yes (Carlin knees, RODS IN LEFT LEG TO REPAIR FEMUR) Neurologic Surgery: No Oral Surgery: No Pacemaker: No Thoracic Surgery: No Other Surgery: Yes Social History Alcohol Use: Yes (OCCASIONAL) Tobacco Use: No Substance Use: No Allergies-Medications (Allergen,Severity, Reaction): Coded Allergies: morphine (Verified Allergy, Intermediate, fainting, 03/31/18) Reported Meds & Prescriptions Reported Meds & Active Scripts Active Potassium Chloride ER (Potassium Chloride) 10 Meq Cap 10 Meq PO EVERY OTHER DAY Furosemide 40 Mg Tab 40 Mg PO DAILY Aspirin DR (Aspirin) 81 Mg Tabdr 81 Mg PO DAILY Enalapril (Enalapril Maleate) 5 Mg Tab 5 Mg PO BID Hydrocodone-Acetaminophen 10-325 mg Tab 1 Tab PO Q4H PRN Walker/Adult/Folding (Device) 1 Mis Mis Ea .XX DIRECTED Reported [Oxygen] 2.5 Liter NASAL Anoro Ellipta Inh (Umeclidinium/Vilanterol) 62.5-25 Mcg/Act Aero 1 Puff INH DAILY Xarelto (Rivaroxaban) 20 Mg Tab 20 Mg PO DAILY Metoprolol Tartrate 50 Mg Tab 50 Mg PO BID Lisinopril 10 Mg Tab 10 Mg PO DAILY Novolog Inj (Insulin Aspart) 1,000 Unit/10 Ml Vial 0 SQ DIRECTED Sliding Scale as directed. Lantus Inj (Insulin Glargine) 1,000 Unit/10 Ml Vial 50 Units SQ HS Novolog Inj (Insulin Aspart) 1,000 Unit/10 Ml Vial 0 SQ DIRECTED Sliding Scale as directed. Prozac (Fluoxetine HCl) 40 Mg Cap 40 Mg PO DAILY Cardizem (Diltiazem HCl) 30 Mg Tab 60 Mg PO BID Review of Systems Except as stated in HPI: all other systems reviewed are Neg Physical Exam Narrative GENERAL: Patient is alert, oriented 3 in moderate apparent respiratory distress. Her respirations are 26 and oximetry is 86% on 2.5 liters nasal cannula. The heart rate is 115 and irregular and blood pressure 143/77. SKIN: Focused skin assessment warm/dry. HEAD: Atraumatic. Normocephalic. EYES: Pupils equal and round. No scleral icterus. No injection or drainage. ENT: No nasal bleeding or discharge. Mucous membranes pink and moist. NECK: Trachea midline. No JVD. CARDIOVASCULAR: Regular rate and rhythm. No murmur appreciated. RESPIRATORY: No accessory muscle use. Scattered rhonchi and rales are heard, there appears to be a cut off at the bases consistent with pleural effusion.. Breath sounds equal bilaterally. GASTROINTESTINAL: Abdomen soft, non-tender, nondistended. Hepatic and splenic margins not palpable. MUSCULOSKELETAL: No obvious deformities. No clubbing. No cyanosis. 1+ bilateral lower extremity edema. NEUROLOGICAL: Awake and alert. No obvious cranial nerve deficits. Motor grossly within normal limits. Normal speech. PSYCHIATRIC: Appropriate mood and affect; insight and judgment normal. Data Data Last Documented VS Vital Signs Date Time Temp Pulse Resp B/P (MAP) Pulse Ox O2 Delivery O2 Flow Rate FiO2 03/31/18 07:02 115 26 160/99 (119) 91 Nasal Cannula 4.00 03/31/18 05:39 98.5 Orders Orders Basic Metabolic Panel (Bmp) (03/31/18 05:56) Complete Blood Count With Diff (03/31/18 05:56) B-Type Natriuretic Peptide (03/31/18 05:56) Coag Profile (03/31/18 05:56) Chest, Ap & Lat (03/31/18 ) Iv Access Insert/Monitor (03/31/18 05:57) Ecg Monitoring (03/31/18 05:57) Oxygen Administration (03/31/18 05:57) Oximetry (03/31/18 05:57) Electrocardiogram (03/31/18 05:57) D-Dimer (03/31/18 05:56) Arterial Blood Gas (Abg) (03/31/18 ) Troponin I (03/31/18 05:40) Labs Laboratory Tests Test 03/31/18 05:40 03/31/18 06:34 White Blood Count 17.1 TH/MM3 Red Blood Count 4.36 MIL/MM3 Hemoglobin 11.3 GM/DL Hematocrit 35.0 % Mean Corpuscular Volume 80.1 FL Mean Corpuscular Hemoglobin 25.8 PG Mean Corpuscular Hemoglobin Concent 32.2 % Red Cell Distribution Width 18.6 % Platelet Count 256 TH/MM3 Mean Platelet Volume 11.1 FL Neutrophils (%) (Auto) 83.8 % Lymphocytes (%) (Auto) 5.5 % Monocytes (%) (Auto) 9.2 % Eosinophils (%) (Auto) 1.2 % Basophils (%) (Auto) 0.3 % Neutrophils # (Auto) 14.3 TH/MM3 Lymphocytes # (Auto) 0.9 TH/MM3 Monocytes # (Auto) 1.6 TH/MM3 Eosinophils # (Auto) 0.2 TH/MM3 Basophils # (Auto) 0.1 TH/MM3 CBC Comment AUTO DIFF Differential Comment AUTO DIFF CONFIRMED Platelet Estimate NORMAL Platelet Morphology Comment NORMAL Ovalocytes 1+ Prothrombin Time 14.5 SEC Prothromb Time International Ratio 1.4 RATIO Activated Partial Thromboplast Time 27.3 SEC D-Dimer Quantitative (PE/DVT) 2.95 MG/L FEU Blood Urea Nitrogen 12 MG/DL Creatinine 0.57 MG/DL Random Glucose 229 MG/DL Calcium Level 9.2 MG/DL Sodium Level 136 MEQ/L Potassium Level 3.2 MEQ/L Chloride Level 94 MEQ/L Carbon Dioxide Level 34.8 MEQ/L Anion Gap 7 MEQ/L Estimat Glomerular Filtration Rate 105 ML/MIN Troponin I LESS THAN 0.02 NG/ML B-Type Natriuretic Peptide 524 PG/ML Blood Gas Puncture Site LT RADIAL Blood Gas Patient Temperature 98.6 Blood Gas HCO3 34 mmol/L Blood Gas Base Excess 10.0 mmol/L Blood Gas Oxygen Saturation 84 % Arterial Blood pH 7.47 Arterial Blood Partial Pressure CO2 47 mmHG Arterial Blood Partial Pressure O2 53 mmHG Arterial Blood Oxygen Content 12.2 Vol % Arterial Blood Carboxyhemoglobin 2.4 % Arterial Blood Methemoglobin 0.9 % Blood Gas Hemoglobin 10.3 G/DL Oxygen Delivery Device NASAL CANNULA Blood Gas Liter Flow 2.5 L/M MDM Medical Decision Making Medical Screen Exam Complete: Yes Emergency Medical Condition: Yes Medical Record Reviewed: Yes Interpretation(s) Chest x-ray shows a pleural effusion, is very suspicious for congestive heart failure as well. The patient blood gases on 200.5 L show pH 7.47, CO2 47, PO2 53 with O2 sat 84%. Differential Diagnosis Congestive heart failure, pleural effusion, pulmonary embolus, pneumonia, bronchitis, hypoxemia Narrative Course The patient has a pleural effusion, hypoxemia and congestive heart failure and will be admitted to the [facility] service. Dr. encarnacion is taking the patient in transfer at this time. Diagnosis Primary Impression: Pleural effusion, right Additional Impressions: Acute on chronic systolic CHF (congestive heart failure) Hypoxemia Admitting Information Admitting Physician Requests: Admit Walter Dsouza MD Mar 31, 2018 06:12
[2018-03-31 06:18] LABS: CHLORIDE 94 MEQ/L (98-107); SODIUM (NA) 136 MEQ/L (136-145)
[2018-03-31 06:20] LABS: CALCIUM 9.2 MG/DL (8.5-10.1)
[2018-03-31 06:21] LABS: BICARBONATE 34.8 MEQ/L (21.0-32.0); BLOOD UREA NITROGEN 12 MG/DL (7-18); GLUCOSE,RANDOM 229 MG/DL (74-106)
[2018-03-31 06:24] LABS: CREATININE 0.57 MG/DL (0.50-1.00); GLOMERULAR FILTRATION RATE 105 ML/MIN (>89); OVALOCYTES 1+ (NORMAL)
[2018-03-31 06:48] LABS: INTERNATIONAL NORMALIZED RATIO 1.4 RATIO; PROTHROMBIN TIME - PATIENT 14.5 SEC (9.8-11.6)
[2018-03-31 06:54] LABS: D-DIMER 2.95 MG/L FEU (0.00-0.50); TROPONIN I LESS THAN 0.02 NG/ML (0.02-0.05)
--- NOTE | 2018-03-31 07:12 | RADRPT ---
EXAM DATE: 03/31/2018 7:02 AM EDT AGE/SEX: 68 years / Female INDICATIONS: Extreme shortness of breath. Recent thoracentesis 03/15/2018. CLINICAL DATA: This is the patient's initial encounter. Patient reports that signs and symptoms have been present for 2 days and indicates a pain score of 0/10. MEDICAL/SURGICAL HISTORY: Hypercholesterolemia. Carcinoma, breast. Chronic obstructive pulmon radha disease. CHF. A-fib. Hypertension. Arthritis. Diabetic. Chemotherapy. Radiation therapy. Total knee replacement, left. Nephrostomy tube, right. Hysterectomy. Right lumpectomy. ORIF femur. COMPARISON: [facility], CHEST EXPIRATION ONLY, 03/15/2018. [facility], CT PULMONARY ANGIOGRAM, 03/13/2018. . FINDINGS: Upright AP and lateral views of the chest demonstrate a stable mild enlargement of the cardiac silhou ette with calcification of the aorta. There are new abnormal patchy areas of airspace consolidation p rimarily in a perihilar distribution. No pneumothorax is visualized. There are pleural-based opacitie s bilaterally best visualized on the lateral projection. The bones and soft tissues demonstrate no ac jasmin finding. CONCLUSION: 1. New moderate to severe bilateral airspace consolidation. Although nonspecific the pattern is sugg estive of pulmonary edema. 2. Small bilateral pleural effusions. Electronically signed by: Wilfred Aaron MD 03/31/2018 7:11 AM EDT
--- NOTE | 2018-03-31 07:24 | EKG ---
Date Performed: 03/31/2018 Time Performed: 06:23:41 PTAGE: 68 years EKG: ATRIAL FIBRILLATION WITH RAPID VENTRICULAR RESPONSE ST DEVIATION AND MODERATE T-WAVE ABNORM ALITY, CONSIDER ANTEROLATERAL ISCHEMIA ST DEVIATION AND MODERATE T-WAVE ABNORMALITY, CONSIDER INFERIO R ISCHEMIA ABNORMAL ECG PREVIOUS TRACING : 03/12/2018 02.31 DOCTOR: Karl Black Interpretating Date/Time 03/31/2018 07:22:54
--- NOTE | 2018-03-31 07:25 | PD ---
Physical Exam Date Seen by Provider: Mar 31, 2018 Narrative Care was assumed from Dr. Dsouza at 7 AM. This patient presented with shortness of breath. Please see his H&P for full details. Data Data Last Documented VS Vital Signs Date Time Temp Pulse Resp B/P (MAP) Pulse Ox O2 Delivery O2 Flow Rate FiO2 03/31/18 07:02 115 26 160/99 (119) 91 Nasal Cannula 4.00 03/31/18 05:39 98.5 Orders Orders Basic Metabolic Panel (Bmp) (03/31/18 05:56) Complete Blood Count With Diff (03/31/18 05:56) B-Type Natriuretic Peptide (03/31/18 05:56) Coag Profile (03/31/18 05:56) Chest, Ap & Lat (03/31/18 ) Iv Access Insert/Monitor (03/31/18 05:57) Ecg Monitoring (03/31/18 05:57) Oxygen Administration (03/31/18 05:57) Oximetry (03/31/18 05:57) Electrocardiogram (03/31/18 05:57) D-Dimer (03/31/18 05:56) Arterial Blood Gas (Abg) (03/31/18 ) Troponin I (03/31/18 05:40) Furosemide Inj (Lasix Inj) (03/31/18 07:30) Potassium Chloride (Kcl) (03/31/18 07:30) Nitroglycerin 2% Oint (Nitroglycerin 2% (03/31/18 07:30) Admit Order (Ed Use Only) (03/31/18 ) Roll Tube Setter / Telemetry DANTE.Q8H (03/31/18 07:19) Vital Signs (Adult) Q4H (03/31/18 07:19) Diet Heart Healthy (03/31/18 Breakfast) Activity Oob With Assistance (03/31/18 07:19) Notify Dr: Other (03/31/18 07:19) Labs Laboratory Tests Test 03/31/18 05:40 03/31/18 06:34 White Blood Count 17.1 TH/MM3 Red Blood Count 4.36 MIL/MM3 Hemoglobin 11.3 GM/DL Hematocrit 35.0 % Mean Corpuscular Volume 80.1 FL Mean Corpuscular Hemoglobin 25.8 PG Mean Corpuscular Hemoglobin Concent 32.2 % Red Cell Distribution Width 18.6 % Platelet Count 256 TH/MM3 Mean Platelet Volume 11.1 FL Neutrophils (%) (Auto) 83.8 % Lymphocytes (%) (Auto) 5.5 % Monocytes (%) (Auto) 9.2 % Eosinophils (%) (Auto) 1.2 % Basophils (%) (Auto) 0.3 % Neutrophils # (Auto) 14.3 TH/MM3 Lymphocytes # (Auto) 0.9 TH/MM3 Monocytes # (Auto) 1.6 TH/MM3 Eosinophils # (Auto) 0.2 TH/MM3 Basophils # (Auto) 0.1 TH/MM3 CBC Comment AUTO DIFF Differential Comment AUTO DIFF CONFIRMED Platelet Estimate NORMAL Platelet Morphology Comment NORMAL Ovalocytes 1+ Prothrombin Time 14.5 SEC Prothromb Time International Ratio 1.4 RATIO Activated Partial Thromboplast Time 27.3 SEC D-Dimer Quantitative (PE/DVT) 2.95 MG/L FEU Blood Urea Nitrogen 12 MG/DL Creatinine 0.57 MG/DL Random Glucose 229 MG/DL Calcium Level 9.2 MG/DL Sodium Level 136 MEQ/L Potassium Level 3.2 MEQ/L Chloride Level 94 MEQ/L Carbon Dioxide Level 34.8 MEQ/L Anion Gap 7 MEQ/L Estimat Glomerular Filtration Rate 105 ML/MIN Troponin I LESS THAN 0.02 NG/ML B-Type Natriuretic Peptide 524 PG/ML Blood Gas Puncture Site LT RADIAL Blood Gas Patient Temperature 98.6 Blood Gas HCO3 34 mmol/L Blood Gas Base Excess 10.0 mmol/L Blood Gas Oxygen Saturation 84 % Arterial Blood pH 7.47 Arterial Blood Partial Pressure CO2 47 mmHG Arterial Blood Partial Pressure O2 53 mmHG Arterial Blood Oxygen Content 12.2 Vol % Arterial Blood Carboxyhemoglobin 2.4 % Arterial Blood Methemoglobin 0.9 % Blood Gas Hemoglobin 10.3 G/DL Oxygen Delivery Device NASAL CANNULA Blood Gas Liter Flow 2.5 L/M [facility] Supervised Visit with KASHIF: No Interpretation(s) EKG shows atrial fibrillation with a ventricular rate of 105. She has diffuse T wave inversion laterally. Differential Diagnosis Differential diagnosis of dyspnea includes but is not limited to congestive heart failure, pneumonia, wheezing, pneumothorax, pulmonary embolism Narrative Course This patient presents with a chief complaint of dyspnea. Chest x-ray shows pulmonary edema. The chest x-ray was independently viewed by me. Lasix and nitroglycerin have subsequently been ordered. ABG Test 03/31/18 06:34 Arterial Blood Carboxyhemoglobin 2.4 % Arterial Blood Methemoglobin 0.9 % Arterial Blood Oxygen Content 12.2 Vol % Arterial Blood Partial Pressure CO2 47 mmHG H Arterial Blood Partial Pressure O2 53 mmHG *L Arterial Blood pH 7.47 H Blood Gas Base Excess 10.0 mmol/L H Blood Gas HCO3 34 mmol/L H Blood Gas Hemoglobin 10.3 G/DL L Blood Gas Liter Flow 2.5 L/M Blood Gas Oxygen Saturation 84 % *L Oxygen Delivery Device NASAL CANNULA CBC & BMP Diagram 03/31/18 05:40 Calcium Level 9.2 Supplemental oral potassium has been ordered. Troponin less than 0.02 BNP 524 D-dimer 2.95. CT for PE has subsequently been ordered Last Impressions Chest X-Ray 03/31/18 0000 Signed Impressions: CONCLUSION: 1. New moderate to severe bilateral airspace consolidation. Although nonspecif ic the pattern is suggestive of pulmonary edema. 2. Small bilateral pleural effusions. CT for PE: 1. Pulmonary arteries are visualized to the proximal segmental level without evidence for pulmonary artery embolism. More distal segmental and subsegmental branches are inadequately opacified for definitive evaluation. 2. Minimally progressed pulmonary edema pattern with stable moderate right and trace left pleural effusions. 3. Mild four-chamber cardiac enlargement with persistent prominent main pulmonary artery consistent with some degree of pulmonary artery hypertension. Diagnosis Primary Impression: Pleural effusion, right Additional Impressions: Acute on chronic systolic CHF (congestive heart failure) Hypoxemia Admitting Information Admitting Physician Requests: Admit Condition: Stable Cat Ernst MD Mar 31, 2018 07:25
[2018-03-31] MEDS ORDERED: FUROSEMIDE 100 MG/10 ML VIAL IV PUSH ONE (07:30)
[2018-03-31] MEDS ORDERED: POTASSIUM CHLORIDE 20 MEQ CONTROLLED RELEASE TAB PO ONE (07:30)
[2018-03-31] MEDS ORDERED: NITROGLYCERIN 2% OINT 1 GM PACKET TOPICAL ONE (07:30)
[2018-03-31] MEDS ORDERED: SODIUM CHLORIDE 0.9% FLUSH 10 ML FLUSH IV FLUSH PRN (07:45)
[2018-03-31] MEDS ORDERED: NALOXONE HCL 0.4 MG/ML AMP IV PUSH PRN (07:45)
[2018-03-31] MEDS ORDERED: SENNOSIDES 8.6 MG TAB PO PRN (07:45)
[2018-03-31] MEDS ORDERED: LACTULOSE SYRUP 20 GM/30 ML CUP PO PRN (07:45)
[2018-03-31] MEDS ORDERED: ACETAMINOPHEN 325 MG TAB PO PRN (07:45)
[2018-03-31] MEDS ORDERED: MAGNESIUM HYDROXIDE SUSP 30 ML CUP PO PRN (07:45)
[2018-03-31] MEDS ORDERED: BISACODYL 10 MG SUPP RECTAL PRN (07:45)
[2018-03-31] MEDS: SODIUM CHLORIDE 0.9% FLUSH 10 ML FLUSH IV FLUSH SCH ×2 (08:09→21:31)
[2018-03-31] MEDS ORDERED: IOHEXOL 350 MG/ML 10 ML VIAL (for RAD DIAG) IVCONTRAST ONE (08:50)
[2018-03-31] MEDS: ENOXAPARIN SODIUM 40 MG/0.4 ML SYRINGE SQ SCH (08:57)
--- NOTE | 2018-03-31 08:59 | RADRPT ---
EXAM DATE: 03/31/2018 8:49 AM EDT AGE/SEX: 68 years / Female INDICATIONS: Short of breath. CLINICAL DATA: This is the patient's initial encounter. Patient reports that signs and symptoms have been present for 1 day and indicates a pain score of 0/10. MEDICAL/SURGICAL HISTORY: Carcinoma, breast. Chronic obstructive pulmonary disease. Congestive he art failure. Hypertension. Diabetes. Hysterectomy. RADIATION DOSE: 21.60 CTDI (mGy) COMPARISON: [facility], CT PULMONARY ANGIOGRAM, 03/13/2018. . TECHNIQUE: Volumetric scanning was performed using a multi-row detector CT scanner during bolus infu kenneth of 75 ml Omnipaque 350 (iohexol) nonionic water-soluble contrast as a single exam dose. The leonel a was post processed with a variety of visualization algorithms including full volume maximum intensi ty projection and sliding thin slab reformation. Using automated exposure control and adjustment of the mA and/or kV according to patient size, radiation dose was kept as low as reasonably achievable t o obtain optimal diagnostic quality images. DICOM format image data is available electronically for review and comparison. FINDINGS: Pulmonary Arteries: The pulmonary arteries are visualized to the proximal segmental level without de finite focal filling defect to suggest acute pulmonary artery embolism. The segmental and subsegmenta l branches are otherwise insufficiently opacified for definitive evaluation. Main pulmonary artery re christelle enlarged. Lung: Progressive patchy bilateral upper lobe airspace consolidation/groundglass opacities. Mild air space consolidation at the lung bases likely due to compressive atelectasis from effusions. Pleura: Stable moderate right and trace left pleural effusions. Mediastinum: Minimally more prominent small pericardial effusion. Mild four-chamber cardiac enlargem ent. Subcentimeter mediastinal nodes likely reactive. Previously noted potential connection between t he trachea and esophagus in the proximal third of the mediastinum is not as well demonstrated. There is however tracheomalacia noted. Osseous Structures: Degenerative spondylosis of the thoracic spine without definite focal lytic or bl astic bony lesions. Other: Visulaized upper abdomen is unremarkable. CONCLUSION: 1. Pulmonary arteries are visualized to the proximal segmental level without evidence for pulmonary artery embolism. More distal segmental and subsegmental branches are inadequately opacified for defin itive evaluation. 2. Minimally progressed pulmonary edema pattern with stable moderate right and trace left pleural ef fusions. 3. Mild four-chamber cardiac enlargement with persistent prominent main pulmonary artery consistent with some degree of pulmonary artery hypertension. Electronically signed by: Kevin Iniguez MD 03/31/2018 8:58 AM EDT
[2018-03-31] MEDS ORDERED: GLUCAGON 1 MG/ML VIAL OTHER PRN (11:45)
[2018-03-31] MEDS ORDERED: DEXTROSE 50% IN WATER 50 ML VIAL(D50) IV PUSH PRN (11:45)
[2018-03-31] MEDS: INSULIN ASPART SUPPLEMENTAL SCALE SQ SCH ×3 (12:19→21:43)
[2018-03-31] MEDS ORDERED: RESP: ALBUTEROL 2.5 MG/IPRATROPIUM 0.5 MG NEB (PRN) NEB (16:15)
--- NOTE | 2018-03-31 16:37 | HHI.HP ---
[facility] Primary Care Physician Briana Aviles MD Admission Diagnosis pulm edema Diagnoses: (1) Systemic inflammatory response syndrome Diagnosis: Principal (2) Acute and chronic respiratory failure with hypoxia Diagnosis: Principal (3) Acute on chronic systolic CHF (congestive heart failure) Diagnosis: Principal (4) CO2 retention Diagnosis: Principal (5) Chronic obstructive pulmonary disease Diagnosis: Principal (6) Leukocytosis Diagnosis: Principal (7) Pleural effusion, right Diagnosis: Principal (8) Hypokalemia Diagnosis: Principal Chief Complaint: Shortness of breath and dyspnea Travel History International Travel<30 Days: No Contact w/Intl Traveler <30 Da: No Traveled to Known Affected Are: No History of Present Illness This is a 68-year-old female with known history of atrial fibrillation , hyperlipidemia, hypertension, diabetes, chronic hypoxic respiratory failure, CO2 retention, chronic obstructive pulmonary disease, chronic systolic congestive heart failure, cardiomyopathy who presented to the emergency department again because of shortness of breath and dyspnea. Patient was recently made to the hospital beginning this month. She was hospitalized from until 03/19/18 for right-sided pleural effusion, CHF, COPD. Patient was discharged home with home health care. Patient was receiving home health care on a daily basis, however family and caregivers indicate that they were not getting that will of service and the patient started developing worsening shortness of breath, difficulty breathing, started having skin breakdown on her left buttocks. Patient started developing significant respiratory distress so they brought her to the hospital for evaluation. Patient had workup done and found to have multiple problems to include recurrent right-sided pleural effusion, pulmonary edema, elevated BNP, leukocytosis, possible sepsis, will need to evaluate for infection source. Upon seeing the patient she appears very anxious, tachypneic, tachycardic. She was given Lasix 100 mg IV in the emergency department with almost 2500 cc of urinary output. Patient states that she does not have any significant relief with her respiratory status even after the diuresis. Upon review of CT scan does appear patient does have some patchy infiltrates, recurrent very large right-sided pleural effusion. Patient would need rather extensive workup again in the hospital rule out any infection source. She will require therapeutic thoracentesis. Discussed with friends, caregiver and patient at bedside. Had long conversation with them. Explaining the patient's condition, showing them x-rays and laboratory results. Patient rather distressed situation with her clinical condition. Patient may need to be moved to ICU for closer monitoring if she does not improve shortly. Review of Systems Respiratory: COMPLAINS OF: Shortness of breath Cardiovascular: COMPLAINS OF: Dyspnea on Exertion Except as stated in HPI: all other systems reviewed are Neg Past Family Social History Past Medical History Atrial fib on anticoagulation Arthritis Depression Breast CA 2010 Hyperlipidemia Chronic objective pulmonary disease Diabetes Chronic systolic congestive heart failure Chronic hypoxic respiratory failure Hypertension Past Surgical History Bilateral cataracts Hysterectomy Bilateral knees with jw placement in left leg to repair femur Thoracentesis Allergies: Coded Allergies: morphine (Verified Allergy, Intermediate, fainting, 03/31/18) Family History Family history significant for breast cancer in her mother's side. Father of a heart attack at the age of 62. Social History Denies any history of or current tobacco use, denies any alcohol or illicit drug use. Physical Exam Vital Signs Vital Signs Date Time Temp Pulse Resp B/P (MAP) Pulse Ox O2 Delivery O2 Flow Rate FiO2 03/31/18 12:00 96.6 119 22 126/88 (101) 90 03/31/18 09:36 03/31/18 08:56 90 28 151/79 (103) 92 Nasal Cannula 4.00 03/31/18 08:13 98 26 161/75 (103) 93 Nasal Cannula 4.00 03/31/18 07:56 91 Nasal Cannula 4.00 03/31/18 07:02 115 26 160/99 (119) 91 Nasal Cannula 4.00 03/31/18 06:18 Nasal Cannula 2.50 03/31/18 05:54 94 Nasal Cannula 3.00 03/31/18 05:41 Non-Rebreather 10.00 03/31/18 05:39 98.5 115 26 143/77 (99) Physical Exam GENERAL: Well-developed, obese with BMI 40.4, patient in obvious respiratory distress with tachypnea. alert and orientated HEENT: Head is normocephalic without any lesions or masses noted. Facial features are symmetric. Eyes: Pupils equal round reactive to light. Extraocular muscles are intact. Conjunctivae were clear. Oropharyngeal: Pharynx without any erythema edema. Tongue is midline without deviation. Buccal mucosa is moist without any masses or lesions NECK: Supple without any masses. Trachea midline no deviation. No JVD, no bruits are appreciated CARDIAC: Regular rhythm, regular rate. S1/S2 are heard. No murmurs gallops or rubs. LUNGS: Diminished breath sounds noted throughout, however was completely absent breath sounds noted in the right lung.. No wheeze, rhonchi or rales. No use of accessory muscles on inspiration or expiration. ABDOMEN: Soft, nontender. Nondistended. Bowel sounds heard in all 4 quadrants. No organomegaly or masses. Negative rebound, negative guarding EXTREMITIES: No edema, pulses are equal bilaterally. No cyanosis or clubbing. Legs actually have wrinkles, no pitting edema NEUROLOGY: Mood and affect appear appropriate. Cranial nerves II through XII grossly intact. Muscle strength 5/5 in upper and lower extremities bilaterally. Deep tendon reflexes are 2+ in upper and lower extremities bilaterally. Laboratory Laboratory Tests Test 03/31/18 05:40 03/31/18 06:34 White Blood Count 17.1 Red Blood Count 4.36 Hemoglobin 11.3 Hematocrit 35.0 Mean Corpuscular Volume 80.1 Mean Corpuscular Hemoglobin 25.8 Mean Corpuscular Hemoglobin Concent 32.2 Red Cell Distribution Width 18.6 Platelet Count 256 Mean Platelet Volume 11.1 Neutrophils (%) (Auto) 83.8 Lymphocytes (%) (Auto) 5.5 Monocytes (%) (Auto) 9.2 Eosinophils (%) (Auto) 1.2 Basophils (%) (Auto) 0.3 Neutrophils # (Auto) 14.3 Lymphocytes # (Auto) 0.9 Monocytes # (Auto) 1.6 Eosinophils # (Auto) 0.2 Basophils # (Auto) 0.1 CBC Comment AUTO DIFF Differential Comment AUTO DIFF CONFIRMED Platelet Estimate NORMAL Platelet Morphology Comment NORMAL Ovalocytes 1+ Prothrombin Time 14.5 Prothromb Time International Ratio 1.4 Activated Partial Thromboplast Time 27.3 D-Dimer Quantitative (PE/DVT) 2.95 Blood Urea Nitrogen 12 Creatinine 0.57 Random Glucose 229 Calcium Level 9.2 Sodium Level 136 Potassium Level 3.2 Chloride Level 94 Carbon Dioxide Level 34.8 Anion Gap 7 Estimat Glomerular Filtration Rate 105 Troponin I LESS THAN 0.02 B-Type Natriuretic Peptide 524 Blood Gas Puncture Site LT RADIAL Blood Gas Patient Temperature 98.6 Blood Gas HCO3 34 Blood Gas Base Excess 10.0 Blood Gas Oxygen Saturation 84 Arterial Blood pH 7.47 Arterial Blood Partial Pressure CO2 47 Arterial Blood Partial Pressure O2 53 Arterial Blood Oxygen Content 12.2 Arterial Blood Carboxyhemoglobin 2.4 Arterial Blood Methemoglobin 0.9 Blood Gas Hemoglobin 10.3 Oxygen Delivery Device NASAL CANNULA Blood Gas Liter Flow 2.5 Result Diagram: 03/31/18 0540 03/31/18 [address] Angiography 03/31/18 0725 Signed Impressions: CONCLUSION: 1. Pulmonary arteries are visualized to the proximal segmental level without e vidence for pulmonary artery embolism. More distal segmental and subsegmental b ranches are inadequately opacified for definitive evaluation. 2. Minimally progressed pulmonary edema pattern with stable moderate right and trace left pleural effusions. 3. Mild four-chamber cardiac enlargement with persistent prominent main pulmon radha artery consistent with some degree of pulmonary artery hypertension. Chest X-Ray 03/31/18 0000 Signed Impressions: CONCLUSION: 1. New moderate to severe bilateral airspace consolidation. Although nonspecif ic the pattern is suggestive of pulmonary edema. 2. Small bilateral pleural effusions. Septic Shock Reassessment Septic shock perfusion: reassessment completed Caprini VTE Risk Assessment Caprini VTE Risk Assessment: Mod/High Risk (score >= 2) Caprini Risk Assessment Model Point Value = 1 Point Value = 2 Point Value = 3 Point Value = 5 Age 41-60 Minor surgery BMI > 25 kg/m2 Swollen legs Varicose veins or History of unexplained or recurrent spontaneous Oral contraceptives or hormone replacement Sepsis (< 1 month) Serious lung disease, including pneumonia (< 1 month) Abnormal pulmonary function Acute myocardial infarction Congestive heart failure (< 1 month) History of inflammatory bowel disease Medical patient at bed rest Age 61-74 Arthroscopic surgery Major open surgery (> 45 min) Laparoscopic surgery (> 45 min) Malignancy Confined to bed (> 72 hours) Immobilizing plaster cast Central venous access Age >= 75 History of VTE Family history of VTE Factor V Leiden Prothrombin [id number] Lupus anticoagulant Anticardiolipin antibodies Elevated serum homocysteine Heparin-induced thrombocytopenia Other congenital or acquired thrombophilia Stroke (< 1 month) Elective arthroplasty Hip, pelvis, or leg fracture Acute spinal cord injury (< 1 month) Prophylaxis Regimen Total Risk Factor Score Risk Level Prophylaxis Regimen 0-1 Low Early ambulation 2 Moderate Order ONE of the following: *Sequential Compression Device (SCD) *Heparin 5000 units SQ BID 3-4 Higher Order ONE of the following medications: *Heparin 5000 units SQ TID *Enoxaparin/Lovenox 40 mg SQ daily (WT < 150 kg, CrCl > 30 mL/min) *Enoxaparin/Lovenox 30 mg SQ daily (WT < 150 kg, CrCl > 10-29 mL/min) *Enoxaparin/Lovenox 30 mg SQ BID (WT < 150 kg, CrCl > 30 mL/min) AND/OR *Sequential Compression Device (SCD) 5 or more Highest Order ONE of the following medications: *Heparin 5000 units SQ TID (Preferred with Epidurals) *Enoxaparin/Lovenox 40 mg SQ daily (WT < 150 kg, CrCl > 30 mL/min) *Enoxaparin/Lovenox 30 mg SQ daily (WT < 150 kg, CrCl > 10-29 mL/min) *Enoxaparin/Lovenox 30 mg SQ BID (WT < 150 kg, CrCl > 30 mL/min) AND *Sequential Compression Device (SCD) Assessment and Plan Assessment and Plan Systemic inflammatory response syndrome, likely sepsis -Patient meets criteria with tachycardia, leukocytosis, will need further evaluation to establish an infection source -Obtain urinalysis, liver enzymes, sputum culture, blood cultures, -Pulmonary angiogram does indicate bilateral opacities which does appear like pneumonia versus compressive atelectasis -We will start Levaquin IV -Monitor CBC Acute on chronic respiratory failure with hypoxia -Multifactorial with significant right-sided pleural effusion, congestive heart failure, COPD, oxygen dependency -Continue O2 sat mentation maintain O2 sats greater than 92% -Start Solu-Medrol 60 mg every 6 hours -Duo nebs every 6 hours while awake and every 2 hours as needed -Continue antibiotics as above -Obtain pro-calcitonin level -We will get therapeutic thoracentesis -Lasix 40 mg IV every 12 hours -Monitor BMP, electrolytes -Echocardiogram from 02/27/18 shows ejection fraction 45-50% with mildly reduced ventricular function. Trace to mild mitral valve regurgitation, mild aortic valve regurgitation -Continue beta-senthil, MARY inhibitor -Fluid restriction Sacral skin breakdown -Consult wound care nurse Chronic atrial fibrillation, hypertension -Continue home medications Diabetes -Accu-Cheks with sliding scale insulin -Diabetic diet DVT prevention -High risk, patient is on Xarelto Physician Certification 2 Midnight Certification Type: Admission for Inpatient Services Order for Inpatient Services The services are ordered in accordance with Medicare regulations or non- Medicare payer requirements, as applicable. In the case of services not specified as inpatient-only, they are appropriately provided as inpatient services in accordance with the 2-midnight benchmark. Estimated LOS (days): 3 days is the estimated time the patient will need to remain in the hospital, assuming treatment plan goals are met and no additional complications. Post-Hospital Plan: Not yet determined Antelmo Dsouza Mar 31, 2018 16:37
[2018-03-31] MEDS: ALPRAZolam 0.25 MG TAB PO PRN ×2 (16:43→23:19)
[2018-03-31] MEDS: methylPREDNISolone SOD SUCC 125 MG/2 ML VIAL IV PUSH SCH ×2 (16:46→23:18)
[2018-03-31] MEDS ORDERED: LEVOFLOXACIN 750 MG PREMIX INJ 150 ML IV SCH (17:00)
[2018-03-31 18:10] LABS: BLOOD, URINE LARGE (NEG); GLUCOSE,URINE NEG (NEG); KETONE, URINE 15 mg/dL (NEG); NITRITE,URINE NEG (NEG); URINE COLOR YELLOW (YELLW/STRAW); URINE LEUKOCYTE ESTERASE TRACE (NEG)
[2018-03-31 18:16] LABS: BILIRUBIN, URINE NEG (NEG)
[2018-03-31 18:18] LABS: BACTERIA, URINE FEW /hpf; WBC, URINE 100-200 /hpf (0-5); WHITE BLOOD CELL CLUMPS FEW
[2018-03-31] MEDS: FUROSEMIDE 40 MG/4 ML VIAL IVP SCH (18:44)
[2018-03-31 18:55] LABS: ALBUMIN 2.4 GM/DL (3.4-5.0)
[2018-03-31 18:58] LABS: DIRECT BILIRUBIN ADULT 0.5 MG/DL (0.0-0.2)
[2018-03-31 18:59] LABS: INDIRECT BILIRUBIN 0.9 MG/DL (0.0-0.8); TOTAL BILIRUBIN ADULT 1.4 MG/DL (0.2-1.0); TOTAL PROTEIN 7.2 GM/DL (6.4-8.2)
[2018-03-31 19:02] LABS: TROPONIN I 0.03 NG/ML (0.02-0.05)
[2018-03-31] MEDS: RESP: ALBUTEROL 2.5 MG/IPRATROPIUM 0.5 MG NEB (SCH) NEB (19:36)
[2018-03-31] MEDS: BUDESONIDE-FORMOTEROL 160/4.5 MCG INHALER INH SCH (21:30)
[2018-03-31] MEDS: METOPROLOL TARTRATE 50 MG TAB PO SCH (21:30)
[2018-03-31] MEDS: DILTIAZEM HCL 60 MG TAB PO SCH (21:30)
[2018-03-31] MEDS: POTASSIUM CHLORIDE 20 MEQ CONTROLLED RELEASE TAB PO SCH (21:31)
[2018-04-01] VITALS (12 sets, daily range): BP systolic 97–156; BP diastolic 55–79; PULSE 86–98; RESP 16–24; TEMP 97–98.1; O2SAT 93–97
[2018-04-01] MEDS: methylPREDNISolone SOD SUCC 125 MG/2 ML VIAL IV PUSH SCH ×4 (05:26→21:53)
[2018-04-01 06:31] LABS: AUTOMATED NEUTROPHIL # 6.6 TH/MM3 (1.8-7.7); BASOPHIL % 0.1 % (0.0-2.0); EOSINOPHIL # 0.1 TH/MM3 (0-0.4); EOSINOPHIL % 0.7 % (0.0-4.0); HEMATOCRIT 30.1 % (35.0-46.0); HEMOGLOBIN 9.9 GM/DL (11.6-15.3); LYMPH % 5.1 % (9.0-44.0); LYMPHOCYTE # 0.4 TH/MM3 (1.0-4.8); MEAN CELL VOLUME 79.4 FL (80.0-100.0); MEAN CORPUSCULAR HGB CONC 32.7 % (32.0-36.0); MEAN PLATELET VOLUME 11.6 FL (7.0-11.0); MONO % 4.3 % (0.0-8.0); MONOCYTE # 0.3 TH/MM3 (0-0.9); NEUT % 89.8 % (16.0-70.0); PLATELET COUNT 203 TH/MM3 (150-450); RED CELL DISTRIBUTION WIDTH 19.2 % (11.6-17.2); WHITE BLOOD COUNT 7.4 TH/MM3 (4.0-11.0)
[2018-04-01 06:40] LABS: BICARBONATE 33.5 MEQ/L (21.0-32.0); CALCIUM 9.2 MG/DL (8.5-10.1)
[2018-04-01 06:44] LABS: CREATININE 0.56 MG/DL (0.50-1.00)
[2018-04-01] MEDS: RESP: ALBUTEROL 2.5 MG/IPRATROPIUM 0.5 MG NEB (SCH) NEB ×3 (07:51→20:36)
[2018-04-01] MEDS: DILTIAZEM HCL 60 MG TAB PO SCH ×2 (08:01→21:54)
[2018-04-01] MEDS: BUDESONIDE-FORMOTEROL 160/4.5 MCG INHALER INH SCH ×2 (08:02→21:00)
[2018-04-01] MEDS: LISINOPRIL 10 MG TAB PO SCH (08:02)
[2018-04-01] MEDS: POTASSIUM CHLORIDE 20 MEQ CONTROLLED RELEASE TAB PO SCH ×2 (08:02→21:54)
[2018-04-01] MEDS: FLUoxetine HCL 20 MG CAP PO SCH (08:02)
[2018-04-01] MEDS: FUROSEMIDE 40 MG/4 ML VIAL IVP SCH ×2 (08:02→17:03)
[2018-04-01] MEDS: METOPROLOL TARTRATE 50 MG TAB PO SCH ×2 (08:02→21:54)
[2018-04-01] MEDS: SODIUM CHLORIDE 0.9% FLUSH 10 ML FLUSH IV FLUSH SCH ×2 (08:03→21:52)
[2018-04-01] MEDS: INSULIN ASPART SUPPLEMENTAL SCALE SQ SCH ×5 (08:38→21:53)
[2018-04-01] MEDS: ENOXAPARIN SODIUM 40 MG/0.4 ML SYRINGE SQ SCH (09:00)
[2018-04-01] MEDS ORDERED: PNEUMOCOCCAL POLYVALENT INJ 25 MCG/0.5 ML SYR IM ONE (10:00)
--- NOTE | 2018-04-01 10:00 | HHI.PR ---
Subjective Remarks Patient seen and examined today for follow-up on acute hypoxic respiratory failure. Patient states that she is doing much better. She does appear to be less anxious and breathing more comfortably. Patient remains afebrile. Discussed with the patient of undergoing thoracentesis today which should help with her respiratory status immensely. She does understand. Objective Vitals Vital Signs Date Time Temp Pulse Resp B/P (MAP) Pulse Ox O2 Delivery O2 Flow Rate FiO2 04/01/18 08:10 95 Nasal Cannula 3.00 04/01/18 07:52 97 Nasal Cannula 4.00 04/01/18 04:00 97.6 98 16 156/72 (100) 96 04/01/18 00:00 98.1 97 16 155/63 (93) 93 03/31/18 23:43 95 03/31/18 20:00 96 Nasal Cannula 4.00 Humidified 03/31/18 20:00 97.5 131 20 135/87 (103) 96 03/31/18 20:00 147 03/31/18 19:35 91 Nasal Cannula 4.50 03/31/18 16:00 97.5 120 23 171/96 (121) 91 03/31/18 15:25 132 03/31/18 12:00 96.6 119 22 126/88 (101) 90 I/O 03/31/18 03/31/18 03/31/18 04/01/18 04/01/18 04/01/18 07:00 15:00 23:00 07:00 15:00 23:00 Intake Total 360 ml Output Total 2350 ml 300 ml 300 ml Balance -2350 ml 60 ml -300 ml Intake Oral 360 ml Output Urine Total 2350 ml 300 ml 300 ml # Voids 0 # Bowel Movements 0 Result Diagram: 04/01/18 0520 04/01/18 [address] Angiography 03/31/18 0725 Signed Impressions: CONCLUSION: 1. Pulmonary arteries are visualized to the proximal segmental level without e vidence for pulmonary artery embolism. More distal segmental and subsegmental b ranches are inadequately opacified for definitive evaluation. 2. Minimally progressed pulmonary edema pattern with stable moderate right and trace left pleural effusions. 3. Mild four-chamber cardiac enlargement with persistent prominent main pulmon radha artery consistent with some degree of pulmonary artery hypertension. Chest X-Ray 03/31/18 0000 Signed Impressions: CONCLUSION: 1. New moderate to severe bilateral airspace consolidation. Although nonspecif ic the pattern is suggestive of pulmonary edema. 2. Small bilateral pleural effusions. Objective Remarks GENERAL: Well-developed, well-nourished, in no acute distress. alert and orientated. Patient appears to be more comfortable. No more signs of respiratory distress HEENT: Head is normocephalic without any lesions or masses noted. Facial features are symmetric. Eyes: Extraocular muscles are intact. Conjunctivae were clear. NECK: Supple without any masses. Trachea midline no deviation. No JVD CARDIAC: Regular rhythm, regular rate. S1/S2 are heard. No murmurs gallops or rubs. LUNGS: Patient with diminished breath sounds noted throughout, absent breath sounds noted in the right lower lung hart.. No wheeze, rhonchi or rales. No use of accessory muscles on inspiration or expiration. ABDOMEN: Soft, nontender. Nondistended. Bowel sounds heard in all 4 quadrants. No organomegaly or masses. Negative rebound, negative guarding EXTREMITIES: No edema, pulses are equal bilaterally. No cyanosis or clubbing NEUROLOGY: Mood and affect appear appropriate. Cranial nerves II through XII grossly intact. Moving all extremities, speech is clear Urinary Catheter: Yes Assessment to: Continue Marroquin insert reason: Measure Accurate Output Vascular Central Line Catheter: No A/P Assessment and Plan Sepsis on presentation, resolved -Patient meets criteria with tachycardia, leukocytosis, patient with urinary tract infection -Continue to follow urine culture for appropriate antibiotics -Blood cultures are pending -Influenza testing was negative, lactic acid level is normal -Awaiting sputum culture -Pulmonary angiogram does indicate bilateral opacities which does appear like pneumonia versus compressive atelectasis -Continue Levaquin IV -Monitor CBC Acute on chronic respiratory failure with hypoxia -Multifactorial with significant right-sided pleural effusion, congestive heart failure, COPD, oxygen dependency -Continue O2 sat mentation maintain O2 sats greater than 92% -Continue Solu-Medrol 60 mg every 6 hours -Duo nebs every 6 hours while awake and every 2 hours as needed -Continue antibiotics as above -Pro-calcitonin level was normal -Awaiting therapeutic thoracentesis -Lasix 40 mg IV every 12 hours -Monitor BMP, electrolytes -Echocardiogram from 02/27/18 shows ejection fraction 45-50% with mildly reduced ventricular function. Trace to mild mitral valve regurgitation, mild aortic valve regurgitation -Continue beta-senthil, MARY inhibitor -Fluid restriction Sacral skin breakdown -Awaiting wound care nurse consultation Chronic atrial fibrillation, hypertension -Continue home medications Diabetes -Accu-Cheks with sliding scale insulin -Diabetic diet DVT prevention -High risk, will need to resume Xarelto after procedure today Discharge Planning Discharge planning in 24-48 hours depending on patient's response to treatment Antelmo Dsouza Apr 01, 2018 10:00
--- NOTE | 2018-04-01 11:49 | RADRPT ---
EXAM DATE: 04/01/2018 11:26 AM EDT AGE/SEX: 68 years / Female INDICATIONS: Post right thoracentesis. CLINICAL DATA: This is the patient's initial encounter. Patient reports that signs and symptoms have been present for 1 day and indicates a pain score of 0/10. MEDICAL/SURGICAL HISTORY: Chronic obstructive pulmonary disease. Congestive heart failure. Di abetes mellitus type II. Hypertension, A-Fib. Hysterectomy. Rt lumpectomy. [place] [facility] [place] . FINDINGS: The heart size is enlarged. There is consolidation seen throughout the left upper and midlung. There is lesser degree of consolidation at the right upper lung. A significant effusion is not seen. There is a dextrocurvature of the thoracic spine with spurs. CONCLUSION: Bilateral upper lung consolidations being worse on the left. A pneumothorax is not seen. Electronically signed by: Wilfred Atkins MD 04/01/2018 11:48 AM EDT
[2018-04-01] MEDS ORDERED: INSULIN ASPART 1,000 UNITS/10 ML VIAL SQ ONE (14:30)
[2018-04-01] MEDS ORDERED: LEVOFLOXACIN 750 MG TAB PO SCH (15:00)
--- NOTE | 2018-04-01 15:16 | PD.WCN.NOT ---
Wound Consult Description: Wound consult ordered by Zachary MURPHY for wound management. Communicated with: Maryanne ELDER, Marga MURPHY Recommendation: 1. Reposition patient every 2 hours for comfort and offloading. 2. Cleanse intra gluteal cleft/gluteus with remedy soft cloth barrier wipes . 3. Apply Calazime cream to open areas BID or as needed for incontinence. 4. Please reframe from placing patient on cotton underpad please use UltraSorb moisture wicking under pads. Additional Information: Patient was seen today by marketing underwriter and Maryanne ELDER for wound management.Patient alert and oriented resting ion bed with present at bedside.Patient was able to reposition to right side with minimal assistance.Fine Arts Instructor was able to visualize sacral/coccyx area.Sacral/coccyx region blanchable intact.Patient noted to have moisture/friction diffuse denuded partial thickness wounds located on left gluteus.Wound edges are well defined and even with wound bases.Wound bases are moist pink blanchable periwound.Patient cleansed with remedy soft cloth barrier wipes and cotton underpad and procedure gume removed from under patient for moisture reducing measures.Calazime applied to effected area in thick layer.UltraSorb moisture wicking under pad placed under patient and patient offloaded to right side.Patient /spouse had no further questions or concern upon writers departure. James Avina CRN Apr 01, 2018 15:16
[2018-04-01] MEDS: LEVOFLOXACIN 750 MG TAB PO SCH (16:21)
[2018-04-01] MEDS: INSULIN ASPART 1,000 UNITS/10 ML VIAL SQ SCH (17:02)
--- NOTE | 2018-04-01 18:10 | RADRPT ---
EXAM DATE: 04/01/2018 11:33 AM EDT AGE/SEX: 68 years / Female INDICATIONS: Right pleural effusion. CLINICAL DATA: This is the patient's subsequent encounter. Patient reports that signs and symptoms h ave been present for 1 day and indicates a pain score of 6/10. MEDICAL/SURGICAL HISTORY: . Chronic renal failure. Hypercholesterolemia. Chronic obstructive pu lmonary disease. Anticoagulant therapy. Atrial fibrillation. Diabetes. Breast cancer. . Hysterectomy . RT breast lumpectomy. Bilateral knee surgery. Rods in left femur. Chemotherapy. COMPARISON: . FLUID: Total volume of 1100 cc of clear, yellow fluid was removed. Fluid was discarded. Thoracentesis was therapeutic only. . . TECHNIQUE: Ultrasound guidance for thoracentesis. Thoracentesis. The risks, benefits, and alternatives to ultrasound guided thoracentesis were explained to the patien t in lay simple terms, including the risk of bleeding and infection. Written and verbal informed con sent was obtained. Appropriate area for right thoracentesis was marked under ultrasound guidance with the patient in the upright position. Overlying skin was prepped and draped in the usual sterile fashion and with local anesthetic, a dermatotomy was made with an 11 blade scalpel. A 6 [place]an thoracentesis catheter was placed in the pleural space and fluid was removed. Catheter was then removed and a sterile dressing applied. There were no immediate complications. The patient tolerated the procedure well and the lef t the ultrasound suite in stable condition. Chest radiograph is to be obtained. CONCLUSION: 1. Uncomplicated right thoracentesis. Electronically signed by: Terrance Allred MD 04/01/2018 6:08 PM EDT
--- NOTE | 2018-04-01 19:59 | MB ---
cc: Luisito Dior MD, Arjun D MD DATE: 04/01/2018 REQUESTING PHYSICIAN: Dr. Antelmo Dsouza REASON FOR CONSULTATION: Recurrent pleural effusion. HISTORY OF PRESENT ILLNESS: Ms. Greene is a 68-year-old female with a history of congestive heart failure, COPD, hypertension, hyperlipidemia. The patient is bedbound because she is nonweightbearing status because of recent hip surgery. The patient has history of pleural effusion. She was not getting better, has increased shortness of breath and had bedsores. Because of the worsening of shortness of breath, she came to the hospital. She was found to have significant pleural effusion. She underwent ultrasound-guided thoracentesis today and 1100 mL of fluid was removed from the right pleural cavity. The patient feels significantly better after that. She also is diuresing with IV Lasix, which has made a big difference for her. Denies any chest pain. No cough or sputum production. PAST MEDICAL HISTORY: Significant for history of congestive heart failure, cardiomyopathy, pulmonary hypertension, COPD, history of CA of the breast, bilateral cataract surgery, knee surgery and left femur repair. CURRENT MEDICATIONS: 1. Levemir insulin 50 units at night time 2. NovoLog insulin 6 units 3 times a day. 3. Levaquin 750 mg a day 3. Lisinopril 10 mg a day. 4. Prozac 40 mg a day. 5. Symbicort 160/4.5 two puffs twice a day. 6. Diltiazem 60 mg twice a day. 7. Metoprolol 50 mg twice a day. 8. Albuterol Atrovent nebulizer treatment. 9. Lasix 40 mg twice a day 10. IV Solu-Medrol 60 mg q.6 hours. 11. Xanax 0.25 mg p.r.n. 12. Lovenox 40 mg a day. ALLERGIES: MORPHINE. SOCIAL HISTORY: She is and lives with her . REVIEW OF SYSTEMS: She is nonweightbearing status, has increased swelling in the legs. No DVT or pulmonary embolism. PHYSICAL EXAMINATION: GENERAL: Obese, elderly female, mildly short of breath. VITAL SIGNS: Blood pressure 113/68, heart rate 90, respirations 18, temperature 97. HEENT: Pupils are equal and reactive to light. Oral mucosa and nasal mucosa normal. NECK: Supple. JVD not raised. CHEST: Decreased breath sounds at bases. CARDIOVASCULAR: S1, S2 is normal. ABDOMEN: Benign. EXTREMITIES: 1+ pedal edema. IMPRESSION: 1. Recurrent pleural effusion secondary to underlying congestive heart failure and cardiomyopathy. On her previous study, pleural fluid is transudate. No signs of infection. Cytology was negative. 2. Congestive heart failure. 3. Pulmonary hypertension. 4. Chronic obstructive pulmonary disease. 5. History of cancer of the breast. PLAN: I discussed with the patient. She will be aggressively diuresed. Monitor her renal function. She is on IV Solu-Medrol which we will tell her we will change to p.o. steroid tomorrow. Continue aerosol treatment. Hopefully, by diuresing and maintaining the fluid balance, she will have less recurrence of the pleural fluid. Supplement her oxygen. Further treatment will depend on the course in the hospital. Thank you, Dr. Antelmo Dsouza, for this consult. MD KATHERIN Callahan/ , 07:36 PM , 07:58 PM
[2018-04-01] MEDS ORDERED: INSULIN DETEMIR 100 UNITS/ML VIAL SQ SCH (21:00)
[2018-04-01] MEDS: INSULIN DETEMIR 100 UNITS/ML VIAL SQ SCH (21:53)
[2018-04-02] VITALS (9 sets, daily range): BP systolic 96–120; BP diastolic 51–72; PULSE 82–112; RESP 18–20; TEMP 96.2–97.1; O2SAT 94–98
[2018-04-02] MEDS: methylPREDNISolone SOD SUCC 125 MG/2 ML VIAL IV PUSH SCH (05:43)
--- NOTE | 2018-04-02 06:52 | RADRPT ---
EXAM DATE: 04/02/2018 6:20 AM EDT AGE/SEX: 68 years / Female INDICATIONS: Shortness of breath CLINICAL DATA: This is the patient's subsequent encounter. Patient reports that signs and symptoms h ave been present for 2 days and indicates a pain score of 0/10. MEDICAL/SURGICAL HISTORY: . Chronic renal failure. Hypercholesterolemia. Chronic obstructive pu lmonary disease. Anticoagulant therapy. Atrial fibrillation. Diabetes. Breast cancer. . Hysterectomy . RT breast lumpectomy. Bilateral knee surgery. Rods in left femur. Chemotherapy. [place] [facility] [place] . FINDINGS: AP and lateral views of the chest were obtained and demonstrate mild hazy perihilar and bibasilar opa cities. There is moderate cardiomegaly. The posterior costophrenic angles remain blunted. CONCLUSION: No significant change. The findings remain most characteristic of mild congestive heart failure. Electronically signed by: Deion Kim MD 04/02/2018 6:51 AM EDT
[2018-04-02] MEDS: RESP: ALBUTEROL 2.5 MG/IPRATROPIUM 0.5 MG NEB (SCH) NEB ×3 (07:27→19:36)
[2018-04-02] MEDS: INSULIN ASPART 1,000 UNITS/10 ML VIAL SQ SCH ×3 (08:14→16:28)
[2018-04-02] MEDS: INSULIN ASPART SUPPLEMENTAL SCALE SQ SCH ×3 (08:15→21:13)
[2018-04-02] MEDS: POTASSIUM CHLORIDE 20 MEQ CONTROLLED RELEASE TAB PO SCH ×2 (08:17→21:09)
[2018-04-02] MEDS: FUROSEMIDE 40 MG/4 ML VIAL IVP SCH (08:17)
[2018-04-02] MEDS: FLUoxetine HCL 20 MG CAP PO SCH (08:20)
[2018-04-02] MEDS: DILTIAZEM HCL 60 MG TAB PO SCH ×2 (08:20→21:09)
[2018-04-02] MEDS: METOPROLOL TARTRATE 50 MG TAB PO SCH ×2 (08:21→21:09)
[2018-04-02] MEDS: LISINOPRIL 10 MG TAB PO SCH (08:21)
[2018-04-02] MEDS: ENOXAPARIN SODIUM 40 MG/0.4 ML SYRINGE SQ SCH (08:21)
[2018-04-02] MEDS: SODIUM CHLORIDE 0.9% FLUSH 10 ML FLUSH IV FLUSH SCH ×2 (08:23→21:09)
[2018-04-02] MEDS: BUDESONIDE-FORMOTEROL 160/4.5 MCG INHALER INH SCH ×2 (08:26→21:09)
--- NOTE | 2018-04-02 09:32 | HHI.PR ---
Subjective Remarks Patient seen and examined today for follow-up on respiratory failure. Patient is doing much better. She appears to be resting comfortably. She has been weaned down to her baseline oxygen supplementation. Vital signs appear to be stable, patient remains afebrile. Objective Vitals Vital Signs Date Time Temp Pulse Resp B/P (MAP) Pulse Ox O2 Delivery O2 Flow Rate FiO2 04/02/18 07:29 98 Nasal Cannula 2.50 04/02/18 04:00 96.2 82 20 105/69 (81) 96 04/02/18 00:00 96.6 83 20 96/51 (66) 95 04/01/18 23:52 89 04/01/18 21:05 94 04/01/18 21:05 Nasal Cannula 3.00 04/01/18 20:37 96 Nasal Cannula 2.50 04/01/18 20:00 97.2 91 24 108/55 (72) 95 04/01/18 16:00 97.0 98 18 113/68 (83) 96 04/01/18 13:40 95 Nasal Cannula 2.50 04/01/18 13:38 95 Nasal Cannula 2.50 04/01/18 12:00 97.8 86 18 97/59 (72) 96 I/O 04/01/18 04/01/18 04/01/18 04/02/18 04/02/18 04/02/18 07:00 15:00 23:00 07:00 15:00 23:00 Intake Total 65 ml 240 ml Output Total 300 ml 750 ml 650 ml Balance -300 ml -685 ml -410 ml Intake Oral 65 ml 240 ml Output Urine Total 300 ml 750 ml 650 ml # Bowel Movements 0 Result Diagram: 04/01/18 0520 04/01/18 0520 Objective Remarks GENERAL: Well-developed, well-nourished, in no acute distress. alert and orientated. Patient appears to be more comfortable. No more signs of respiratory distress HEENT: Head is normocephalic without any lesions or masses noted. Facial features are symmetric. Eyes: Extraocular muscles are intact. Conjunctivae were clear. NECK: Supple without any masses. Trachea midline no deviation. No JVD CARDIAC: Regular rhythm, regular rate. S1/S2 are heard. No murmurs gallops or rubs. LUNGS: Patient with diminished breath sounds noted throughout, absent breath sounds noted in the right lower lung hart.. No wheeze, rhonchi or rales. No use of accessory muscles on inspiration or expiration. ABDOMEN: Soft, nontender. Nondistended. Bowel sounds heard in all 4 quadrants. No organomegaly or masses. Negative rebound, negative guarding EXTREMITIES: No edema, pulses are equal bilaterally. No cyanosis or clubbing NEUROLOGY: Mood and affect appear appropriate. Cranial nerves II through XII grossly intact. Moving all extremities, speech is clear Urinary Catheter: Yes Assessment to: Remove Vascular Central Line Catheter: No A/P Assessment and Plan Sepsis on presentation, resolved -Patient meets criteria with tachycardia, leukocytosis, patient with urinary tract infection -Continue to follow urine culture for appropriate antibiotics -Blood cultures are negative for 1 day -Influenza testing was negative, lactic acid level is normal -Awaiting sputum culture -Pulmonary angiogram does indicate bilateral opacities which does appear like pneumonia versus compressive atelectasis -Continue Levaquin 750 mg p.o. daily -Monitor CBC Acute on chronic respiratory failure with hypoxia, patient at baseline -Multifactorial with significant right-sided pleural effusion, congestive heart failure, COPD, oxygen dependency -Continue O2 sat mentation maintain O2 sats greater than 92% -Continue Solu-Medrol 60 mg every 6 hours, changed to p.o. prednisone 40 mg twice daily -Duo nebs every 6 hours while awake and every 2 hours as needed -Continue antibiotics as above -Pro-calcitonin level was normal -Therapeutic thoracentesis was performed with removal of 1100 cc of pleural fluid -Lasix 40 mg IV every 12 hours, changed to p.o. -Monitor BMP, electrolytes -Echocardiogram from 02/27/18 shows ejection fraction 45-50% with mildly reduced ventricular function. Trace to mild mitral valve regurgitation, mild aortic valve regurgitation -Continue beta-senthil, MARY inhibitor -Fluid restriction Sacral skin breakdown -Wound care nurse made recommendations Chronic atrial fibrillation, hypertension -Continue home medications Diabetes -Worsened secondary to steroid use -Accu-Cheks with sliding scale insulin -Levemir 50 units at bedtime -NovoLog 6 units 3 times daily before meals -Diabetic diet DVT prevention -Patient resumed on Xarelto Discharge Planning enterprise project manager consulted to try to help arrange discharge planning to rehab versus home with home health care Antelmo Dsouza Apr 02, 2018 09:32
--- NOTE | 2018-04-02 09:34 | HHI.FF ---
Face to Face Verification Diagnosis: (1) Acute and chronic respiratory failure with hypoxia (2) CO2 retention (3) Systemic inflammatory response syndrome (4) Chronic obstructive pulmonary disease (5) Acute on chronic systolic CHF (congestive heart failure) (6) Hypoxemia (7) s/p orifLEFT DISTAL FEMUR Physical Therapy Order: Evaluate and Treat, Improve ambulation, Strength and gait training Occupational Therapy Order: Evaluate and Treat, Improve ADL, Gross motor coordination, Fine motor coordination Home Health Nursing Order: Medical education Signs/symptoms of disease process CHF education Wound care and dressing changes Nursing assessment with vital signs Instructions: Recommendation: 1. Reposition patient every 2 hours for comfort and offloading. 2. Cleanse intra gluteal cleft/gluteus with remedy soft cloth barrier wipes . 3. Apply Calazime cream to open areas BID or as needed for incontinence. 4. Please reframe from placing patient on cotton underpad please use UltraSorb moisture wicking under pads. Machine Puller Order: To Evaluate: Living conditions/environment, Support services Order: To Provide: Community services I have seen patient Ramandeep Greene on 04/02/18. My clinical findings support the need for the requested home health care services because: Patient has SOB Deconditioned w/ increased weakness Med compliance is questionable Limited ability to care for self Need for psychosocial assistance I certify that my clinical findings support that this patient is homebound because: Hx COPD- exertion dyspnea/weakness Unsteady gait/balance Unsafe to leave home unassisted Antelmo Dsouza Apr 02, 2018 09:34
[2018-04-02] MEDS: predniSONE 20 MG TAB PO SCH ×2 (10:32→21:09)
[2018-04-02] MEDS: RIVAROXABAN 20 MG TAB PO SCH (10:32)
[2018-04-02] MEDS: ALPRAZolam 0.25 MG TAB PO PRN (10:40)
[2018-04-02] MEDS ORDERED: INSULIN ASPART SUPPLEMENTAL SCALE SQ SCH (12:00)
[2018-04-02] MEDS: LEVOFLOXACIN 750 MG TAB PO SCH (15:57)
[2018-04-02] MEDS: FUROSEMIDE 40 MG TAB PO SCH (18:04)
--- NOTE | 2018-04-02 18:12 | HHI.PR ---
Subjective Remarks 68 YOWF with rec[address]rent [address] eff, s/p TC Breathing better On 02 2LNC No cough or sp Up in chair at BS Objective Vital Signs Vital Signs Date Time Temp Pulse Resp B/P (MAP) Pulse Ox O2 Delivery O2 Flow Rate FiO2 04/02/18 12:00 97.0 90 18 119/60 (79) 96 04/02/18 08:10 95 Nasal Cannula 2.50 Humidified 04/02/18 08:10 112 04/02/18 08:00 96.4 99 18 120/59 (79) 95 04/02/18 07:29 98 Nasal Cannula 2.50 04/02/18 04:00 96.2 82 20 105/69 (81) 96 04/02/18 00:00 96.6 83 20 96/51 (66) 95 04/01/18 23:52 89 04/01/18 21:05 94 04/01/18 21:05 Nasal Cannula 3.00 04/01/18 20:37 96 Nasal Cannula 2.50 04/01/18 20:00 97.2 91 24 108/55 (72) 95 I/O 04/01/18 04/01/18 04/01/18 04/02/18 04/02/18 04/02/18 07:00 15:00 23:00 07:00 15:00 23:00 Intake Total 65 ml 240 ml Output Total 300 ml 750 ml 650 ml Balance -300 ml -685 ml -410 ml Intake Oral 65 ml 240 ml Output Urine Total 300 ml 750 ml 650 ml # Bowel Movements 0 Result Diagram: 04/01/1851904/01/1820 Objective Remarks GENERAL: Elderly WF,NAD SKIN: Warm and dry. HEAD: Normocephalic. EYES: No scleral icterus. No injection or drainage. NECK: Supple, trachea midline. No JVD or lymphadenopathy. CARDIOVASCULAR: Regular rate and rhythm without murmurs, gallops, or rubs. RESPIRATORY: Breath sounds equal bilaterally. No accessory muscle use. GASTROINTESTINAL: Abdomen soft, non-tender, nondistended. MUSCULOSKELETAL: No cyanosis, or edema. BACK: Nontender without obvious deformity. No CVA tenderness. A/P Assessment and Plan IMPRESSION: 1. Recurrent pleural effusion secondary to underlying congestive heart failure and cardiomyopathy. On her previous study, pleural fluid is transudate. No signs of infection. Cytology was negative. 2. Congestive heart failure. 3. Pulmonary hypertension. 4. Chronic obstructive pulmonary disease. 5. History of cancer of the breast. PLAN: Diurease Monitor Renal functions Cont Abx Pred 20 mg bid Aerosol nebs Xarelto [address]Ahmad FRANKLIN plans underway Available prn over weekend Luisito Dior MD Apr 02, 2018 18:12
[2018-04-02] MEDS: DOCUSATE SODIUM 100 MG CAP PO SCH (21:09)
[2018-04-02] MEDS: INSULIN DETEMIR 100 UNITS/ML VIAL SQ SCH (21:12)
[2018-04-03] VITALS: BP 115/66; PULSE 102; RESP 20; TEMP 97.1; O2SAT 97
--- NOTE | 2018-04-03 06:59 | RADRPT ---
EXAM DATE: 04/03/2018 6:47 AM EDT AGE/SEX: 68 years / Female INDICATIONS: Shortness of breath. CLINICAL DATA: This is the patient's subsequent encounter. Patient reports that signs and symptoms h ave been present for 3 days and indicates a pain score of 0/10. MEDICAL/SURGICAL HISTORY: . Carcinoma, breast. Chronic obstructive pulmonary disease. Congestiv e heart failure. Hypertension. Diabetes. . Hysterectomy. COMPARISON: [facility], CHEST PA & LAT, 04/02/2018. . FINDINGS: PA and lateral views of the chest demonstrate cardiomegaly with interstitial edema. Airspace disease right lung base.. Osseous structures are intact. CONCLUSION: Cardiomegaly with interstitial edema and airspace disease right lower lobe. Electronically signed by: Tyrone Alvarez MD 04/03/2018 6:58 AM EDT
[2018-04-03] MEDS: RESP: ALBUTEROL 2.5 MG/IPRATROPIUM 0.5 MG NEB (SCH) NEB ×2 (07:41→14:20)
[2018-04-03 07:43] VITALS: O2SAT 98
[2018-04-03 07:50] VITALS: BP 137/75; PULSE 81; RESP 20; TEMP 96.2; O2SAT 99
[2018-04-03] MEDS: LISINOPRIL 10 MG TAB PO SCH (08:26)
[2018-04-03] MEDS: METOPROLOL TARTRATE 50 MG TAB PO SCH (08:26)
[2018-04-03] MEDS: predniSONE 20 MG TAB PO SCH (08:26)
[2018-04-03] MEDS: DILTIAZEM HCL 60 MG TAB PO SCH (08:27)
[2018-04-03] MEDS: DOCUSATE SODIUM 100 MG CAP PO SCH (08:27)
[2018-04-03] MEDS: POTASSIUM CHLORIDE 20 MEQ CONTROLLED RELEASE TAB PO SCH (08:27)
[2018-04-03] MEDS: FUROSEMIDE 40 MG TAB PO SCH (08:27)
[2018-04-03] MEDS: FLUoxetine HCL 20 MG CAP PO SCH (08:28)
[2018-04-03] MEDS: RIVAROXABAN 20 MG TAB PO SCH (08:28)
[2018-04-03] MEDS: BUDESONIDE-FORMOTEROL 160/4.5 MCG INHALER INH SCH (08:29)
[2018-04-03] MEDS: SODIUM CHLORIDE 0.9% FLUSH 10 ML FLUSH IV FLUSH SCH (08:30)
[2018-04-03] MEDS: INSULIN ASPART SUPPLEMENTAL SCALE SQ SCH ×2 (08:43→12:37)
[2018-04-03] MEDS: INSULIN ASPART 1,000 UNITS/10 ML VIAL SQ SCH ×2 (08:44→12:36)
[2018-04-03] MEDS ORDERED: Albuterol-Ipratropium Neb NEB (09:53)
[2018-04-03] MEDS ORDERED: LEVA750T9 PO (09:53)
[2018-04-03] MEDS ORDERED: POTA20TA5 PO (09:53)
[2018-04-03] MEDS ORDERED: FURO40TA PO (09:53)
[2018-04-03] MEDS ORDERED: MEDR4PAK PO (09:53)
--- NOTE | 2018-04-03 09:54 | HHI.DCPOC ---
Discharge Care Plan Diagnosis: (1) Acute on chronic systolic CHF (congestive heart failure) (2) Acute and chronic respiratory failure with hypoxia (3) Pleural effusion, right (4) Hypoxemia Goals to Promote Your Health * To prevent worsening of your condition and complications * To maintain your health at the optimal level Directions to Meet Your Goals Take your medications as prescribed Follow your dietary instruction Follow activity as directed Keep your appointments as scheduled Take your immunizations and boosters as scheduled If your symptoms worsen call your PCP, if no PCP go to Urgent Care Center or Emergency Room Smoking is Dangerous to Your Health. Avoid second hand smoke Call the 24-hour hour crisis hotline for domestic abuse at Antelmo Dsouza Apr 03, 2018 09:53
--- NOTE | 2018-04-03 09:59 | HHI.DS ---
Discharge Summary Admission Date Mar 31, 2018 at 07:20 Discharge Date: Apr 03, 2018 Admitting Diagnosis pulm edema (1) Systemic inflammatory response syndrome ICD Code: R65.10 - Systemic inflammatory response syndrome (SIRS) of non- infectious origin without acute organ dysfunction Diagnosis: Principal (2) Acute and chronic respiratory failure with hypoxia ICD Code: J96.21 - Acute and chronic respiratory failure with hypoxia Diagnosis: Principal (3) Acute on chronic systolic CHF (congestive heart failure) ICD Code: I50.23 - Acute on chronic systolic (congestive) heart failure Diagnosis: Principal (4) CO2 retention ICD Code: E87.2 - Acidosis Diagnosis: Principal (5) Chronic obstructive pulmonary disease ICD Code: J44.9 - Chronic obstructive pulmonary disease, unspecified Diagnosis: Principal (6) Leukocytosis ICD Code: D72.829 - Elevated white blood cell count, unspecified Diagnosis: Principal (7) Pleural effusion, right ICD Code: J90 - Pleural effusion, not elsewhere classified Diagnosis: Principal (8) Hypokalemia ICD Code: E87.6 - Hypokalemia Diagnosis: Principal Procedures None Brief History - From Admission This is a 68-year-old female with known history of atrial fibrillation , hyperlipidemia, hypertension, diabetes, chronic hypoxic respiratory failure, CO2 retention, chronic obstructive pulmonary disease, chronic systolic congestive heart failure, cardiomyopathy who presented to the emergency department again because of shortness of breath and dyspnea. Patient was recently made to the hospital beginning this month. She was hospitalized from until 03/19/18 for right-sided pleural effusion, CHF, COPD. Patient was discharged home with home health care. Patient was receiving home health care on a daily basis, however family and caregivers indicate that they were not getting that will of service and the patient started developing worsening shortness of breath, difficulty breathing, started having skin breakdown on her left buttocks. Patient started developing significant respiratory distress so they brought her to the hospital for evaluation. Patient had workup done and found to have multiple problems to include recurrent right-sided pleural effusion, pulmonary edema, elevated BNP, leukocytosis, possible sepsis, will need to evaluate for infection source. Upon seeing the patient she appears very anxious, tachypneic, tachycardic. She was given Lasix 100 mg IV in the emergency department with almost 2500 cc of urinary output. Patient states that she does not have any significant relief with her respiratory status even after the diuresis. Upon review of CT scan does appear patient does have some patchy infiltrates, recurrent very large right-sided pleural effusion. Patient would need rather extensive workup again in the hospital rule out any infection source. She will require therapeutic thoracentesis. Discussed with friends, caregiver and patient at bedside. Had long conversation with them. Explaining the patient's condition, showing them x-rays and laboratory results. Patient rather distressed situation with her clinical condition. Patient may need to be moved to ICU for closer monitoring if she does not improve shortly. CBC/BMP: 04/01/18 0520 04/01/18 0520 Significant Findings Laboratory Tests Test 03/31/18 17:50 03/31/18 18:20 03/31/18 22:16 04/01/18 05:20 Urine Protein 30 mg/dL (NEG-TRACE) Urine Ketones 15 mg/dL (NEG) Urine Occult Blood LARGE (NEG) Urine Leukocyte Esterase TRACE (NEG) Urine RBC 50-99 /hpf (0-3) Urine WBC 100-200 /hpf (0-5) Urine WBC Clumps FEW (NONE) Urine Bacteria FEW /hpf (NONE) Total Bilirubin 1.4 MG/DL (0.2-1.0) Direct Bilirubin 0.5 MG/DL (0.0-0.2) Indirect Bilirubin 0.9 MG/DL (0.0-0.8) Albumin 2.4 GM/DL (3.4-5.0) Red Blood Count 3.80 MIL/MM3 (4.00-5.30) Hemoglobin 9.9 GM/DL (11.6-15.3) Hematocrit 30.1 % (35.0-46.0) Mean Corpuscular Volume 79.4 FL (80.0-100.0) Mean Corpuscular Hemoglobin 26.0 PG (27.0-34.0) Red Cell Distribution Width 19.2 % (11.6-17.2) Mean Platelet Volume 11.6 FL (7.0-11.0) Neutrophils (%) (Auto) 89.8 % (16.0-70.0) Lymphocytes (%) (Auto) 5.1 % (9.0-44.0) Lymphocytes # (Auto) 0.4 TH/MM3 (1.0-4.8) Random Glucose 392 MG/DL (74-106) Sodium Level 135 MEQ/L (136-145) Chloride Level 93 MEQ/L (98-107) Carbon Dioxide Level 33.5 MEQ/L (21.0-32.0) Test 04/02/18 05:00 B-Type Natriuretic Peptide 359 PG/ML (0-100) Imaging Last Impressions Chest X-Ray 04/03/18 0600 Signed Impressions: CONCLUSION: Cardiomegaly with interstitial edema and airspace disease right lower lobe. Thoracentesis Ultrasound 04/01/18 0000 Signed Impressions: CONCLUSION: 1. Uncomplicated right thoracentesis. CT Angiography 03/31/18 0725 Signed Impressions: CONCLUSION: 1. Pulmonary arteries are visualized to the proximal segmental level without e vidence for pulmonary artery embolism. More distal segmental and subsegmental b ranches are inadequately opacified for definitive evaluation. 2. Minimally progressed pulmonary edema pattern with stable moderate right and trace left pleural effusions. 3. Mild four-chamber cardiac enlargement with persistent prominent main pulmon radha artery consistent with some degree of pulmonary artery hypertension. PE at Discharge GENERAL: Well-developed, well-nourished, in no acute distress. alert and orientated. Patient appears to be more comfortable. No more signs of respiratory distress HEENT: Head is normocephalic without any lesions or masses noted. Facial features are symmetric. Eyes: Extraocular muscles are intact. Conjunctivae were clear. NECK: Supple without any masses. Trachea midline no deviation. No JVD CARDIAC: Regular rhythm, regular rate. S1/S2 are heard. No murmurs gallops or rubs. LUNGS: Patient with diminished breath sounds noted throughout, absent breath sounds noted in the right lower lung hart.. No wheeze, rhonchi or rales. No use of accessory muscles on inspiration or expiration. ABDOMEN: Soft, nontender. Nondistended. Bowel sounds heard in all 4 quadrants. No organomegaly or masses. Negative rebound, negative guarding EXTREMITIES: No edema, pulses are equal bilaterally. No cyanosis or clubbing NEUROLOGY: Mood and affect appear appropriate. Cranial nerves II through XII grossly intact. Moving all extremities, speech is clear Hospital Course 68-year-old female with known history of atrial fibrillation, hyperlipidemia, hypertension, diabetes, chronic hypoxic rotatory failure, CO2 retention, chronic obstructive pulmonary disease, chronic systolic heart failure, cardiomyopathy who originally presented to the emergency department for evaluation of shortness of breath and difficulty breathing. Patient does have multiple readmissions to the hospital for similar events. Her most recent hospitalization she had right-sided pleural effusion and that had a diagnostic/ therapeutic thoracentesis which indicated transudate of fluid. Patient was discharged home on Lasix 40 mg daily. Patient continued to have worsening shortness of breath, patient is bed bound and nonweightbearing on her left lower extremity from a femur fracture. Patient been noncompliant with her fluid intake. When she represented back to the hospital she is again found to have acute hypoxic respiratory failure and was found to have reaccumulation of right-sided pleural effusion. Patient did undergo therapeutic thoracentesis during this hospitalization and after thoracentesis her respiratory status improved immensely she is back to baseline. Chest x-ray does show possible airspace consolidation in the right lower lobe she had been on antibiotics include Levaquin upon admission. On initial presentation patient was started on treatment for respiratory failure to include increase of diuresis with Lasix 40 mg twice daily, Solu-Medrol, O2 supplementation, duo nebs, antibiotics. Patient has tolerated treatment well. Follow-up x-ray does not indicate any reaccumulation of the right-sided pleural effusion prior to discharge. Patient clinically stable at this time. She is very eager to go home. Patient already has home health care set up. manager mobility consulted and had resumption of her home health care. Patient be discharge accordingly. Pt Condition on Discharge: Stable Discharge Disposition: Disch w/ Home Health Serv Discharge Time: > 30 minutes Discharge Instructions DIET: Follow Instructions for: Heart Healthy Diet, Diabetic Diet Activities you can perform: Non Weight Bearing Follow up Referrals: PCP Follow-up - 1 Week Pulmonology - 1 Week with Luisito Dior MD New Medications: Methylprednisolone Dosepak (Medrol Dosepak) 4 Mg Dspk 4 MG PO DIRECTED, #1 DSPK 0 Refills Per Pharmacist direction Furosemide (Furosemide) 40 Mg Tab 40 MG PO BID@09,18 for Diuretic for 30 Days, TAB Levofloxacin (Levaquin) 750 Mg Tablet 750 MG PO DAILY@1600 for Infection for 7 Days, TAB Potassium Chloride Microencaps (Potassium Chloride Microencaps) 20 Meq Tab 20 MEQ PO BID for electrolyte replacement for 30 Days, #60 TAB [Albuterol-Ipratropium Neb] () 1 AMPULE NEBU 1 AMPULE NEB Q6HR WHILE AWAKE NEB for Broncospasm for 30 Days, AMPULE Continued Medications: Diltiazem (Cardizem) 30 Mg Tab 60 MG PO BID for Regulate Heart Beat, #120 TAB 0 Refills Fluoxetine (Prozac) 40 Mg Cap 40 MG PO DAILY, #30 CAP 0 Refills Hydrocodone-Acetaminophen (Hydrocodone-Acetaminophen) 10-325 mg Tab 1 TAB PO Q4H PRN for PAIN, #60 TAB 0 Refills Insulin Aspart Inj (Novolog Inj) 1,000 Unit/10 Ml Vial 0 SQ DIRECTED for Blood Sugar Management, #10 ML 0 Refills Sliding Scale as directed. Insulin Aspart Inj (Novolog Inj) 1,000 Unit/10 Ml Vial 0 SQ DIRECTED for Blood Sugar Management, #10 ML 0 Refills Sliding Scale as directed. Insulin Glargine Inj (Lantus Inj) 1,000 Unit/10 Ml Vial 50 UNITS SQ HS for Blood Sugar Management, VIAL 0 Refills Lisinopril (Lisinopril) 10 Mg Tab 10 MG PO DAILY, #30 TAB 0 Refills Metoprolol Tartrate (Metoprolol Tartrate) 50 Mg Tab 50 MG PO BID, #60 TAB 0 Refills Rivaroxaban (Xarelto) 20 Mg Tab 20 MG PO DAILY for Blood Clot Prevention, TAB 0 Refills Umeclidinium-Vilanterol Inh (Anoro Ellipta Inh) 62.5-25 Mcg/Act Aero 1 PUFF INH DAILY for COPD, #1 INHALER 0 Refills [Oxygen] () 2.5 LITER NASAL Discontinued Medications: Aspirin DR (Aspirin DR) 81 Mg Tabdr 81 MG PO DAILY for cardiac, #30 TAB Enalapril (Enalapril) 5 Mg Tab 5 MG PO BID for htn, #30 TAB Furosemide (Furosemide) 40 Mg Tab 40 MG PO DAILY for chf, #30 TAB Potassium Chloride ER (Potassium Chloride ER) 10 Meq Cap 10 MEQ PO EVERY OTHER DAY for Electrolyte Replacement, #30 CAP 0 Refills Antelmo Dsouza Apr 03, 2018 09:59
[2018-04-03 11:50] VITALS: BP 129/73; PULSE 78; RESP 20; TEMP 96.4; O2SAT 96
== END 2018-04-03 15:30 | disposition home health service (06) | DRG 291 ==
LOC: PHED 05:26 → PHEDA 07:20 → PH3B 09:23
PROVIDERS: ADMIT Hospitalist; ATTEND Hospitalist
PROC: 0W993ZZ Drainage of Right Pleural Cavity, Percutaneous Approach (ICD-10-PCS; principal; 2018-04-01)
DX: I11.0 Hypertensive heart disease with heart failure (principal); I50.23 Acute on chronic systolic (congestive) heart failure; A41.9 Sepsis, unspecified organism; J90 Pleural effusion, not elsewhere classified; I42.9 Cardiomyopathy, unspecified; Z68.41 Body mass index [BMI] 40.0-44.9, adult; N39.0 Urinary tract infection, site not specified; I48.2 Chronic atrial fibrillation; Z79.02 Long term (current) use of antithrombotics/antiplatelets; Z79.82 Long term (current) use of aspirin; E66.9 Obesity, unspecified; J44.9 Chronic obstructive pulmonary disease, unspecified; E78.5 Hyperlipidemia, unspecified; E11.9 Type 2 diabetes mellitus without complications; Z79.4 Long term (current) use of insulin; E87.6 Hypokalemia; Z91.19 Patient's noncompliance with other medical treatment and regimen; S72.92XD Unspecified fracture of left femur, subsequent encounter for closed fracture with routine healing; Z74.01 Bed confinement status; Z85.3 Personal history of malignant neoplasm of breast; Z23 Encounter for immunization
CPT/HCPCS: 32555; 36600; 71045; 71046; 71275; 80048; 80076; 81001; 82805; 82948; 83605; 83880; 84145; 84484; 85025; 85379; 85610; 85730; 87040; 87077; 87086; 87186; 87804; 90732; 93005; 94640; 94664; C1729; J1650; J1815; J1940; J1956; J2930; J7512; Q9967